=== PATIENT | female | born 1990 | race Caucasian/White ===

== ENCOUNTER 2021-01-04 16:25 | Emergency (ER) | payer OTHER, SELFPAY ==
[2021-01-04 16:26] VITALS: BP 95/67; PULSE 91; RESP 18; TEMP 36.7; O2SAT 97; BMI 22.7
[2021-01-04 18:14] VITALS: O2SAT 100
--- NOTE | 2021-01-04 18:16 | RAD_ITS ---
EXAM: XR CHEST, 1 VIEW CLINICAL INDICATION: covid TECHNIQUE: Frontal view of the chest. This report was created using [employer] report generation technology. COMPARISON: None. FINDINGS: LUNGS AND PLEURAL SPACES: Unremarkable. No consolidation or edema. No pneumothorax. No effusion. HEART: Unremarkable. Cardiac silhouette not enlarged. MEDIASTINUM: Central airways and mediastinal contour are unremarkable. BONES/JOINTS: Unremarkable. SOFT TISSUES: Unremarkable. RAD/Chest 1 View (Portable) IMPRESSION: No radiographic evidence of acute cardiopulmonary disease. Electronically Signed: Mirza Montes De Oca MD at 19:04 EDT , Service support ,
--- NOTE | 2021-01-04 18:17 | EDS_ITS ---
HPI History of Present Illness Chief Complaint: Shortness of Breath Informant: patient and spouse/S.O. Onset/Context/Timing Onset: Days Context: gradual Timing: Intermittent Current Severity: Mild Maximum Severity: Mild Worsened by: Coughing Relieved by: Rest Associated Symptoms cough, rhinorrhea and fever; Negative for clear sputum, white sputum, yellow sputum or green sputum Chest Pain: Positive for None Narrative Narrative: 30-year-old female no significant past medical or surgical history. She has chronically low blood pressure according to her significant other. Patient was diagnosed with Covid and has had symptoms for about 10 days. She denies vomiting or diarrhea. She has had intermittent fevers. Nonproductive cough and mild shortness of breath. No hemoptysis. No history of DVT or PE. No leg pain or swelling. She currently is on antibiotics amoxicillin for a sinus infection. PE Risk Factors: Negative for Cancer, OCP + Smoking + > 35, Prior DVT or PE, Recent immobilization, Recent surgery and Recent travel Prior similar symptoms: No Recent Illness/Hospitalization: No PFSH PFSH Medical History Hypotension Home Medications dexamethasone [Decadron] 6 mg PO DAILY 7 Days #7 tab 01/04/21 [Rx Last Taken Unknown] ondansetron 4 mg PO Q8H PRN #10 tab 01/04/21 [Rx Last Taken Unknown] Allergy/AdvReac Type Severity Reaction Status Date / Time No Known Allergies Allergy Verified 01/04/21 16:29 Social History Smoking Status: Never smoker ROS ROS ED ROS Narrative Fevers, cough and shortness of breath. Review of Systems ROS Unobtainable: Denies due to encephalopathy Constitutional Constitutional ED: Reports fever(s); Denies chills or sweats Eyes Eyes: Denies change in vision ENT ENT ED: Reports rhinorrhea; Denies ear pain or sore throat Cardiovascular Cardiovascular: Denies chest pain or palpitations Respiratory/Chest Respiratory/Chest: Reports cough and dyspnea; Denies sputum Gastrointestinal Gastrointestinal: Reports nausea; Denies abdominal pain, diarrhea or vomiting Genitourinary Genitourinary ED: Denies dysuria or hematuria Musculoskeletal Musculoskeletal: Reports myalgias Integumentary Denies rash Neurologic Neurologic: Denies headache(s) Psychiatric Psychiatric: Denies depression Endocrine Endocrinology: Denies polyuria Hematologic/Lymphatic Hematologic/Lymphatic: Denies easy bruising Allergic/Immunologic Allergic/Immunologic ED: Denies urticaria EXAM Physical Exam Narrative Exam Narrative: 30-year-old female no acute distress. Vital signs are stable afebrile. Her blood pressure is 95/67 which I state is her baseline. Pulse ox 97% on room air no signs hypoxia. HEENT exam unremarkable. Moist mucous membranes. Neck nontender, no lymphadenopathy. No JVD. Lungs clear to auscultation bilaterally. Heart regular rhythm rate about 90 no murmur. Abdomen soft nontender normal bowel sounds no peritoneal signs. Moving all 4 extremities. Calves nontender without edema or cords. Back nontender. N eurologically she is awake alert with no focal motor deficits. Const Vital Signs: 01/04/21 16:26 01/04/21 18:14 Temperature 98.0 F Temperature Source Temporal Pulse Rate 91 Respiratory Rate 18 Blood Pressure 95/67 Blood Pressure Mean 76 Pulse Ox 97 Oxygen Delivery Method Room Air Room Air Positive well nourished and well developed; Negative for obese, cachectic, contractures or unkempt General Appearance ED: well developed and NAD; Negative for unkempt, cachectic, contractures or pallor Nutritional Appearance: Negative for cachectic or obese HEENT Reports moist mucous membranes atraumatic; Negative for trauma or tenderness Eyes PERRL and EOMs intact bilaterally Neck no lymphadenopathy, supple, no meningeal signs and no JVD General: Negative for tenderness Resp normal respiratory effort and clear to auscultation bilaterally Auscultation: Negative for rales, rhonchi or wheezes Cardio regular rate, regular rhythm, S1 normal heart sound, S2 normal heart sound and no murmurs GI non-tender, non-distended and no masses Auscultation: normoactive bowel sounds Palpation: soft; Negative for tender or guarding Back/Spine no CVA tenderness and normal to inspection General Back: Negative for CVA tenderness or tenderness Extremity normal to inspection General Extremety ED: Negative for edema or tenderness General Extremity: Negative for edema Neuro oriented x3 and CN's II-XII intact bilaterally Sensorium / Orientation: alert, oriented to person, oriented to place and oriented to time; Negative for orientation impaired, confused, lethargic or stuporous Speech: speech normal Gait (Neuro): normal gait Motor Exam: strength 5/5 throughout; Negative for general weakness Psych mental status grossly normal Appearance: Negative for unkempt Thought Process: normal thought process Skin no wounds and skin turgor normal General Skin Exam: Negative for jaundice or pallor Lesions: no lesions Rashes: no rashes MDM MDM MDM Narrative Medical decision making narrative: 30-year-old female Covid positive the symptoms for 10 days. Chest x-ray being obtained. Clinically she looks well she is not hypoxic. She is in no distress. Repeat exam patient is doing well at 6:55 PM and will be discharged home on Zofran as needed for nausea and Decadron daily first dose of Decadron given here. Radiography Chest X-Ray - ED: 1 View, Read by ED Physician, Normal, Heart, Lungs, Mediastinum, Bony Structures and No Acute Disease Discharge Plan Triage Chief Complaint: Shortness of Breath ED Provider: Lalo Baker Dx/Rx/DC Orders Clinical Impression: COVID-19, Acute dyspnea Instructions: Human Coronaviruses Prescriptions: New dexamethasone [Decadron] 6 mg tablet 6 mg PO DAILY 7 Days Qty: 7 RF: 0 ondansetron 4 mg tablet,disintegrating 4 mg PO Q8H PRN (Reason: nausea and vomiting) Qty: 10 RF: 0 Primary Care Provider: Shaan Kemp Referrals: Shaan Kemp MD [Primary Care Provider] - 1 Week if not improving Activity Restrictions/Additional Instructions: Plenty of fluids and rest. Tylenol and/or Motrin for fever Decadron once daily for the Covid. Zofran as needed for nausea. Follow-up with your doctor if not improving or return emergency department if feeling a lot worse. Disposition Disposition: Home, Self Care
[2021-01-04 19:22] VITALS: BP 101/52; PULSE 87; RESP 18; O2SAT 96
--- NOTE | 2021-01-04 19:22 | ED.RN ---
THIS NURSE REVIEWED D/C INSTRUCTIONS WITH PT AND . BOTH VERBALIZED UNDERSTANDING OF INSTRUCTIONS. PT DENIES FURTHER NEEDS OR QUESTIONS AT THIS TIME
== END 2021-01-04 19:23 | disposition home or self-care (01) ==
PROVIDERS: Emergency Provider Emergency Medicine; PCP Family Medicine
DX: U07.1 COVID-19 (principal); I95.9 Hypotension, unspecified
CPT/HCPCS: 71045; 99282

== ENCOUNTER → 2021-01-14 15:32 | Outpatient (CLI) | payer OTHER, SELFPAY ==
[2021-01-14 18:05] LABS: Hematocrit 40.8 % (37-47); Hemoglobin 13.3 g/dL (12.0-15.0); Mean Corp Hgb Conc 32.6 g/dL (32-36); Mean Corpuscular Hgb 31.4 pg (27.0-32.0); Mean Corpuscular Volume 96.5 fL (81-99); Mean Platelet Vol. 9.8 fl (6.2-12.0); Platelet Count 446 K/mm3 (150-450); RBC Distribution Width CV 11.5 % (11.6-14.6); RBC Distribution Width SD 40.6 fl (35.1-43.9); Red Blood Count 4.23 M/mm3 (4.2-5.4); White Blood Count 8.6 K/mm3 (4.4-11.0)
[2021-01-14 18:23] LABS: Anion Gap 7 (5-15); BUN 14 mg/dL (7-18); BUN/Creat Ratio 19.5 RATIO (10-20); Calcium,Total 8.8 mg/dL (8.5-10.1); Chloride 100 mmol/L (98-107); Creatinine, Serum 0.72 mg/dL (0.55-1.02); EST Glomerular Filtration Rate 100 mL/min (>60); Est Glom Filt Rate - Afr Amer 121 mL/min (>60); Ferritin 84 ng/mL (8-252); Glucose 92 mg/dL (74-106); Iron 119 ug/dL (50-170); Magnesium 2.3 mg/dL (1.6-2.6); Potassium 3.6 mmol/L (3.5-5.1); Sodium Level 137 mmol/L (136-145); Thyroid Stim Hormone (TSH) 3.18 uIU/mL (0.358-3.74)
[2021-01-14 18:28] LABS: Vitamin B12 261 pg/mL (211-911); Vitamin D,25 Hydroxy 34.5 ng/mL
[2021-01-17 23:17] LABS: ANTINUCLEAR ANTIBODIES DIRECT Negative (Negative)
== END ==
PROVIDERS: PCP Family Medicine; Referring Provider Family Medicine; Visit Provider Family Medicine
DX: G25.2 Other specified forms of tremor (principal); D64.9 Anemia, unspecified
CPT/HCPCS: 36415; 80048; 82306; 82607; 82728; 83540; 83735; 84403; 84443; 85027; 86038; 86769

== ENCOUNTER 2021-04-14 08:43 | Outpatient (CLI) | payer OTHER, SELFPAY ==
[2021-04-14 10:35] LABS: Vitamin B12 784 pg/mL (211-911); Vitamin D,25 Hydroxy 26.6 ng/mL
== END 2021-04-14 23:59 | disposition short-term general hospital (02) ==
LOC: MFPLAB 08:44
PROVIDERS: PCP Family Medicine; Referring Provider Family Medicine; Visit Provider Family Medicine
DX: E55.9 Vitamin D deficiency, unspecified (principal); E53.8 Deficiency of other specified B group vitamins
CPT/HCPCS: 36415; 82306; 82607

== ENCOUNTER 2021-06-03 10:45 | Outpatient (CLI) | payer SELFPAY ==
[2021-06-04 17:26] LABS: V-Zoster IgG (Immunity) 280 index (Immune >165)
== END 2021-06-03 23:59 | disposition home or self-care (01) ==
PROVIDERS: PCP Family Medicine; Referring Provider Family Medicine; Visit Provider Family Medicine
DX: Z78.9 Other specified health status (principal)
CPT/HCPCS: 36415; 86787

== ENCOUNTER → 2021-12-20 | Outpatient (CLI) | payer SELFPAY ==
[2021-12-20 15:33] LABS: Absolute Lymphocyte Count 1.48 X10^3/uL (0.83-4.51); Absolute Neutrophil Count 5.3 X10^3/uL (2.0-7.7); Basophil# 0.03 X10^3/uL; Basophil% 0.4 % (0-1); Eosinophil# 0.05 X10^3/uL; Eosinophils% 0.7 % (0-5); Hematocrit 36.4 % (37-47); Hemoglobin 12.6 g/dL (12.0-15.0); Lymphocyte # 1.48 X10^3/ul (0.83-4.51); Lymphocyte % 19.8 % (19-41); Mean Corp Hgb Conc 34.6 g/dL (32-36); Mean Corpuscular Volume 95.3 fL (81-99); Mean Platelet Vol. 9.8 fl (6.2-12.0); Monocyte# 0.55 X10^3/uL; Monocyte% 7.4 % (0-10); NRBC Flagged by Analyzer 0 % (0-5); Neutrophil # 5.32 X10^3/uL (2.7-7.7); Neutrophil % 71.3 % (47-70); Platelet Count 294 K/mm3 (150-450); RBC Distribution Width CV 11.9 % (11.6-14.6); RBC Distribution Width SD 41.1 fl (35.1-43.9); Red Blood Count 3.82 M/mm3 (4.2-5.4); White Blood Count 7.5 K/mm3 (4.4-11.0)
[2021-12-20 17:24] LABS: Amphetamine Urine VISTA NEGATIVE (<1000 ng/mL); Barbiturate Urine VISTA NEGATIVE (< 200 ng/mL); Benzodiazepine Urine VISTA NEGATIVE (< 200 ng/mL); Cocaine Urine VISTA NEGATIVE (< 300 ng/mL); Ecstacy Urine VISTA NEGATIVE (< 500 ng/mL); Methadone Urine VISTA NEGATIVE (< 300 ng/mL); PCP Urine VISTA NEGATIVE (< 25 ng/mL); THC Urine VISTA NEGATIVE (< 50 ng/mL); Vista UDS pH Range 7
[2021-12-21 09:47] LABS: HIV - WCH Non-Reactive (Nonreactive); Hepatitis B Surface Antigen Non-Reactive (Nonreactive); Hepatitis C Antibody Non-Reactive (Nonreactive); Rubella IgG Reactive (Nonreactive); Syphilis Antibodies Non-reactive
[2021-12-22 15:01] LABS: V-Zoster Virus Acute IgM < 0.91 index (0.00-0.90)
[2021-12-23 04:07] LABS: Chlamydia By Nucleic Acid AMP Negative (Negative)
[2021-12-23 13:49] LABS: Gonococcus By Nucleic Acid AMP Negative (Negative)
[2021-12-28 16:20] LABS: HPV APTIMA, High Risk Negative (Negative)
== END | disposition home or self-care (01) ==
PROVIDERS: PCP Family Medicine; Referring Provider Obstetrics & Gynecology; Visit Provider Obstetrics & Gynecology
DX: Z34.91 Encounter for supervision of normal pregnancy, unspecified, first trimester (principal); Z12.4 Encounter for screening for malignant neoplasm of cervix
CPT/HCPCS: 36415; 80307; 85025; 86703; 86762; 86780; 86787; 86803; 86850; 86900; 86901; 87086; 87088; 87340; 87491; 87591; 87624; 88175; G0145

== ENCOUNTER 2022-02-28 13:14 | Outpatient (CLI) | payer SELFPAY ==
--- NOTE | 2022-02-28 13:22 | US_ITS ---
EXAM: US SECOND OR THIRD TRIMESTER , TRANSABDOMINAL CLINICAL INDICATION: anatomy TECHNIQUE: Transabdominal obstetrical ultrasound of the maternal pelvis and a second or third trimester with image documentation. This report was created using [employer] report generation technology. COMPARISON: None. FINDINGS: FETUS: Single live fetus in variable lie and presentation with cardiac rate of 144 bpm. HEART RATE: PRESENTATION: Variable lie and presentation. PLACENTA: Anterior placenta. No placenta previa. No abruption. AMNIOTIC FLUID: Amniotic fluid index is normal. ANATOMY: spine not well seen due to positioning. Normal intracranial anatomy identified. Normal 4 chambered heart. diaphragm, stomach, abdominal wall, cord insertion, three-vessel cord, kidneys and bladder are normal. BIOMETRICS GESTATIONAL AGE: Composite menstrual age by measurements is 20 weeks 1 day. Gestational age by clinical dating is 19 weeks 4 days. RYLEE: Clinical RYLEE October 14, 2021. EFW: Estimated weight is 349 g. BPD: Biparietal diameter is 4.7 cm. HC: Head circumference is 17.4 cm. AC: Abdominal circumference is 15.6 cm. FL: Femur length is 3.2 cm. MATERNAL: UTERUS: Normal. No myometrial mass. CERVIX: Cervix is closed measuring 5 cm in length. ADNEXA: Normal. No adnexal masses. FREE FLUID: None. IMPRESSION: Single live 19 week 4 day intrauterine gestation. No anatomical abnormalities. Electronically Signed: Savage Lambert MD at 16:47 EST , EXAM: US , TRANSVAGINAL CLINICAL INDICATION: anatomy TECHNIQUE: Real-time transvaginal obstetrical ultrasound of the maternal pelvis and a first trimester with image documentation. Transvaginal imaging was used for better evaluation of the fetus and adnexa. This report was created using [employer] report generation technology. COMPARISON: None. FINDINGS: Endovaginal images demonstrate the cervix to be closed measuring 4.8 cm in length. No placenta previa. US/OB Anatomy Scan IMPRESSION: Normal closed cervix. Electronically Signed: Savage Lambert MD at 16:48 EST ,
== END 2022-02-28 23:59 | disposition home or self-care (01) ==
PROVIDERS: PCP Family Medicine; Visit Provider Obstetrics & Gynecology
DX: Z34.90 Encounter for supervision of normal pregnancy, unspecified, unspecified trimester (principal)
CPT/HCPCS: 76805; 76817

== ENCOUNTER → 2022-03-31 | Outpatient (CLI) | payer SELFPAY ==
[2022-03-31 14:40] LABS: Glucose Challenge Gest 1H 50g 106 mg/dL (70-140)
[2022-03-31 15:36] LABS: Absolute Lymphocyte Count 1.52 X10^3/uL (0.83-4.51); Absolute Neutrophil Count 4.7 X10^3/uL (2.0-7.7); Basophil# 0.03 X10^3/uL; Basophil% 0.4 % (0-1); Eosinophil# 0.07 X10^3/uL; Hematocrit 34.6 % (37-47); Lymphocyte # 1.52 X10^3/ul (0.83-4.51); Lymphocyte % 21.8 % (19-41); Mean Corp Hgb Conc 34.7 g/dL (32-36); Mean Corpuscular Hgb 33.4 pg (27.0-32.0); Mean Corpuscular Volume 96.4 fL (81-99); Mean Platelet Vol. 10.1 fl (6.2-12.0); Monocyte# 0.58 X10^3/uL; Monocyte% 8.3 % (0-10); NRBC Flagged by Analyzer 0 % (0-5); Neutrophil # 4.73 X10^3/uL (2.7-7.7); Neutrophil % 67.9 % (47-70); Platelet Count 280 K/mm3 (150-450); RBC Distribution Width CV 12.2 % (11.6-14.6); RBC Distribution Width SD 42.6 fl (35.1-43.9); Red Blood Count 3.59 M/mm3 (4.2-5.4)
[2022-03-31 16:11] LABS: HIV - WCH Non-Reactive (Nonreactive); Syphilis Antibodies Non-reactive
== END | disposition home or self-care (01) ==
PROVIDERS: PCP Family Medicine; Referring Provider Registered Nurse; Visit Provider Registered Nurse
DX: Z34.90 Encounter for supervision of normal pregnancy, unspecified, unspecified trimester (principal); Z80.0 Family history of malignant neoplasm of digestive organs
CPT/HCPCS: 36415; 82950; 85025; 86703; 86780

== ENCOUNTER → 2022-06-02 | Outpatient (CLI) | payer SELFPAY ==
--- NOTE | 2022-06-02 09:57 | US_ITS ---
STUDY: ULTRASOUND BREAST - RIGHT REASON FOR EXAM: Female, 31 years old. Palpable lump in the right breast. The patient is 33 weeks . TECHNIQUE: Axial and longitudinal images of the RIGHT breast were performed with a high resolution ultrasound transducer. # OF IMAGES: 25 COMPARISON: None. FINDINGS: RIGHT Breast: The palpable lump corresponds to a 6 mm x 7 mm x 6 mm cyst at the 10 o''clock position of the breast at 3 cm from the nipple. Incidental note is made of dilated retroareolar ducts. US/Breast Limited Unilateral IMPRESSION: 6 mm x 7 mm x 6 mm cyst at the 10 o''clock position of the breast at 3 cm from the nipple. Dilated retroareolar ducts. ASSESSMENT CATEGORY: BIRADS Category 2: Benign. A letter regarding these results will be sent to the patient by the facility within 30 days. Electronically Signed: Easton Fisher MD at 10:39 EST ,
== END | disposition home or self-care (01) ==
LOC: OPBI 09:51
PROVIDERS: PCP Family Medicine; Visit Provider Obstetrics & Gynecology
DX: N63.10 Unspecified lump in the right breast, unspecified quadrant (principal)
CPT/HCPCS: 76642

== ENCOUNTER → 2022-06-24 | Outpatient (CLI) | payer SELFPAY | END | disposition home or self-care (01) | PROVIDERS: PCP Family Medicine; Visit Provider Obstetrics & Gynecology | DX: Z34.90 Encounter for supervision of normal pregnancy, unspecified, unspecified trimester (principal) | CPT/HCPCS: 87081 ==

== ENCOUNTER 2022-07-09 15:25 | Outpatient (CLI) | payer SELFPAY ==
[2022-07-09 15:35] VITALS: BMI 29.2
[2022-07-09 15:51] VITALS: BP 111/67; PULSE 67
[2022-07-09 15:52] VITALS: TEMP 36.8; O2SAT 98
[2022-07-09 15:53] VITALS: PULSE 75; O2SAT 98
[2022-07-09 16:15] LABS: ROM Internal Control Test YES-OK TO RESULT pt. (Internal QC); ROM Patient Test Negative (Negative)
--- NOTE | 2022-07-09 16:44 | OB.TRI.PN_ITS ---
Progress Notes Date of Service: 07/09/22 Progress Note: Patient presents for triage evaluation secondary to possible SROM FHT: 125 Moderate variability reactive no decelerations category I tracing [place]: irregular Contractions Assessment and plan: Reactive NST, reassuring maternal and status patient discharged to home to follow-up in the office at next appointment. See problem list details for additional plan information. Laboratory Studies: Laboratory Tests 07/09/22 Range/Units 15:45 Vag Amniotic Fld Detect Negative (Negative) Charges/Coding Multi Select Codes Urinary/Genital Urinary/Genital CPT Codes: 34835-56 non-stress test Interp Assessment & Plan (1) Supervision of normal : COMMENT: PRR , RYLEE 07/21/22, boy Spouse Jimy (2) : QUALIFIERS: Weeks of gestation: 37 weeks Qualified Code(s): Z3A.37 - 37 weeks gestation of COMMENT: GBS neg, declines genetic and carrier testing, 03/01 nl anatomy PLAN: follow up at next appointment (3) Family history of malignant neoplasm of colon in relative diagnosed when younger than 50 years of age: COMMENT: GI consult for early screening
== END 2022-07-09 16:35 | disposition home or self-care (01) ==
LOC: WPOUT 15:34 → WP 15:35
PROVIDERS: PCP Family Medicine; Referring Provider Obstetrics & Gynecology; Visit Provider Obstetrics & Gynecology
DX: Z34.93 Encounter for supervision of normal pregnancy, unspecified, third trimester (principal); Z3A.37 37 weeks gestation of pregnancy
CPT/HCPCS: 59025; 59050; 84112; 99221; G0378

== ENCOUNTER 2022-07-10 | Outpatient (CLI) | payer SELFPAY ==
[2022-07-10 00:17] VITALS: BMI 29.5
[2022-07-10 00:34] VITALS: BP 109/65; PULSE 67; O2SAT 99
[2022-07-10 00:35] VITALS: TEMP 37.4
[2022-07-10 01:25] LABS: ROM Internal Control Test YES-OK TO RESULT pt. (Internal QC); ROM Patient Test Negative (Negative)
--- NOTE | 2022-07-10 08:43 | OB.TRI.PN_ITS ---
Progress Notes Date of Service: 07/10/22 Progress Note: Patient presents for triage evaluation secondary to possible SROM FHT: 125 Moderate variability reactive no decelerations category I tracing [place]: irregular Contractions Assessment and plan: Reactive NST, reassuring maternal and status patient discharged to home to follow-up in office. See problem list details for additional plan information. Laboratory Studies: Laboratory Tests 07/10/22 Range/Units 00:46 Vag Amniotic Fld Detect Negative (Negative) Charges/Coding Multi Select Codes Urinary/Genital Urinary/Genital CPT Codes: 27594-08 non-stress test Interp Assessment & Plan (1) Premature rupture of membranes: COMMENT: rule out 4/2- Rom + was neg PLAN: follow up in office
== END 2022-07-10 01:57 | disposition home or self-care (01) ==
LOC: WPOUT 00:09 → WP 00:10
PROVIDERS: PCP Family Medicine; Visit Provider Advanced Practice Midwife
DX: O42.90 Premature rupture of membranes, unspecified as to length of time between rupture and onset of labor, unspecified weeks of gestation (principal); Z3A.00 Weeks of gestation of pregnancy not specified
CPT/HCPCS: 59025; 59050; 84112; 99221; G0378

== ENCOUNTER 2022-07-22 03:30 | Inpatient (IN) | payer SELFPAY ==
[2022-07-22] VITALS (42 sets, daily range): BP systolic 86–161; BP diastolic 42–71; PULSE 61–90; RESP 14; TEMP 36.6–37.2; O2SAT 98–100; BMI 28.2
[2022-07-22] MEDS: Lactated Ringers 1,000 ML 50 ML IV (03:50)
[2022-07-22 04:03] LABS: Absolute Lymphocyte Count 2.29 X10^3/uL (0.83-4.51); Absolute Neutrophil Count 8.2 X10^3/uL (2.0-7.7); Basophil# 0.04 X10^3/uL; Basophil% 0.3 % (0-1); Eosinophil# 0.13 X10^3/uL; Eosinophils% 1.1 % (0-5); Hemoglobin 13.4 g/dL (12.0-15.0); Lymphocyte # 2.29 X10^3/ul (0.83-4.51); Lymphocyte % 19.2 % (19-41); Mean Corp Hgb Conc 33.5 g/dL (32-36); Mean Corpuscular Hgb 32.1 pg (27.0-32.0); Mean Corpuscular Volume 95.9 fL (81-99); Mean Platelet Vol. 12.4 fl (6.2-12.0); Monocyte# 1.15 X10^3/uL; Monocyte% 9.6 % (0-10); NRBC Flagged by Analyzer 0 % (0-5); Neutrophil # 8.24 X10^3/uL (2.7-7.7); Platelet Count 240 K/mm3 (150-450); RBC Distribution Width CV 12.6 % (11.6-14.6); RBC Distribution Width SD 43.9 fl (35.1-43.9); Red Blood Count 4.17 M/mm3 (4.2-5.4); White Blood Count 11.9 K/mm3 (4.4-11.0)
[2022-07-22] MEDS: fentaNYL 100 MCG/2 ML Ampul IV ×2 (05:01→07:24)
[2022-07-22] MEDS: Ondansetron 4 MG/2 ML Vial IV ×2 (05:01→09:30)
[2022-07-22] MEDS: 0.9% Saline Lock 10 ML Syringe IV ×2 (05:03→05:08)
[2022-07-22 05:36] LABS: Syphilis Antibodies Non-reactive
--- NOTE | 2022-07-22 07:18 | HP.PCM.OB_ITS ---
HPI - General General Date of Admission: 07/22/22 HPI Narrative CONCHA GREWAL, is a 31 F who presents IAL regular ctx 4 cm intact membranes, ctx since 10 pm last night. no vb lof admits good fm Maternal Data Information RYLEE Calculator Estimated Delivery Date Method Current WG Current Estimate 07/21/22 LMP (Certain) 40w 1d Other Estimates 07/22/22 Ultrasound #1 40w 0d PFSH PFSH Medical History Family hx of colon cancer Hypotension Home Medications multivit-min no.71-iron fum 28 mg-folate no.1 1 mg-dha 300 mg capsule (PNV- Costilla) 1 cap PO DAILY 12/15/21 [History Last Taken 07/20/22] Allergy/AdvReac Type Severity Reaction Status Date / Time house dust Allergy Mild Nasal Verified 07/15/22 09:37 congestion Family History Brother Colon cancer, Onset Age: 35 Social History adopted: No household members: spouse housing: house current occupational status: unemployed pets and animals: No history of recent travel: [place] ([place] out of state: Yes out of country: No sexually active: Yes Smoking Status: Never smoker alcohol intake: never substance use type: does not use well-balanced diet: daily or most days caffeine: No eating out: rarely or never during the past year weight has: remained stable what type of physical activity do you participate in: none brandyn/gnosticist: Religion seatbelt use: always do you feel safe at home: Yes 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 History 1 Elective abortions Hx Para 0 Spontaneous abortions Hx # Term Pregnancies Ectopic pregnancies Hx # Pregnancies Multiple births # of living children Visit Details Expected Delivery Route/Plan Labor Preferences- CB/BF classes: enc labor support person: Jimy labor intervention preferences: limted interventions pain management options preferred: [] cut cord/dad catch: [] : plans PP control planned: [] discussed possible routes of delivery and associated risks: [] special requests: [] Plans Covid status: discussed Flu vaccine: discussed Tdap vaccine: thinking about it Rhogam: na LARC form signed: done movement and labor precautions reviewed. Problem list reviewed and updated with the most current plan of care details and appropriate orders placed. Relevant counseling for the gestational age provided. Continue routine care and follow up unless otherwise noted in visit notes/problem list details OB Flowsheet Initial Weight: Not Recorded Date -?-?-?-?-?-?-?-?-?-?-?-?- EGA Weight BP Urine Prot -?-?-?-?-?-?-?-?-?-?-?-?- Glucose FHR FuHt Pres Dilation -?-?-?-?-?-?-?-?-?-?-?-?- Effaced St Visit Note 12/20/21 -?-?-?-?-?-?-?-?-?-?-?-?- 9w 4d 151 lb 92/58 -?-?-?-?-?-?-?-?-?-?-?-?- 170 -?-?-?-?-?-?-?-?-?-?-?-?- SM- CRL cons wit h LMP SM- CRL 2.7cm cons with LMP 01/17/22 -?-?-?-?-?-?-?-?-?-?-?-?- 13w 4d 152 lb 98/54 Negative -?-?-?-?-?-?-?-?--?-?-?-?- Negative 165 -?-?-?-?-?-?-?-?-?-?-?-?- MH-No VB. Very n auseous but keeping some fluids down. Rx zofran. 02/17/22 -?-?-?-?-?-?-?-?-?-?-?-?- 18w 0d 158 lb 2 oz 103/69 Nega tive -?-?-?-?-?-?-?-?-?-?-?-?- Negative 164 -?-?-?-?-?-?-?-?-?-?-?-?- JV- no lof, vagi nal bleeding, or cramping. tonsil hospital ultrasound scheduled. pt will decide if wants to do the HIV test now (self pay) rather than waiting for delivery due to recent problems with false positives for the rapid tests. 03/16/22 -?-?-?-?-?-?-?-?-?-?-?-?- 21w 6d 159 lb 8 oz 105/64 Nega tive -?-?-?-?-?-?-?-?-?-?-?-?- Negative 150 -?-?-?-?-?-?-?-?-?-?-?-?- LC- no vb/lof/ct x. occ fm. planning on going out of country to visit family. precautions provided. to complete 28 week labs at 24. 03/31/22 -?-?-?-?-?-?-?-?-?-?-?-?- 24w 0d 162 lb 2 oz 101/61 Nega tive -?-?-?-?-?-?-?-?-?-?-?-?- Negative 160 24 -?-?-?-?-?-?-?-?-?-?-?-?- LC- no vb/lof/ct x. traveling on monday to [place], precautions given. 05/13/22 -?-?-?-?-?-?-?-?-?-?-?-?- 30w 1d 172 lb 6 oz 109/60 Nega tive -?-?-?-?-?-?-?-?-?-?-?-?- Negative 150 31 -?--?-?-?-?-?-?-?-?-?-?-?- SM- no vb lof go od fm no reuglar ctx 05/26/22 -?-?-?-?-?-?-?-?-?-?-?-?- 32w 0d 174 lb 8 oz 110/69 Nega tive -?-?-?-?-?-?-?-?-?-?-?-?- Negative 149 32 -?-?-?-?-?-?-?-?-?-?-?-?- JV- pt complains of left breast pain and also mentions that she has a mass on her right breast. on exam there is a large 5 cm area that is solid appearing and tender. ordering ultrasound of both breasts to be done [place]. SHe will bring records from her last scan that was done out of the country to compare 06/09/22 -?-?-?-?-?-?-?-?-?-?-?-?- 34w 0d 176 lb 6 oz 105/65 Nega tive -?-?-?-?-?-?-?-?-?-?-?-?- Negative 140 34 -?-?-?-?-?-?-?-?-?-?-?-?- SM- no vb lof go od fm no regular ctx 06/24/22 -?-?-?-?-?-?-?-?-?-?-?-?- 36w 1d 179 lb 6 oz 116/74 Nega tive -?-?-?-?-?-?-?-?-?-?-?-?- Negative 135 35 Cephalic -?-?-?-?-?-?-?-?-?-?-?-?- JV- no lof, vagi nal bleeding, or dec fm. 07/01/22 -?-?-?-?-?-?-?-?-?-?-?-?- 37w 1d 179 lb 2 oz 101/66 Trac e -?-?-?-?-?-?-?-?-?-?-?-?- Negative 145 37 Cephalic 0 -?-?-?-?-?-?-?-?-?-?-?-?- JV- gbs neg, no lof, vaginal bleeding, or dec fm. vtx on bedside scan. 07/07/22 -?-?-?-?-?-?-?-?-?-?-?-?- 38w 0d 181 lb 2 oz 118/68 Nega tive -?-?-?-?-?-?-?-?-?-?-?-?- Negative 135 38 Cephalic -?-?-?-?-?-?-?-?-?-?-?-?- 0 kw-no lo f/vb. some sandra red contractions noted. +fm. 07/15/22 -?-?-?-?-?-?-?-?-?-?-?-?- 39w 1d 180 lb 2 oz 102/64 Nega tive -?-?-?-?-?-?-?-?-?--?-?-?- Negative 140 39 Cephalic 1 .5 -?-?-?-?-?-?-?-?-?-?-?-?- 30 -2 SM- no vb lof good fm no reuglar ctx 07/22/22 -?-?-?-?-?-?-?-?-?-?-?-?- 40w 1d 177 lb 14.609 oz 114 /71 107/59 -?-?-?-?-?-?-?-?-?-?-?-?- -?-?-?-?-?-?-?-?-?-?-?-?- NST FHR Rate Baby A Baseline: 140 Variability:: Moderate Accelerations:: 15 x 15 Decelerations:: None NST Reactive:: Yes FHR Category:: Category I Uterine Activity:: q3-5 ROS Constitutional Constitutional: Reports systems reviewed and no addt'l complaints, except as documented ENT HEENT: Reports systems reviewed and no addt'l complaints, except as documented Cardiovascular Cardiovascular: Reports systems reviewed and no addt'l complaints, except as do cumented Respiratory/Chest Respiratory/Chest: Reports systems reviewed and no addt'l complaints, except as documented Gastrointestinal Gastrointestinal: Reports systems reviewed and no addt'l complaints, except as documented and nausea; Denies abdominal pain Genitourinary Genitourinary: Reports systems reviewed and no addt'l complaints, except as documented, contractions Details: present and frequency (regular ) and movement Details: present Musculoskeletal Musculoskeletal: Reports systems reviewed and no addt'l complaints, except as documented Integumentary Integumentary: Reports as per HPI Neurologic Neurologic: Reports systems reviewed and no addt'l complaints, except as documented Endocrine Endocrinology: Reports systems reviewed and no addt'l complaints, except as documented Vital Signs Vital Signs Vital Signs: 07/22/22 00:58 07/22/22 00:58 07/22/22 00:59 Temperature Temperature Source Pulse Rate 67 72 Blood Pressure 114/71 BP Systolic 114 BP Diastolic 71 Pulse Ox 07/22/22 00:59 07/22/22 01:00 07/22/22 01:00 Temperature 98.2 F Temperature Source Temporal Pulse Rate Blood Pressure BP Systolic BP Diastolic Pulse Ox 98 07/22/22 04:31 07/22/22 04:31 07/22/22 05:54 Temperature Temperature Source Temporal Pulse Rate 79 Blood Pressure BP Systolic BP Diastolic Pulse Ox 98 07/22/22 05:54 07/22/22 05:54 07/22/22 05:54 Temperature Temperature Source Pulse Rate 64 Blood Pressure 107/59 L BP Systolic 107 BP Diastolic 59 Pulse Ox 99 07/22/22 05:54 07/22/22 06:58 07/22/22 06:58 Temperature 98.0 F Temperature Source Pulse Rate 64 Blood Pressure BP Systolic BP Diastolic Pulse Ox 100 Weight Weight: 177 lb 14.609 oz Body Mass Index (BMI) 28.2 Physical Exam Const alert, oriented x3 and healthy appearing Constitutional Narrative: uncomfortable with contractions HEENT normocephalic and moist oral mucous membranes Head and Scalp: atraumatic Neck full ROM, no lymphadenopathy, supple and thyroid normal General: trachea midline Thyroid: thyroid normal Lymph Lymphatic: no lymphadenopathy noted Chest inspection of chest normal Resp normal respiratory effort Cardio regular rate GI normal to inspection, nondistended, normoactive bowel sounds, soft to palpation and non-tender Inspection: gravid external exam normal Bimanual Exam - Vag & Uterus: uterus non-tender Manual OB Exam: estimated gestational size appropriate, presentation c ephalic, dilated, effaced and station Extremity normal to inspection General Extremity: Negative for edema Skin no rashes or lesions noted Neuro deep tendon reflexes 2+ bilaterally Motor Exam: strength 5/5 throughout and clonus absent Psych mental status grossly normal Labs Labs Labs: Blood Type A POSITIVE Antibody Screen NEGATIVE Hct 40.0 % (37-47) Hgb 13.4 g/dL (12.0-15.0) Obstetrics US Syphilis Total Ab Non-reactive VZV IgG Antibody 280 index (Immune >165) Rubella IgG Antibody Reactive (Nonreactive) Hep Bs Antigen Non-Reactive (Nonreactive) Chlamydia DNA ([place]) Negative (Negative) Neisseria gonorrhoeae DNA ([place]) Negative (Negative) HIV 1&2 Antibody Non-Reactive (Nonreactive) Glucose 1 Hr 50 gm 106 mg/dL (70-140) Assessment & Plan (1) : QUALIFIERS: Weeks of gestation: 39 weeks Qualified Code(s): Z3A.39 - 39 weeks gestation of COMMENT: GBS neg, declines genetic and carrier testing, 03/01 nl anatomy (2) Supervision of normal : COMMENT: PRR , RYLEE 07/21/22, boy Spouse Jimy (3) Active labor at term: PLAN: Plan Patient presents IAL, plan expectant management for , pitocin/AROM PRN if needed. Pain management: minimal intervention preferred but open to epidural. GBS neg. Management of any complications: none I have reviewed the [facility] and made any clinically relevant updates.
[2022-07-22] MEDS: LACTATED RINGERS 500 ML 999 ML IV ×4 (07:20→16:20)
[2022-07-22] MEDS: fentaNYL-bupivacaine (epidural) 100 ML BAG EPIDURAL ×2 (08:25→13:05)
[2022-07-22] MEDS: Lactated Ringers 1,000 ML 200 ML IV ×2 (11:33→16:21)
[2022-07-22] MEDS: Amnioinfusion- 0.9% NS 1,000 ML IV.SOLN. 1000 ML INTRA-UTER (14:20)
[2022-07-22] MEDS: Oxytocin 15 Units/NS 250ml 15 UNITS/250 ML IV.SOLN 83 UNITS IV (17:20)
[2022-07-22] MEDS: Oxytocin 10 UNITS/ML Vial IM (17:20)
--- NOTE | 2022-07-22 17:47 | OP.PCM_ITS ---
Assessment & Plan (1) Active labor at term: (2) Family history of malignant neoplasm of colon in relative diagnosed when younger than 50 years of age: COMMENT: GI consult for early screening (3) Supervision of normal : COMMENT: PRR , RYLEE 07/21/22, boy Spouse Jimy (4) : QUALIFIERS: Weeks of gestation: 39 weeks Qualified Code(s): Z3A.39 - 39 weeks gestation of COMMENT: GBS neg, declines genetic and carrier testing, 03/01 nl anatomy Maternal Data Information RYLEE Calculator Estimated Delivery Date Method Current WG Current Estimate 07/21/22 LMP (Certain) 40w 1d Other Estimates 07/22/22 Ultrasound #1 40w 0d Final RYLEE: 07/21/22 Final RYLEE Source: LMP Doctor Who Attended Delivery: Marilia Elder Vaginal Delivery Maternal Presentation Maternal Presentation: Active Labor Type of Induction: Amniotomy Operative Information Date of Procedure: 07/22/22 Pre-Operative Diagnosis: 31 y/o @ 40 weeks 1 day, active labor, meconium stained fluid Post-Operative Diagnosis: 31 y/o @ 40 weeks 1 day, active labor, meconium stained fluid Surgery / Procedure Performed: Spontaneous Vaginal Delivery Type of Anesthesia: Epidural Drain: Power to straight drain Estimated Blood Loss: 200cc Findings Description of Procedure: Patient began pushing and delivered the head in the MIGUELANGEL presentation. The head was delivered atraumatically. The anterior and posterior shoulders delivered without complication followed by the rest of the and the infant was placed on the maternal abdomen. Delayed cord clamping was employed for approximately 60 seconds. Cord was clamped and cut and gentle traction was applied to the cord and the placenta delivered spontaneously immediately following it was noted to be intact with three-vessel cord. The perineum and vagina were inspected and noted to have a 1st degree laceration, repaired with a 3-0 vicryl suture. EBL was 200 cc. Patient and tolerated delivery well. baby Shabbir Maldonado Presentation: Vertex Amniotic Membrane Rupture Type: Spontaneous Amniotic Fluid Description: Moderate meconium Placental Delivery Description: Spontaneous Placenta Disposition: [facility] Cord Vessel Description: 3 Vessels Cord Entanglement: None A Gender: Male (1 minute): 7 (5 minute): 9 Delayed Cord Clamping: Yes Post Vaginal Delivery Medications Given After Delivery: IV Pitocin and IM Pitocin Episiotomy Description: None Laceration: 1st degree Complication Complications: None Multi Select Codes Urinary/Genital Urinary/Genital CPT Codes: 43574 Vaginal Delivery [facility]
--- NOTE | 2022-07-22 17:50 | DCINST_ITS ---
Discharge Instructions Diet Discharge Diet: No restrictions Activity Discharge Activity: Return to Normal Activity, May Not Drive (while taking narcotic pain medications.) and May Shower May resume sexual activity in: 4-6 weeks Dressing / Incision Call your doctor if your incision/area has: Continuous Slow Oozing, Sudden Increased Bleeding, Increased Pain/ Swelling, Increased Redness and Foul Smelling Discharge Follow Up Care Please Follow Up With: Nina Gamboa, DO When: Call [phone] to make an appointment with your doctor in 6 weeks. If you had elevated blood pressure or 4th degree laceration, you will need to be seen in 2 weeks. Test Results: Test results from this visit will be discussed in further detail at your follow- up appointment, if applicable. Discharge Plan Admission Admit Date/Time: 07/22/22 03:30 Attending Provider: Nina Gamboa Primary Care Provider: Shaan Kemp Discharge Orders/Prescriptions Prescriptions: No Action PNV-[place] 28-1-300 mg capsule 1 cap PO DAILY Referrals / Follow Up: Shaan Kemp MD [Primary Care Provider] -
[2022-07-22] MEDS: Naproxen 500 MG Tablet PO (23:00)
[2022-07-22] MEDS: Acetaminophen 500 MG Tablet 1000 MG PO (23:00)
[2022-07-23 03:40] VITALS: BP 83/46; PULSE 60; RESP 14; TEMP 36.3
[2022-07-23] MEDS: 0.9% Saline Lock 10 ML Syringe IV (04:20)
[2022-07-23] MEDS: LACTATED RINGERS 500 ML 999 ML IV (04:20)
[2022-07-23 05:30] VITALS: BP 90/48; PULSE 66
[2022-07-23 08:25] VITALS: BP 90/45; PULSE 55; RESP 15; TEMP 36.3; O2SAT 97
--- NOTE | 2022-07-23 10:00 | PCM.PN.OB ---
Subjective Subjective Patient doing well without complaints. Tolerating PO. Ambulating and voiding without difficulty. Feeding well. Denies chest pain, shortness of breath, calf pain/swelling, fevers, chills, lightheadedness. Objective Data Objective Data Vital Signs: Vital Signs Temp Pulse Resp BP Pulse Ox O2 Del Method 97.4 F L 55 L 15 90/45 L 97 Room Air 07/23/22 08:25 07/23/22 08:25 07/23/22 08:25 07/23/22 08:25 07/23/22 08:25 07/23/22 08:25 Oxygen Delivery Method Room Air Weight: 177 lb 14.609 oz Body Mass Index (BMI) 28.2 Intake & Output: Intake and Output for Last 24 Hours 07/21/22 07/22/22 07/23/22 23:59 23:59 23:59 Intake Total 3911.66 / 3911.66 500 / 500 Output Total 1200 / 1200 Balance 2711.66 / 2711.66 500 / 500 Lab / Micro Data Result Diagrams: 07/22/22 03:55 ROS Constitutional Constitutional: Denies chills, fatigue, fever(s), poor appetite or weakness Eyes Eyes: Denies blurry vision, change in vision, seeing flashes or spots in vision ENT HEENT: Denies dizziness, headache(s), loss taste/smell or sore throat Cardiovascular Cardiovascular: Denies chest pain, dizziness, dyspnea, irregular heart rhythm, palpitations or rapid heart rate Respiratory/Chest Respiratory/Chest: Denies chest tightness, cough, dyspnea or breast pain Gastrointestinal Gastrointestinal: Denies abdominal pain, constipation or vomiting Genitourinary Genitourinary: Denies dysuria or flank pain Musculoskeletal Musculoskeletal: Denies difficulty walking, joint pain, limited range of motion or numbness Neurologic Neurologic: Denies abnormal movements, abnormal speech, dizziness, numbness, seizure-like activity or syncope Psychiatric Psychiatric: Denies anxiety, behavioral changes, change in appetite, confusion, depression or suicidal thoughts Physical Exam Const alert, oriented x3 and no apparent distress General Appearance: cooperative and comfortable Resp normal respiratory effort Cardio regular rate GI normal to inspection, nondistended, normoactive bowel sounds GI Narrative: uterus is firm below umbilicus Palpation: soft Back/Spine no CVA tenderness and thoraco-lumbar ROM normal Extremity normal to inspection, no clubbing, cyanosis or edema, no calf tenderness and no pedal edema Psych mental status grossly normal, thought process normal, cooperative, affect normal, speech normal, activity/motor behavior normal, denies homicidal ideation and denies suicidal ideation Assessment & Plan (1) Active labor at term: (2) Family history of malignant neoplasm of colon in relative diagnosed when younger than 50 years of age: COMMENT: GI consult for early screening (3) Supervision of normal : COMMENT: PRR , RYLEE 07/21/22, boy Spouse Jimy (4) : QUALIFIERS: Weeks of gestation: 39 weeks Qualified Code(s): Z3A.39 - 39 weeks gestation of COMMENT: GBS neg, declines genetic and carrier testing, 03/01 anatomy PLAN: Plan s/p PPD # 1 1. routine post delivery care 2. breast feeding- support given 3. rh positive 4. rubella immune 5. discharge planning for tonight or tomorrow am
[2022-07-23 12:54] VITALS: BP 86/44; PULSE 76; RESP 16; TEMP 36.5; O2SAT 97
--- NOTE | 2022-07-23 13:26 | NURSING ---
1326: Notifed of pts BP of 86/44. No new orders place will continue to monitor pt.
[2022-07-23 15:50] VITALS: BP 96/54; PULSE 79; RESP 15; TEMP 36.5; O2SAT 97
[2022-07-23] MEDS: Senna/Docusate Sodium 1 Tablet PO (16:00)
[2022-07-23 20:03] VITALS: BP 91/49; PULSE 65; RESP 16; TEMP 36.6; O2SAT 95
[2022-07-24 01:41] VITALS: BP 100/45; PULSE 61; RESP 16; TEMP 36.2
[2022-07-24 08:00] VITALS: BP 90/50; PULSE 56; RESP 16; TEMP 36.7; O2SAT 99
--- NOTE | 2022-07-24 09:44 | PCM.DC.SUM ---
Providers Date of Admission: 07/22/22 Primary Care Physician: Dr. Shaan Kemp MD Reason For Visit: VAGINAL DELIVERY Diagnosis Discharge Diagnosis (1) Active labor at term: Status: Acute (2) Family history of malignant neoplasm of colon in relative diagnosed when younger than 50 years of age: Status: Acute Code(s): Z80.0 - Family history of malignant neoplasm of digestive organs (3) Supervision of normal : Status: Acute Code(s): Z34.90 - Encounter for supervision of normal , unspecified, unspecified trimester (4) : Status: Acute Code(s): Z34.90 - Encounter for supervision of normal , unspecified, unspecified trimester Qualifiers: Weeks of gestation: 39 weeks Qualified Code(s): Z3A.39 - 39 weeks gestation of Plan s/p PPD # 1 1. routine post delivery care 2. breast feeding- support given 3. rh positive 4. rubella immune 5. discharge planning for tonight or tomorrow am Medications at Discharge Home Medications multivit-min no.71-iron fum 28 mg-folate no.1 1 mg-dha 300 mg capsule (PNV-[place]) 1 cap PO DAILY 12/15/21 Hospital Course Operations None Procedures - (vaginal delivery ) Summary of Care Provided Minutes Spent on Discharge: 15 Hospital Course: The patient presented to L&D on 07/22/22 in active labor. She progressed to complete and delivered a viable . On post day #1 she was recovering well but felt somewhat tired and was found to have low blood pressures. On post day #2 and throughout the night prior her blood pressures were stable and she remained asymptomatic. She was discharged to home on day #2 in stable condition. Physical Exam Const alert, oriented x3 and no apparent distress General Appearance: cooperative and comfortable Resp normal respiratory effort Cardio regular rate GI normal to inspection, nondistended, normoactive bowel sounds GI Narrative: uterus is firm below umbilicus Palpation: soft Back/Spine no CVA tenderness and thoraco-lumbar ROM normal Extremity normal to inspection, no clubbing, cyanosis or edema, no calf tenderness and no pedal edema Psych mental status grossly normal, thought process normal, cooperative, affect normal, speech normal, activity/motor behavior normal, denies homicidal ideation and denies suicidal ideation Weight / BMI Weight Weight: 177 lb 14.609 oz Body Mass Index (BMI) 28.2 ABG / Lab / Microbiology Data Result Diagrams: 07/22/22 03:55 D/C Instructions Discharge Diet: No restrictions May resume sexual activity in: 4-6 weeks Call your doctor if your incision/area has: Continuous Slow Oozing, Sudden Increased Bleeding, Increased Pain/ Swelling, Increased Redness and Foul Smelling Discharge Please Follow Up With: Nina Gamboa, DO When: Call [phone] to make an appointment with your doctor in 6 weeks. If you had elevated blood pressure or 4th degree laceration, you will need to be seen in 2 weeks. Meaningful Use Info Meaningful Use Diagnoses (Choose all that apply): None applicable Discharge Plan Admission Admit Date/Time: 07/22/22 03:30 Primary Reason for Your Visit: vaginal delivery Attending Provider: Nina Gamboa Primary Care Provider: Shaan Kemp Discharge Orders/Prescriptions Prescriptions: No Action PNV-[place] 28-1-300 mg capsule 1 cap PO DAILY Referrals / Follow Up: Shaan Kemp MD [Primary Care Provider] - Disposition Disposition (needs filled in before D/C Order can be placed): Home, Self Care
[2022-07-24] MEDS: Senna/Docusate Sodium 1 Tablet PO (12:14)
[2022-07-24 13:50] VITALS: BP 90/62; PULSE 73; RESP 16; TEMP 36.6
== END 2022-07-24 16:30 | disposition home or self-care (01) | DRG 807 ==
LOC: WPOUT 03:32 → WP 03:32
PROVIDERS: Obstetrics & Gynecology; Admitting Provider Obstetrics & Gynecology; PCP Family Medicine; Referring Provider Obstetrics & Gynecology; Visit Provider Obstetrics & Gynecology
DX: O70.0 First degree perineal laceration during delivery (principal); Z37.0 Single live birth; O77.0 Labor and delivery complicated by meconium in amniotic fluid; Z80.0 Family history of malignant neoplasm of digestive organs; Z3A.39 39 weeks gestation of pregnancy
CPT/HCPCS: 59025; 59050; 85025; 86780; 86850; 86900; 86901; 99221; J7030; J7120; A4216; G0378; J2405

== ENCOUNTER 2023-07-19 06:18 | Day surgery (SDC) | payer SELFPAY ==
[2023-07-19] VITALS (7 sets, daily range): BP systolic 77–92; BP diastolic 40–58; PULSE 55–74; RESP 16; TEMP 36.1–36.7; O2SAT 100; BMI 23.5
[2023-07-19 06:43] LABS: Internal QC Validated? YES +Cl - CLEAR BKGD; Pregnancy, Urine Negative Negative
[2023-07-19] MEDS: Lactated Ringers 1,000 ML 15 ML IV (06:58)
--- NOTE | 2023-07-19 07:25 | HP.PCM_ITS ---
History and Physical Date of Admission: 07/19/23 Date of Service: 07/05/23 MR#: [id number] Acct: [id number] Name: CONCHA GREWAL Rep #: [id number] : 1990 Provider: Dr. Magaly George MD Age/Sex: 32/F Location: [facility] Status: Signed Intake Vital Signs 06/12/2411:51 Height 5 ft 6 in Weight: 152 lb BMI 24.5 BP 98/63 Blood Pressure Location Rt brachial Position Sitting Respiration 17 Pulse 62 Pulse Source Monitor Temp 97.2 F L Temp Source Temporal Pulse Oximetry (%) 100 Oxygen Delivery Method room air Intake Visit Reasons: MEDICATION FU Chief Complaint: medication f/u [employer] Chair Required: No Is patient in pain?: No Allergies house dust Allergy (Mild, Verified 07/05/23 13:28) Nasal congestion Medications multivit-min no.71-iron fum 28 mg-folate no.1 1 mg-dha 300 mg capsule (PNV- [place]) 1 cap PO DAILY 12/15/21 [History Confirmed 06/12/23] Subjective Details: 32-year-old female presents for follow-up for anal fissure. States the pain is much improved after using the medication. Patient does have her colonoscopy scheduled for July 18 due to family history of colon cancer in her brother diagnosed at age 35. Patient does state that occasionally she feels like she has some fecal urgency that is not related to after eating and just occurs occasionally, but she is able to make it to the restroom Objective Details: NAD, Normal respiratory effort abdomen soft, Coding Level of Care Code Off vis,est,level 3 Diagnoses Anal fissure K60.2 Family hx of colon cancer Z80.0 PFSH Medical History (Updated 06/13/23 @ 07:[address] Magaly George MD) Family hx of colon cancer Hypotension Family History (Updated 06/12/23 @ 12:51 by Irma Curtis) Brother Colon cancer, Onset Age: 35 Stage IVMother Heart diseaseFather CVA (cerebral vascular accident) Social History adopted: No household members: spouse housing: house current occupational status: unemployed pets and animals: No history of recent travel: [place] ([place]) out of state: Yes out of country: No sexually active: Yes Smoking Status: Never smoker alcohol intake: never substance use type: does not use well-balanced diet: daily or most days caffeine: No eating out: rarely or never during the past year weight has: remained stable what type of physical activity do you participate in: none brandyn/sabianism: Religious seatbelt use: always do you feel safe at home: Yes 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 Patient is scheduled for colonoscopy on July 18. Magaly George M.D. Pager: [phone] [facility] [address] [place] [address], [address] [place] [address] Office: [phone] 07/07/23 0831 <Electronically signed by Magaly George MD> Date Magaly George MD
--- NOTE | 2023-07-19 07:30 | COLBX_PTH ---
PATIENT: CONCHA GREWAL LOC: EN U#:[id number] AGE/SX: 32/F ROOM: RE07/19/[address]: Dr. Magaly George MD : 1990 BED: DIS: 07/19/2023 SPEC #: [id number] RECD: 07/19/23 11:25 STATUS: DIANA RENancy #: [id number] BROOKE: 07/19/23 07:[address]: Magaly George DEPT: SURGICAL PATHOLOGY RECD BY: Luanne Smith ENTERED: 07/19/23 12:46 SP TYPE: COLON BX OTHR DR: Dr. Tirso Kemp MD Tissues: COLON BIOPSY Procedures: Surgery Specimen Level IV HEADER OPERATION: Colonoscopy, polypectomy PRE-OP DIAGNOSIS: Anal fissure, Family history of colon cancer TISSUE SUBMITTED: Hepatic flexure polyps x2 MICROSCOPIC DIAGNOSIS Hepatic flexure polyp x2, polypectomy: Fragments of hyperplastic polyp. KAE/mr 07/20/23 MICROSCOPIC DESCRIPTION Slides are reviewed. GROSS DESCRIPTION Received in fixative is one container labeled with the patient's name and designated Hepatic flexure polyps x2. The specimen consists of a driver-pink polyp measuring 1.0 x 0.5 x 0.3cm. Also present in the container are multiple fragments of driver soft tissue in aggregate 1.0 x 0.5 x 0.1cm. The entire specimen is submitted in one cassette. KAE/ 07/19/23 TC:1 CPT: 18922
--- NOTE | 2023-07-19 08:13 | OP.CCLET_ITS ---
07/19/2023 Shaan Kemp [address] [place] [address] Re : Colonoscopy procedure for Arin Estefania Srinivasa Dear Dr. Kemp This procedure was performed on Wednesday, July 19, 2023. My impressions and recommendations are as follows: Impressions : - Hemorrhoids found on perianal exam. - Two 4 to 5 mm polyps at the hepatic flexure, removed with a hot snare. Resected and retrieved. - The examination was otherwise normal. - Non-bleeding internal hemorrhoids. Recommendations : - Repeat colonoscopy in 3 years for surveillance based on pathology results. - Continue present medications. My findings are described in the full procedure note, which is enclosed. If I can be of further assistance, please feel free to contact me at Doctor phone number(s): , Work: . Sincerely, MD Magaly Cuellar MD 07/19/2023 8:12:51 AM This report has been signed electronically.
--- NOTE | 2023-07-19 08:13 | OP.COLON_ITS ---
Patient Name: Arin Bernabe Procedure Date: 07/19/2023 7:10 AM Date of : 1990 Age: 32 Procedure: Colonoscopy Indications: Screening in patient at increased risk: Colorectal cancer in brother before age 60 Providers: Magaly George MD Referring MD: Shaan Kemp Medicines: Monitored Anesthesia Care Patient Profile: This is a 32 year old female. Last Colonoscopy: none. The patient's first colonoscopy is today. Complications: No immediate complications. Procedure: Pre-Anesthesia Assessment: - Prior to the procedure, a History and Physical was performed, and patient medications and allergies were reviewed. The patient's tolerance of previous anesthesia was also reviewed. The risks and benefits of the procedure and the sedation options and risks were discussed with the patient. All questions were answered, and informed consent was obtained. Prior Anticoagulants: The patient has taken no anticoagulant or antiplatelet agents. ASA Grade Assessment: Per anesthesia. After reviewing the risks and benefits, the patient was deemed in satisfactory condition to undergo the procedure. After I obtained informed consent, the scope was passed under direct vision. Throughout the procedure, the patient's blood pressure, pulse, and oxygen saturations were monitored continuously. The Colonoscope was introduced through the anus and advanced to the cecum, identified by appendiceal orifice and ileocecal valve. The colonoscopy was performed without difficulty. The patient tolerated the procedure well. The quality of the bowel preparation was good. Scope In: 7:34:55 AM Scope Withdrawal Time 0 hours 17 minutes 10 seconds Scope Out: 8:00:36 AM Total Procedure Duration Time 0 hours 25 minutes 41 seconds Findings: Hemorrhoids were found on perianal exam. Two sessile polyps were found in the hepatic flexure. The polyps were 4 to 5 mm in size. These polyps were removed with a hot snare. Resection and retrieval were complete. The exam was otherwise without abnormality. Non-bleeding internal hemorrhoids were found. The hemorrhoids were Grade I (internal hemorrhoids that do not prolapse). Impression: - Hemorrhoids found on perianal exam. - Two 4 to 5 mm polyps at the hepatic flexure, removed with a hot snare. Resected and retrieved. - The examination was otherwise normal. - Non-bleeding internal hemorrhoids. Recommendation: - Repeat colonoscopy in 3 years for surveillance based on pathology results. - Continue present medications. Procedure Code(s): --- Professional --- 77830, PT, Colonoscopy, flexible; with removal of tumor(s), polyp(s), or other lesion(s) by snare technique Diagnosis Code(s): --- Professional --- Z80.0, Family history of malignant neoplasm of digestive organs K64.0, First degree hemorrhoids D12.3, Benign neoplasm of transverse colon (hepatic flexure or splenic flexure) CPT copyright 2021 [employer]. All rights reserved. The codes documented in this report are preliminary and upon form designer review may be revised to meet current compliance requirements. MD Magaly Cuellar MD 07/19/2023 8:12:51 AM This report has been signed electronically. Number of Addenda: 0 Note Initiated On: 07/19/2023 7:10 AM
== END 2023-07-19 09:55 | disposition home or self-care (01) ==
LOC: EN 06:25 → AC 06:25
PROVIDERS: Anesthesiology; PCP Family Medicine; Referring Provider Family Medicine; Visit Provider Surgery
PROC: 0DJD8ZZ Inspection of Lower Intestinal Tract, Via Natural or Artificial Opening Endoscopic (ICD-10-PCS; CPT 45378; principal; 2023-07-19 07:25)
DX: D12.3 Benign neoplasm of transverse colon (principal); K64.0 First degree hemorrhoids; K60.2 Anal fissure, unspecified; Z80.0 Family history of malignant neoplasm of digestive organs
CPT/HCPCS: 45385; 81025; 88305; J7120; J2405

== ENCOUNTER → 2024-06-24 | Outpatient (CLI) | payer OTHER, SELFPAY ==
[2024-06-24 17:03] LABS: Absolute Lymphocyte Count 2.08 X10^3/uL (0.83-4.51); Absolute Neutrophil Count 5.8 X10^3/uL (2.0-7.7); Basophil# 0.05 X10^3/uL; Basophil% 0.6 % (0-1); Eosinophils% 1.2 % (0-5); Hematocrit 36.7 % (37-47); Hemoglobin 12.6 g/dL (12.0-15.0); Lymphocyte # 2.08 X10^3/ul (0.83-4.51); Lymphocyte % 24.2 % (19-41); Mean Corp Hgb Conc 34.3 g/dL (32-36); Mean Corpuscular Hgb 31.9 pg (27.0-32.0); Mean Corpuscular Volume 92.9 fL (81-99); Mean Platelet Vol. 9.9 fl (6.2-12.0); Monocyte# 0.54 X10^3/uL; Monocyte% 6.3 % (0-10); NRBC Flagged by Analyzer 0 % (0-5); Neutrophil # 5.79 X10^3/uL (2.7-7.7); Neutrophil % 67.4 % (47-70); Platelet Count 302 K/mm3 (150-450); RBC Distribution Width SD 41.3 fl (35.1-43.9); Red Blood Count 3.95 M/mm3 (4.2-5.4); White Blood Count 8.6 K/mm3 (4.4-11.0)
[2024-06-24 17:39] LABS: Hepatitis B Surface Antigen Nonreactive (Nonreactive); Hepatitis C Antibody Nonreactive (Nonreactive); Rubella IgG REAC (Nonreactive); Syphilis Antibodies Nonreactive (Nonreactive)
[2024-06-24 17:40] LABS: HIV Nonreactive (Nonreactive)
[2024-06-26 21:07] LABS: Chlamydia By Nucleic Acid AMP Negative (Negative); Gonococcus By Nucleic Acid AMP Negative (Negative)
== END | disposition home or self-care (01) ==
PROVIDERS: PCP Family Medicine; Referring Provider Obstetrics & Gynecology; Visit Provider Obstetrics & Gynecology
DX: O09.90 Supervision of high risk pregnancy, unspecified, unspecified trimester (principal); Z3A.00 Weeks of gestation of pregnancy not specified
CPT/HCPCS: 36415; 85025; 86703; 86762; 86780; 86803; 86850; 86900; 86901; 87086; 87340; 87491; 87591

== ENCOUNTER → 2024-11-15 | Outpatient (CLI) | payer OTHER, SELFPAY ==
[2024-11-15 12:20] LABS: Hematocrit 33.8 % (37-47); Hemoglobin 11.5 g/dL (12.0-15.0); Immature Granulocytes Count 0.030 X10^3/uL (0.0-0.0); Mean Corp Hgb Conc 34.0 g/dL (32-36); Mean Corpuscular Volume 95.2 fL (81-99); Mean Platelet Vol. 10.2 fl (6.2-12.0); NRBC Flagged by Analyzer 0 % (0-5); Platelet Count 284 K/mm3 (150-450); RBC Distribution Width CV 11.9 % (11.6-14.6); RBC Distribution Width SD 41.3 fl (35.1-43.9); Red Blood Count 3.55 M/mm3 (4.2-5.4); White Blood Count 6.5 K/mm3 (4.4-11.0)
[2024-11-15 13:15] LABS: Glucose Challenge Gest 1H 50g 83 mg/dL (70-140); HIV Nonreactive (Nonreactive); Syphilis Antibodies Nonreactive (Nonreactive)
== END | disposition home or self-care (01) ==
LOC: BWCLAB 10:45
PROVIDERS: PCP Family Medicine; Visit Provider Obstetrics & Gynecology
DX: O09.92 Supervision of high risk pregnancy, unspecified, second trimester (principal); Z3A.00 Weeks of gestation of pregnancy not specified; Z13.1 Encounter for screening for diabetes mellitus
CPT/HCPCS: 36415; 82950; 85025; 86703; 86780

== ENCOUNTER → 2025-01-10 | Outpatient (CLI) | payer OTHER, SELFPAY | END | disposition home or self-care (01) | LOC: LABSPEC 15:08 | PROVIDERS: PCP Family Medicine; Referring Provider Obstetrics & Gynecology; Visit Provider Obstetrics & Gynecology | DX: O09.93 Supervision of high risk pregnancy, unspecified, third trimester (principal); Z3A.00 Weeks of gestation of pregnancy not specified | CPT/HCPCS: 87077; 87081; 87186 ==

== ENCOUNTER → 2025-01-24 | Outpatient (CLI) | payer OTHER, SELFPAY ==
--- OUTSIDE RECORDS SUMMARY | 2025-01-24 16:12 | XMS RPT_ITS | CCD ---
Author Organization [facility] Care Team Providers Care Investigation Clerk Name Role Phone Dr. Shaan Kemp Primary Care Provider [phone] Dr. Shaan Kemp Referring Provider Dr. Kinza Barahona Attending Provider [phone] Dr. Shaan Kemp Primary Care Provider [phone] Dr. Shaan Kemp Referring Provider Dr. Kinza Barahona Attending Provider [phone] Ludivina APPLICATIONS INSTRUCTOR, YANN-Diego Mata Attending Provider [phone] Dr. Nina Gamboa Attending Provider [phone] TRISTIN Bolanos Attending Provider [phone] Shaan Kemp Primary Care Provider [phone] Dr. Shaan Kemp Referring Provider Dr. Kinza Barahona Attending Provider [phone] Dr. Shaan Kemp Primary Care Provider [phone] Dr. Shaan Kemp Referring Provider TRISTIN Bolanos Attending Provider [phone] Dr. Kinza Barahona Attending Provider [phone] Dr. Nina Gamboa Attending Provider [phone] TRISTIN Le Attending Provider [phone] Dr. Kinza Barahona Referring Provider [phone] Dr. Kinza Barahona Other Provider [phone] Shaan Kemp Primary Care Provider Dr. Shaan Kemp Referring Provider TRISTIN Bolanos Attending Provider [phone] TRISTIN Le Other Provider [phone] Dr. Kinza Barahona Admit Provider Dr. Nina Gamboa Admit Provider Dr. Nina Gamboa Referring Provider [phone] Shiva Kern, Dr. Wood Other Provider Dr. Tirso Kemp Primary Care Provider [phone] Dr. Tirso Kemp Referring Provider Dr. Magaly George Attending Provider Dr. Magaly George Other Provider Viridiana HOYOS, Dr. Chahal Primary Care Provider Dr. Tirso Kemp MD Referring Provider Dr. Nina Gamboa DO Attending Provider Shiva Kern DO, Dr. Wood Referring Provider Ludivina LERNER-CEsperanza Attending Provider [phone] Kinza Barahona MD Attending Provider [phone] Dr. Tirso Kemp MD Primary Care Provider Dr. Tirso Kemp MD Referring Provider Dr. Nina Gamboa DO Attending Provider Dr. Tirso Kemp MD Primary Care Provider Dr. Tirso Kemp MD Referring Provider [phone] Dr. Nina Gamboa DO Attending Provider Luis Miguel CROW, Alessandra Attending Provider Ruthie Le CNM Attending Provider [phone] Viridiana HOYOS, Dr. Christopher Primary Care Physicia n Viridiana HOYOS, Dr. Chahal Referring Provider Ludivina DELEON, Esperanza Attending Physician [phone] Jun HOYOS, Dr. Echols Attending Physician Shiva Kern DO, Dr. Wood Attending Physician Luis Miguel CNAlessandra Villeda Attending Physician [phone] Rey CNM, Ruthie Attending Physician [phone] Ranney, Christopher Primary Care Unavailable Ranney, Christopher Referring Unavailable Ruthie Le Attending Unavailable Ranney, Christopher Primary Care Unavailable Ranney, Christopher Referring Unavailable Ludivina LERNER, Esperanza Attending Unavailable Ranney, Christopher Primary Care Unavailable Nina Gamboa Referring Unavailabl e Vande Nina Kern Attending Unavailabl e Ranney, Christopher Primary Care Unavailable Dimaney, Christopher Referring Unavailable Kinza Barahona Attending Unavailable Ranney, Christopher Referring Unavailable Kinza Barahona Attending Unavailable Ranney, Christopher Primary Care Unavailable Ranney, Christopher Referring Unavailable Ruthie Le Attending Unavailable Ranney, Christopher Primary Care Unavailable Ranney, Christopher Referring Unavailable Nina Gamboa Attending Unavailabl e Ranney, Christopher Primary Care Unavailable Ranney, Christopher Primary Care Unavailable Ranney, Christopher Referring Unavailable Nina Gamboa Attending Unavailabl e Kinza Barahona Attending Unavailable Kinza Barahona Referring Unavailable Ranney, Christopher Primary Care Unavailable Ranney, Christopher Primary Care Unavailable Kinza Barahona Attending Unavailable Ranney, Christopher Primary Care Unavailable Ranney, Christopher Referring Unavailable Vande VeldeNina Attending Unavailabl e Ranney, Christopher Referring Unavailable Ranney, Christopher Primary Care Unavailable Alessandra Bolanos Attending Unavailable Ranney, Christopher Referring Unavailable Ranney, Christopher Primary Care Unavailable Ruthie Le Attending Unavailable Ranney, Christopher Referring Unavailable Ranney, Christopher Primary Care Unavailable Esperanza Florence NP Attending Unavailable Ranney, Christopher Primary Care Unavailable Ranney, Christopher Referring Unavailable Vande VeldeNina Attending Tirso Carranza Primary Care Unavailable Tirso Kemp Referring Unavailable Esperanza Florence NP Attending Unavailable iTrso Kemp Primary Care Unavailable Tirso Kemp Referring Unavailable Nina Gamboa Attending Rupa dorsey Allergies Allergy Classification Reported Allergen(s) Allergy Type Date of Onset Reaction(s) Facility (19 sources) house dust allergenic extract Drug Allergy 2 Nasal congestion [facility] (1 source) house dust allergenic extract Drug Allergy 5 [facility] Repository Medications Current Medications Medication Drug Class(es) Dates Sig (Normalized) Sig (Original) ferrous sulfate 75 mg/ml oral solution (6 sources) Start: 12-15-2021 take 1 mL by mouth once daily Ferrous Sulfate Active 0.83 ML PO DAILY December 15, 2021 12:00am Mv-Mins 06-Fuxb-Voyxb No.1-Dha ([facility]) 28-1-300 mg capsule (19 sources) Start: 12-15-2021 Mv-Mins 25-Lfle-Dvmuv No.1-Dha ([facility]-[place]) 28-1-300 mg capsule Active 1 NMA PO DAILY December 15, 2021 12:00am Complies with drug therapy Start: 12-15-2021 Mv-Mins 71-Iro n-Folic No.1-Dha ([facility]-[place]) 28-1-300 mg capsule Active 1 NMA PO DAILY December 15, 2021 12:00am Start: 12-15-2021 Mv-Mins 71-Iro n-Folic No.1-Dha ([facility]-[place]) 28-1-300 mg capsule Active 1 NMA PO DAILY December 15, 2021 12:00am Start: 12-15-2021 take 1 capsule by mo ut once daily Mv-Mins 86-Vnml-Hmvha No.1-Dha ([facility]-[place]) 28-1-300 mg capsule Active 1 CAP PO DAILY December 15, 2021 12:00am Start: 12-15-2021 take 1 capsule by mouth once M v-Mins 68-Pxpi-Yvmzb No.1-Dha ([facility]-[place]) 28-1-300 mg capsule Active CAP PO December 14, 2021 11:00pm Start: 12-15-2021 take 1 capsule by mouth once M v-Mins 39-Wxnv-Kragz No.1-Dha ([facility]-[place]) 28-1-300 mg capsule Active CAP PO December 15, 2021 12:00am ondansetron 4 mg disintegrating oral tablet (20 sources) Serotonin-3 Receptor Antagonist Start: 01-17-2022 take 4 mg by mouth every four hours Ondansetron Active 4 MG PO Q4H 60 January 17, 2022 12:00am Start: 01-04-2021 End: 12-15-2021 take 1 tablet by mouth every eight hours as needed for nausea and vomiting Ondansetron 4 mg tablet,disintegrating Discontinued 4 mg PO Q8H as needed for nausea and vomiting 10 0 January 04, 2021 12:00am December 15, 2021 2:55pm vitamin b12 1 mg oral tablet (6 sources) Vitamin B12 Start: 12-15-2021 take 1 tablet by mouth once daily Cyanocobalamin (Vitamin B-12) (Vitamin B-12) 1,000 mcg tablet Active 1000 MCG PO DAILY December 15, 2021 12:00am Completed/Discontinued Medications Medication Drug Class(es) Dates Sig (Normalized) Sig (Original) dexamethasone 6 mg oral tablet (19 sources) Corticosteroid Start: 01-04-2021 End: 12-15-2021 take 1 tablet by mouth once daily Dexamethasone (Decadron) 6 mg tablet Discontinued 6 mg PO DAILY 7 7 0 January 04, 2021 12:00am December 15, 2021 2:55pm Diltiazem 10mg/Lidocaine 50mg Suppository (1 source) Start: 06-12-2023 End: 07-05-2023 Diltiazem 10mg/Lidocaine 50mg Suppository Discontinued 1 SUPP RC TWICE A DAY June 12, 2023 1:00am July 05, 2023 1:29pm diltiazem HCl (bulk) powder 300 mg; lidocaine (bulk) powder 1500 mg; Per 30 supp Diltiazem 10mg/Lidocaine 50mg Suppository 30 supp suppository (10 sources) Start: 06-12-2023 End: 07-05-2023 Diltiazem 10mg/Lidocaine 50mg Suppository 30 supp suppository Discontinued 1 NMA RC TWICE A DAY June 12, 2023 1:00am July 05, 2023 1:29pm hemorrhoids diltiazem HCl (bulk) powder 300 mg; lidocaine (bulk) powder 1500 mg; Per 30 supp Start: 06-12-2023 End: 07-05-2023 Diltiazem 10mg/Lidocaine 50m g Suppository 30 supp suppository Discontinued 1 NMA RC TWICE A DAY June 12, 2023 1:00am July 05, 2023 1:29pm diltiazem HCl (bulk) powder 300 mg; lidocaine (bulk) powder 1500 mg; Per 30 supp Problems Active Problems Problem Classification Problem Date Documented Date Episodic/Chronic Anal and rectal conditions (20 sources) Anal fissure; Translations: [Anal fissure, unspecified] Onset: 01-10-2025 06-13-2023 Episodic Bacterial infection; unspecified site (1 source) Streptococcal infection, unspecified site; Translations: [Streptococcal infection, unspecified site] Onset: 01-24-2025 Episodic Nonmalignant breast conditions (20 sources) Mastodynia; Translations: [Pain of left breast] 05-26-2022 Episodic Other complications of (20 sources) High risk ; Translations: [Supervision of high risk , unspecified, unspecified trimester] 12-20-2021 Episodic Comment on above: PRR, RYLEE: 02/01 JOSUE Maldonado : Jimy PRR, RYLEE: 02/01 freida Julia JOSUE Maldonado : Jimy Other complications of (8 sources) Nausea and vomiting; Translations: [Vomiting of , unspecified] 05-13-2022 Episodic Other complications of (20 sources) Vomiting of , unspecified; Translations: [Unspecified vomiting of , unspecified as to episode of care or not applicable] Episodic Other complications of (20 sources) Multigravida of advanced maternal age; Translations: [Supervision of elderly multigravida, unspecified trimester] 06-24-2024 Episodic Comment on above: Growth US 36 wk Other complications of (1 source) Supervision of elderly multigravida, second trimester; Translations: [Supervision of elderly multigravida, second trimester] Onset: 01-10-2025 Episodic Other complications of (1 source) Supervision of high risk , unspecified, third trimester; Translations: [Supervision of high risk , unspecified, third trimester] Onset: 01-10-2025 Episodic Other complications of (1 source) Supervision of high risk , unspecified, second trimester; Translations: [Supervision of high risk , unspecified, second trimester] Onset: 12-11-2024 Episodic Other female genital disorders (11 sources) History of past delivery; Translations: [Status post vaginal delivery] 09-07-2022 Episodic Other lower respiratory disease (19 sources) Dyspnea; Translations: [Dyspnea, unspecified] 01-12-2021 Episodic Other upper respiratory infections (19 sources) Chronic sinusitis; Translations: [Chronic sinusitis, unspecified] 12-20-2021 Chronic Polyhydramnios and other problems of amniotic cavity (13 sources) Premature rupture of membranes; Translations: [Premature rupture of membranes, unspecified as to length of time between rupture and onset of labor, unspecified weeks of gestation] 07-15-2022 Episodic Comment on above: rule out 4/2- Rom + was neg Residual codes; unclassified (20 sources) Family history of cancer of colon; Translations: [Family history of malignant neoplasm of digestive organs] 12-20-2021 Episodic Comment on above: Brother 35 yo- Survi vor Residual codes; unclassified (20 sources) Family history of malignant neoplasm of digestive organs; Translations: [Family history of malignant neoplasm of gastrointestinal tract] Onset: 01-10-2025 Episodic Residual codes; unclassified (1 source) 36 weeks gestation of ; Translations: [36 weeks gestation of ] Onset: 01-10-2025 Episodic Residual codes; unclassified (1 source) 32 weeks gestation of ; Translations: [32 weeks gestation of ] Onset: 12-11-2024 Episodic Residual codes; unclassified (1 source) 30 weeks gestation of ; Translations: [30 weeks gestation of ] Onset: 11-29-2024 Episodic Viral infection (19 sources) Disease caused by 2019-nCoV; Translations: [COVID-19] 12-20-2021 Episodic Past or Other Problems Problem Classification Problem Date Documented Da te Episodic/Chronic Other complications of (1 source) Supervision of high risk , unspecified, unspecified trimester; Translations: [Supervision of high risk , unspecified, unspecified trimester] Onset: 07-23-2024 Episodic Other complications of (1 source) Supervision of elderly multigravida, unspecified trimester; Translations: [Supervision of elderly multigravida, unspecified trimester] Onset: 07-23-2024 Episodic Other and delivery including normal (20 sources) Normal ; Translations: [Encounter for supervision of normal , unspecified, unspecified trimester] Onset: 06-24-2024 Episodic Comment on above: Declines NIPT/Melissa r Needs rpt US to comp lete anatomy/scheduled. Declines NIPT/Carrier Needs rpt US to comp lete anatomy/scheduled. Declines NIPT/Carrier. nl anatomy. Declines NIPT/Melissa r. nl anatomy. Residual codes; unclassified (1 source) 25 weeks gestation of ; Translations: [25 weeks gestation of ] Onset: 10-21-2024 Episodic Residual codes; unclassified (1 source) 12 weeks gestation of ; Translations: [12 weeks gestation of ] Onset: 07-23-2024 Episodic Unclassified (3 sources) Normal labor; Translations: [Active labor at term] 07-22-2022 Results Test Name Value Interpretation Reference Range Facility Algebra Tutor Office Visit Reporton 01-17-2025 Algebra Tutor Office Visit Report [facility] [address], [address] [place] [address] OFFICE VISIT Date of Service: 01/17/25 MR#: [id number] Acct: [id number] Name: CONCHA GREWAL Rep #: [id number] : 1990 Provider: TRISTIN Ramirez ams Age/Sex: 34/F [place] [facility] Status: Signed Intake Vital Signs 12/25/24 09:39 01/10/25 10:41 01/17/25 11:35 Height 5 ft 6 in 5 ft 6 in 5 ft 6 in Weight: 182 lb 5 oz BMI 29.4 BP 101/69 Intake Visit Reasons: 37 wk ob Chief Complaint: 37wk OB Frame Nailer Required: No Is patient in pain?: No Allergies house dust Allergy (Mild, Verified 01/17/25 11:34) Nasal congestion Medications ???Medication ???Instructions ???Recorded ???Confirmed ???Type multivit-min no.71-iron fum 28 1 cap PO DAILY 12/15/21 01/17/25 History mg-folate no.1 1 mg-dha 300 mg capsule (PNV-[place]) Last Menstrual Period: 04/27/24 : No PFSH PFSH Medical History Wears glasses Anemia Non-smoker Hx of vaginal delivery Family hx of colon cancer Hypotension Family History Brother Colon cancer, Onset Age: 35 Stage IV Mother Heart disease Father CVA (cerebral vascular accident) Social History adopted: No household members: spouse housing: house number of children: 1 current occupational status: unemployed pets and animals: No history of recent travel: [place] ([place]) out of state: Yes out of country: No sexually active: Yes Smoking Status: Never smoker alcohol intake: never substance use type: does not use well-balanced diet: daily or most days caffeine: No eating out: rarely or never during the past year weight has: remained stable what type of physical activity do you participate in: none brandyn/hoahaoism: Rastafarian seatbelt use: always do you feel safe at home: Yes 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 Date Name GA/Weeks Outcome Route Bth Weight Infant Gen Labor Lgth Anesthesia Del Locatn Provider FOB 07/22/22 Joel 40 live - full term 8lbs 3oz Male epidural [facility] Tea Gamboa [facility] Delivery Date: 07/22/22 Last Updated by: Aicha Albrecht 1st degree tear HPI 37 wk ob Details: CONCHA GREWAL is a 34 year old who presents for routine OB visit. OB Visit RYLEE Calculator Estimated Delivery Date Method Current WG Current Estimate 02/01/25 LMP (Certain) 37w 6d Other Estimates 01/29/25 Ultrasound #1 38w 2d Expected Delivery Route/Plan Labor Preferences- CB/BF classes: no labor support person: Jimy labor intervention preferences: [] pain management options preferred: limited cut cord/dad catch: yes : yes PP control planned: discussed discussed possible routes of delivery and associated risks: [] special requests: [] Specific Issue/Plans Covid status: [] Flu vaccine: [] Tdap vaccine: [] Rhogam: na LARC form signed: yes Problem list reviewed and updated with the most current plan of care details and appropriate orders placed. Relevant counseling for the gestational age provided. Continue routine care and follow up unless otherwise noted in visit notes/problem list details Initial Weight: Not Recorded Date -???-???-???-???-???-?? ?-???-???-???-???-???-? ??- EGA Weight BP Urine Prot -???-???-???-???-???-?? ?-???-???-???-???-???-? ??- Glucose FHR FuHt Pres Dilation -???-???-???-???-???-?? ?-???-???-???-???-???-? ??- Effaced St Visit Note 06/24/24 -???-???-???-???-???-?? ?-???-???-???-???-???-? ??- 8w 2d 155 lb 101/65 -???-???-???-???-???-?? ?-???-???-???-???-???-? ??- 175 -???-???-???-???-???-?? ?-???-???-???-???-???-? ??- JV- CRL cons istent with Lmp. declines nipt. still breast feeding. 07/23/24 -???-???-???-???-???-?? ?-???-???-???-???-???-? ??- 12w 3d 157 lb 8 oz 98/62 Negative -???-???-???-???-???-?? ?-???-???-???-???-???-? ??- Negative 165 -???-???-???-???-???-?? ?-???-???-???-???-???-? ??- JV- CRL tia uring according to GA. will order anatomy scan with MFM. JV- CRL measuring according to GA. will order anatomy scan with MFM. starting to have hip pain. 08/20/24 -???-???-???-???-???-?? ?-???-???-???-???-???-? ??- 16w 3d 160 lb 94/60 Negative -???-???-???-???-???-?? ?-???-???-???-???-???-? ??- Negative 153 -???-???-???-???-???-?? ?-???-???-???-???-???-? ??- -No VB. Na usea resolved. Doing well. 09/19/24 -???-???-???-???-???-?? ?-???-???-?? (more content not included)... Normal [facility] Rule out Beta Strep (Grp. B) on 01-14-2025 DUSTIN Sensitivity to follo w. Streptococcus agalactiae (B) Amount Growth Growth Streptococcus agalactiae (B): REACTION Ampicillin Islt MARK <=0.25 cefTRIAXone Islt MARK <=0.12 S Clindamycin Islt MARK <=0.25 S Clindamycin.induced Susc Islt NEG Linezolid Islt MARK <=2 S Vancomycin Islt MARK 0.5 S Normal [facility] Comment on above: Performed By: #### L 100.0100, L3890.0541, L585.9812, BTS, L3890.6102, L3890.6006, L509.4006 #### [facility] [place], [address] Algebra Tutor Office Visit Reporton 01-10-2025 Algebra Tutor Office Visit Report [facility] [address], [address] [place] [address] OFFICE VISIT Date of Service: 01/10/25 MR#: [id number] Acct: [id number] Name: CONCHA GREWAL Rep #: [id number] : 1990 Provider: Dr. Kinza tyler MD Age/Sex: 34/F [place] [facility] Status: Signed Intake Vital Signs 11/15/24 10:21 12/25/24 09:39 01/10/25 10:41 Height 5 ft 6 in 5 ft 6 in 5 ft 6 in Weight: 180 lb 6 oz BMI 29.1 BP 95/61 Intake Visit Reasons: 36wk ob Frame Nailer Required: No Is patient in pain?: No Allergies house dust Allergy (Mild, Verified 01/10/25 10:43) Nasal congestion Medications ???Medication ???Instructions ???Recorded ???Confirmed ???Type multivit-min no.71-iron fum 28 1 cap PO DAILY 12/15/21 01/10/25 History mg-folate no.1 1 mg-dha 300 mg capsule (PNV-[place]) Last Menstrual Period: 04/27/24 Zika: Zika virus screening: Negative : No PFSH PFSH Medical History Wears glasses Anemia Non-smoker Hx of vaginal delivery Family hx of colon cancer Hypotension Family History Brother Colon cancer, Onset Age: 35 Stage IV Mother Heart disease Father CVA (cerebral vascular accident) Social History adopted: No household members: spouse housing: house number of children: 1 current occupational status: unemployed pets and animals: No history of recent travel: [place] ([place]) out of state: Yes out of country: No sexually active: Yes Smoking Status: Never smoker alcohol intake: never substance use type: does not use well-balanced diet: daily or most days caffeine: No eating out: rarely or never during the past year weight has: remained stable what type of physical activity do you participate in: none brandyn/hoahaoism: Rastafarian seatbelt use: always do you feel safe at home: Yes 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 Date Name GA/Weeks Outcome Route Bth Weight Gen Labor Lgth Anesthesia Del Locatn Provider FOB 07/22/22 Joel 40 live - full term 8lbs 3oz Male epidural [facility] Tea Gamboa Jimy Delivery Date: 07/22/22 Last Updated by: Aicha Albrecht 1st degree tear HPI 36wk ob Details: CONCHA GREWAL is a 34 year old who presents for routine OB visit. OB Visit RYLEE Calculator Estimated Delivery Date Method Current WG Current Estimate 02/01/25 LMP (Certain) 36w 6d Other Estimates 01/29/25 Ultrasound #1 37w 2d Expected Delivery Route/Plan Labor Preferences- CB/BF classes: no labor support person: Jimy labor intervention preferences: [] pain management options preferred: limited cut cord/dad catch: yes : yes PP control planned: discussed discussed possible routes of delivery and associated risks: [] special requests: [] Specific Issue/Plans Covid status: [] Flu vaccine: [] Tdap vaccine: [] Rhogam: na LARC form signed: yes Problem list reviewed and updated with the most current plan of care details and appropriate orders placed. Relevant counseling for the gestational age provided. Continue routine care and follow up unless otherwise noted in visit notes/problem list details Initial Weight: Not Recorded Date -???-???-???-???-???-?? ?-???-???-???-???-???-? ??- EGA Weight BP Urine Prot -???-???-???-???-???-?? ?-???-???-???-???-???-? ??- Glucose FHR FuHt Pres Dilation -???-???-???-???-???-?? ?-???-???-???-???-???-? ??- Effaced St Visit Note 06/24/24 -???-???-???-???-???-?? ?-???-???-???-???-???-? ??- 8w 2d 155 lb 101/65 -???-???-???-???-???-?? ?-???-???-???-???-???-? ??- 175 -???-???-???-???-???-?? ?-???-???-???-???-???-? ??- JV- CRL cons istent with Lmp. declines nipt. still breast feeding. 07/23/24 -???-???-???-???-???-?? ?-???-???-???-???-???-? ??- 12w 3d 157 lb 8 oz 98/62 Negative -???-???-???-???-???-?? ?-???-???-???-???-???-? ??- Negative 165 -???-???-???-???-???-?? ?-???-???-???-???-???-? ??- JV- CRL tia uring according to GA. will order anatomy scan with MFM. JV- CRL measuring according to GA. will order anatomy scan with MFM. starting to have hip pain. 08/20/24 -???-???-???-???-???-?? ?-???-???-???-???-???-? ??- 16w 3d 160 lb 94/60 Negative -???-???-???-???-???-?? ?-???-???-???-???-???-? ??- Negative 153 -???-???-???-???-???-?? ?-???-???-???-???-???-? ??- MH-No VB. Na usea resolved. Doing well. 09/19/24 -???-???- (more content not included)... Normal [facility] - Chemistry and C hemistry - challengeOrdered By: Esperanza Florence on 12-25-2024 Glucose Ql (U) Negative [facility] - UrinalysisOrder ed By: Esperanza Florence on 12-25-2024 Protein Ql (U) Negative [facility] Algebra Tutor Office Visit Reporton 12-25-2024 Algebra Tutor Office Visit Report [facility] [address], [address] [place] [address] OFFICE VISIT Date of Service: 12/25/24 MR#: [id number] Acct: [id number] Name: CONCHA GREWAL Rep #: [id number] : 1990 Provider: ADRIENNE martell Age/Sex: 34/F [place] [facility] Status: Signed Intake Vital Signs 11/15/24 10:21 12/11/24 09:02 12/25/24 09:39 Height 5 ft 6 in 5 ft 6 in 5 ft 6 in Weight: 180 lb 2 oz BMI 29.0 BP 92/55 L Intake Visit Reasons: 34wk ob Chief Complaint: 34 Week OB Frame Nailer Required: No Is patient in pain?: No Allergies house dust Allergy (Mild, Verified 12/25/24 09:41) Nasal congestion Medications ???Medication ???Instructions ???Recorded ???Confirmed ???Type multivit-min no.71-iron fum 28 1 cap PO DAILY 12/15/21 12/25/24 History mg-folate no.1 1 mg-dha 300 mg capsule (PNV-[place]) Last Menstrual Period: 04/27/24 Zika: Zika virus screening: Negative : No PFSH PFSH Medical History Wears glasses Anemia Non-smoker Hx of vaginal delivery Family hx of colon cancer Hypotension Family History Brother Colon cancer, Onset Age: 35 Stage IV Mother Heart disease Father CVA (cerebral vascular accident) Social History adopted: No household members: spouse housing: house number of children: 1 current occupational status: unemployed pets and animals: No history of recent travel: [place] ([place]) out of state: Yes out of country: No sexually active: Yes Smoking Status: Never smoker alcohol intake: never substance use type: does not use well-balanced diet: daily or most days caffeine: No eating out: rarely or never during the past year weight has: remained stable what type of physical activity do you participate in: none brandyn/hoahaoism: Rastafarian seatbelt use: always do you feel safe at home: Yes 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 Date Name GA/Weeks Outcome Route Bth Weight Gen Labor [facility] FOB 07/22/22 Joel 40 live - full term 8lbs 3oz Male epidural [facility] Tea Gamboa [facility] Delivery Date: 07/22/22 Last Updated by: Aicha Albrecht 1st degree tear HPI 34wk ob Details: CONCHA GREWAL is a 34 year old who presents for routine OB visit. OB Visit RYLEE Calculator Estimated Delivery Date Method Current WG Current Estimate 02/01/25 LMP (Certain) 34w 4d Other Estimates 01/29/25 Ultrasound #1 35w 0d Expected Delivery Route/Plan Labor Preferences- CB/BF classes: no labor support person: Jimy labor intervention preferences: [] pain management options preferred: limited cut cord/dad catch: yes : yes PP control planned: discussed discussed possible routes of delivery and associated risks: [] special requests: [] Specific Issue/Plans Covid status: [] Flu vaccine: [] Tdap vaccine: [] Rhogam: na LARC form signed: yes Problem list reviewed and updated with the most current plan of care details and appropriate orders placed. Relevant counseling for the gestational age provided. Continue routine care and follow up unless otherwise noted in visit notes/problem list details Initial Weight: Not Recorded Date -???-???-???-???-???-?? ?-???-???-???-???-???-? ??- EGA Weight BP Urine Prot -???-???-???-???-???-?? ?-???-???-???-???-???-? ??- Glucose FHR FuHt Pres Dilation -???-???-???-???-???-?? ?-???-???-???-???-???-? ??- Effaced St Visit Note 06/24/24 -???-???-???-???-???-?? ?-???-???-???-???-???-? ??- 8w 2d 155 lb 101/65 -???-???-???-???-???-?? ?-???-???-???-???-???-? ??- 175 -???-???-???-???-???-?? ?-???-???-???-???-???-? ??- JV- CRL cons istent with Lmp. declines nipt. still breast feeding. 07/23/24 -???-???-???-???-???-?? ?-???-???-???-???-???-? ??- 12w 3d 157 lb 8 oz 98/62 Negative -???-???-???-???-???-?? ?-???-???-???-???-???-? ??- Negative 165 -???-???-???-???-???-?? ?-???-???-???-???-???-? ??- JV- CRL tia uring according to GA. will order anatomy scan with MFM. JV- CRL measuring according to GA. will order anatomy scan with MFM. starting to have hip pain. 08/20/24 -???-???-???-???-???-?? ?-???-???-???-???-???-? ??- 16w 3d 160 lb 94/60 Negative -???-???-???-???-???-?? ?-???-???-???-???-???-? ??- Negative 153 -???-???-???-???-???-?? ?-???-???-???-???-???-? ??- MH-No VB. Na usea resolved. Do (more content not included)... Normal [facility] - Chemistry and C hemistry - challengeOrdered By: Ruthie Le on 12-11-2024 Glucose Ql (U) Negative [facility] - UrinalysisOrder ed By: Ruthie Le on 12-11-2024 Protein Ql (U) 1+ [facility] Algebra Tutor Office Visit Reporton 12-11-2024 Algebra Tutor Office Visit Report [facility] [address], [address] [place] [address] OFFICE VISIT Date of Service: 12/11/24 MR#: [id number] Acct: [id number] Name: CONCHA GREWAL Rep #: [id number] : 1990 Provider: TRISTIN Ramirez ams Age/Sex: 34/F [place] [facility] Status: Signed Intake Vital Signs 11/15/24 10:21 11/29/24 10:52 12/11/24 09:02 Height 5 ft 6 in 5 ft 6 in 5 ft 6 in Weight: 177 lb 4 oz BMI 28.5 BP 110/64 Intake Visit Reasons: 32wk ob Frame Nailer Required: No Is patient in pain?: No Allergies house dust Allergy (Mild, Verified 12/11/24 09:04) Nasal congestion Medications ???Medication ???Instructions ???Recorded ???Confirmed ???Type multivit-min no.71-iron fum 28 1 cap PO DAILY 12/15/21 12/11/24 History mg-folate no.1 1 mg-dha 300 mg capsule (PNV-[place]) Last Menstrual Period: 04/27/24 Zika: Zika virus screening: Negative : No PFSH PFSH Medical History Wears glasses Anemia Non-smoker Hx of vaginal delivery Family hx of colon cancer Hypotension Family History Brother Colon cancer, Onset Age: 35 Stage IV Mother Heart disease Father CVA (cerebral vascular accident) Social History adopted: No household members: spouse housing: house number of children: 1 current occupational status: unemployed pets and animals: No history of recent travel: [place] ([place]) out of state: Yes out of country: No sexually active: Yes Smoking Status: Never smoker alcohol intake: never substance use type: does not use well-balanced diet: daily or most days caffeine: No eating out: rarely or never during the past year weight has: remained stable what type of physical activity do you participate in: none brandyn/hoahaoism: Rastafarian seatbelt use: always do you feel safe at home: Yes 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 Date Name GA/Weeks Outcome Route Bth Weight Gen Labor Lgth Anesthesia Del Locatn Provider FOB 07/22/22 Joel 40 live - full term 8lbs 3oz Male epidural [facility] D rSimon Vasquez Delivery Date: 07/22/22 Last Updated by: Aicha Albrecht 1st degree tear HPI 32wk ob Details: CONCHA GREWAL is a 34 year old who presents for routine OB visit. OB Visit RYLEE Calculator Estimated Delivery Date Method Current WG Current Estimate 02/01/25 LMP (Certain) 32w 4d Other Estimates 01/29/25 Ultrasound #1 33w 0d Expected Delivery Route/Plan Labor Preferences- CB/BF classes: [] labor support person: [] labor intervention preferences: [] pain management options preferred: [] cut cord/dad catch: [] : [] PP control planned: [] discussed possible routes of delivery and associated risks: [] special requests: [] Specific Issue/Plans Covid status: [] Flu vaccine: [] Tdap vaccine: [] Rhogam: [] LARC form signed: [] Problem list reviewed and updated with the most current plan of care details and appropriate orders placed. Relevant counseling for the gestational age provided. Continue routine care and follow up unless otherwise noted in visit notes/problem list details Initial Weight: Not Recorded Date -???-???-???-???-???-?? ?-???-???-???-???-???-? ??- EGA Weight BP Urine Prot -???-???-???-???-???-?? ?-???-???-???-???-???-? ??- Glucose FHR FuHt Pres Dilation -???-???-???-???-???-?? ?-???-???-???-???-???-? ??- Effaced St Visit Note 06/24/24 -???-???-???-???-???-?? ?-???-???-???-???-???-? ??- 8w 2d 155 lb 101/65 -???-???-???-???-???-?? ?-???-???-???-???-???-? ??- 175 -???-???-???-???-???-?? ?-???-???-???-???-???-? ??- JV- CRL cons istent with Lmp. declines nipt. still breast feeding. 07/23/24 -???-???-???-???-???-?? ?-???-???-???-???-???-? ??- 12w 3d 157 lb 8 oz 98/62 Negative -???-???-???-???-???-?? ?-???-???-???-???-???-? ??- Negative 165 -???-???-???-???-???-?? ?-???-???-???-???-???-? ??- JV- CRL tia uring according to GA. will order anatomy scan with MFM. JV- CRL measuring according to GA. will order anatomy scan with MFM. starting to have hip pain. 08/20/24 -???-???-???-???-???-?? ?-???-???-???-???-???-? ??- 16w 3d 160 lb 94/60 Negative -???-???-???-???-???-?? ?-???-???-???-???-???-? ??- Negative 153 -???-???-???-???-???-?? ?-???-???-???-???-???-? ??- -No VB. Na usea resolved. Doing well. 09/19/24 -???-???-???-???-???-?? ?-???-???-? (more content not included)... Normal [facility] - Chemistry and C hemistry - challengeOrdered By: Alessandra Bolanos on 11-29-2024 Glucose Ql (U) Negative [facility] - UrinalysisOrder ed By: Alessandra Bolanos on 11-29-2024 Protein Ql (U) Negative [facility] Algebra Tutor Office Visit Reporton 11-29-2024 Algebra Tutor Office Visit Report [facility] [address], [address] [place] [address] OFFICE VISIT Date of Service: 11/29/24 MR#: [id number] Acct: [id number] Name: CONCHA GREWAL Rep #: [id number] : 1990 Provider: TRISTIN parks Age/Sex: 34/F [place] [facility] [place] Status: Signed Intake Vital Signs 09/19/24 14:58 11/15/24 10:21 11/29/24 10:52 Height 5 ft 6 in 5 ft 6 in 5 ft 6 in Weight: 176 lb BMI 28.4 BP 99/64 Intake Visit Reasons: 30 wk ob Frame Nailer Required: No Is patient in pain?: No Allergies house dust Allergy (Mild, Verified 11/29/24 10:54) Nasal congestion Medications ???Medication ???Instructions ???Recorded ???Confirmed ???Type multivit-min no.71-iron fum 28 1 cap PO DAILY 12/15/21 11/29/24 History mg-folate no.1 1 mg-dha 300 mg capsule (PNV-[place]) Last Menstrual Period: 04/27/24 Zika: Zika virus screening: Negative : No Have you fallen in the past year?: No PFSH PFSH Medical History Wears glasses Anemia Non-smoker Hx of vaginal delivery Family hx of colon cancer Hypotension Family History Brother Colon cancer, Onset Age: 35 Stage IV Mother Heart disease Father CVA (cerebral vascular accident) Social History adopted: No household members: spouse housing: house number of children: 1 current occupational status: unemployed pets and animals: No history of recent travel: [place] ([place]) out of state: Yes out of country: No sexually active: Yes Smoking Status: Never smoker alcohol intake: never substance use type: does not use well-balanced diet: daily or most days caffeine: No eating out: rarely or never during the past year weight has: remained stable what type of physical activity do you participate in: none brandyn/hoahaoism: Rastafarian seatbelt use: always do you feel safe at home: Yes 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 Date Name GA/Weeks Outcome Route Bth Weight Infant Gen Labor Lgth Anesthesia Del Locatn Provider FOB 07/22/22 Joel 40 live - full term 8lbs 3oz Male epidural [facility] D cassidy Gamboa [facility] Delivery Date: 07/22/22 Last Updated by: Aicha Albrecht 1st degree tear HPI 30 wk ob Details: CONCHA GREWAL is a 34 year old who presents for routine OB visit. OB Visit RYLEE Calculator Estimated Delivery Date Method Current WG Current Estimate 02/01/25 LMP (Certain) 30w 6d Other Estimates 01/29/25 Ultrasound #1 31w 2d Expected Delivery Route/Plan Labor Preferences- CB/BF classes: [] labor support person: [] labor intervention preferences: [] pain management options preferred: [] cut cord/dad catch: [] : [] PP control planned: [] discussed possible routes of delivery and associated risks: [] special requests: [] Specific Issue/Plans Covid status: [] Flu vaccine: [] Tdap vaccine: [] Rhogam: [] LARC form signed: [] Problem list reviewed and updated with the most current plan of care details and appropriate orders placed. Relevant counseling for the gestational age provided. Continue routine care and follow up unless otherwise noted in visit notes/problem list details Initial Weight: Not Recorded Date -???-???-???-???-???-?? ?-???-???-???-???-???-? ??- EGA Weight BP Urine Prot -???-???-???-???-???-?? ?-???-???-???-???-???-? ??- Glucose FHR FuHt Pres Dilation -???-???-???-???-???-?? ?-???-???-???-???-???-? ??- Effaced St Visit Note 06/24/24 -???-???-???-???-???-?? ?-???-???-???-???-???-? ??- 8w 2d 155 lb 101/65 -???-???-???-???-???-?? ?-???-???-???-???-???-? ??- 175 -???-???-???-???-???-?? ?-???-???-???-???-???-? ??- JV- CRL cons istent with Lmp. declines nipt. still breast feeding. 07/23/24 -???-???-???-???-???-?? ?-???-???-???-???-???-? ??- 12w 3d 157 lb 8 oz 98/62 Negative -???-???-???-???-???-?? ?-???-???-???-???-???-? ??- Negative 165 -???-???-???-???-???-?? ?-???-???-???-???-???-? ??- JV- CRL tia uring according to GA. will order anatomy scan with MFM. JV- CRL measuring according to GA. will order anatomy scan with MFM. starting to have hip pain. 08/20/24 -???-???-???-???-???-?? ?-???-???-???-???-???-? ??- 16w 3d 160 lb 94/60 Negative -???-???-???-???-???-?? ?-???-???-???-???-???-? ??- Negative 153 -???-???-???-???-???-?? ?-???-???-???-???-???-? ??- MH-No VB. Na usea resolved. Doing well. 09/19/24 -?? (more content not included)... Normal [facility] Absolute lymphocyte countOrd ered By: Kinza Barahona on 11-15-2024 Lymphocytes Auto (Unsp spec) [#/Vol] 1.37 10*3/uL 0.83-4.51 [facility] Absolute neutrophil countOrd ered By: Kinza Barahona on 11-15-2024 Neutrophils (Bld) [#/Vol] 4.6 10*3/uL 2.0-7.7 [facility] Automated lymphocyte count a s percentage of total leukocytesOrdered By: Kinza Barahona on 11-15-2024 Lymphocytes/100 WBC Auto (Unsp spec) 21.0 % 19-41 [facility] Basophil percentageOrdered B y: Kinza Barahona on 11-15-2024 Basophils/100 WBC (Bld) 0.3 % 0-1 [facility] CBC W/Diff, Automatedon Absolute Lymph 1.37 X10 3/uL Normal 0.83-4.51 [facility] Comment on above: Performed By: #### L 501.0250, L3890.6006, L100.0100, L509.8002 #### [facility] [address] [place], [address] Absolute Neut 4.6 X10 3/uL Normal 2.0-7.7 [facility] Comment on above: Performed By: #### L 501.0250, L3890.6006, L100.0100, L509.8002 #### [facility] [address] [place], [address] Basophils/100 WBC (Bld) 0.3 % Normal 0-1 [facility] Comment on above: Performed By: #### L 501.0250, L3890.6006, L100.0100, L509.8002 #### [facility] [address] [place], [address] Eosinophils/100 WBC (Bld) 0.9 % Normal 0-5 [facility] Comment on above: Performed By: #### L 501.0250, L3890.6006, L100.0100, L509.8002 #### [facility] [address] [place], [address] Erythrocyte distribution width (RBC) [Ratio] 11.9 % Normal 11.6-14.6 [facility] Comment on above: Performed By: #### L 501.0250, L3890.6006, L100.0100, L509.8002 #### [facility] [address] [place], [address] Hematocrit (Bld) [Volume fraction] 33.8 % Low 37-47 [facility] Comment on above: Performed By: #### L 501.0250, L3890.6006, L100.0100, L509.8002 #### [facility] [address] [place], [address] Hemoglobin (Bld) [Mass/Vol] 11.5 g/dL Low 12.0-15.0 [facility] Comment on above: Performed By: #### L 501.0250, L3890.6006, L100.0100, L509.8002 #### [facility] [address] [place], [address] IG% 0.500 Normal 0.0-0.9 [facility] Comment on above: Result Comment: IG% - Immature Granulocytes (promyelocytes, myelocytes and metamyelocytes) > 1% indicates that a LEFT SHIFT is Present. Performed By: #### L 501.0250, L3890.6006, L100.0100, L509.8002 #### [facility] [address] [place], [address] Lymphocytes/100 WBC (Bld) 21.0 % Normal 19-41 [facility] Comment on above: Performed By: #### L 501.0250, L3890.6006, L100.0100, L509.8002 #### [facility] [address] [place], [address] MCH (RBC) [Entitic mass] 32.4 pg High 27.0-32.0 [facility] Comment on above: Performed By: #### L 501.0250, L3890.6006, L100.0100, L509.8002 #### [facility] [address] [place], [address] MCHC (RBC) [Mass/Vol] 34.0 g/dL Normal 32-36 [facility] Comment on above: Performed By: #### L 501.0250, L3890.6006, L100.0100, L509.8002 #### [facility] [address] [place], [address] MCV (RBC) [Entitic vol] 95.2 fL Normal 81-99 [facility] Comment on above: Performed By: #### L 501.0250, L3890.6006, L100.0100, L509.8002 #### [facility] [address] [place], [address] Monocytes/100 WBC (Bld) 6.1 % Normal 0-10 [facility] Comment on above: Performed By: #### L 501.0250, L3890.6006, L100.0100, L509.8002 #### [facility] [address] [place], [address] Neutrophils/100 WBC (Bld) 71.2 % High 47-70 [facility] Comment on above: Performed By: #### L 501.0250, L3890.6006, L100.0100, L509.8002 #### [facility] [address] [place], [address] Nucleated RBC (Bld) [#/Vol] 0 10*3/uL Normal 0-5 [facility] Comment on above: Performed By: #### L 501.0250, L3890.6006, L100.0100, L509.8002 #### [facility] [address] [place], [address] Platelet mean volume (Bld) [Entitic vol] 10.2 fL Normal 6.2-12.0 [facility] Comment on above: Performed By: #### L 501.0250, L3890.6006, L100.0100, L509.8002 #### [facility] [address] [place], [address] Platelets (Bld) [#/Vol] 284 10*3/uL Normal 150-450 [facility] Comment on above: Performed By: #### L 501.0250, L3890.6006, L100.0100, L509.8002 #### [facility] [address] [place], [address] RBC (Bld) [#/Vol] 3.55 10*6/uL Low 4.2-5.4 [facility] Comment on above: Performed By: #### L 501.0250, L3890.6006, L100.0100, L509.8002 #### [facility] [address] [place], [address] RDW SD 41.3 fl Normal 35.1-43.9 [facility] Comment on above: Performed By: #### L 501.0250, L3890.6006, L100.0100, L509.8002 #### [facility] [address] [place], [address] WBC (Bld) [#/Vol] 6.5 10*3/uL Normal 4.4-11.0 [facility] Comment on above: Performed By: #### L 501.0250, L3890.6006, L100.0100, L509.8002 #### [facility] [address] [place], [address] Eosinophil percentageOrdered By: Kinza Barahona on 11-15-2024 Eosinophils/100 WBC (Bld) 0.9 % 0-5 [facility] Erythrocyte distribution wid th ratioOrdered By: Kinza Barahona on 11-15-2024 Erythrocyte distribution width (RBC) [Ratio] 11.9 % 11.6-14.6 [facility] Erythrocyte distribution wid th standard deviationOrdered By: Kinza Barahona on 11-15-2024 Erythrocyte distribution width (RBC) [Ratio] 41.3 fl 35.1-43.9 [facility] Glucose Challenge Gest 1H 50 vaishali 11-15-2024 GLU GEST 50g 1H 83 mg/dL Normal 70-140 [facility] Comment on above: Performed By: #### M 100.2200, L7000.1800 #### [facility] [address] [place], [address] Glucose measurement at 2 all rs post-dose gestational glucose tolerance testOrdered By: Kinza Barahona on 11-15-2024 Glucose [Mass/Vol] 83 mg/dL 70-140 [facility] HIVon 11-15-2024 HIV Non-Reactive Normal Nonreactive [facility] Comment on above: Result Comment: Non- Reactive Reactive Repeatedly reactive samples must be confirmed according to CDC recommended confirmatory algorithms. The subresults for either HIVAG or AHIV can be used as an aid in the selection of the confirmation algorithm for reactive samples. Send out specimens with Reactive results to [facility] for confirmation. Order the HIV antibody detection and differentiation: lc#[id number] Performed By: #### M 100.2200, L7000.1800 #### [facility] [address] [place], [place], [id number] Hematocrit Auto (Bld) [Volum e fraction]Ordered By: Kinza Barahona on 11-15-2024 Hematocrit (Bld) [Volume fraction] 33.8 % Low 37-47 [facility] Hemoglobin measurementOrdere d By: Kinza Barahona on 11-15-2024 Hemoglobin (Bld) [Mass/Vol] 11.5 g/dL Low 12.0-15.0 [facility] Immature granulocytes/100 WB C Auto (Bld)Ordered By: Kinza Barahona on 11-15-2024 Immature granulocytes/100 WBC (Bld) 0.500 % 0.0-0.9 [facility] Comment on above: IG% - Immature Granu locytes (promyelocytes, myelocytes and metamyelocytes) > 1% indicates that a LEFT SHIFT is Present. Laboratory - Chemistry and C hemistry - challengeOrdered By: Nina Kern on 11-15-2024 Glucose Ql (U) Negative [facility] - UrinalysisOrder ed By: Nina Kern on 11-15-2024 Protein Ql (U) Negative [facility] MCV (mean corpuscular volume ) determinationOrdered By: Kinza Barahona on 11-15-2024 MCV (RBC) [Entitic vol] 95.2 fL 81-99 [facility] Mean corpuscular hemoglobin (MCH) determinationOrdered By: Kinza Barahona on 11-15-2024 MCH (RBC) [Entitic mass] 32.4 pg High 27.0-32.0 [facility] Mean corpuscular hemoglobin concentration (MCHC) determinationOrdered By: Kinza Barahona on 11-15-2024 MCHC (RBC) [Mass/Vol] 34.0 g/dL 32-36 [facility] Mean platelet volume determi nationOrdered By: Kinza Barahona on 11-15-2024 Platelet mean volume (Bld) [Entitic vol] 10.2 fL 6.2-12.0 [facility] Monocyte percentageOrdered B y: Kinza Barahona on 11-15-2024 Monocytes/100 WBC (Bld) 6.1 % 0-10 [facility] Neutrophil percentageOrdered By: Kinza Barahona on 11-15-2024 Neutrophils/100 WBC (Bld) 71.2 % High 47-70 [facility] No Panel InformationOrdered By: Kinza Barahona on 11-15-2024 HIV (1&2) Antibody Non-Reactive Nonreactive [facility] Comment on above: Non-ReactiveReactive Repeatedly reactive samples must be confirmed according to CDC recommended confirmatory algorithms. The subresults for either HIVAG or AHIV can be used as an aid in the selection of the confirmation algorithm for reactive samples.Send out specimens with Reactive results to [facility] for confirmation.Order the HIV antibody detection and differentiation: #[id number] Nucleated red blood cell per centageOrdered By: Kinza Barahona on 11-15-2024 Nucleated RBC/100 WBC (Bld) [Ratio] 0 % 0-5 [facility] Algebra Tutor Office Visit Reporton 11-15-2024 Algebra Tutor Office Visit Report [facility] [address], [address] [place] [address] OFFICE VISIT Date of Service: 11/15/24 MR#: [id number] Acct: [id number] Name: CONCHA GREWAL JR F Rep #: [id number] : 1990 Provider: Dr. Nina Cortes DO Age/Sex: 34/F [place] [facility] [place]: Signed Intake Vital Signs 10/21/24 08:52 11/15/24 10:20 11/15/24 10:21 Height 5 ft 6 in 5 ft 6 in 5 ft 6 in Weight: 174 lb 7 oz BMI 28.1 BP 98/60 Intake Visit Reasons: 28wk ob/glucose Frame Nailer Required: No Is patient in pain?: No Allergies house dust Allergy (Mild, Verified 11/15/24 10:20) Nasal congestion Medications ???Medication ???Instructions ???Recorded ???Confirmed ???Type multivit-min no.71-iron fum 28 1 cap PO DAILY 12/15/21 11/15/24 History mg-folate no.1 1 mg-dha 300 mg capsule (PNV-[place]) Last Menstrual Period: 04/27/24 Zika: Zika virus screening: Negative : No PFSH PFSH Medical History Wears glasses Anemia Non-smoker Hx of vaginal delivery Family hx of colon cancer Hypotension Family History Brother Colon cancer, Onset Age: 35 Stage IV Mother Heart disease Father CVA (cerebral vascular accident) Social History adopted: No household members: spouse housing: house number of children: 1 current occupational status: unemployed pets and animals: No history of recent travel: [place] ([place]) out of state: Yes out of country: No sexually active: Yes Smoking Status: Never smoker alcohol intake: never substance use type: does not use well-balanced diet: daily or most days caffeine: No eating out: rarely or never during the past year weight has: remained stable what type of physical activity do you participate in: none brandyn/hoahaoism: Rastafarian seatbelt use: always do you feel safe at home: Yes 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 Date Name GA/Weeks Outcome Route Bth Weight Gen Labor Lgth Anesthesia Del Locatn Provider FOB 07/22/22 Joel 40 live - full term 8lbs 3oz Male epidural [facility] Tea benjamin Shiva Ahn Delivery Date: 07/22/22 Last Updated by: Aicha Albrecht 1st degree tear HPI 28wk ob/glucose Details: CONCHA GREWAL is a 34 year old who presents for routine OB visit. OB Visit RYLEE Calculator Estimated Delivery Date Method Current WG Current Estimate 02/01/25 LMP (Certain) 28w 6d Other Estimates 01/29/25 Ultrasound #1 29w 2d Expected Delivery Route/Plan Labor Preferences- CB/BF classes: [] labor support person: [] labor intervention preferences: [] pain management options preferred: [] cut cord/dad catch: [] : [] PP control planned: [] discussed possible routes of delivery and associated risks: [] special requests: [] Specific Issue/Plans Covid status: [] Flu vaccine: [] Tdap vaccine: [] Rhogam: [] LARC form signed: [] Problem list reviewed and updated with the most current plan of care details and appropriate orders placed. Relevant counseling for the gestational age provided. Continue routine care and follow up unless otherwise noted in visit notes/problem list details Initial Weight: Not Recorded Date -???-???-???-???-???-?? ?-???-???-???-???-???-? ??- EGA Weight BP Urine Prot -???-???-???-???-???-?? ?-???-???-???-???-???-? ??- Glucose FHR FuHt Pres Dilation -???-???-???-???-???-?? ?-???-???-???-???-???-? ??- Effaced St Visit Note 06/24/24 -???-???-???-???-???-?? ?-???-???-???-???-???-? ??- 8w 2d 155 lb 101/65 -???-???-???-???-???-?? ?-???-???-???-???-???-? ??- 175 -???-???-???-???-???-?? ?-???-???-???-???-???-? ??- JV- CRL cons istent with Lmp. declines nipt. still breast feeding. 07/23/24 -???-???-???-???-???-?? ?-???-???-???-???-???-? ??- 12w 3d 157 lb 8 oz 98/62 Negative -???-???-???-???-???-?? ?-???-???-???-???-???-? ??- Negative 165 -???-???-???-???-???-?? ?-???-???-???-???-???-? ??- JV- CRL tia uring according to GA. will order anatomy scan with MFM. JV- CRL measuring according to GA. will order anatomy scan with MFM. starting to have hip pain. 08/20/24 -???-???-???-???-???-?? ?-???-???-???-???-???-? ??- 16w 3d 160 lb 94/60 Negative -???-???-???-???-???-?? ?-???-???-???-???-???-? ??- Negative 153 -???-???-???-???-???-?? ?-???-???-???-???-???-? ??- -No VB. Na usea resolved. Doing well. 09/19/24 -?? (more content not included)... Normal [facility] Platelet countOrdered By: Krissy Barahona on 11-15-2024 Platelets (Bld) [#/Vol] 284 10*3/uL 150-450 [facility] RBC Auto (Bld) [#/Vol]Ordere d By: Kinza Barahona on 11-15-2024 RBC (Bld) [#/Vol] 3.55 10*6/uL Low 4.2-5.4 [facility] Syphilis Antibodieson 2024 Syphilis Abs Non-Reactive Normal Nonreactive [facility] Comment on above: Performed By: #### M 100.2200, L7000.1800 #### [facility] [address] [place], [address] White blood cell (WBC) count Ordered By: Kinza Barahona on 11-15-2024 WBC (Bld) [#/Vol] 6.5 10*3/uL 4.4-11.0 [facility] - Chemistry and C hemistry - challengeOrdered By: Kinza Barahona on 10-21-2024 Glucose Ql (U) Negative [facility] - UrinalysisOrder ed By: Kinza Barahona on 10-21-2024 Protein Ql (U) Negative [facility] Algebra Tutor Office Visit Reporton 10-21-2024 Algebra Tutor Office Visit Report [facility], [address] [place] [address] OFFICE VISIT Date of Service: 10/21/24 MR#: [id number] Acct: [id number] Name: CONCHA GREWAL Rep #: [id number] : 1990 Provider: Dr. Kinza tyler MD Age/Sex: 34/F [place] [facility] [place] Status: Signed Intake Vital Signs 08/20/24 08:29 09/19/24 14:58 10/21/24 08:52 Height 5 ft 6 in 5 ft 6 in 5 ft 6 in Weight: 171 lb BMI 27.6 BP 102/68 Intake Visit Reasons: 24 wk ob Frame Nailer Required: No Is patient in pain?: No Allergies house dust Allergy (Mild, Verified 10/21/24 08:56) Nasal congestion Medications ???Medication ???Instructions ???Recorded ???Confirmed ???Type multivit-min no.71-iron fum 28 1 cap PO DAILY 12/15/21 10/21/24 History mg-folate no.1 1 mg-dha 300 mg capsule (PNV-[place]) Last Menstrual Period: 04/27/24 Zika: Zika virus screening: Negative : No PFSH PFSH Medical History Wears glasses Anemia Non-smoker Hx of vaginal delivery Family hx of colon cancer Hypotension Family History Brother Colon cancer, Onset Age: 35 Stage IV Mother Heart disease Father CVA (cerebral vascular accident) Social History adopted: No household members: spouse housing: house number of children: 1 current occupational status: unemployed pets and animals: No history of recent travel: [place] ([place]) out of state: Yes out of country: No sexually active: Yes Smoking Status: Never smoker alcohol intake: never substance use type: does not use well-balanced diet: daily or most days caffeine: No eating out: rarely or never during the past year weight has: remained stable what type of physical activity do you participate in: none brandyn/hoahaoism: Rastafarian seatbelt use: always do you feel safe at home: Yes 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 Date Name GA/Weeks Outcome Route Bth Weight Gen Labor Lgth Anesthesia Del Locatn Provider FOB 07/22/22 Joel 40 live - full term 8lbs 3oz Male epidural [facility] Tea benjamin Shiva Ahn Delivery Date: 07/22/22 Last Updated by: Aicha Albrecht 1st degree tear HPI 24 wk ob Details: CONCHA GREWAL is a 34 year old who presents for routine OB visit. OB Visit RYLEE Calculator Estimated Delivery Date Method Current WG Current Estimate 02/01/25 LMP (Certain) 25w 2d Other Estimates 01/29/25 Ultrasound #1 25w 5d Expected Delivery Route/Plan Labor Preferences- CB/BF classes: [] labor support person: [] labor intervention preferences: [] pain management options preferred: [] cut cord/dad catch: [] : [] PP control planned: [] discussed possible routes of delivery and associated risks: [] special requests: [] Specific Issue/Plans Covid status: [] Flu vaccine: [] Tdap vaccine: [] Rhogam: [] LARC form signed: [] Problem list reviewed and updated with the most current plan of care details and appropriate orders placed. Relevant counseling for the gestational age provided. Continue routine care and follow up unless otherwise noted in visit notes/problem list details Initial Weight: Not Recorded Date -???-???-???-???-???-?? ?-???-???-???-???-???-? ??- EGA Weight BP Urine Prot -???-???-???-???-???-?? ?-???-???-???-???-???-? ??- Glucose FHR FuHt Pres Dilation -???-???-???-???-???-?? ?-???-???-???-???-???-? ??- Effaced St Visit Note 06/24/24 -???-???-???-???-???-?? ?-???-???-???-???-???-? ??- 8w 2d 155 lb 101/65 -???-???-???-???-???-?? ?-???-???-???-???-???-? ??- 175 -???-???-???-???-???-?? ?-???-???-???-???-???-? ??- JV- CRL cons istent with Lmp. declines nipt. still breast feeding. 07/23/24 -???-???-???-???-???-?? ?-???-???-???-???-???-? ??- 12w 3d 157 lb 8 oz 98/62 Negative -???-???-???-???-???-?? ?-???-???-???-???-???-? ??- Negative 165 -???-???-???-???-???-?? ?-???-???-???-???-???-? ??- JV- CRL tia uring according to GA. will order anatomy scan with MFM. JV- CRL measuring according to GA. will order anatomy scan with MFM. starting to have hip pain. 08/20/24 -???-???-???-???-???-?? ?-???-???-???-???-???-? ??- 16w 3d 160 lb 94/60 Negative -???-???-???-???-???-?? ?-???-???-???-???-???-? ??- Negative 153 -???-???-???-???-???-?? ?-???-???-???-???-???-? ??- MH-No VB. Na usea resolved. Doing well. 09/19/24 -???-???-???-???-???-?? ?-???- (more content not included)... Normal [facility] - Chemistry and C hemistry - challengeOrdered By: Esperanza Florence on 09-19-2024 Glucose Ql (U) Negative [facility] - UrinalysisOrder ed By: Esperanza Florence on 09-19-2024 Protein Ql (U) Negative [facility] Algebra Tutor Office Visit Reporton 09-19-2024 Algebra Tutor Office Visit Report [facility]'s [address], [address] [place] [id number] OFFICE VISIT Date of Service: 09/19/24 MR#: [id number] Acct: [id number] Name: CONCHA GREWAL Rep #: [id number] : 1990 Provider: ADRIENNE martell Age/Sex: 34/F [place] [facility] [place] Status: Signed Intake Vital Signs 06/24/24 14:15 08/20/24 08:29 09/19/24 14:55 09/19/24 14:58 Height 5 ft 6 in 5 ft 6 in 5 ft 6 in 5 ft 6 in Weight: 160 lb 168 lb BMI 25.8 27.1 BP 94/60 102/64 Intake Visit Reasons: 20wk ob Chief Complaint: 20 Week OB Frame Nailer Required: No Is patient in pain?: No Allergies house dust Allergy (Mild, Verified 09/19/24 14:54) Nasal congestion Medications ???Medication ???Instructions ???Recorded ???Confirmed ???Type multivit-min no.71-iron fum 28 1 cap PO DAILY 12/15/21 09/19/24 History mg-folate no.1 1 mg-dha 300 mg capsule (PNV-[place]) Last Menstrual Period: 04/27/24 Zika: Zika virus screening: Negative : No PFSH PFSH Medical History Wears glasses Anemia Non-smoker Hx of vaginal delivery Family hx of colon cancer Hypotension Family History Brother Colon cancer, Onset Age: 35 Stage IV Mother Heart disease Father CVA (cerebral vascular accident) Social History adopted: No household members: spouse housing: house number of children: 1 current occupational status: unemployed pets and animals: No history of recent travel: [place] ([place]) out of state: Yes out of country: No sexually active: Yes Smoking Status: Never smoker alcohol intake: never substance use type: does not use well-balanced diet: daily or most days caffeine: No eating out: rarely or never during the past year weight has: remained stable what type of physical activity do you participate in: none brandyn/hoahaoism: Rastafarian seatbelt use: always do you feel safe at home: Yes 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 Date Name GA/Weeks Outcome Route Bth Weight Infant Gen Labor Lgth Anesthesia Del Locatn Provider FOB 07/22/22 Joel 40 live - full term 8lbs 3oz Male epidural [facility] D rSimon Shiva Ahn Delivery Date: 07/22/22 Last Updated by: Aicha Albrecht 1st degree tear HPI 20wk ob Details: CONCHA GREWAL is a 34 year old who presents for routine OB visit. OB Visit RYLEE Calculator Estimated Delivery Date Method Current WG Current Estimate 02/01/25 LMP (Certain) 20w 5d Other Estimates 01/29/25 Ultrasound #1 21w 1d Expected Delivery Route/Plan Labor Preferences- CB/BF classes: [] labor support person: [] labor intervention preferences: [] pain management options preferred: [] cut cord/dad catch: [] : [] PP control planned: [] discussed possible routes of delivery and associated risks: [] special requests: [] Specific Issue/Plans Covid status: [] Flu vaccine: [] Tdap vaccine: [] Rhogam: [] LARC form signed: [] Problem list reviewed and updated with the most current plan of care details and appropriate orders placed. Relevant counseling for the gestational age provided. Continue routine care and follow up unless otherwise noted in visit notes/problem list details Initial Weight: Not Recorded Date -???-???-???-???-???-?? ?-???-???-???-???-???-? ??- EGA Weight BP Urine Prot -???-???-???-???-???-?? ?-???-???-???-???-???-? ??- Glucose FHR FuHt Pres Dilation -???-???-???-???-???-?? ?-???-???-???-???-???-? ??- Effaced St Visit Note 06/24/24 -???-???-???-???-???-?? ?-???-???-???-???-???-? ??- 8w 2d 155 lb 101/65 -???-???-???-???-???-?? ?-???-???-???-???-???-? ??- 175 -???-???-???-???-???-?? ?-???-???-???-???-???-? ??- JV- CRL cons istent with Lmp. declines nipt. still breast feeding. 07/23/24 -???-???-???-???-???-?? ?-???-???-???-???-???-? ??- 12w 3d 157 lb 8 oz 98/62 Negative -???-???-???-???-???-?? ?-???-???-???-???-???-? ??- Negative 165 -???-???-???-???-???-?? ?-???-???-???-???-???-? ??- JV- CRL tia uring according to GA. will order anatomy scan with MFM. JV- CRL measuring according to GA. will order anatomy scan with MFM. starting to have hip pain. 08/20/24 -???-???-???-???-???-?? ?-???-???-???-???-???-? ??- 16w 3d 160 lb 94/60 Negative -???-???-???-???-???-?? ?-???-???-???-???-???-? ??- Negative 153 -???-???-???-???-???-?? ?-???-???-???-???-???-? ??- MH-No VB. Na us (more content not included)... Normal [facility] - Chemistry and C hemistry - challengeOrdered By: Esperanza Florence on 08-20-2024 Glucose Ql (U) Negative [facility] - UrinalysisOrder ed By: Esperanza Florence on 08-20-2024 Protein Ql (U) Negative [facility] Algebra Tutor Office Visit Reporton 08-20-2024 Algebra Tutor Office Visit Report [facility]'s [address], [address] [place] [address] OFFICE VISIT Date of Service: 08/20/24 MR#: [id number] Acct: [id number] Name: CONCHA GREWAL Rep #: [id number] : 1990 Provider: ADRIENNE martell Age/Sex: 33/F [place] [facility] Status: Signed Intake Vital Signs 06/24/24 14:15 07/23/24 09:17 08/20/24 08:29 Height 5 ft 6 in 5 ft 6 in 5 ft 6 in Weight: 160 lb BMI 25.8 BP 94/60 Intake Visit Reasons: 16wk ob Chief Complaint: 16 Week OB Frame Nailer Required: No Is patient in pain?: No Allergies house dust Allergy (Mild, Verified 08/20/24 08:30) Nasal congestion Medications ???Medication ???Instructions ???Recorded ???Confirmed ???Type multivit-min no.71-iron fum 28 1 cap PO DAILY 12/15/21 08/20/24 History mg-folate no.1 1 mg-dha 300 mg capsule (PNV-[place]) Last Menstrual Period: 04/27/24 Zika: Zika virus screening: Negative : No PFSH PFSH Medical History Wears glasses Anemia Non-smoker Hx of vaginal delivery Family hx of colon cancer Hypotension Family History Brother Colon cancer, Onset Age: 35 Stage IV Mother Heart disease Father CVA (cerebral vascular accident) Social History adopted: No household members: spouse housing: house number of children: 1 current occupational status: unemployed pets and animals: No history of recent travel: [place] ([place]) out of state: Yes out of country: No sexually active: Yes Smoking Status: Never smoker alcohol intake: never substance use type: does not use well-balanced diet: daily or most days caffeine: No eating out: rarely or never during the past year weight has: remained stable what type of physical activity do you participate in: none brandyn/hoahaoism: Rastafarian seatbelt use: always do you feel safe at home: Yes 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 Date Name GA/Weeks Outcome Route Bth Weight Gen Labor Lgth Anesthesia Del Locatn Provider FOB 07/22/22 Joel 40 live - full term 8lbs 3oz Male epidural [facility] Tea [place] Jimy Delivery Date: 07/22/22 Last Updated by: Aicha Albrecht 1st degree tear HPI 16wk ob Details: CONCHA GREWAL is a 33 year old who presents for routine OB visit. OB Visit RYLEE Calculator Estimated Delivery Date Method Current WG Current Estimate 02/01/25 LMP (Certain) 16w 3d Other Estimates 01/29/25 Ultrasound #1 16w 6d Expected Delivery Route/Plan Labor Preferences- CB/BF classes: [] labor support person: [] labor intervention preferences: [] pain management options preferred: [] cut cord/dad catch: [] : [] PP control planned: [] discussed possible routes of delivery and associated risks: [] special requests: [] Specific Issue/Plans Covid status: [] Flu vaccine: [] Tdap vaccine: [] Rhogam: [] LARC form signed: [] Problem list reviewed and updated with the most current plan of care details and appropriate orders placed. Relevant counseling for the gestational age provided. Continue routine care and follow up unless otherwise noted in visit notes/problem list details Initial Weight: Not Recorded Date -???-???-???-???-???-?? ?-???-???-???-???-???-? ??- EGA Weight BP Urine Prot -???-???-???-???-???-?? ?-???-???-???-???-???-? ??- Glucose FHR FuHt Pres Dilation -???-???-???-???-???-?? ?-???-???-???-???-???-? ??- Effaced St Visit Note 06/24/24 -???-???-???-???-???-?? ?-???-???-???-???-???-? ??- 8w 2d 155 lb 101/65 -???-???-???-???-???-?? ?-???-???-???-???-???-? ??- 175 -???-???-???-???-???-?? ?-???-???-???-???-???-? ??- JV- CRL cons istent with Lmp. declines nipt. still breast feeding. 07/23/24 -???-???-???-???-???-?? ?-???-???-???-???-???-? ??- 12w 3d 157 lb 8 oz 98/62 Negative -???-???-???-???-???-?? ?-???-???-???-???-???-? ??- Negative 165 -???-???-???-???-???-?? ?-???-???-???-???-???-? ??- JV- CRL tia uring according to GA. will order anatomy scan with MFM. JV- CRL measuring according to GA. will order anatomy scan with MFM. starting to have hip pain. 08/20/24 -???-???-???-???-???-?? ?-???-???-???-???-???-? ??- 16w 3d 160 lb 94/60 Negative -???-???-???-???-???-?? ?-???-???-???-???-???-? ??- Negative 153 -???-???-???-???-???-?? ?-???-???-???-???-???-? ??- MH-No VB. Na usea resolved. Doing well. ACOG First (more content not included)... Normal [facility] - Chemistry and C hemistry - challengeOrdered By: Nina Kern on 07-23-2024 Glucose Ql (U) Negative [facility] - UrinalysisOrder ed By: Nina Kern on 07-23-2024 Protein Ql (U) Negative [facility] Algebra Tutor Office Visit Reporton 07-23-2024 Algebra Tutor Office Visit Report [facility]'s [address], [address] [place] [address] OFFICE VISIT Date of Service: 07/23/24 MR#: [id number] Acct: [id number] Name: URICONCHA NORRIS Arin Rep #: [id number] : 1990 Provider: Dr. Nina Cortes DO Age/Sex: 33/F Location[place] [facility] Status: Signed Intake Vital Signs 06/24/24 14:15 07/23/24 09:17 Height 5 ft 6 in 5 ft 6 in Weight: 157 lb 8 oz BMI 25.4 BP 98/62 Intake Visit Reasons: 12wk ob Frame Nailer Required: No Is patient in pain?: No Allergies house dust Allergy (Mild, Verified 07/23/24 09:18) Nasal congestion Medications ???Medication ???Instructions ???Recorded ???Confirmed ???Type multivit-min no.71-iron fum 28 1 cap PO DAILY 12/15/21 07/23/24 History mg-folate no.1 1 mg-dha 300 mg capsule (PNV-[place]) Last Menstrual Period: 04/27/24 Zika: Zika virus screening: Negative : No PFSH PFSH Medical History Wears glasses Anemia Non-smoker Hx of vaginal delivery Family hx of colon cancer Hypotension Family History Brother Colon cancer, Onset Age: 35 Stage IV Mother Heart disease Father CVA (cerebral vascular accident) Social History adopted: No household members: spouse housing: house number of children: 1 current occupational status: unemployed pets and animals: No history of recent travel: [place] ([place]) out of state: Yes out of country: No sexually active: Yes Smoking Status: Never smoker alcohol intake: never substance use type: does not use well-balanced diet: daily or most days caffeine: No eating out: rarely or never during the past year weight has: remained stable what type of physical activity do you participate in: none brandyn/hoahaoism: Rastafarian seatbelt use: always do you feel safe at home: Yes 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 Date Name GA/Weeks Outcome Route Bth Weight Infant Gen Labor Lgth Anesthesia Del Locatn Provider FOB 07/22/22 Joel 40 live - full term 8lbs 3oz Male epidural [facility] Tea benjamin Shiva Ahn Delivery Date: 07/22/22 Last Updated by: Aicha Albrecht 1st degree tear HPI 12wk ob Details: CONCHA GREWAL is a 33 year old who presents for routine OB visit. OB Visit RYLEE Calculator Estimated Delivery Date Method Current WG Current Estimate 02/01/25 LMP (Certain) 12w 3d Other Estimates 01/29/25 Ultrasound #1 12w 6d Expected Delivery Route/Plan Labor Preferences- CB/BF classes: [] labor support person: [] labor intervention preferences: [] pain management options preferred: [] cut cord/dad catch: [] : [] PP control planned: [] discussed possible routes of delivery and associated risks: [] special requests: [] Specific Issue/Plans Covid status: [] Flu vaccine: [] Tdap vaccine: [] Rhogam: [] LARC form signed: [] Problem list reviewed and updated with the most current plan of care details and appropriate orders placed. Relevant counseling for the gestational age provided. Continue routine care and follow up unless otherwise noted in visit notes/problem list details Initial Weight: Not Recorded Date -???-???-???-???-???-?? ?-???-???-???-???-???-? ??- EGA Weight BP Urine Prot -???-???-???-???-???-?? ?-???-???-???-???-???-? ??- Glucose FHR FuHt Pres Dilation -???-???-???-???-???-?? ?-???-???-???-???-???-? ??- Effaced St Visit Note 06/24/24 -???-???-???-???-???-?? ?-???-???-???-???-???-? ??- 8w 2d 155 lb 101/65 -???-???-???-???-???-?? ?-???-???-???-???-???-? ??- 175 -???-???-???-???-???-?? ?-???-???-???-???-???-? ??- JV- CRL cons istent with Lmp. declines nipt. still breast feeding. 07/23/24 -???-???-???-???-???-?? ?-???-???-???-???-???-? ??- 12w 3d 157 lb 8 oz 98/62 Negative -???-???-???-???-???-?? ?-???-???-???-???-???-? ??- Negative 165 -???-???-???-???-???-?? ?-???-???-???-???-???-? ??- JV- CRL tia uring according to GA. will order anatomy scan with MFM. JV- CRL measuring according to GA. will order anatomy scan with MFM. starting to have hip pain. ACOG First Trimester First Trimester: Desire for , Alcohol, Tobacco Cessation, Illicit/Recreational Drug/Substance Use, Intimate Partner Violence, Barriers to care, Unstable Housing, Communication Barriers, Environmental/Work Hazards, Anticipated Course of Care, Toxoplasmosis Precations, U (more content not included)... Normal [facility] Chlamydia/GC ISABELLE aptimaon CHLAMY,NUC ACID Negative Normal Negative [facility] Comment on above: Performed By: #### M 100.2200, L7000.1800 #### [facility] [address] [place], [place], [id number] GC BY NUC ACID Negative Normal Negative [facility] Comment on above: Result Comment: Perf ormed at: =G - [facility] [address] [place] [id number] Director Regulatory Agency: Shy Rivera MD, Phone: [phone] Performed By: #### M 100.2200, L7000.1800 #### [facility] [address] [place], [place], [id number] Urine Cultureon 06-25-2024 URC Culture exhibits no growth. Normal [facility] Comment on above: Performed By: #### M 100.2200, L7000.1800 #### [facility] [address] [place], [address] Absolute lymphocyte countOrd ered By: Nina Marksericka on 06-24-2024 Lymphocytes Auto (Unsp spec) [#/Vol] 2.08 10*3/uL 0.83-4.51 [facility] Absolute neutrophil countOrd ered By: Nina Marksericka on 06-24-2024 Neutrophils (Bld) [#/Vol] 5.8 10*3/uL 2.0-7.7 [facility] Automated lymphocyte count a s percentage of total leukocytesOrdered By: Nina Marksericka on 06-24-2024 Lymphocytes/100 WBC Auto (Unsp spec) 24.2 % 19-41 [facility] Basophil percentageOrdered B y: Nina Marksericka on 06-24-2024 Basophils/100 WBC (Bld) 0.6 % 0-1 [facility] C. trachomatis rRNA ISABELLE+prob e Ql (Unsp spec)Ordered By: Nina Marksericka on 06-24-2024 Chlamydia DNA (ISABELLE) Negative Negative [facility] CBC W/Diff, Automatedon 06-08 Absolute Lymph 2.08 X10 3/uL Normal 0.83-4.51 [facility] Comment on above: Performed By: #### L 100.0100, L3890.6301, L509.8002, BTS, L3890.6102, L3890.6006, L509.4006 #### [facility] [address] [place], [address] Absolute Neut 5.8 X10 3/uL Normal 2.0-7.7 [facility] Comment on above: Performed By: #### L 100.0100, L3890.6301, L509.8002, BTS, L3890.6102, L3890.6006, L509.4006 #### [facility] [address] [place], [address] Basophils/100 WBC (Bld) 0.6 % Normal 0-1 [facility] Comment on above: Performed By: #### L 100.0100, L3890.6301, L509.8002, BTS, L3890.6102, L3890.6006, L509.4006 #### [facility] [address] [place], [address] Eosinophils/100 WBC (Bld) 1.2 % Normal 0-5 [facility] Comment on above: Performed By: #### L 100.0100, L3890.6301, L509.8002, BTS, L3890.6102, L3890.6006, L509.4006 #### [facility] [address] [place], [address] Erythrocyte distribution width (RBC) [Ratio] 12.0 % Normal 11.6-14.6 [facility] Comment on above: Performed By: #### L 100.0100, L3890.6301, L509.8002, BTS, L3890.6102, L3890.6006, L509.4006 #### [facility] [address] [place], [address] Hematocrit (Bld) [Volume fraction] 36.7 % Low 37-47 [facility] Comment on above: Performed By: #### L 100.0100, L3890.6301, L509.8002, BTS, L3890.6102, L3890.6006, L509.4006 #### [facility] [address] [place], [address] Hemoglobin (Bld) [Mass/Vol] 12.6 g/dL Normal 12.0-15.0 [facility] Comment on above: Performed By: #### L 100.0100, L3890.6301, L509.8002, BTS, L3890.6102, L3890.6006, L509.4006 #### [facility] [address] [place], [address] IG% 0.300 Normal 0.0-0.9 [facility] Comment on above: Result Comment: IG% - Immature Granulocytes (promyelocytes, myelocytes and metamyelocytes) > 1% indicates that a LEFT SHIFT is Present. Performed By: #### L 100.0100, L3890.6301, L509.8002, BTS, L3890.6102, L3890.6006, L509.4006 #### [facility] [address] [place], [address] Lymphocytes/100 WBC (Bld) 24.2 % Normal 19-41 [facility] Comment on above: Performed By: #### L 100.0100, L3890.6301, L509.8002, BTS, L3890.6102, L3890.6006, L509.4006 #### [facility] [address] [place], [address] MCH (RBC) [Entitic mass] 31.9 pg Normal 27.0-32.0 [facility] Comment on above: Performed By: #### L 100.0100, L3890.6301, L509.8002, BTS, L3890.6102, L3890.6006, L509.4006 #### [facility] [address] [place], [address] MCHC (RBC) [Mass/Vol] 34.3 g/dL Normal 32-36 [facility] Comment on above: Performed By: #### L 100.0100, L3890.6301, L509.8002, BTS, L3890.6102, L3890.6006, L509.4006 #### [facility] [address] [place], [address] MCV (RBC) [Entitic vol] 92.9 fL Normal 81-99 [facility] Comment on above: Performed By: #### L 100.0100, L3890.6301, L509.8002, BTS, L3890.6102, L3890.6006, L509.4006 #### [facility] [address] [place], [address] Monocytes/100 WBC (Bld) 6.3 % Normal 0-10 [facility] Comment on above: Performed By: #### L 100.0100, L3890.6301, L509.8002, BTS, L3890.6102, L3890.6006, L509.4006 #### [facility] [address] [place], [address] Neutrophils/100 WBC (Bld) 67.4 % Normal 47-70 [facility] Comment on above: Performed By: #### L 100.0100, L3890.6301, L509.8002, BTS, L3890.6102, L3890.6006, L509.4006 #### [facility] [address] [place], [address] Nucleated RBC (Bld) [#/Vol] 0 10*3/uL Normal 0-5 [facility] Comment on above: Performed By: #### L 100.0100, L3890.6301, L509.8002, BTS, L3890.6102, L3890.6006, L509.4006 #### [facility] [address] [place], [address] Platelet mean volume (Bld) [Entitic vol] 9.9 fL Normal 6.2-12.0 [facility] Comment on above: Performed By: #### L 100.0100, L3890.6301, L509.8002, BTS, L3890.6102, L3890.6006, L509.4006 #### [facility] [address] [place], [address] Platelets (Bld) [#/Vol] 302 10*3/uL Normal 150-450 [facility] Comment on above: Performed By: #### L 100.0100, L3890.6301, L509.8002, BTS, L3890.6102, L3890.6006, L509.4006 #### [facility] [address] [place], [address] RBC (Bld) [#/Vol] 3.95 10*6/uL Low 4.2-5.4 [facility] Comment on above: Performed By: #### L 100.0100, L3890.6301, L509.8002, BTS, L3890.6102, L3890.6006, L509.4006 #### [facility] [address] [place], [address] RDW SD 41.3 fl Normal 35.1-43.9 [facility] Comment on above: Performed By: #### L 100.0100, L3890.6301, L509.8002, BTS, L3890.6102, L3890.6006, L509.4006 #### [facility] [address] [place], [address] WBC (Bld) [#/Vol] 8.6 10*3/uL Normal 4.4-11.0 [facility] Comment on above: Performed By: #### L 100.0100, L3890.6301, L509.8002, BTS, L3890.6102, L3890.6006, L509.4006 #### [facility] [address] [place], [address] Chlamydia trachomatis rRNA d etection by probe and target amplification methodOrdered By: Nina Kern on 06-24-2024 C. trachomatis rRNA ISABELLE+probe Ql (Unsp spec) Negative Negative [facility] Eosinophil percentageOrdered By: Nina Concha on 06-24-2024 Eosinophils/100 WBC (Bld) 1.2 % 0-5 [facility] Erythrocyte distribution wid th ratioOrdered By: Nina Concha on 06-24-2024 Erythrocyte distribution width (RBC) [Ratio] 12.0 % 11.6-14.6 [facility] Erythrocyte distribution wid th standard deviationOrdered By: Nina Concha on 06-24-2024 Erythrocyte distribution width (RBC) [Entitic vol] 41.3 fL 35.1-43.9 [facility] Erythrocyte distribution width (RBC) [Ratio] 41.3 fl 35.1-43.9 [facility] HBV surface Ag Ql (S)Ordered By: Nina Kern on 06-24-2024 Hepatitis B Surface Antigen Non-Reactive Nonreactive [facility] Comment on above: Reactive: Presumptiv e evidence of HBV. Repeatedly reactive samples must be confirmed using a neutralization test ([employer] HBsAg Confirmatory Test)Non-Reactive: HBsAg not detected; does not exclude the possibility of exposure to HBV Hematocrit Auto (Bld) [Volum e fraction]Ordered By: Nina Kern on 06-24-2024 Hematocrit (Bld) [Volume fraction] 36.7 % Low 37-47 [facility] Hemoglobin measurementOrdere d By: Nina Concha on 06-24-2024 Hemoglobin (Bld) [Mass/Vol] 12.6 g/dL 12.0-15.0 [facility] Hepatitis C antibodyOrdered By: Nina Kern on 06-24-2024 Hepatitis C Antibody Non-Reactive Nonreactive [facility] Comment on above: Reactive: Presumptiv e evidence of antibodies to HCV. Follow CDC recommendations for supplemental testing.Non-Reactive: Antibodies to HCV were not detected; does not exclude the possibility of exposure to HCVReactive Results are presumptive evidence of antibodies to HCV. Follow CDC recommendations for supplemental testing.Order confirmation testing: HCV Quant by PCR testing - HCVPCR #[id number] Non Reactive: < 0.8 Equivocal: >/= 0.8 to < 1.0 Reactive: >/= 1.0The CDC requires that a reactive/equivocal HCV antibody result be sent out for confirmation. HCV Quant by PCR testing. Immature granulocytes/100 WB C Auto (Bld)Ordered By: Nina Kern on 06-24-2024 Immature granulocytes/100 WBC (Bld) 0.300 % 0.0-0.9 [facility] Comment on above: IG% - Immature Granu locytes (promyelocytes, myelocytes and metamyelocytes) > 1% indicates that a LEFT SHIFT is Present. L3890.6006on 06-24-2024 HIV Non-Reactive Normal Nonreactive [facility] Comment on above: Result Comment: Non- Reactive Reactive Repeatedly reactive samples must be confirmed according to CDC recommended confirmatory algorithms. The subresults for either HIVAG or AHIV can be used as an aid in the selection of the confirmation algorithm for reactive samples. Send out specimens with Reactive results to [facility] for confirmation. Order the HIV antibody detection and differentiation: lc#[id number] Performed By: #### L 100.0100, L3890.6301, L509.8002, BTS, L3890.6102, L3890.6006, L509.4006 #### [facility] [address] [facility] [place], [address] L3890.6102on 06-24-2024 HEP B Surf Ag Non-Reactive Normal Nonreactive [facility] Comment on above: Result Comment: Reac tive: Presumptive evidence of HBV. Repeatedly reactive samples must be confirmed using a neutralization test ([employer] HBsAg Confirmatory Test) Non-Reactive: HBsAg not detected; does not exclude the possibility of exposure to HBV Performed By: #### L 100.0100, L3890.6301, L509.8002, BTS, L3890.6102, L3890.6006, L509.4006 #### [facility] [address] [facility] [place], [address] L3890.6301on 06-24-2024 Hepatitis C Ab Non-Reactive Normal Nonreactive [facility] Comment on above: Result Comment: Reac tive: Presumptive evidence of antibodies to HCV. Follow CDC recommendations for supplemental testing. Non-Reactive: Antibodies to HCV were not detected; does not exclude the possibility of exposure to HCV Reactive Results are presumptive evidence of antibodies to HCV. Follow CDC recommendations for supplemental testing. Order confirmation testing: HCV Quant by PCR testing - HCVPCR lc#[id number] Non Reactive: < 0.8 Equivocal: >/= 0.8 to < 1.0 Reactive: >/= 1.0 The CDC requires that a reactive/equivocal HCV antibody result be sent out for confirmation. HCV Quant by PCR testing. Performed By: #### L 100.0100, L3890.6301, L509.8002, BTS, L3890.6102, L3890.6006, L509.4006 #### [facility] [address] [facility] [place], [address] L509.4006on 06-24-2024 Rubella IgG [facility]AC [facility] Comment on above: Result Comment: Anti body Result: Interpretation Non-Reactive: Non-Immune Reactive: Immune The following results were obtained with the [employer] Rubella IgG assay. Results from assays of other manufacturers cannot be used interchangeably. Performed By: #### L 100.0100, L3890.6301, L509.8002, BTS, L3890.6102, L3890.6006, L509.4006 #### [facility] [address] [facility] [place], [address] L509.8002on 06-24-2024 Syphilis Abs Non-Reactive Normal Nonreactive [facility] Comment on above: Performed By: #### L 100.0100, L3890.6301, L509.8002, BTS, L3890.6102, L3890.6006, L509.4006 #### [facility] [address] [facility] [place], [place], [id number] Laboratory - Microbiology an d Antimicrobial susceptibilityOrdered By: Nina Kern on 06-24-2024 HBV surface Ag Ql (S) Non-Reactive Nonreactive [facility] Comment on above: Reactive: Presumptiv e evidence of HBV. Repeatedly reactive samples must be confirmed using a neutralization test ([employer] HBsAg Confirmatory Test)Non-Reactive: HBsAg not detected; does not exclude the possibility of exposure to HBV Lymphocytes Auto (Unsp spec) [#/Vol]Ordered By: Nina Kern on 06-24-2024 Lymphocytes (Bld) [#/Vol] 2.08 10*3/uL 0.83-4.51 [facility] Lymphocytes/100 WBC Auto (Un sp spec)Ordered By: Nina Kern on 06-24-2024 Lymphocytes/100 WBC (Bld) 24.2 % 19-41 [facility] MCV (mean corpuscular volume ) determinationOrdered By: Nina Kern on 06-24-2024 MCV (RBC) [Entitic vol] 92.9 fL 81-99 [facility] Mean corpuscular hemoglobin (MCH) determinationOrdered By: Nina Kern on 06-24-2024 MCH (RBC) [Entitic mass] 31.9 pg 27.0-32.0 [facility] Mean corpuscular hemoglobin concentration (MCHC) determinationOrdered By: Nina Kern on 06-24-2024 MCHC (RBC) [Mass/Vol] 34.3 g/dL 32-36 [facility] Mean platelet volume determi nationOrdered By: Nina Kern on 06-24-2024 Platelet mean volume (Bld) [Entitic vol] 9.9 fL 6.2-12.0 [facility] Monocyte percentageOrdered B y: Nina Kern on 06-24-2024 Monocytes/100 WBC (Bld) 6.3 % 0-10 [facility] Neisseria gonorrhoeae nuclei c acid detection by amplified probe techniqueOrdered By: Nina Kern on 06-24-2024 N. gonorrhoeae DNA ISABELLE+probe Ql (Unsp spec) Negative Negative [facility] Comment on above: Performed at: =[facility] [address] [id number] Director: Shy Rivera MD, Phone: [phone] Neutrophil percentageOrdered By: Nina Kern on 06-24-2024 Neutrophils/100 WBC (Bld) 67.4 % 47-70 [facility] No Panel InformationOrdered By: Nina Kern on 06-24-2024 HIV (1&2) Antibody Non-Reactive Nonreactive [facility] Comment on above: Non-ReactiveReactive Repeatedly reactive samples must be confirmed according to CDC recommended confirmatory algorithms. The subresults for either HIVAG or AHIV can be used as an aid in the selection of the confirmation algorithm for reactive samples.Send out specimens with Reactive results to [facility] for confirmation.Order the HIV antibody detection and differentiation: #[id number] Nucleated red blood cell per centageOrdered By: Nina Kern on 06-24-2024 Nucleated RBC/100 WBC (Bld) [Ratio] 0 % 0-5 [facility] Algebra Tutor Office Visit Reporton 06-24-2024 Algebra Tutor Office Visit Report [facility] [address], [address] [place] [address] OFFICE VISIT Date of Service: 06/24/24 MR#: [id number] Acct: [id number] Name: CONCHA GREWAL Arin Rep #: [id number] : 1990 Provider: Dr. Nina Cortes DO Age/Sex: 33/F [place] [facility] [place]: Signed Intake Vital Signs 05/28/24 13:07 06/24/24 14:15 Height 5 ft 6 in 5 ft 6 in Weight: 155 lb BMI 25.0 BP 101/65 Intake Visit Reasons: New OB, LMP 04/27, RYLEE 02/01 Frame Nailer Required: No Is patient in pain?: No Allergies house dust Allergy (Mild, Verified 06/24/24 14:15) Nasal congestion Last Menstrual Period: 04/27/24 Zika: Zika virus screening: Negative : No PFSH PFSH Medical History Wears glasses Anemia Non-smoker Hx of vaginal delivery Family hx of colon cancer Hypotension Family History Brother Colon cancer, Onset Age: 35 Stage IV Mother Heart disease Father CVA (cerebral vascular accident) Social History (Updated 06/24/24 @ 14:16 by Aicha Albrecht) adopted: No household members: spouse housing: house number of children: 1 current occupational status: unemployed pets and animals: No history of recent travel: Yes ([place]) out of state: Yes out of country: No sexually active: Yes Smoking Status: Never smoker alcohol intake: never substance use type: does not use well-balanced diet: daily or most days caffeine: No eating out: rarely or never during the past year weight has: remained stable what type of physical activity do you participate in: none brandyn/hoahaoism: Rastafarian seatbelt use: always do you feel safe at home: Yes 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 Date Name GA/Weeks Outcome Route Bth Weight Infant Gen Labor Lgth Anesthesia Del Locatn Provider FOB 07/22/22 Joel 40 live - full term 8lbs 3oz Male epidural [facility] Shannon Concha Ahn Delivery Date: 07/22/22 Last Updated by: Aicha Albrecht 1st degree tear HPI New OB, LMP 04/27, RYLEE 02/01 Details: CONCHA GREWAL is a 33 year old who presents for New OB visit. OB Visit RYLEE Calculator Estimated Delivery Date Method Current WG Current Estimate 02/01/25 LMP (Certain) 8w 2d Other Estimates 01/29/25 Ultrasound #1 8w 5d Comments: HIV: Urine Culture: Sequential Screen: NIPT Screen: Estimated Due Date: 07/21/22 Expected Delivery Route/Plan Labor Preferences- CB/BF classes: [] labor support person: [] labor intervention preferences: [] pain management options preferred: [] cut cord/dad catch: [] : [] PP control planned: [] discussed possible routes of delivery and associated risks: [] special requests: [] Specific Issue/Plans Covid status: [] Flu vaccine: [] Tdap vaccine: [] Rhogam: [] LARC form signed: [] Problem list reviewed and updated with the most current plan of care details and appropriate orders placed. Relevant counseling for the gestational age provided. Continue routine care and follow up unless otherwise noted in visit notes/problem list details Initial Weight: Not Recorded Date -???-???-???-???-???-?? ?-???-???-???-???-???-? ??- EGA Weight BP Urine Prot -???-???-???-???-???-?? ?-???-???-???-???-???-? ??- Glucose FHR FuHt Pres Dilation -???-???-???-???-???-?? ?-???-???-???-???-???-? ??- Effaced St Visit Note 06/24/24 -???-???-???-???-???-?? ?-???-???-???-???-???-? ??- 8w 2d 155 lb 101/65 -???-???-???-???-???-?? ?-???-???-???-???-???-? ??- 175 -???-???-???-???-???-?? ?-???-???-???-???-???-? ??- JV- CRL cons istent with Lmp. declines nipt. still breast feeding. Menstrual History Last Menstrual Period: 04/27/24 Reported LMP: definite Normal amount/duration: Yes Frequency in days: 26 On hormonal BC at conception: No hCG+: 11/09/21 Antepartum Record Genetic Screening: Congenital Heart Defect: Other, Neural Tube Defect: Other, Hemoglobinopathy Or Carrier: Other, Cystic Fibrosis: Other, Chromosome Abnormality: Other, Edward-Sachs: Other, Hemophilia: Other, Intellectual Disability/Autism: Other, Recurrent Loss/Stillbirth: Other, Other Structural Defect: Other, Other Genetic Disease: Other and Maternal Metabolic Disorder: Other Infection History: Live with someone with TB or Exposed to TB: No, Patient or Partner has history of Genital Herpes: No, Rash or Viral illness since last mentrual period: No, Prior GBS-Infected child: No, His (more content not included)... Normal [facility] Platelet countOrdered By: Reza Kern on 06-24-2024 Platelets (Bld) [#/Vol] 302 10*3/uL 150-450 [facility] RBC Auto (Bld) [#/Vol]Ordere d By: Nina Kern on 06-24-2024 RBC (Bld) [#/Vol] 3.95 10*6/uL Low 4.2-5.4 [facility] Rubella immune status determ ination by IgG antibody assayOrdered By: Nina Kern on 06-24-2024 Rubella IgG Antibody REAC Nonreactive [facility] Comment on above: Antibody Result: Int erpretationNon-Reactive: Non-ImmuneReactive: ImmuneThe following results were obtained with the [employer] Rubella IgG assay. Results from assays of other manufacturers cannot be used interchangeably. T. pallidum abOrdered By: Reza Kern on 06-24-2024 Syphilis Total Antibody Non-Reactive Nonreactiv e [facility] Type AND Screenon 06-24-2024 ABO and Rh group Nom (Bld) Blood group A Rh(D) positive Normal [facility] Comment on above: Order Comment: PN Performed By: #### L 100.0100, L3890.6301, L509.8002, BTS, L3890.6102, L3890.6006, L509.4006 #### [facility] [address] [place], [address] Urine cultureOrdered By: Ina Kern on 06-24-2024 Bacteria identified Cx Nom (U) Culture exhibits no growth. [facility] White blood cell (WBC) count Ordered By: Nina Kern on 06-24-2024 WBC (Bld) [#/Vol] 8.6 10*3/uL 4.4-11.0 [facility] Laboratory - Chemistry and C hemistry - challengeOrdered By: Otis Gomez on 07-19-2023 HCG ( test) Ql (U) Negative [facility] Comment on above: Very dilute urine sp ecimens, as indicated by a low specificgravity, may not contain hvac sales representative levels of hCG. If is still suspected, a first morning urinespecimen should be collected 48 hours later and tested. Absolute lymphocyte countOrd ered By: Dr. Barahona on 07-22-2022 Lymphocytes Auto (Unsp spec) [#/Vol] 2.29 10*3/uL 0.83-4.51 [facility] Basophil percentageOrdered B y: Dr. Barahona on 07-22-2022 Basophils/100 WBC (Bld) 0.3 % 0-1 [facility] Eosinophils/100 WBC (Bld) 1.1 % 0-5 [facility] Neutrophils (Bld) [#/Vol] 8.2 10*3/uL 2.0-7.7 [facility] Neutrophils/100 WBC (Bld) 69.0 % 47-70 [facility] WBC (Bld) [#/Vol] 11.9 10*3/uL 4.4-11.0 [facility] Blood erythrocytes count (nu mber/volume)Ordered By: Dr. Barahona on 07-22-2022 RBC (Bld) [#/Vol] 4.17 10*6/uL 4.2-5.4 [facility] Blood hemoglobin measurement (mass/volume)Ordered By: Dr. Barahona on 07-22-2022 Hemoglobin (Bld) [Mass/Vol] 13.4 g/dL 12.0-15.0 [facility] Blood lymphocytes/100 leukoc ytesOrdered By: Dr. Barahona on 07-22-2022 Lymphocytes/100 WBC (Bld) 19.2 % 19-41 [facility] Blood monocytes/100 leukocyt esOrdered By: Dr. Barahona on 07-22-2022 Monocytes/100 WBC (Bld) 9.6 % 0-10 [facility] Blood platelet mean volumeOr dered By: Dr. Barahona on 07-22-2022 Platelet mean volume (Bld) [Entitic vol] 12.4 fL 6.2-12.0 [facility] Determination of erythrocyte mean corpuscular volume (MCV)Ordered By: Dr. Barahona on 07-22-2022 MCV (RBC) [Entitic vol] 95.9 fL 81-99 [facility] Hematocrit Auto (Bld) [Volum e fraction]Ordered By: Dr. Barahona on 07-22-2022 Hematocrit (Bld) [Volume fraction] 40.0 % 37-47 [facility] - Hematology and Cell countsOrdered By: Dr. Barahona on 07-22-2022 Erythrocyte distribution width (RBC) [Entitic vol] 43.9 fL 35.1-43.9 [facility] Erythrocyte distribution width (RBC) [Ratio] 12.6 % 11.6-14.6 [facility] Immature granulocytes/100 WBC (Bld) 0.800 % 0.0-0.9 [facility] Comment on above: IG% - Immature Granu locytes (promyelocytes, myelocytes and metamyelocytes) > 1% indicates that a LEFT SHIFT is Present. MCH (RBC) [Entitic mass] 32.1 pg 27.0-32.0 [facility] Nucleated RBC/100 WBC (Bld) [Ratio] 0 % 0-5 [facility] MCHC Auto (RBC) [Mass/Vol]Or dered By: Dr. Barahona on 07-22-2022 MCHC (RBC) [Mass/Vol] 33.5 g/dL 32-36 [facility] Platelets bldOrdered By: Dr. Barahona on 07-22-2022 Platelets (Bld) [#/Vol] 240 10*3/uL 150-450 [facility] Serum Treponema species anti body detectionOrdered By: Dr. Barahona on 07-22-2022 Treponema sp Ab Ql (S) Non-Reactive [facility] - Chemistry and C hemistry - challengeon 07-15-2022 Glucose Ql (U) Negative [facility] - Urinalysison Protein Ql (U) Negative [facility] No Panel InformationOrdered By: Ruthie Le on 07-10-2022 Vaginal Amniotic Fluid Detection Negative Negative [facility] Comment on above: Amniotic fluid not p resent indicates No Rupture of FetalMembranes at time of specimen collection. No Panel InformationOrdered By: Dr. Barahona on 07-09-2022 Vaginal Amniotic Fluid Detection Negative Negative [facility] Comment on above: Amniotic fluid not p resent indicates No Rupture of FetalMembranes at time of specimen collection. Laboratory - Chemistry and C hemistry - challengeon 07-07-2022 Glucose Ql (U) Negative [facility] - Urinalysison Protein Ql (U) Negative [facility] - Chemistry and C hemistry - challengeon 07-01-2022 Glucose Ql (U) Negative [facility] - Urinalysison Protein Ql (U) Trace [facility] No Panel InformationOrdered By: Dr. Kern on 06-27-2022 Group B Streptococcus Culture Group B Beta Streptococcus is not isolated. [facility] - Chemistry and C hemistry - challengeon 06-24-2022 Glucose Ql (U) Negative [facility] - Urinalysison Protein Ql (U) Negative [facility] - Chemistry and C hemistry - challengeon 06-09-2022 Glucose Ql (U) Negative [facility] - Urinalysison Protein Ql (U) Negative [facility] - Chemistry and C hemistry - challengeon 05-26-2022 Glucose Ql (U) Negative [facility] - Urinalysison Protein Ql (U) Negative [facility] - Chemistry and C hemistry - challengeon 05-13-2022 Glucose Ql (U) Negative [facility] - Urinalysison Protein Ql (U) Negative [facility] Absolute lymphocyte countOrd ered By: Alessandra Bolanos on 03-31-2022 Lymphocytes Auto (Unsp spec) [#/Vol] 1.52 10*3/uL 0.83-4.51 [facility] Basophil percentageOrdered B y: Alessandra Bolanos on 03-31-2022 Basophils/100 WBC (Bld) 0.4 % 0-1 [facility] Eosinophils/100 WBC (Bld) 1.0 % 0-5 [facility] Neutrophils (Bld) [#/Vol] 4.7 10*3/uL 2.0-7.7 [facility] Neutrophils/100 WBC (Bld) 67.9 % 47-70 [facility] WBC (Bld) [#/Vol] 7.0 10*3/uL 4.4-11.0 [facility] Blood erythrocytes count (nu mber/volume)Ordered By: Alessandra Bolanos on 03-31-2022 RBC (Bld) [#/Vol] 3.59 10*6/uL 4.2-5.4 [facility] Blood hemoglobin measurement (mass/volume)Ordered By: Alessandra Bolanos on 03-31-2022 Hemoglobin (Bld) [Mass/Vol] 12.0 g/dL 12.0-15.0 [facility] Blood lymphocytes/100 leukoc ytesOrdered By: Alessandra Bolanos on 03-31-2022 Lymphocytes/100 WBC (Bld) 21.8 % 19-41 [facility] Blood monocytes/100 leukocyt esOrdered By: Alessandra Bolanos on 03-31-2022 Monocytes/100 WBC (Bld) 8.3 % 0-10 [facility] Blood platelet mean volumeOr dered By: Alessandra Bolanos on 03-31-2022 Platelet mean volume (Bld) [Entitic vol] 10.1 fL 6.2-12.0 [facility] Determination of erythrocyte mean corpuscular volume (MCV)Ordered By: Alessandra Bolanos on 03-31-2022 MCV (RBC) [Entitic vol] 96.4 fL 81-99 [facility] Gestational diabetes screen 1-hour screen with 50g oral glucose loadOrdered By: Alessandra Bolanos on 03-31-2022 Glucose 1 Hr post 50 g glucose PO [Mass/Vol] 106 mg/dL 70-140 [facility] HIV 1 and HIV-2 antibody ass ay with HIV-1 p24 antigen detectionOrdered By: Alessandra Bolanos on 03-31-2022 HIV 1+2 Ab+HIV1 p24 Ag IA Ql Non-Reactive Nonreactive [facility] Hematocrit Auto (Bld) [Volum e fraction]Ordered By: Alessandra Bolanos on 03-31-2022 Hematocrit (Bld) [Volume fraction] 34.6 % 37-47 [facility] - Chemistry and C hemistry - challengeon 03-31-2022 Glucose Ql (U) Negative [facility] - Hematology and Cell countsOrdered By: Alessandra Bolanos on 03-31-2022 Erythrocyte distribution width (RBC) [Entitic vol] 42.6 fL 35.1-43.9 [facility] Erythrocyte distribution width (RBC) [Ratio] 12.2 % 11.6-14.6 [facility] Immature granulocytes/100 WBC (Bld) 0.600 % 0.0-0.9 [facility] Comment on above: IG% - Immature Granu locytes (promyelocytes, myelocytes and metamyelocytes) > 1% indicates that a LEFT SHIFT is Present. MCH (RBC) [Entitic mass] 33.4 pg 27.0-32.0 [facility] Nucleated RBC/100 WBC (Bld) [Ratio] 0 % 0-5 [facility] - Urinalysison Protein Ql (U) Negative [facility] MCHC Auto (RBC) [Mass/Vol]Or dered By: Alessandra Bolanos on 03-31-2022 MCHC (RBC) [Mass/Vol] 34.7 g/dL 32-36 [facility] Platelets bldOrdered By: Paola Bolanos on 03-31-2022 Platelets (Bld) [#/Vol] 280 10*3/uL 150-450 [facility] Serum Treponema species anti body detectionOrdered By: Alessandra Bolanos on 03-31-2022 Treponema sp Ab Ql (S) Non-Reactive [facility] - Chemistry and C hemistry - challengeon 03-16-2022 Glucose Ql (U) Negative [facility] - Urinalysison Protein Ql (U) Negative [facility] - Chemistry and C hemistry - challengeon 02-17-2022 Glucose Ql (U) Negative [facility] - Urinalysison Protein Ql (U) Negative [facility] - Chemistry and C hemistry - challengeon 01-17-2022 Glucose Ql (U) Negative [facility] Work Phone: Laboratory - Urinalysison Protein Ql (U) Negative [facility] Work Phone: Absolute lymphocyte counton 12-20-2021 Lymphocytes Auto (Unsp spec) [#/Vol] 1.48 10*3/uL 0.83-4.51 [facility] Work Phone: Basophil percentageon 2021 Basophils/100 WBC (Bld) 0.4 % 0-1 [facility] Work Phone: Eosinophils/100 WBC (Bld) 0.7 % 0-5 [facility] Work Phone: Neutrophils (Bld) [#/Vol] 5.3 10*3/uL 2.0-7.7 [facility] Work Phone: Neutrophils/100 WBC (Bld) 71.3 % 47-70 [facility] Work Phone: WBC (Bld) [#/Vol] 7.5 10*3/uL 4.4-11.0 [facility] Work Phone: [phone] Blood erythrocytes count (nu mber/volume)on 12-20-2021 RBC (Bld) [#/Vol] 3.82 10*6/uL 4.2-5.4 [facility] Work Phone: Blood hemoglobin measurement (mass/volume)on 12-20-2021 Hemoglobin (Bld) [Mass/Vol] 12.6 g/dL 12.0-15.0 [facility] Work Phone: [phone] Blood lymphocytes/100 leukoc yteson 12-20-2021 Lymphocytes/100 WBC (Bld) 19.8 % 19-41 [facility] Work Phone: Blood monocytes/100 leukocyt eson 12-20-2021 Monocytes/100 WBC (Bld) 7.4 % 0-10 [facility] Work Phone: Blood platelet mean volumeon 12-20-2021 Platelet mean volume (Bld) [Entitic vol] 9.8 fL 6.2-12.0 [facility] Work Phone: [phone] Cervical or vagninal specime n microscopic examination by cytology stain (reported ason 12-20-2021 Cytology report Cyto stain Doc (Cvx/Vag) Comment . [facility] Work Phone: Comment on above: The Pap smear is a s creening test designed to aid in thedetection of premalignant and malignant conditions of theuterine cervix. It is not a diagnostic procedure andshould not be used as the sole means of detecting cervicalcancer. Both false-positive and false-negative reports dooccur. Chlamydia trachomatis rRNA d etection by probe and target amplification methodon 12-20-2021 C. trachomatis rRNA ISABELLE+probe Ql (Unsp spec) Negative Negative [facility] Work Phone: Detection in cervical specim en of any of human papilloma virus (HPV) 16, 18, 31, 33,on 12-20-2021 HPV 16+18+31+33+35+39+45+51 +52+56+58+59+66+68 DNA Probe+sig amp Ql (Cvx) Negative Negative [facility] Work Phone: Comment on above: This nucleic acid am plification test detects fourteen high-risk HPV types (16,18,31,33,35,39,45,51,52,56,58,59,66,68)without differentiation.Performed at: [facility] [id number] Director: Shy Rivera MD, Phone: [phone] at: =[facility] [id number] Director: Shy Rivera MD, Phone: [phone] Determination of erythrocyte mean corpuscular volume (MCV)on 12-20-2021 MCV (RBC) [Entitic vol] 95.3 fL 81-99 [facility] Work Phone: HIV 1 and HIV-2 antibody ass ay with HIV-1 p24 antigen detectionon 12-20-2021 HIV 1+2 Ab+HIV1 p24 Ag IA Ql Non-Reactive Nonreactive [facility] Work Phone: Hematocrit Auto (Bld) [Volum e fraction]on 12-20-2021 Hematocrit (Bld) [Volume fraction] 36.4 % 37-47 [facility] Work Phone: Laboratory - Cytologyon 12-09 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 [facility] Work Phone: Comment on above: Keanu Small totechnologist ([facility]) Laboratory - Drug toxicology on 12-20-2021 Amphetamines Ql (U) Negative <1000 ng/mL [facility] Work Phone: Benzodiazepines Ql (U) Negative < 200 ng/mL [facility] Work Phone: Cannabinoids Screen Ql (U) Negative < 50 ng/mL [facility] Work Phone: Cocaine Ql (U) Negative < 300 ng/mL [facility] Work Phone: Opiates Ql (U) Negative < 300 ng/mL [facility] Work Phone: Laboratory - Hematology and Cell countson 12-20-2021 Erythrocyte distribution width (RBC) [Entitic vol] 41.1 fL 35.1-43.9 [facility] Work Phone: Erythrocyte distribution width (RBC) [Ratio] 11.9 % 11.6-14.6 [facility] Work Phone: Immature granulocytes/100 WBC (Bld) 0.400 % 0.0-0.9 [facility] Work Phone: Comment on above: IG% - Immature Granu locytes (promyelocytes, myelocytes and metamyelocytes) > 1% indicates that a LEFT SHIFT is Present. MCH (RBC) [Entitic mass] 33.0 pg 27.0-32.0 [facility] Work Phone: Nucleated RBC/100 WBC (Bld) [Ratio] 0 % 0-5 [facility] Work Phone: Laboratory - Microbiology an d Antimicrobial susceptibilityon 12-20-2021 N. gonorrhoeae DNA ISABELLE+probe Ql (Unsp spec) Negative Negative [facility] Work Phone: Comment on above: Performed at: = Anna nair [address] [id number] Director: Shy Rivera MD, Phone: [phone] Laboratory - Miscellaneous t estson 12-20-2021 Service comment (Unsp spec) [Interp] Comment . [facility] Work Phone: Comment on above: This liquid based Th inPrep(R) pap test was screened withthe use of an image guided system. Service comment (Unsp spec) [Interp] . . [facility] Work Phone: MCHC Auto (RBC) [Mass/Vol]on 12-20-2021 MCHC (RBC) [Mass/Vol] 34.6 g/dL 32-36 [facility] Work Phone: No Panel Informationon 12-20 MDMA (Ecstasy) Screen Negative < 500 ng/mL [facility] Work Phone: Pap Smear QC Review Comment . [facility] Work Phone: Comment on above: Mirella Figueroa Cytot echnologist (ASCP) Pathology report final diagnosis Narrative Comment . [facility] Work Phone: Comment on above: NEGATIVE FOR INTRAEP ITHELIAL LESION OR MALIGNANCY.THIS SPECIMEN WAS RESCREENED PART OF OUR RECYCLE DRIVER PROGRAM. Urine Barbiturates Screen Negative < 200 ng/mL [facility] Work Phone: Urine Drug Screen Comment [facility] Work Phone: Comment on above: CONFIRMATORY TESTING FOR ALL POSITIVE URINE DRUG SCREENRESULTS WILL ONLY BE SENT OUT UPON PHYSICIAN ORDER. VISTA Urine Drug Screen methods provide only preliminaryanalytical test results. A more specific alternate chemicalmethod must be used in order to obtain a confirmedanalytical result. Gas chromatography/mass spectrometery(GC/MS) is the preferred confirmatory method. Clinicalconsideration and professional judgement should be appliedto any drug of abuse test result, particularly whenpreliminary positive results are used. URINE TCA TESTING MUST BE ORDERED SEPARATELY. USE TESTMNEMONIC: [facility] Urine Methadone Screen Negative < 300 ng/mL [facility] Work Phone: Hepatitis B Surface Antigen Non-Reactive Nonreactive [facility] Work Phone: Hepatitis C Antibody Non-Reactive Nonreactive [facility] Work Phone: Comment on above: Non Reactive: < 0.8 Equivocal: >/= 0.8 to < 1.0 Reactive: >/= 1.0The CDC recommends that a reactive/equivocal HCV antibody result be followed up by the HCV Nucleic Acid Amplificationtest (430185) Rubella IgG Antibody Reactive Nonreactive [facility] Work Phone: Comment on above: Antibody Results Int erpretation of Immune Status Non Reactive Presumed Non-Immune Equivocal Equivocal Reactive Presumed Immune Platelets bldon 12-20-2021 Platelets (Bld) [#/Vol] 294 10*3/uL 150-450 [facility] Work Phone: Serum Treponema species anti body detectionon 12-20-2021 Treponema sp Ab Ql (S) Non-Reactive [facility] Work Phone: Serum Varicella zoster virus IgM antibody assay by immunoassay (units/volume)on 12-20-2021 VZV IgM IA Qn (S) < 0.91 index 0.00-0.90 [facility] Work Phone: Comment on above: Negative <0.91 Borde rline 0.91 - 1.09 Positive >1.09Performed at: [facility] [address] [id number] Director: Jordy Amezquita PhD, Phone: [phone] Urine phencyclidine (PCP) de tectionon 12-20-2021 Phencyclidine Ql (U) Negative < 25 ng/mL [facility] Work Phone: Culture, urine Bacteria identified Cx Nom (U) Positive [facility] Work Phone: Vital Signs Date Time Vital Sign Value Performing Clinician Faci tenzin 01-10-2025 10:41-0400 Body height 167.[address] Tirso Kemp MD Work Phone: [facility] 01-10-2025 10:41-0400 Body mass index (BMI) [Ratio] 29.1 kg/m2 Dr. Tirso Kemp MD Work Phone: [facility] 01-10-2025 10:41-0400 Body weight 81.[address] Tirso Kemp MD Work Phone: [facility] 01-10-2025 10:41-0400 Diastolic blood pressure 61 mm[Hg] Dr. Tirso Kemp MD Work Phone: 3(326)760-594309 [place] [address] 01-10-2025 10:41-0400 Systolic blood pressure 95 mm[Hg] Dr. Tirso Kemp MD Work Phone: 3(469)454-454286 [address] 12-25-2024 09:39-0400 Body height 167.[address] Tirso Kemp MD Work Phone: 0(195)214-203756 [place] [address] 12-25-2024 09:39-0400 Body mass index (BMI) [Ratio] 29 kg/m2 Dr. Tirso Kemp MD Work Phone: 2(048)141-486956 [place] [address] 12-25-2024 09:39-0400 Body weight 81.[address] Tirso Kemp MD Work Phone: 7(810)250-621056 [place] [address] 12-25-2024 09:39-0400 Diastolic blood pressure 55 mm[Hg] Dr. Tirso Kemp MD Work Phone: 8(203)403-830756 [place] [address] 12-25-2024 09:39-0400 Systolic blood pressure 92 mm[Hg] Dr. Tirso Kemp MD Work Phone: 1(702)989-875809 [place] [address] 12-11-2024 09:02-0400 Body height 167.[address] Tirso Kemp MD Work Phone: 2(929)235-100656 [place] [address] 12-11-2024 09:02-0400 Body mass index (BMI) [Ratio] 28.5 kg/m2 Dr. Tirso Kemp MD Work Phone: 9(968)050-863886 [address] 12-11-2024 09:02-0400 Body weight 80.[address] Tirso Kemp MD Work Phone: 5(390)187-155486 [address] 12-11-2024 09:02-0400 Diastolic blood pressure 64 mm[Hg] Dr. Tirso Kemp MD Work Phone: 8(931)946-044656 [place] [address] 12-11-2024 09:02-0400 Systolic blood pressure 110 mm[Hg] Dr. Tirso Kemp MD Work Phone: 8(634)220-695856 [place] [address] 11-29-2024 10:52-0400 Body height 167.[address] Tirso Kemp MD Work Phone: 9(826)394-051356 [place] [address] 11-29-2024 10:52-0400 Body mass index (BMI) [Ratio] 28.4 kg/m2 Dr. Tirso Kemp MD Work Phone: 3(332)629-820356 [place] [address] 11-29-2024 10:52-0400 Body weight 79.[address] Tirso Kemp MD Work Phone: 1(387)335-935856 [place] [address] 11-29-2024 10:52-0400 Diastolic blood pressure 64 mm[Hg] Dr. Tirso Kemp MD Work Phone: 3(822)475-174556 [place] [address] 11-29-2024 10:52-0400 Systolic blood pressure 99 mm[Hg] Dr. Tirso Kemp MD Work Phone: 5(721)010-495356 [place] [address] 11-15-2024 10:21-0400 Body height 167.[address] Tirso Kemp MD Work Phone: 9(601)010-205856 [place] [address] 11-15-2024 10:20-0400 Body mass index (BMI) [Ratio] 28.1 kg/m2 Dr. Tirso Kemp MD Work Phone: 5(898)957-699456 [place] [address] 11-15-2024 10:20-0400 Body weight 79.[address] Tirso Kemp MD Work Phone: 3(462)458-974456 [place] [address] 11-15-2024 10:20-0400 Diastolic blood pressure 60 mm[Hg] Dr. Tirso Kemp MD Work Phone: 7(109)842-012156 [place] [address] 11-15-2024 10:20-0400 Systolic blood pressure 98 mm[Hg] Dr. Tirso Kemp MD Work Phone: [facility] 10-21-2024 08:52-0400 Body height 167.[address] Tirso Kemp MD Work Phone: [facility] 10-21-2024 08:52-0400 Body mass index (BMI) [Ratio] 27.6 kg/m2 Dr. Tirso Kemp MD Work Phone: 6(230)711-580886 [address] 10-21-2024 08:52-0400 Body weight 77.[address] Tirso Kemp MD Work Phone: 7(601)371-500756 [place] [address] 10-21-2024 08:52-0400 Diastolic blood pressure 68 mm[Hg] Dr. Tirso Kemp MD Work Phone: 8(111)011-851656 [place] [address] 10-21-2024 08:52-0400 Systolic blood pressure 102 mm[Hg] Dr. Tirso Kemp MD Work Phone: 3(324)300-101656 [place] [address] 09-19-2024 14:58-0400 Body height 167.[address] Tirso Kemp MD Work Phone: 1(748)921-044756 [place] [address] 09-19-2024 14:55-0400 Body mass index (BMI) [Ratio] 27.1 kg/m2 Dr. Tirso Kemp MD Work Phone: 6(811)195-963656 [place] [address] 09-19-2024 14:55-0400 Body weight 76.[address] Tirso Kemp MD Work Phone: 2(417)659-171456 [place] [address] 09-19-2024 14:55-0400 Diastolic blood pressure 64 mm[Hg] Dr. Tirso Kemp MD Work Phone: 0(759)341-368656 [place] [address] 09-19-2024 14:55-0400 Systolic blood pressure 102 mm[Hg] Dr. Tirso Kemp MD Work Phone: 9(025)140-070556 [place] [address] 08-20-2024 08:29-0400 Body height 167.[address] Tirso Kemp MD Work Phone: 0(265)015-272886 [address] 08-20-2024 08:29-0400 Body mass index (BMI) [Ratio] 25.8 kg/m2 Dr. Tirso Kemp MD Work Phone: 8(735)573-241209 [place] [address] 08-20-2024 08:29-0400 Body weight 72.[address] Tirso Kemp MD Work Phone: 1(511)335-815356 [place] [address] 08-20-2024 08:29-0400 Diastolic blood pressure 60 mm[Hg] Dr. Tirso Kemp MD Work Phone: 3(321)184-428056 [place] [address] 08-20-2024 08:29-0400 Systolic blood pressure 94 mm[Hg] Dr. Tirso Kemp MD Work Phone: 1(770)348-199756 [place] [address] 07-23-2024 09:17-0400 Body mass index (BMI) [Ratio] 25.4 kg/m2 Dr. Tirso Kemp MD Work Phone: 2(750)116-570556 [place] [address] 07-23-2024 09:17-0400 Body weight 71.[address] Tirso Kemp MD Work Phone: 8(021)113-907056 [place] [address] 07-23-2024 09:17-0400 Diastolic blood pressure 62 mm[Hg] Dr. Tirso Kemp MD Work Phone: 4(809)929-921356 [place] [address] 07-23-2024 09:17-0400 Systolic blood pressure 98 mm[Hg] Dr. Tirso Kemp MD Work Phone: 9(005)782-699756 [place] [address] 06-24-2024 14:15-0400 Body height 167.[address] Tirso Kemp MD Work Phone: 9(835)732-347956 [place] [address] 06-24-2024 14:15-0400 Body mass index (BMI) [Ratio] 25 kg/m2 Dr. Tirso Kemp MD Work Phone: 8(244)997-282056 [place] [address] 06-24-2024 14:15-0400 Body weight 70.[address] Tirso Kemp MD Work Phone: 9(986)479-715356 [place] [address] 06-24-2024 14:15-0400 Diastolic blood pressure 65 mm[Hg] Dr. Tirso Kemp MD Work Phone: [facility] 06-24-2024 14:15-0400 Systolic blood pressure 101 mm[Hg] Dr. Tirso Kemp MD Work Phone: [facility] 07-19-2023 08:35-0400 Body temperature 98 [degF] Dr. Tirso Kemp Work Phone: [facility] 07-19-2023 08:35-0400 Diastolic blood pressure 56 mm[Hg] Dr. Tirso Kemp Work Phone: [facility] 07-19-2023 08:35-0400 Heart rate 62 /min Dr. Tirso Kemp Work Phone: [facility] 07-19-2023 08:35-0400 Respiratory rate 16 /min Dr. Tirso Kemp Work Phone: [facility] 07-19-2023 08:35-0400 SaO2% (BldA) [Mass fraction] 100 % Dr. Tirso Kemp Work Phone: [facility] 07-19-2023 08:35-0400 Systolic blood pressure 92 mm[Hg] Dr. Tirso Kemp Work Phone: [facility] 07-19-2023 06:53-0400 Body height 167.[address] Tirso Kemp Work Phone: [facility] 07-19-2023 06:53-0400 Body mass index (BMI) [Ratio] 23.5 kg/m2 Dr. Tirso Kemp Work Phone: [facility] 07-19-2023 06:53-0400 Body weight [address] Tirso Kemp Work Phone: [facility] 06-12-2023 12:51-0500 Body mass index (BMI) [Ratio] 24.5 kg/m2 Dr. Tirso Kemp Work Phone: [facility] 06-12-2023 12:51-0500 Body temperature 97.2 [degF] Dr. Tirso Kemp Work Phone: [facility] 06-12-2023 12:51-0500 Body weight 68.[address] Tirso Kemp Work Phone: [facility] 06-12-2023 12:51-0500 Diastolic blood pressure 63 mm[Hg] Dr. Tirso Kemp Work Phone: [facility] 06-12-2023 12:51-0500 Heart rate 62 /min Dr. Tirso Kemp Work Phone: [facility] 06-12-2023 12:51-0500 Respiratory rate 17 /min Dr. Tirso Kemp Work Phone: [facility] 06-12-2023 12:51-0500 SaO2% (BldA) [Mass fraction] 100 % Dr. Tirso Kemp Work Phone: [facility] 06-12-2023 12:51-0500 Systolic blood pressure 98 mm[Hg] Dr. Tirso Kemp Work Phone: [facility] 07-24-2022 13:50-0400 Body temperature 97.8 [degF] Dr. Shaan Kemp Work Phone: [facility] 07-24-2022 13:50-0400 Diastolic blood pressure 62 mm[Hg] Dr. Shaan Kemp Work Phone: [facility] 07-24-2022 13:50-0400 Heart rate 73 /min Dr. Shaan Kemp Work Phone: [facility] 07-24-2022 13:50-0400 Respiratory rate 16 /min Dr. Shaan Kemp Work Phone: [facility] 07-24-2022 13:50-0400 Systolic blood pressure 90 mm[Hg] Dr. Shaan Kemp Work Phone: [facility] 07-24-2022 08:00-0400 SaO2% (BldA) [Mass fraction] 99 % Dr. Shaan Kemp Work Phone: [facility] 07-22-2022 00:53-0400 Body height 169.[address] Shaan Kemp Work Phone: [facility] 07-22-2022 00:53-0400 Body mass index (BMI) [Ratio] 28.2 kg/m2 Dr. Shaan Kemp Work Phone: [facility] 07-22-2022 00:53-0400 Body weight 80.[address] Shaan Kemp Work Phone: [facility] 07-15-2022 09:37-0400 Body mass index (BMI) [Ratio] 28.6 kg/m2 Dr. Shaan Kemp Work Phone: [facility] 07-15-2022 09:37-0400 Body weight 81.[address] Shaan Kemp Work Phone: [facility] 07-15-2022 09:37-0400 Diastolic blood pressure 64 mm[Hg] Dr. Shaan Kemp Work Phone: [facility] 07-15-2022 09:37-0400 Systolic blood pressure 102 mm[Hg] Dr. Shaan Kemp Work Phone: [facility] 07-10-2022 00:35-0400 Body temperature 99.4 [degF] Dr. Shaan Kemp Work Phone: [facility] 07-10-2022 00:34-0400 Diastolic blood pressure 65 mm[Hg] Dr. Shaan Kemp Work Phone: [facility] 07-10-2022 00:34-0400 Heart rate 67 /min Dr. Shaan Kemp Work Phone: [facility] 07-10-2022 00:34-0400 SaO2% (BldA) [Mass fraction] 99 % Dr. Shaan Kemp Work Phone: [facility] 07-10-2022 00:34-0400 Systolic blood pressure 109 mm[Hg] Dr. Shaan Kemp Work Phone: [facility] 07-10-2022 00:17-0400 Body height 168.[address] Shaan Kemp Work Phone: [facility] 07-10-2022 00:17-0400 Body mass index (BMI) [Ratio] 29.5 kg/m2 Dr. Shaan Kemp Work Phone: [facility] 07-10-2022 00:17-0400 Body weight 84.[address] Shaan Kemp Work Phone: [facility] 07-09-2022 15:53-0400 Heart rate 75 /min Dr. Shaan Kemp Work Phone: [facility] 07-09-2022 15:53-0400 SaO2% (BldA) [Mass fraction] 98 % Dr. Shaan Kemp Work Phone: [facility] 07-09-2022 15:52-0400 Body temperature 98.3 [degF] Dr. Shaan Kemp Work Phone: [facility] 07-09-2022 15:51-0400 Diastolic blood pressure 67 mm[Hg] Dr. Shaan Kemp Work Phone: [facility] 07-09-2022 15:51-0400 Systolic blood pressure 111 mm[Hg] Dr. Shaan Kemp Work Phone: [facility] 07-09-2022 15:35-0400 Body height 169.[address] Shaan Kemp Work Phone: [facility] 07-09-2022 15:35-0400 Body mass index (BMI) [Ratio] 29.2 kg/m2 Dr. Shaan Kemp Work Phone: [facility] 07-09-2022 15:35-0400 Body weight 83.[address] Shaan Kemp Work Phone: [facility] 07-07-2022 09:39-0400 Body mass index (BMI) [Ratio] 29.2 kg/m2 Dr. Shaan Kemp Work Phone: [facility] 07-07-2022 09:39-0400 Body weight 82.[address] Shaan Kemp Work Phone: [facility] 07-07-2022 09:39-0400 Diastolic blood pressure 68 mm[Hg] Dr. Shaan Kemp Work Phone: 3(292)239-185009 [place] [address] 07-07-2022 09:39-0400 Systolic blood pressure 118 mm[Hg] Dr. Shaan Kemp Work Phone: 1(789)560-648186 [address] 07-01-2022 09:17-0400 Body mass index (BMI) [Ratio] 28.9 kg/m2 Dr. Shaan Kemp Work Phone: 7(046)605-429309 [place] [address] 07-01-2022 09:17-0400 Body weight 81.[address] Shaan Kemp Work Phone: 9(292)945-089986 [address] 07-01-2022 09:17-0400 Diastolic blood pressure 66 mm[Hg] Dr. Shaan Kemp Work Phone: 4(513)842-389186 [address] 07-01-2022 09:17-0400 Systolic blood pressure 101 mm[Hg] Dr. Shaan Kemp Work Phone: [facility] 06-24-2022 16:12-0400 Body mass index (BMI) [Ratio] 28.5 kg/m2 Dr. Shaan Kemp Work Phone: 2(341)432-370609 [place] [address] 06-24-2022 16:12-0400 Body weight 81.[address] Shaan Kemp Work Phone: 9(439)007-268509 [place] [address] 06-24-2022 16:12-0400 Diastolic blood pressure 74 mm[Hg] Dr. Shaan Kemp Work Phone: 1(343)764-219909 [place] [address] 06-24-2022 16:12-0400 Systolic blood pressure 116 mm[Hg] Dr. Shaan Kemp Work Phone: [facility] 06-09-2022 15:43-0500 Body mass index (BMI) [Ratio] 28.4 kg/m2 Dr. Shaan Kemp Work Phone: [facility] 06-09-2022 15:43-0500 Body weight [address] Shaan Kemp Work Phone: [facility] 06-09-2022 15:43-0500 Diastolic blood pressure 65 mm[Hg] Dr. Shaan Kemp Work Phone: [facility] 06-09-2022 15:43-0500 Systolic blood pressure 105 mm[Hg] Dr. Shaan Kemp Work Phone: [facility] 05-26-2022 15:38-0500 Body height 168.[address] Shaan Kemp Work Phone: [facility] 05-26-2022 15:37-0500 Body mass index (BMI) [Ratio] 27.8 kg/m2 Dr. Shaan Kemp Work Phone: [facility] 05-26-2022 15:37-0500 Body weight 79.[address] Shaan Kemp Work Phone: [facility] 05-26-2022 15:37-0500 Diastolic blood pressure 69 mm[Hg] Dr. Shaan Kemp Work Phone: [facility] 05-26-2022 15:37-0500 Systolic blood pressure 110 mm[Hg] Dr. Shaan Kemp Work Phone: [facility] 05-13-2022 15:27-0500 Body mass index (BMI) [Ratio] 27.4 kg/m2 Dr. Shaan Kemp Work Phone: [facility] 05-13-2022 15:27-0500 Body weight 78.[address] Shaan Kemp Work Phone: [facility] 05-13-2022 15:27-0500 Diastolic blood pressure 60 mm[Hg] Dr. Shaan Kemp Work Phone: [facility] 05-13-2022 15:27-0500 Systolic blood pressure 109 mm[Hg] Dr. Shaan Kemp Work Phone: [facility] 03-31-2022 13:11-0500 Body height 169.[address] Shaan Kemp Work Phone: [facility] Work Phone: 03-31-2022 13:10-0500 Body mass index (BMI) [Ratio] 26.2 kg/m2 Dr. Shaan Kemp Work Phone: [facility] 03-31-2022 13:10-0500 Body weight 73.[address] Shaan Kemp Work Phone: [facility] 03-31-2022 13:10-0500 Diastolic blood pressure 61 mm[Hg] Dr. Shaan Kemp Work Phone: [facility] 03-31-2022 13:10-0500 Systolic blood pressure 101 mm[Hg] Dr. Shaan Kemp Work Phone: [facility] 03-16-2022 13:36-0500 Body mass index (BMI) [Ratio] 25.3 kg/m2 Dr. Shaan Kemp Work Phone: [facility] 03-16-2022 13:36-0500 Body weight 72.[address] Shaan Kemp Work Phone: [facility] 03-16-2022 13:36-0500 Diastolic blood pressure 64 mm[Hg] Dr. Shaan Kemp Work Phone: [facility] 03-16-2022 13:36-0500 Heart rate 73 /min Dr. Shaan Kemp Work Phone: [facility] 03-16-2022 13:36-0500 Systolic blood pressure 105 mm[Hg] Dr. Shaan Kemp Work Phone: [facility] 02-17-2022 13:34-0500 Body height 169.[address] Shaan Kemp Work Phone: [facility] Work Phone: 02-17-2022 13:33-0500 Body mass index (BMI) [Ratio] 27.1 kg/m2 Dr. Shaan Kemp Work Phone: [facility] 02-17-2022 13:33-0500 Body weight 71.[address] Shaan Kemp Work Phone: [facility] 02-17-2022 13:33-0500 Diastolic blood pressure 69 mm[Hg] Dr. Shaan Kemp Work Phone: [facility] 02-17-2022 13:33-0500 Systolic blood pressure 103 mm[Hg] Dr. Shaan Kemp Work Phone: [facility] 01-17-2022 13:32-0400 Body mass index (BMI) [Ratio] 24.1 kg/m2 Dr. Shaan Kemp Work Phone: [facility] Work Phone: 01-17-2022 13:32-0400 Body weight 68.[address] Shaan Kemp Work Phone: [facility] Work Phone: 01-17-2022 13:32-0400 Diastolic blood pressure 54 mm[Hg] Dr. Shaan Kemp Work Phone: [facility] Work Phone: 01-17-2022 13:32-0400 Systolic blood pressure 98 mm[Hg] Dr. Shaan Kemp Work Phone: [facility] Work Phone: 12-20-2021 13:55-0400 Body height 169.[address] Shaan Kemp Work Phone: [facility] Work Phone: 12-20-2021 13:55-0400 Body mass index (BMI) [Ratio] 24 kg/m2 Dr. Shaan Kemp Work Phone: [facility] Work Phone: 12-20-2021 13:55-0400 Body weight 68.[address] Shaan Kemp Work Phone: [facility] Work Phone: 12-20-2021 13:55-0400 Diastolic blood pressure 58 mm[Hg] Dr. Shaan Kemp Work Phone: [facility] Work Phone: 12-20-2021 13:55-0400 Systolic blood pressure 92 mm[Hg] Dr. Shaan Kemp Work Phone: [facility] Work Phone: Encounters Encounter Date Encounter Type Care Provider Facility Start: 01-31-2025 ambulatory Tirso Uriostegui lity:[facility] Start: 01-24-2025 End: 01-24-2025 ambulatory Tirso Kemp Facility:[facility] Start: 01-17-2025 End: 01-17-20[facility] Start: 01-10-2025 ambulatory Kinza Uriostegui lity:[facility] Start: 01-10-2025 End: 01-10-[address] Kinza Barahona MD -[facility] Work Phone: Start: 01-10-2025 End: 01-10-[address] Tirso Kemp MD Work Phone: -[facility] Start: 12-25-2024 End: 12-25-2024 Patient encounter procedure Esperanza DELEON -[facility] Work Phone: Start: 12-25-2024 End: 12-25-[address] Tirso Kemp MD Work Phone: -[facility] Start: 12-11-2024 End: 12-11-2024 Patient encounter procedure Ruthie Le CN -[facility] Work Phone: Start: 12-11-2024 End: 12-11-[address] Tirso Kemp MD Work Phone: -[facility] Start: 11-29-2024 End: 11-29-2024 Patient encounter procedure Alessandra Bolanos CN -[facility] Work Phone: Start: 11-29-2024 End: 11-29-[address] Tirso Kemp MD Work Phone: [facility] Start: 11-15-2024 End: 11-15-[address] Nina Gamboa DO -[facility] Work Phone: Start: 11-15-2024 End: 11-15-[address] Tirso eKmp MD Work Phone: -[facility] Start: 11-15-2024 End: 11-15-2024 ambulatory Tirso Kemp Facility:[facility] Start: 11-13-2024 ambulatory Tirso Kemp Facolga lity:[facility] Start: 10-21-2024 End: 10-21-[address] Kinza Barahona MD -[facility] Work Phone: Start: 10-21-2024 End: 10-21-[address] Tirso Kemp MD Work Phone: -[facility] Start: 09-19-2024 End: 09-19-2024 Patient encounter procedure Esperanza DELEON -[facility] Work Phone: Start: 09-19-2024 End: 09-19-[address] Tirso Kemp MD Work Phone: [facility] Work Phone: Start: 08-20-2024 End: 08-20-2024 Patient encounter procedure Esperanza DELEON -[facility] Work Phone: Start: 08-20-2024 End: 08-20-[address] Tirso Kemp MD Work Phone: [facility] Work Phone: Start: 07-23-2024 End: 07-23-[address] Nina Gamboa DO -[facility] Work Phone: Start: 07-23-2024 End: 07-23-2024 ambulatory Tirso Kemp Facility:[facility] Start: 06-24-2024 End: 06-24-[address] Nina Gamboa DO -[facility] Work Phone: Start: 06-24-2024 End: 06-24-[address] Tirso Kemp MD Work Phone: [facility] Work Phone: Start: 06-24-2024 End: 06-24-2024 ambulatory Tirso Kemp Facility:[facility] Start: 07-19-2023 Non-patient / Non-visit Dr. Tirso Kemp Work Phone: [facility] Start: 07-19-2023 End: 07-19-2023 Admission to same day surgery center Dr. Tirso Kemp Work Phone: [facility] Work Phone: Start: 07-19-2023 End: 07-19-[address] Tirso Kemp Work Phone: [facility] Work Phone: Start: 07-05-2023 End: 07-05-[address] Tirso Kemp Work Phone: [facility] Work Phone: Start: 06-12-2023 End: 06-12-[address] Tirso Kemp Work Phone: [facility] Work Phone: Start: 07-24-2022 Non-patient / Non-visit Dr. Shaan Kemp Work Phone: [facility] Start: 07-23-2022 Non-patient / Non-visit Dr. Shaan Kemp Work Phone: [facility] Start: 07-22-2022 Non-patient / Non-visit Dr. Shaan Kemp Work Phone: [facility] Start: 07-22-2022 End: 07-24-2022 Evaluation and management of inpatient Dr. Shaan Kemp Work Phone: [facility] Start: 07-15-2022 End: 07-15-[address] Shaan Kemp Work Phone: [facility] Start: 07-10-2022 Non-patient / Non-visit Dr. Shaan Kemp Work Phone: [facility] Start: 07-09-2022 Non-patient / Non-visit Dr. Shaan Kemp Work Phone: [facility] Start: 07-09-2022 End: 07-10-[address] Shaan Kemp Work Phone: [facility] Work Phone: Start: 07-09-2022 End: 07-10-[address] Shaan Kemp Work Phone: [facility] Start: 07-07-2022 End: 07-07-[address] Shaan Kemp Work Phone: [facility] Start: 07-01-2022 End: 07-01-[address] Shaan Kemp Work Phone: [facility] Start: 06-24-2022 End: 06-24-[address] Shaan Kemp Work Phone: [facility] Work Phone: Start: 06-24-2022 End: 06-24-[address] Shaan Kemp Work Phone: [facility] Specimen Start: 06-24-2022 End: 06-24-[address] Shaan Kemp Work Phone: [facility] Start: 06-09-2022 End: 06-09-[address] Shaan Kemp Work Phone: [facility] Start: 06-02-2022 End: 06-02-[address] Shaan Kemp Work Phone: [facility] Work Phone: Start: 06-02-2022 End: 06-02-[address] Shaan Kemp Work Phone: [facility] Start: 05-26-2022 End: 05-26-[address] Shaan Kemp Work Phone: [facility] Start: 05-13-2022 End: 05-13-[address] Shaan Kemp Work Phone: [facility] Start: 03-31-2022 End: 03-31-[address] Shaan Kemp Work Phone: [facility] Work Phone: Start: 03-31-2022 End: 03-31-[address] Shaan Kemp Work Phone: [facility] Start: 03-16-2022 End: 03-16-[address] Shaan Kemp Work Phone: [facility] Start: 02-28-2022 End: 02-28-[address] Shaan Kemp Work Phone: [facility] Work Phone: Start: 02-28-2022 End: 02-28-[address] Shaan Kemp Work Phone: [facility] Start: 02-17-2022 End: 02-17-[address] Shaan Kemp Work Phone: [facility] Start: 01-17-2022 End: 01-17-[address] Shaan Kemp Work Phone: [facility] Start: 12-20-2021 End: 12-20-[address] Shaan Kemp Work Phone: [facility] Work Phone: Start: 12-20-2021 End: 12-20-[address] Shaan Kemp Work Phone: [facility] Start: 12-20-2021 End: 12-20-[address] Shaan Kemp Work Phone: [facility] Procedures Date Procedure Procedure Detail Performing Clinician Start: 11-15-2024 Serologic test for syphilis Dr. Tirso Kemp MD Work Phone: Start: 06-24-2024 Hepatitis C antibody measurement Dr. Tirso Kemp MD Work Phone: Comment on above: Reactive: Presumptiv e evidence of antibodies to HCV. Follow CDC recommendations for supplemental testing.Non-Reactive: Antibodies to HCV were not detected; does not exclude the possibility of exposure to HCVReactive Results are presumptive evidence of antibodies to HCV. Follow CDC recommendations for supplemental testing.Order confirmation testing: HCV Quant by PCR testing - HCVPCR #[id number] Non Reactive: < 0.8 Equivocal: >/= 0.8 to < 1.0 Reactive: >/= 1.0The CDC requires that a reactive/equivocal HCV antibody result be sent out for confirmation. HCV Quant by PCR testing. Start: 06-24-[address] Tirso Kemp MD Work Phone: Comment on above: Antibody Result: Int erpretationNon-Reactive: Non- ImmuneReactive: ImmuneThe following results were obtained with the [employer] Rubella IgG assay. Results from assays of other manufacturers cannot be used interchangeably. Start: 06-24-2024 Serologic test for syphilis Dr. Tirso Kemp MD Work Phone: Start: 06-24-[address] Ty Kemp MD Work Phone: Start: 07-19-[address] Khanh Kemp Work Phone: Start: 06-02-[address] Shaan Kemp Work Phone: Start: 02-28-[address] Shaan Kemp Work Phone: Group B Streptococcu s Culture Dr. Shaan Kemp Work Phone: Urine culture Dr. Shaan Kemp Work Phone: Plan of Treatment Date Care Activity Detail Author Start: 11-15-2024 CBC W Auto Different ial panel - Blood [facility] Start: 11-15-2024 Measurement of gluco se 2 hours after glucose challenge for glucose tolerance test [facility] Start: 11-15-2024 Serologic test for syphilis [facility] Start: 11-15-2024 [facility] Start: 07-19-2023 Patient discharge [facility] Start: 07-24-2022 Patient discharge [facility] Start: 07-22-2022 Administration of medication [facility] Start: 07-22-2022 Application of ice c ollar, cap or bag [facility] Start: 07-22-2022 Catheterization of vein [facility] Start: 07-22-2022 Introduction of urinary catheter [facility] Start: 07-22-2022 Measuring intake and output [facility] Start: 07-22-2022 Notification of physician [facility] Start: 07-22-2022 Procedure discontinued [facility] Start: 07-22-2022 Provision of activity privileges [facility] Start: 07-22-2022 Vital signs measurements [facility] Start: 07-22-2022 [facility] Start: 07-22-2022 Admission procedure [facility] Start: 07-10-2022 Nonstress test [facility] Start: 07-10-2022 Obstetric monitoring [facility] Start: 07-10-2022 Vital signs measurements [facility] Start: 07-10-2022 [facility] Start: 07-10-2022 Patient discharge [facility] Start: 07-09-2022 Nonstress test [facility] Start: 07-09-2022 Obstetric monitoring [facility] Start: 07-09-2022 Vital signs measurements [facility] Start: 07-09-2022 [facility] Start: 07-09-2022 Patient discharge [facility] Start: 12-20-2021 Liquid based cervica l cytology screening [facility] Work Phone: CBC W Auto Different ial panel - Blood [facility] Colonoscopy [facility] Erythrocyte mean cor puscular volume determination [facility] Hematocrit [Volume F raction] of Blood [facility] Hemoglobin [Mass/volume] in Blood [facility] Leukocytes [#/volume] in Blood [facility] Mean corpuscular hem oglobin concentration determination [facility] Mean corpuscular hem oglobin determination [facility] Measurement of gluco se 2 hours after glucose challenge for glucose tolerance test [facility] Neutrophil count [facility] Neutrophil percent d ifferential count [facility] Path report.final Dx Spec [facility] Work Phone: Patient Education [facility] Work Phone: Patient referral [facility] Work Phone: Platelets [#/volume] in Blood [facility] Red blood cell count [facility] Red cell distributio n width determination [facility] Serologic test for syphilis [facility] Streptococcus agalac tiae [Presence] in Unspecified specimen by Organism specific culture [facility] Ultrasound scan for growth [facility] Payers Date Payer Category Payer Unknown [id number] 2024 Self-pay [id number] Unknown [facility] [employer] [facility] [id number] Unknown . [id number] Unknown [id number] 2.16.8 [id number] Unknown [id number] 2.16.8 [id number] Unknown [id number] 2.16.8 [id number] Unknown [id number] 2.16.8 [id number] Unknown [id number] 2.16.8 [id number] Unknown [id number] 2.16.8 [id number] Unknown [id number] 2.16.8 [id number] Unknown [id number] 2.16.8 [id number] Unknown [id number] 2.16.8 [id number] Unknown [id number] 2.16.8 [id number] Unknown [id number] 2.16.8 [id number] Unknown [id number] 2.16.8 [id number] Unknown [id number] 2.16.8 [id number] Unknown [id number] 2.16.8 [id number] Unknown [id number] 2.16.8 [id number] Unknown [id number] 2.16.8 [id number] Unknown [id number] 2.16.8 [id number] Social History Date Type Detail Facility Start: 12-20-2021 End: 07-17-2023 Tobacco smoking status NHIS Unknown if ever smoked [facility] Start: 1990 Sex Assigned At Female [facility] Start: 06-24-2024 Tobacco smoking status NHIS Never smoked tobacco (finding) [facility] Start: 07-03-2024 Sex Female (finding) [facility] Sex Female [facility] NEGATED: Highlighted row [facility] Goals Date Patient Goal Desired Activity /State Mental Status Date Assessment Result Facility 07-19-2023 Cognitive function Voice/Name [facility] Work Phone: Clinical Notes 12-20-2021 to 01-10-2025 Note Date & Type Note Facility 01-10-2025 Progress note [facility] 12-11-2024 Progress note [facility] 11-29-2024 Progress note [facility] 11-15-2024 Progress note [facility] 10-21-2024 Progress note [facility] 09-19-2024 Evaluation note Diagnosis Onset Date Resolution AMA (advanced maternal age) multigravida 35+ acute September 19, 2024 2:50pm Anal fissure acute September 19, 025 2:50pm Family hx of colon cancer acute September 19, 2024 2:50pm acute September 19 2:50pm Supervision of high-risk acute September 19, 025 2:50pm AMA (advanced maternal age) multigravida 35+ acute October 21, 2024 8:50am Anal fissure acute October 21, 025 8:50am Family hx of colon cancer acute October 21, 2024 8:50am acute October 21 8:50am Supervision of high-risk acute October 21 025 8:50am AMA (advanced maternal age) multigravida 35+ acute November 10:14am Anal fissure acute November 15, 2024 10:14am Family hx of colon cancer acute November 15, 2024 10:14am acute November 15 10:14am Supervision of high-risk acute November 15, 2024 10:14am AMA (advanced maternal age) multigravida 35+ acute November 10:50am Anal fissure acute November 29, 2024 10:50am Family hx of colon cancer acute November 29 10:50am acute November 29, 025 10:50am Supervision of high-risk acute November 29, 2024 10:50am AMA (advanced maternal age) multigravida 35+ acute December 11, 2024 8:58am Anal fissure acute December 8:58am Family hx of colon cancer acute December 11, 025 8:58am acute December 11, 2024 8:58am Supervision of high-risk acute December 8:58am AMA (advanced maternal age) multigravida 35+ acute December 25, 2024 9:38am Anal fissure acute December 252024 9:38am Family hx of colon cancer acute December 25, 2024 9:38am acute December 9:38am Supervision of high-risk acute December 252024 9:38am [facility] Work Phone: 1(859) 633-936706-12-2025 Evaluation note* Diagnosis Onset Date Resolution Status Admit Date AMA (advanced maternal age) multigravida 35+ acute September 19, 2024 2:50pm Anal fissure acute September 19, 025 2:50pm Family hx of colon cancer acute September 19, 2024 2:50pm acute September 19 2:50pm Supervision of high-risk acute September 19, 2024 2:50pm AMA (advanced maternal age) multigravida 35+ acute October 21, 2024 8:50am Anal fissure acute October 21 025 8:50am Family hx of colon cancer acute October 21, 2024 8:50am acute October 21 8:50am Supervision of high-risk acute October 21, 2024 8:50am AMA (advanced maternal age) multigravida 35+ acute November 15 10:14am Anal fissure acute November 15, 2024 10:14am Family hx of colon cancer acute November 15, 2024 10:14am acute November 15 10:14am Supervision of high-risk acute November 15, 2024 10:14am AMA (advanced maternal age) multigravida 35+ acute November 29 10:50am Anal fissure acute November 29, 2024 10:50am Family hx of colon cancer acute November 29, 2024 10:50am acute November 29, 025 10:50am Supervision of high-risk acute November 29 10:50am AMA (advanced maternal age) multigravida 35+ acute December 11, 2024 8:58am Anal fissure acute December 8:58am Family hx of colon cancer acute December 11, 2024 8:58am acute December 11, 2024 8:58am Supervision of high-risk acute December 11 025 8:58am AMA (advanced maternal age) multigravida 35+ acute December 25, 2024 9:38am Anal fissure acute December 252024 9:38am Family hx of colon cancer acute December 25, 2024 9:38am acute December 9:38am Supervision of high-risk acute December 25, 2024 9:38am AMA (advanced maternal age) multigravida 35+ acute January 10 10:38am Anal fissure acute January 10, 2025 10:38am Family hx of colon cancer acute January 10, 2025 10:38am acute January 10, 2 025 10:38am Supervision of high-risk acute January 10 10:38am [facility] Work Phone: 1(311) 660-823805-13-2025 Evaluation note* Diagnosis Onset Date Resolution Status Admit Date AMA (advanced maternal age) multigravida 35+ acute August 20, 2024 8:24am Anal fissure acute August 20 8:24am Family hx of colon cancer acute August 20, 2024 8:24am acute August 20, 2024 8:24am Supervision of high-risk acute August 20, 2024 8 :24am AMA (advanced maternal age) multigravida 35+ acute September 19, 2024 2:50pm Anal fissure acute September 19, 025 2:50pm Family hx of colon cancer acute September 19, 2024 2:50pm acute September 19 2:50pm Supervision of high-risk acute September 19, 2024 2:50pm AMA (advanced maternal age) multigravida 35+ acute October 21, 2024 8:50am Anal fissure acute October 21, 025 8:50am Family hx of colon cancer acute October 21, 2024 8:50am acute October 21 8:50am Supervision of high-risk acute October 21, 2024 8:50am AMA (advanced maternal age) multigravida 35+ acute November 15 10:14am Anal fissure acute November 15, 2024 10:14am Family hx of colon cancer acute November 15, 2024 10:14am acute November 15 10:14am Supervision of high-risk acute November 15, 2024 10:14am [facility] Work Phone: 1(129) 120-221305-13-2025 Evaluation note* Diagnosis Onset Date Resolution Status Admit Date AMA (advanced maternal age) multigravida 35+ acute August 20, 2024 8:24am Anal fissure acute August 20 8:24am Family hx of colon cancer acute August 20, 2024 8:24am acute August 20, 2024 8:24am Supervision of high-risk acute August 20, 2024 8 :24am AMA (advanced maternal age) multigravida 35+ acute September 19, 2024 2:50pm Anal fissure acute September 19, 025 2:50pm Family hx of colon cancer acute September 19, 2024 2:50pm acute September 19 2:50pm Supervision of high-risk acute September 19, 2024 2:50pm AMA (advanced maternal age) multigravida 35+ acute October 21, 2024 8:50am Anal fissure acute October 21, 025 8:50am Family hx of colon cancer acute October 21, 2024 8:50am acute October 21 8:50am Supervision of high-risk acute October 21, 2024 8:50am AMA (advanced maternal age) multigravida 35+ acute November 15 10:14am Anal fissure acute November 15, 2024 10:14am Family hx of colon cancer acute November 15, 2024 10:14am acute November 15 10:14am Supervision of high-risk acute November 15, 2024 10:14am AMA (advanced maternal age) multigravida 35+ acute November 29 10:50am Anal fissure acute November 29, 2024 10:50am Family hx of colon cancer acute November 29, 2024 10:50am acute November 29, 025 10:50am Supervision of high-risk acute November 29 10:50am [facility] Work Phone: 1(525) 259-498605-13-2025 Evaluation note* Diagnosis Onset Date Resolution Status Admit Date AMA (advanced maternal age) multigravida 35+ acute August 20, 2024 8:24am Anal fissure acute August 20 8:24am Family hx of colon cancer acute August 20, 2024 8:24am acute August 20, 2024 8:24am Supervision of high-risk acute August 20, 2024 8 :24am AMA (advanced maternal age) multigravida 35+ acute September 19, 2024 2:50pm Anal fissure acute September 19 025 2:50pm Family hx of colon cancer acute September 19, 2024 2:50pm acute September 19 2:50pm Supervision of high-risk acute September 19, 2024 2:50pm AMA (advanced maternal age) multigravida 35+ acute October 21, 2024 8:50am Anal fissure acute October 21, 025 8:50am Family hx of colon cancer acute October 21, 2024 8:50am acute October 21 8:50am Supervision of high-risk acute October 21, 2024 8:50am AMA (advanced maternal age) multigravida 35+ acute November 15 10:14am Anal fissure acute November 15, 2024 10:14am Family hx of colon cancer acute November 15, 2024 10:14am acute November 15 10:14am Supervision of high-risk acute November 15, 2024 10:14am AMA (advanced maternal age) multigravida 35+ acute November 29 10:50am Anal fissure acute November 29, 2024 10:50am Family hx of colon cancer acute November 29, 2024 10:50am acute November 29, 025 10:50am Supervision of high-risk acute November 29 10:50am AMA (advanced maternal age) multigravida 35+ acute December 11, 2024 8:58am Anal fissure acute December 8:58am Family hx of colon cancer acute December 11, 2024 8:58am acute December 11, 2024 8:58am Supervision of high-risk acute December 11 025 8:58am [facility] Work Phone: 1(912) 991-677104-15-2025 Evaluation note* Diagnosis Onset Date Resolution Status Admit Date AMA (advanced maternal age) multigravida 35+ acute July 23 9:10am Anal fissure acute July 23, 2024 9:10am Family hx of colon cancer acute July 23, 2024 9:10am acute July 23 9:10am Supervision of high-risk acute July 23, 2024 9:10am AMA (advanced maternal age) multigravida 35+ acute August 20, 2024 8:24am Anal fissure acute August 20 8:24am Family hx of colon cancer acute August 20, 2024 8:24am acute August 20, 2024 8:24am Supervision of high-risk acute August 20, 2024 8 :24am AMA (advanced maternal age) multigravida 35+ acute September 19, 2024 2:50pm Anal fissure acute September 19, 2 025 2:50pm Family hx of colon cancer acute September 19, 2024 2:50pm acute September 19 2:50pm Supervision of high-risk acute September 19, 2024 2:50pm AMA (advanced maternal age) multigravida 35+ acute October 21, 2024 8:50am Anal fissure acute October 21, 2 025 8:50am Family hx of colon cancer acute October 21, 2024 8:50am acute October 21 8:50am Supervision of high-risk acute October 21, 2024 8:50am AMA (advanced maternal age) multigravida 35+ acute November 15 10:14am Anal fissure acute November 15, 2024 10:14am Family hx of colon cancer acute November 15, 2024 10:14am acute November 15 10:14am Supervision of high-risk acute November 15, 2024 10:14am [facility] Work Phone: 1(393) 315-895103-17-2025 Evaluation note* Diagnosis Onset Date Resolution Status Admit Date AMA (advanced maternal age) multigravida 35+ acute June 24 2:12pm Anal fissure acute June 24, 2024 2:12pm Family hx of colon cancer acute June 24, 2024 2:12pm acute June 24 2:12pm Supervision of high-risk acute June 24, 2024 2:12pm [facility] Work Phone: 1(120) 700-106903-17-2025 Evaluation note* Diagnosis Onset Date Resolution Status Admit Date AMA (advanced maternal age) multigravida 35+ acute June 24 2:12pm Anal fissure acute June 24, 2024 2:12pm Family hx of colon cancer acute June 24, 2024 2:12pm acute June 24 2:12pm Supervision of high-risk acute June 24, 2024 2:12pm AMA (advanced maternal age) multigravida 35+ acute July 23 9:10am Anal fissure acute July 23, 2024 9:10am Family hx of colon cancer acute July 23, 2024 9:10am acute July 23 9:10am Supervision of high-risk acute July 23, 2024 9:10am AMA (advanced maternal age) multigravida 35+ acute August 20, 2024 8:24am Anal fissure acute August 20 8:24am Family hx of colon cancer acute August 20, 2024 8:24am acute August 20, 2024 8:24am Supervision of high-risk acute August 20, 2024 8 :24am [facility] Work Phone: 1(738) 996-251003-17-2025 Evaluation note* Diagnosis Onset Date Resolution Status Admit Date AMA (advanced maternal age) multigravida 35+ acute June 24 2:12pm Anal fissure acute June 24, 2024 2:12pm Family hx of colon cancer acute June 24, 2024 2:12pm acute June 24 2:12pm Supervision of high-risk acute June 24, 2024 2:12pm AMA (advanced maternal age) multigravida 35+ acute July 23 9:10am Anal fissure acute July 23, 2024 9:10am Family hx of colon cancer acute July 23, 2024 9:10am acute July 23 9:10am Supervision of high-risk acute July 23, 2024 9:10am AMA (advanced maternal age) multigravida 35+ acute August 20, 2024 8:24am Anal fissure acute August 20 8:24am Family hx of colon cancer acute August 20, 2024 8:24am acute August 20, 2024 8:24am Supervision of high-risk acute August 20, 2024 8 :24am AMA (advanced maternal age) multigravida 35+ acute September 19, 2024 2:50pm Anal fissure acute September 19, 025 2:50pm Family hx of colon cancer acute September 19, 2024 2:50pm acute September 19 2:50pm Supervision of high-risk acute September 19, 2024 2:50pm [facility] Work Phone: 1(328) 204-213003-17-2025 Evaluation note* Diagnosis Onset Date Resolution Status Admit Date AMA (advanced maternal age) multigravida 35+ acute June 24 2:12pm Anal fissure acute June 24, 2024 2:12pm Family hx of colon cancer acute June 24, 2024 2:12pm acute June 24 2:12pm Supervision of high-risk acute June 24, 2024 2:12pm AMA (advanced maternal age) multigravida 35+ acute July 23 9:10am Anal fissure acute July 23, 2024 9:10am Family hx of colon cancer acute July 23, 2024 9:10am acute July 23 9:10am Supervision of high-risk acute July 23, 2024 9:10am AMA (advanced maternal age) multigravida 35+ acute August 20, 2024 8:24am Anal fissure acute August 20 8:24am Family hx of colon cancer acute August 20, 2024 8:24am acute August 20, 2024 8:24am Supervision of high-risk acute August 20, 2024 8 :24am AMA (advanced maternal age) multigravida 35+ acute September 19, 2024 2:50pm Anal fissure acute September 19, 025 2:50pm Family hx of colon cancer acute September 19, 2024 2:50pm acute September 19 2:50pm Supervision of high-risk acute September 19, 2024 2:50pm AMA (advanced maternal age) multigravida 35+ acute October 21, 2024 8:50am Anal fissure acute October 21, 2 025 8:50am Family hx of colon cancer acute October 21, 2024 8:50am acute October 21 8:50am Supervision of high-risk acute October 21, 2024 8:50am [facility] Work Phone: 1([phone]) 322-788904-10-2024 History and physical note Author Magaly George [facility] July 19, 2023 7:26am Note Date/Time July 19, 2023 7:2 6am [facility] Medical Records Department [address] [place] [address] History & Physical Exam 07/19/23724 MR#: [id number] Acct: [id number] Name: CONCHA GREWAL Arin Rep #:[id number] : 1990 32 From: Magaly George MD PCP: Dr. Tirso Kemp MD Status :[facility] Location: [place] [address] History and Physical Date of Admission: 07/19/23 Date of Service: 07/05/23 MR#: [id number] Acct: [id number] Name: NATALIEEFRAINCONCHAJA Arin Rep #: [id number] : 1990 Provider: Dr. Magaly George MD Age/Sex: 32/F Location: [facility] Status: Signed Intake Vital Signs 06/12/2411:51 Height 5 ft 6 in Weight: 152 lb BMI 24.5 BP 98/63 Blood Pressure Location Rt brachial Position Sitting Respiration 17 Pulse 62 Pulse Source Monitor Temp 97.2 F L Temp Source Temporal Pulse Oximetry (%) 100 Oxygen Delivery Method room air Intake Visit Reasons: MEDICATION FU Chief Complaint: medication f/u Frame Nailer Required: No Is patient in pain?: No Allergies house dust Allergy (Mild, Verified 07/05/23 13:28) Nasal congestion Medications multivit-min no.71-iron fum 28 mg-folate no.1 1 mg-dha 300 mg capsule (PNV- [place]) 1 cap PO DAILY 12/15/21 [History Confirmed 06/12/23] Subjective Details: 32-year-old female presents for follow-up for anal fissure. States the pain is much improved after using the medication. Patient does have her colonoscopy scheduled for July 18 due to family history of colon cancer in her brother diagnosed at age 35. Patient does state that occasionally she feels like she has some fecal urgency that is not related to after eating and just occurs occasionally, but she is able to make it to the restroom Objective Details: NAD, Normal respiratory effort abdomen soft, Coding Level of Care Code Off vis,est,level 3 Diagnoses Anal fissure K60.2 Family hx of colon cancer Z80.0 [facility] Medical History (Updated 06/13/23 @ 07:[address] Magaly George MD) Family hx of colon cancer Hypotension Family History (Updated 06/12/23 @ 12:51 by Irma Curtis) Brother Colon cancer, Onset Age: 35 Stage IVMother Heart diseaseFather CVA (cerebral vascular accident) Social History adopted: No household members: spouse housing: house current occupational status: unemployed pets and animals: No history of recent travel: [place] ([place]) out of state: Yes out of country: No sexually active: Yes Smoking Status: Never smoker alcohol intake: never substance use type: does not use well-balanced diet: daily or most days caffeine: No eating out: rarely or never during the past year weight has: remained stable what type of physical activity do you participate in: none brandyn/hoahaoism: Rastafarian seatbelt use: always do you feel safe at home: Yes 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 Patient is scheduled for colonoscopy on July 18. Magaly George M.D. Pager: [phone] [facility] [address] [place] [address], [address] [place] [address] Office: [phone] 07/07/23 0831 <Electronically signed by Magaly George MD> Date Magaly George MD 07/19/23725 <Electronically signed by Magaly George MD> Cosigner Signature (if applicable): CC: Dr. Tirso Kemp MD; Dr. Magaly George MD~ Signed ADDENDUM by Dr. Magaly George MD on 07/19/23 at 0726 Addendum I have discussed the above with the patient. I have offered the patient colonoscopy for evaluation. I have explained the risks/benefits of the procedure and described the procedure. I have discussed the risks with the patient, including but not limited to: infection, bleeding, perforation of the GI tract requiring emergency surgery, inability to complete the procedure, injury to any internal organs, complications of anesthesia, etc. - the patient understands and agrees to proceed. I have answered all the patient's questions to the patient's satisfaction and the patient has no further questions. I have examined the patient and the H&P has been reviewed. There are no clinicalchanges since date of exam. 07/19/23725<Electronically signed by Magaly George MD> Cosigner Signature (if applicable): cc: Dr. Tirso Kemp MD; Dr. Magaly George MD ~* Signed [facility] Work Phone: 1(222) 144-235804-10-[address] [facility] 07-19-[address] [facility]04-16-[address] Kern [facility] July 24, 2022 9:47am Note Date/Time July 24, 2022 9:4 7am [facility] Medical Records Department [address] [place] [address] Discharge Summary 07/24/22 0944 MR#: [id number] Acct: [id number] Name: CONCHA GREWAL Rep #:[id number] : 1990 31 From: Nina Gamboa DO PCP: Dr. Shaan Kemp MD Status: [facility] Prov[facility] Date of Admission: 07/22/22 Primary Care Physician: Dr. Shaan Kemp MD Reason For Visit: VAGINAL DELIVERY Diagnosis Discharge Diagnosis (1) Active labor at term: Status: Acute (2) Family history of malignant neoplasm of colon in relative diagnosed when younger than 50 years of age: Status: Acute Code(s): Z80.0 - Family history of malignant neoplasm of digestive organs (3) Supervision of normal : Status: Acute Code(s): Z34.90 - Encounter for supervision of normal , unspecified, unspecifiedtrimester (4) : Status: Acute Code(s): Z34.90 - Encounter for supervision of normal , unspecified, unspecifiedtrimester Qualifiers: Weeks of gestation: 39 weeks Qualified Code(s): Z3A.39 - 39 weeks gestation of Plan s/p PPD # 1 1. routine post delivery care 2. breast feeding- support given 3. rh positive 4. rubella immune 5. discharge planning for tonight or tomorrow am Medications at Discharge Home Medications multivit-min no.71-iron fum 28 mg-folate no.1 1 mg-dha 300 mg capsule (PNV- [place]) 1 cap PO DAILY 12/15/21 Hospital Course Operations None Procedures - (vaginal delivery ) Summary of Care Provided Minutes Spent on Discharge: 15 Hospital Course: The patient presented to L&D on 07/22/22 in active labor. She progressed to complete and delivered a viable . On post day #1 she was recoveringwell but felt somewhat tired and was found to have low blood pressures. On post day #2 and throughout the night prior her blood pressures were stable andshe remained asymptomatic. She was discharged to home on day #2 in stable condition. Physical Exam Const alert, oriented x3 and no apparent distress General Appearance: cooperative and comfortable Resp normal respiratory effort Cardio regular rate GI normal to inspection, nondistended, normoactive bowel sounds GI Narrative: uterus is firm below umbilicus Palpation: soft Back/Spine no CVA tenderness and thoraco-lumbar ROM normal Extremity normal to inspection, no clubbing, cyanosis or edema, no calf tenderness and no pedal edema Psych mental status grossly normal, thought process normal, cooperative, affect normal, speech normal, activity/motor behavior normal, denies homicidal ideationand denies suicidal ideation Weight / BMI Weight Weight: 177 lb 14.609 oz Body Mass Index (BMI) 28.2 ABG / Lab / Microbiology Data Result Diagrams: 07/22/22 03:55 D/C Instructions Discharge Diet: No restrictions May resume sexual activity in: 4-6 weeks Call your doctor if your incision/area has: Continuous Slow Oozing, Sudden Increased Bleeding, Increased Pain/ Swelling, Increased Redness and Foul Smelling Discharge Please Follow Up With: Nina Gamboa DO When: Call [phone] to make an appointment with your doctor in 6 weeks. If you had elevated blood pressure or 4th degree laceration, you will need to be seen in 2 weeks. Meaningful Use Info Meaningful Use Diagnoses (Choose all that apply): None applicable Discharge Plan Admission Admit Date/Time: 07/22/22 03:30 Primary Reason for Your Visit: vaginal delivery Attending Provider: Nina Gamboa Primary Care Provider: Shaan Kemp Discharge Orders/Prescriptions Prescriptions: No Action PNV-[place] 28-1-300 mg capsule 1 cap PO DAILY Referrals / Follow Up: Shaan Kemp MD [Primary Care Provider] - Disposition Disposition (needs filled in before D/C Order can be placed): Home, Self Care 07/24/22 0947 <Electronically signed by Nina Gamboa DO> Cosigner Signature (if applicable): CC: Dr. Shaan Kemp MD; Dr. Nina Gamboa DO~ Signed [facility] Work Phone: 1(179) 515-502004-15-[address] Kern [facility] July 23, 2022 10:02am Note Date/Time July 23, 2022 10: 02am [facility] Medical Records Department [address] [place] [address] Progress Note - OBGYN 07/23/22 1000 MR#: [id number] Acct: [id number] Name: CONCHA GREWAL Rep #:[id number] : 1990 31 From: Nina Gamboa DO PCP: Dr. Shaan Kemp MD Status: ADM IN Location: [place] [address] Subjective Subjective Patient doing well without complaints. Tolerating PO. Ambulating and voiding without difficulty. Feeding well. Denies chest pain, shortness of breath, calf pain/swelling, fevers, chills, lightheadedness. Objective Data Objective Data Vital Signs: Vital Signs Temp Pulse Resp BP Pulse Ox O2 Del Method 97.4 F L 55 L 15 90/45 L 97 Room Air 07/23/22 08:25 07/23/22 08:25 07/23/22 08:25 07/23/22 08:25 07/23/22 08:25 07/23/22 08:25 Oxygen Delivery Method Room Air Weight: 177 lb 14.609 oz Body Mass Index (BMI) 28.2 Intake & Output: Intake and Output for Last 24 Hours 07/21/22 07/22/22 07/23/22 23:59 23:59 23:59 Intake Total 3911.66 / 3911.66 500 / 500 Output Total 1200 / 1200 Balance 2711.66 / 2711.66 500 / 500 Lab / Micro Data Result Diagrams: 07/22/22 03:55 ROS Constitutional Constitutional: Denies chills, fatigue, fever(s), poor appetite or weakness Eyes Eyes: Denies blurry vision, change in vision, seeing flashes or spots in vision ENT HEENT: Denies dizziness, headache(s), loss taste/smell or sore throat Cardiovascular Cardiovascular: Denies chest pain, dizziness, dyspnea, irregular heart rhythm, palpitations or rapid heart rate Respiratory/Chest Respiratory/Chest: Denies chest tightness, cough, dyspnea or breast pain Gastrointestinal Gastrointestinal: Denies abdominal pain, constipation or vomiting Genitourinary Genitourinary: Denies dysuria or flank pain Musculoskeletal Musculoskeletal: Denies difficulty walking, joint pain, limited range of motion or numbness Neurologic Neurologic: Denies abnormal movements, abnormal speech, dizziness, numbness, seizure-like activity or syncope Psychiatric Psychiatric: Denies anxiety, behavioral changes, change in appetite, confusion, depression or suicidal thoughts Physical Exam Const alert, oriented x3 and no apparent distress General Appearance: cooperative and comfortable Resp normal respiratory effort Cardio regular rate GI normal to inspection, nondistended, normoactive bowel sounds GI Narrative: uterus is firm below umbilicus Palpation: soft Back/Spine no CVA tenderness and thoraco-lumbar ROM normal Extremity normal to inspection, no clubbing, cyanosis or edema, no calf tenderness and no pedal edema Psych mental status grossly normal, thought process normal, cooperative, affect normal, speech normal, activity/motor behavior normal, denies homicidal ideationand denies suicidal ideation Assessment & Plan (1) Active labor at term: (2) Family history of malignant neoplasm of colon in relative diagnosed when younger than 50 years of age: COMMENT: GI consult for early screening (3) Supervision of normal : COMMENT: PRR , RYLEE 07/21/22, boy Spouse Jimy (4) : QUALIFIERS: Weeks of gestation: 39 weeks Qualified Code(s): Z3A.39 - 39 weeks gestation of COMMENT: GBS neg, declines genetic and carrier testing, 03/01 anatomy PLAN: Plan s/p PPD # 1 1. routine post delivery care 2. breast feeding- support given 3. rh positive 4. rubella immune 5. discharge planning for tonight or tomorrow am 07/23/22 1002 <Electronically signed by Nina Gamboa DO> Cosigner Signature (if applicable): CC: ~ Signed [facility] Work Phone: 1(943) 497-912604-14-[address] Kern [facility] July 22, 2022 5:51pm Note Date/Time July 22, 2022 5:5 1pm [facility] Medical Records Department [address] [place] [address] Instructions for Home/Discharge Instructions 07/22/22 1750 MR#: [id number] Acct: [id number] Name: CONCHA GREWAL Rep #:[id number] : 1990 31 From: Nina Gamboa DO PCP: Dr. Shaan Kemp MD Status: ADM IN Discharge Instructions Diet Discharge Diet: No restrictions Activity Discharge Activity: Return to Normal Activity, May Not Drive (while taking narcotic pain medications.) and May Shower May resume sexual activity in: 4-6 weeks Dressing / Incision Call your doctor if your incision/area has: Continuous Slow Oozing, Sudden Increased Bleeding, Increased Pain/ Swelling, Increased Redness and Foul Smelling Discharge Follow Up Care Please Follow Up With: Nina Gamboa DO When: Call [phone] to make an appointment with your doctor in 6 weeks. If you had elevated blood pressure or 4th degree laceration, you will need to be seen in 2 weeks. Test Results: Test results from this visit will be discussed in further detail at your follow- up appointment, if applicable. Discharge Plan Admission Admit Date/Time: 07/22/22 03:30 Attending Provider: Nina Gamboa Primary Care Provider: Shaan Kemp Discharge Orders/Prescriptions Prescriptions: No Action PNV-[place] 28-1-300 mg capsule 1 cap PO DAILY Referrals / Follow Up: Shaan Kemp MD [Primary Care Provider] - 07/22/22 1751<Electronically signed by Nina Gamboa DO>Nina Gamboa DO CC: Dr. Shaan Kemp MD ~ Signed [facility] Work Phone: 1(384) 831-124804-14-[address] [facility] 07-22-2022 History and physical note Author Dr. 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 Shaan Kemp MD Status: ADM IN Location: [place] [id number] HPI - General General Date of Admission: 07/22/22 HPI Narrative CONCHA GREWAL, is a 31 F who presents IAL regular ctx 4 cm intact membranes, ctx since 10 pm last night. no vb lof admits good fm Maternal Data Information RYLEE Calculator Estimated Delivery Date Method Current WG Current Estimate 07/21/22 LMP (Certain) 40w 1d Other Estimates 07/22/22 Ultrasound #1 40w 0d PFSH PFSH Medical History Family hx of colon cancer Hypotension Home Medications multivit-min no.71-iron fum 28 mg-folate no.1 1 mg-dha 300 mg capsule (PNV- [place]) 1 cap PO DAILY 12/15/21 [History Last Taken 07/20/22] Allergy/AdvReac Type Severity Reaction Status Date / Time house dust Allergy Mild Nasal Verified 07/15/22 09:37 congestion Family History Brother Colon cancer, Onset Age: 35 Social History adopted: No household members: spouse housing: house current occupational status: unemployed pets and animals: No history of recent travel: [place] ([place]) out of state: Yes out of country: No sexually active: Yes Smoking Status: Never smoker alcohol intake: never substance use type: does not use well-balanced diet: daily or most days caffeine: No eating out: rarely or never during the past year weight has: remained stable what type of physical activity do you participate in: none brandyn/hoahaoism: Rastafarian seatbelt use: always do you feel safe at home: Yes 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 History 1 Elective abortions Hx Para 0 Spontaneous abortions Hx # Term Pregnancies Ectopic pregnancies Hx # Pregnancies Multiple births # of living children Visit Details Expected Delivery Route/Plan Labor Preferences- CB/BF classes: enc labor support person: Jimy labor intervention preferences: limted interventions pain management options preferred: [] cut cord/dad catch: [] : plans PP control planned: [] discussed possible routes of delivery and associated risks: [] special requests: [] Plans Covid status: discussed Flu vaccine: discussed Tdap vaccine: thinking about it Rhogam: na LARC form signed: done movement and labor precautions reviewed. Problem list reviewed and updated with the most current plan of care details and appropriate orders placed. Relevant counseling for the gestational age provided. Continue routine care and follow up unless otherwise noted in visit notes/problem list details OB Flowsheet Initial Weight: Not Recorded Date -?-?-?-?-?-?-?-?-?-?-?-?- EGA Weight BP Urine Prot -?-?-?-?-?-?-?-?-?-?-?-?- Glucose FHR FuHt Pres Dilation -?-?-?-?-?-?-?-?-?-?-?-?- Effaced St Visit Note 12/20/21 -?-?-?-?-?-?-?-?-?-?-?-?- 9w 4d 151 lb 92/58 -?-?-?-?-?-?-?-?-?-?-?-?- 170 -?-?-?-?-?-?-?-?-?-?-?-?- SM- CRL cons wit h LMP SM- CRL 2.7cm cons with LMP 01/17/22 -?-?-?-?-?-?-?-?-?-?-?-?- 13w 4d 152 lb 98/54 Negative -?-?--?-?-?-?-?-?-?-?-?-?- Negative 165 -?-?-?-?-?-?-?-?-?-?-?-?- MH-No VB. Very n auseous but keeping some fluids down. Rx zofran. 02/17/22 -?-?-?-?-?-?-?-?-?--?-?-?- 18w 0d 158 lb 2 oz 103/69 Nega tive -?-?-?-?-?-?-?-?-?-?-?-?- Negative 164 -?-?-?-?-?-?-?-?-?-?-?-?- JV- no lof, vagi nal bleeding, or cramping. [facility] scheduled. pt will decide if wants to do the HIV test now (self pay) rather than waiting for delivery due to recent problems with false positives for the rapid tests. 03/16/22 -?-?-?-?-?-?-?-?-?-?-?-?- 21w 6d 159 lb 8 oz 105/64 Nega tive -?-?-?-?-?-?-?-?-?-?-?-?- Negative 150 -?-?-?-?-?-?-?-?-?-?-?-?- LC- no vb/lof/ct x. occ fm. planning on going out of country to visit family. precautions provided. to complete 28 week labs at 24. 03/31/22 -?-?-?-?-?-?-?-?-?-?-?-?- 24w 0d 162 lb 2 oz 101/61 Nega tive -?-?-?-?-?-?-?-?-?-?-?-?- Negative 160 24 -?-?-?-?-?-?-?-?-?-?-?-?- LC- no vb/lof/ct x. traveling on monday to [facility], precautions given. 05/13/22 -?-?-?-?-?-?-?-?-?-?-?-?- 30w 1d 172 lb 6 oz 109/60 Nega tive -?-?-?-?-?-?-?-?-?-?-?-?- Negative 150 31 -?-?-?-?-?-?-?-?-?-?-?-?- SM- no vb lof go od fm no reuglar ctx 05/26/22 -?-?-?-?-?-?-?-?-?-?-?-?- 32w 0d 174 lb 8 oz 110/69 Nega tive -?-?-?-?-?-?-?-?-?-?-?-?- Negative 149 32 -?-?-?-?-?-?-?-?-?-?-?-?- JV- pt complains of left breast pain and also mentions that she has a mass on her right breast. on exam there is a large 5 cm area that is solid appearing and tender. ordering ultrasound of both breasts to be done [place]. SHe will bring records from her last scan that was done out of the country to compare 06/09/22 -?-?-?-?-?-?-?-?-?-?-?-?- 34w 0d 176 lb 6 oz 105/65 Nega tive -?-?-?-?-?-?-?-?-?-?-?-?- Negative 140 34 -?-?-?-?-?-?-?-?-?-?-?-?- SM- no vb lof go od fm no regular ctx 06/24/22 -?-?-?-?-?-?-?-?-?-?-?-?- 36w 1d 179 lb 6 oz 116/74 Nega tive -?-?-?-?-?-?-?-?-?-?-?-?- Negative 135 35 Cephalic -?-?-?-?-?-?-?-?-?-?-?-?- JV- no lof, vagi nal bleeding, or dec fm. 07/01/22 -?-?-?-?-?-?-?-?-?-?-?-?- 37w 1d 179 lb 2 oz 101/66 Trac e -?-?-?-?-?-?-?-?-?-?-?-?- Negative 145 37 Cephalic 0 -?-?-?-?-?-?-?-?-?-?-?-?- JV- gbs neg, no lof, vaginal bleeding, or dec fm. vtx on bedside scan. 07/07/22 -?-?-?-?-?-?-?-?-?-?-?-?- 38w 0d 181 lb 2 oz 118/68 Nega tive -?-?-?-?-?-?-?-?-?-?-?-?- Negative 135 38 Cephalic -?-?-?-?-?-?-?-?--?-?-?-?- 0 kw-no lo f/vb. some sandra red contractions noted. +fm. 07/15/22 -?-?-?-?-?-?-?-?-?-?-?-?- 39w 1d 180 lb 2 oz 102/64 Nega tive -?-?-?--?-?-?-?-?-?-?-?-?- Negative 140 39 Cephalic 1 .5 -?-?-?-?-?-?-?-?-?-?-?-?- 30 -2 SM- no vb lof good fm no reuglar ctx 07/22/22 -?-?-?-?-?-?-?-?-?-?-?-?- 40w 1d 177 lb 14.609 oz 114 /71 107/59 -?-?-?-?-?-?-?-?-?-?-?-?- -?-?-?-?-?-?-?-?-?-?-?-?- NST FHR Rate Baby A Baseline: 140 Variability:: Moderate Accelerations:: 15 x 15 Decelerations:: None NST Reactive:: Yes FHR Category:: Category I Uterine Activity:: q3-5 ROS Constitutional Constitutional: Reports systems reviewed and no addt'l complaints, except as documented ENT HEENT: Reports systems reviewed and no addt'l complaints, except as documented Cardiovascular Cardiovascular: Reports systems reviewed and no addt'l complaints, except as documented Respiratory/Chest Respiratory/Chest: Reports systems reviewed and no addt'l complaints, except as documented Gastrointestinal Gastrointestinal: Reports systems reviewed and no addt'l complaints, except as documented and nausea; Denies abdominal pain Genitourinary Genitourinary: Reports systems reviewed and no addt'l complaints, except as documented, contractions Details: present and frequency (regular ) and movement Details: present Musculoskeletal Musculoskeletal: Reports systems reviewed and no addt'l complaints, except as documented Integumentary Integumentary: Reports as per HPI Neurologic Neurologic: Reports systems reviewed and no addt'l complaints, except as documented Endocrine Endocrinology: Reports systems reviewed and no addt'l complaints, except as documented Vital Signs Vital Signs Vital Signs: 07/22/22 00:58 07/22/22 00:58 07/22/22 00:59 Temperature Temperature Source Pulse Rate 67 72 Blood Pressure 114/71 BP Systolic 114 BP Diastolic 71 Pulse Ox 07/22/22 00:59 07/22/22 01:00 07/22/22 01:00 Temperature 98.2 F Temperature Source Temporal Pulse Rate Blood Pressure BP Systolic BP Diastolic Pulse Ox 98 07/22/22 04:31 07/22/22 04:31 07/22/22 05:54 Temperature Temperature Source Temporal Pulse Rate 79 Blood Pressure BP Systolic BP Diastolic Pulse Ox 98 07/22/22 05:54 07/22/22 05:54 07/22/22 05:54 Temperature Temperature Source Pulse Rate 64 Blood Pressure 107/59 L BP Systolic 107 BP Diastolic 59 Pulse Ox 99 07/22/22 05:54 07/22/22 06:58 07/22/22 06:58 Temperature 98.0 F Temperature Source Pulse Rate 64 Blood Pressure BP Systolic BP Diastolic Pulse Ox 100 Weight Weight: 177 lb 14.609 oz Body Mass Index (BMI) 28.2 Physical Exam Const alert, oriented x3 and healthy appearing Constitutional Narrative: uncomfortable with contractions HEENT normocephalic and moist oral mucous membranes Head and Scalp: atraumatic Neck full ROM, no lymphadenopathy, supple and thyroid normal General: trachea midline Thyroid: thyroid normal Lymph Lymphatic: no lymphadenopathy noted Chest inspection of chest normal Resp normal respiratory effort Cardio regular rate GI normal to inspection, nondistended, normoactive bowel sounds, soft to palpation and non-tender Inspection: gravid external exam normal Bimanual Exam - Vag & Uterus: uterus non-tender Manual OB Exam: estimated gestational size appropriate, presentation cephalic, dilated, effaced and station Extremity normal to inspection General Extremity: Negative for edema Skin no rashes or lesions noted Neuro deep tendon reflexes 2+ bilaterally Motor Exam: strength 5/5 throughout and clonus absent Psych mental status grossly normal Labs Labs Labs: Blood Type A POSITIVE Antibody Screen NEGATIVE Hct 40.0 % (37-47) Hgb 13.4 g/dL (12.0-15.0) Obstetrics US Syphilis Total Ab Non-reactive VZV IgG Antibody 280 index (Immune >165) Rubella IgG Antibody Reactive (Nonreactive) Hep Bs Antigen Non-Reactive (Nonreactive) Chlamydia DNA ([place]) Negative (Negative) Neisseria gonorrhoeae DNA ([place]) Negative (Negative) HIV 1&2 Antibody Non-Reactive (Nonreactive) Glucose 1 Hr 50 gm 106 mg/dL (70-140) Assessment & Plan (1) : QUALIFIERS: Weeks of gestation: 39 weeks Qualified Code(s): Z3A.39 - 39 weeks gestation of COMMENT: GBS neg, declines genetic and carrier testing, 03/01 nl anatomy (2) Supervision of normal : COMMENT: PRR , RYLEE 07/21/22, boy Spouse Jimy (3) Active labor at term: PLAN: Plan Patient presents IAL, plan expectant management for , pitocin/AROM PRN if needed. Pain management: minimal intervention preferred but open to epidural. GBS neg. Management of any complications: none I have reviewed the [facility] and made any clinically relevant updates. 07/22/22 0720 <Electronically signed by Kinza Barahona MD> Cosigner Signature (if applicable): CC: Dr. Shaan Kemp MD; Dr. Kinza Barahona MD~ Signed [facility] Work Phone: 1(184) 933-498309-12-2022 NotePap Smear Specimen AdequacySeptember 2021 3:43pmComment.Satisfactory for evaluation. No endocervical component is identified.An endocervical component is not commonly seen in the patient.[employer] INTER[employer]ACED A#[id number] Health [facility] Work Phone: Comment on above:Satisfactory for evaluation. No endocervical component is identified.An endocervical component is not commonly seen in the patient.12-20-2021 NotePap Smear Specimen AdequacySeptember 2021 3:43pmComment.Satisfactory for evaluation. No endocervical component is identified.An endocervical component is not commonly seen in the patient.[employer] A#[id number] Work Phone: Comment on above:Satisfactory for evaluation. No endocervical component is identified.An endocervical component is not commonly seen in the patient.Evaluation note* Diagnosis Onset Date Resolution Status acute Supervision of normal [facility] Work Phone: Evaluation note* Diagnosis Onset Date Resolution Status acute Supervision of normal acute Nausea/vomiting in acute acute Supervision of normal [facility] Work Phone: Evaluation note* Diagnosis Onset Date Resolution Status acute Supervision of normal acute Nausea/vomiting in acute acute Supervision of normal acute [id number] acute Nausea/vomiting in acute acute Supervision of normal acute [id number] acute Nausea/vomiting in acute acute Supervision of normal acute [id number] acute Nausea/vomiting in acute acute Supervision of normal [facility] Work Phone: evaluation note* Diagnosis Onset Date Resolution Status [id number] acute acute Supervision of normal acute Nausea/vomiting in resolved [id number] acute acute Supervision of normal acute Nausea/vomiting in resolved [id number] acute acute Supervision of normal acute Nausea/vomiting in resolved [id number] acute acute Supervision of normal acute Breast mass, right acute Breast pain, left acute [id number] acute acute Supervision of normal [facility] Work Phone: Evaluation note* Diagnosis Onset Date Resolution Status [id number] acute acute Supervision of normal acute Nausea/vomiting in resolved [id number] acute acute Supervision of normal acute Nausea/vomiting in resolved [id number] acute acute Supervision of normal acute [id number] acute acute Supervision of normal acute Breast mass, right resolved Breast pain, left resolved [id number] acute acute Supervision of normal acute Breast mass, right resolved Breast pain, left resolved [id number] acute acute Supervision of normal [facility] Work Phone: evaluation note* Diagnosis Onset Date Resolution Status [id number] acute acute Supervision of normal acute Nausea/vomiting in resolved [id number] acute acute Supervision of normal acute Nausea/vomiting in resolved [id number] acute acute Supervision of normal acute [id number] acute acute Supervision of normal acute Breast mass, right resolved Breast pain, left resolved [id number] acute acute Supervision of normal acute Breast mass, right resolved Breast pain, left resolved [id number] acute acute Supervision of normal acute [id number] acute acute Supervision of normal acute [id number] acute acute Supervision of normal [facility] Work Phone: Evaluation note* Diagnosis Onset Date Resolution Status [id number] acute acute Supervision of normal acute Nausea/vomiting in resolved [id number] acute acute Supervision of normal acute Nausea/vomiting in resolved [id number] acute acute Supervision of normal acute [id number] acute acute Supervision of normal acute Breast mass, right resolved Breast pain, left resolved [id number] acute acute Supervision of normal acute Breast mass, right resolved Breast pain, left resolved [id number] acute acute Supervision of normal acute [id number] acute acute Supervision of normal acute [id number] acute acute Supervision of normal acute [id number] acute acute Supervision of normal acute [facility] Work Phone: Evaluation note* Diagnosis Onset Date Resolution Status [id number] acute acute Supervision of normal acute Nausea/vomiting in resolved [id number] acute acute Supervision of normal acute [id number] acute acute Supervision of normal acute Breast mass, right resolved Breast pain, left resolved [id number] acute acute Supervision of normal acute Breast mass, right resolved Breast pain, left resolved [id number] acute acute Supervision of normal acute [id number] acute acute Supervision of normal acute [id number] acute acute Supervision of normal acute [id number] acute acute Supervision of normal acute Premature rupture of membranes resolved [id number] acute acute Supervision of normal acute Active labor at term acute [id number] acute acute Supervision of normal [facility] Work Phone: Evaluation note* Diagnosis Onset Date Resolution Status Anal fissure acute Family hx of colon cancer ac narendra Anal fissure acute Family hx of colon cancer ac [facility] Work Phone: Progress note Author Kinza Barahona [facility] Note Date/Time October 21, 2024 9:17 am [facility] [address], [address] [place] [address] OFFICE VISIT Date of Service: 10/21/24 MR#: [id number] Acct: [id number] Name: CONCHA GREWAL Rep #: [id number] : 1990 Provider: Dr. Candelario Barahona MD Age/Sex: 34/F [place] [facility] [place]: Signed Intake Vital Signs 08/20/24 08:29 09/19/24 14:58 10/21/24 08:52 Height 5 ft 6 in 5 ft 6 in 5 ft 6 in Weight: 171 lb BMI 27.6 BP 102/68 Intake Visit Reasons: 24 wk ob Frame Nailer Required: No Is patient in pain?: No Allergies house dust Allergy (Mild, Verified 10/21/24 08:56) Nasal congestion Medications ?Medication ?Instructions ?Recorded ?Confirmed ?Type multivit-min no.71-iron fum 28 1 cap PO DAILY pregnanc y 12/15/21 10/21/24 History mg-folate no.1 1 mg-dha 300 mg capsule (PNV-[place]) Last Menstrual Period: 04/27/24 Zika: Zika virus screening: Negative : No PFSH PFSH Medical History Wears glasses Anemia Non-smoker Hx of vaginal delivery Family hx of colon cancer Hypotension Family History Brother Colon cancer, Onset Age: 35 Stage IV Mother Heart disease Father CVA (cerebral vascular accident) Social History adopted: No household members: spouse housing: house number of children: 1 current occupational status: unemployed pets and animals: No history of recent travel: [place] ([place]) out of state: Yes out of country: No sexually active: Yes Smoking Status: Never smoker alcohol intake: never substance use type: does not use well-balanced diet: daily or most days caffeine: No eating out: rarely or never during the past year weight has: remained stable what type of physical activity do you participate in: none brandyn/hoahaoism: Rastafarian seatbelt use: always do you feel safe at home: Yes 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 Date Name GA/Weeks Outcome Route Bth Weight Infant Gen Labor Lgth Anesthesia Del Locatn Provider FOB 07/22/22 Joel 40 live - full term 8lbs 3oz Male ep idural [facility] Dr. Vasquez Delivery Date: 07/22/22 Last Updated by: Aicha Albrecht 1st degree tear HPI 24 wk ob Details: CONCHA GREWAL is a 34 year old who presents for routine OB visit. OB Visit RYLEE Calculator Estimated Delivery Date Method Current WG Current Estimate 02/01/25 LMP (Certain) 25w 2d Other Estimates 01/29/25 Ultrasound #1 25w 5d Expected Delivery Route/Plan Labor Preferences- CB/BF classes: [] labor support person: [] labor intervention preferences: [] pain management options preferred: [] cut cord/dad catch: [] : [] PP control planned: [] discussed possible routes of delivery and associated risks: [] special requests: [] Specific Issue/Plans Covid status: [] Flu vaccine: [] Tdap vaccine: [] Rhogam: [] LARC form signed: [] Problem list reviewed and updated with the most current plan of care details and appropriate orders placed. Relevant counseling for the gestational age provided. Continue routine care and follow up unless otherwise noted in visit notes/problem list details Initial Weight: Not Recorded Date -?-?-?-?-?-?-?--?-?-?-?-?- EGA Weight BP Urine Prot -?-?-?-?-?-?-?-?-?-?-?-?- Glucose FHR FuHt Pres Dilation -?-?-?-?-?-?-?-?-?-?-?-?- Effaced St Visit Note 06/24/24 -?-?-?-?-?-?-?-?-?-?-?-?- 8w 2d 155 lb 101/65 -?-?-?-?-?-?-?-?-?-?-?-?- 175 -?-?-?-?-?-?-?-?-?-?-?-?- JV- CRL consiste nt with Lmp. declines nipt. still breast feeding. 07/23/24 -?-?-?-?-?-?-?-?-?-?-?-?- 12w 3d 157 lb 8 oz 98/62 Nega tive -?-?-?-?-?-?-?-?-?-?-?-?- Negative 165 -?-?-?-?-?-?-?-?-?-?-?-?- JV- CRL measurin g according to GA. will order anatomy scan with MFM. JV- CRL measuring according to GA. will order anatomy scan with MFM. starting to have hip pain. 08/20/24 -?-?-?-?-?-?-?-?-?-?-?-?- 16w 3d 160 lb 94/60 Negative -?-?-?-?-?-?-?-?-?-?-?-?- Negative 153 -?-?-?-?-?-?-?-?-?-?-?-?- MH-No VB. Nausea resolved. Doing well. 09/19/24 -?-?-?-?-?-?-?-?-?-?-?-?- 20w 5d 168 lb 102/64 Negative -?-?-?-?-?-?-?-?-?-?-?-?- Negative 156 -?-?-?-?-?-?-?-?-?-?-?-?- MH-No VB. Doing well. Good FM. Reviewed MFM anatomy US and will rpt 2 wk to complete anatomy 10/21/24 -?-?-?-?-?-?-?-?-?-?-?-?- 25w 2d 171 lb 102/68 -?-?-?-?-?-?-?-?-?-?-?-?- 1,455 145 25 -?-?-?-?-?-?-?-?-?-?-?-?- _ no vb lof go od fm nor more[place] ctx [place] no issues has repeat antomy scheduled ACOG First Trimester First Trimester: Desire for , Alcohol, Tobacco Cessation, Illicit/Recreational Drug/Substance Use, Intimate Partner Violence, Barriers to care, Unstable Housing, Communication Barriers, Environmental/Work Hazards, Anticipated Course of Care, Toxoplasmosis Precations, Use of Any medications, Sexual activity, Exercise, Dental Care, Sauna/Hot tub use, Seat Belt use, Childbirth classes/Hospital facilities, Travel, Indications for Ultrasound and Screening for Aneuploidy; Discussed Second Trimester Second Trimester: Signs and Symptoms of Labor, Selecting a care provider, Reproductive Life Planning & Contreception, Care Planning, Depression/Anxiety and Intimate Partner Violence; Discussed Tobacco Cessation Third Trimester Third Trimester: Pain Management Plans, Labor support person(s), Immediate Larc, Circumcision preference, Movement Monitoring, Signs and Symptoms of Preeclampsia, Labor Signs and Education; Discussed Trial of Labor after Counseling Coding Level of Care Code OB Routine Diagnoses Multigravida of advanced maternal age in second trimester O09.522 Trimester: second trimester 25 weeks gestation of Z3A.25 Weeks of gestation: 25 weeks Supervision of high risk in second trimester O09.92 Trimester: second trimester Anal fissure K60.2 Family hx of colon cancer Z80.0 Assessment and Plan Assessment and Plan (1) AMA (advanced maternal age) multigravida 35+: Status: Acute Qualifiers: Trimester: second trimester Qualified Code(s): O09.522 - Supervision of elderly multigravida, second trimester Comment: Growth US 36 wk (2) : Status: Acute Qualifiers: Weeks of gestation: 25 weeks Qualified Code(s): Z3A.25 - 25 weeks gestation of Comment: Needs rpt US to complete anatomy/scheduled. Declines NIPT/Carrier (3) Supervision of high-risk : Status: Acute Qualifiers: Trimester: second trimester Qualified Code(s): O09.92 - Supervision of high risk , unspecified, second trimester Comment: PRR, RYLEE: 02/01/25 girl Julia Maldonado : Jimy (4) Anal fissure: Status: Acute (5) Family hx of colon cancer: Status: Acute Comment: Brother 35 yo- Survivor Orders: Orders POC Urinalysis 2 Dip (Clinic) Today CBC W/Diff, Automated Today O09.92 - Supervision of high risk , unspecified, second trimester Glucose Challenge Gest 1H 50g Today O09.92 - Supervision of high risk , unspecified, second trimester, Z13.1 - Encounter for screening for diabetes mellitus HIV Today O09. - Supervision of high risk , unspecified, second trimester Syphilis Antibodies Today O09.92 - Supervision of high risk , unspecified, second trimester 10/21/24 0917 <Electronically signed by Kinza jimenez MD> Date _ Kinza Barahona MD Cosigner Signature: Date (if applicable) CC: ~ [facility] Work Phone: Progress note Author Nina Kern [facility] Note Date/Time November 15, 2024 11: 09am [facility] [address], [address] [address] OFFICE VISIT Date of Service: 11/15/24 MR#: [id number] Acct: [id number] Name: CONCHA GREWAL Arin Rep #: [id number] : 1990 Provider: Dr. Lina Gamboa DO Age/Sex: 34/F [place] [facility] Status: Signed Intake Vital Signs 10/21/24 08:52 11/15/24 10:20 11/15/24 10:21 Height 5 ft 6 in 5 ft 6 in 5 ft 6 in Weight: 174 lb 7 oz BMI 28.1 BP 98/60 Intake Visit Reasons: 28wk ob/glucose Frame Nailer Required: No Is patient in pain?: No Allergies house dust Allergy (Mild, Verified 11/15/24 10:20) Nasal congestion Medications ?Medication ?Instructions ?Recorded ?Confirmed ?Type multivit-min no.71-iron fum 28 1 cap PO DAILY pregnanc y 12/15/21 11/15/24 History mg-folate no.1 1 mg-dha 300 mg capsule (PNV-[place]) Last Menstrual Period: 04/27/24 Zika: Zika virus screening: Negative : No PFSH PFSH Medical History Wears glasses Anemia Non-smoker Hx of vaginal delivery Family hx of colon cancer Hypotension Family History Brother Colon cancer, Onset Age: 35 Stage IV Mother Heart disease Father CVA (cerebral vascular accident) Social History adopted: No household members: spouse housing: house number of children: 1 current occupational status: unemployed pets and animals: No history of recent travel: Yes ([place]) out of state: Yes out of country: No sexually active: Yes Smoking Status: Never smoker alcohol intake: never substance use type: does not use well-balanced diet: daily or most days caffeine: No eating out: rarely or never during the past year weight has: remained stable what type of physical activity do you participate in: none brandyn/hoahaoism: Rastafarian seatbelt use: always do you feel safe at home: Yes 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 Date Name GA/Weeks Outcome Route Bth Weight Infant Gen Labor Lgth Anesthesia Del Locatn Provider FOB 07/22/22 Joel 40 live - full term 8lbs 3oz Male ep idural [facility] Dr. Vasquez Delivery Date: 07/22/22 Last Updated by: Aicha Albrecht 1st degree tear HPI 28wk ob/glucose Details: CONCHA GREWAL is a 34 year old who presents for routine OB visit. OB Visit RYLEE Calculator Estimated Delivery Date Method Current WG Current Estimate 02/01/25 LMP (Certain) 28w 6d Other Estimates 01/29/25 Ultrasound #1 29w 2d Expected Delivery Route/Plan Labor Preferences- CB/BF classes: [] labor support person: [] labor intervention preferences: [] pain management options preferred: [] cut cord/dad catch: [] : [] PP control planned: [] discussed possible routes of delivery and associated risks: [] special requests: [] Specific Issue/Plans Covid status: [] Flu vaccine: [] Tdap vaccine: [] Rhogam: [] LARC form signed: [] Problem list reviewed and updated with the most current plan of care details and appropriate orders placed. Relevant counseling for the gestational age provided. Continue routine care and follow up unless otherwise noted in visit notes/problem list details Initial Weight: Not Recorded Date -?-?-?-?-?-?-?-?-?-?-?-?- EGA Weight BP Urine Prot -?-?-?-?-?-?-?-?-?-?-?-?- Glucose FHR FuHt Pres Dilation -?-?-?-?-?-?-?-?-?-?-?-?- Effaced St Visit Note 06/24/24 -?-?-?-?-?-?-?-?-?-?-?-?- 8w 2d 155 lb 101/65 -?-?--?-?-?-?-?-?-?-?-?-?- 175 -?-?-?-?-?-?-?-?-?-?-?-?- JV- CRL consiste nt with Lmp. declines nipt. still breast feeding. 07/23/24 -?-?-?-?-?-?-?-?-?-?-?-?- 12w 3d 157 lb 8 oz 98/62 Nega tive -?-?-?-?-?-?-?-?-?-?-?-?- Negative 165 -?-?-?-?-?-?-?-?-?-?-?-?- JV- CRL measurin g according to GA. will order anatomy scan with MFM. JV- CRL measuring according to GA. will order anatomy scan with MFM. starting to have hip pain. 08/20/24 -?-?-?-?-?-?-?-?-?-?-?-?- 16w 3d 160 lb 94/60 Negative -?-?-?-?-?-?-?-?-?-?-?-?- Negative 153 -?-?-?-?-?-?-?-?-?-?-?-?- MH-No VB. Nausea resolved. Doing well. 09/19/24 -?-?-?-?-?-?-?-?-?-?-?-?- 20w 5d 168 lb 102/64 Negative -?-?-?-?-?-?-?-?-?-?-?-?- Negative 156 -?-?-?-?-?-?-?-?-?-?-?-?- MH-No VB. Doing well. Good FM. Reviewed MFM anatomy US and will rpt 2 wk to complete anatomy 10/21/24 -?-?-?-?-?-?-?-?-?-?-?-?- 25w 2d 171 lb 102/68 Negative -?-?-?-?-?-?-?-?-?-?-?-?- Negative 1,455 145 25 -?-?-?-?-?-?-?-?-?-?-?-?- SM_ no vb lof go od fm nor euglar ctx [place] issues has repeat antomy scheduled 11/15/24 -?-?-?-?-?-?-?-?-?-?-?-?- 28w 6d 174 lb 7 oz 98/60 -?-?-?-?-?-?-?-?-?-?-?-?- 130 28 -?-?-?-?-?-?-?-?-?-?-?-?- JV- no lof, vagi nal bleeding, or dec fm . gct done today. aye koehler next visit. ACOG First Trimester First Trimester: Desire for , Alcohol, Tobacco Cessation, Illicit/Recreational Drug/Substance Use, Intimate Partner Violence, Barriers to care, Unstable Housing, Communication Barriers, Environmental/Work Hazards, Anticipated Course of Care, Toxoplasmosis Precations, Use of Any medications, Sexual activity, Exercise, Dental Care, Sauna/Hot tub use, Seat Belt use, Childbirth classes/Hospital facilities, Travel, Indications for Ultrasound and Screening for Aneuploidy; Discussed Second Trimester Second Trimester: Signs and Symptoms of Labor, Selecting a care provider, Reproductive Life Planning & Contreception, Care Planning, Depression/Anxiety and Intimate Partner Violence; Discussed Tobacco Cessation Third Trimester Third Trimester: Pain Management Plans, Labor support person(s), Immediate Larc, Circumcision preference, Movement Monitoring, Signs and Symptoms of Preeclampsia, Labor Signs and [place] Education; Discussed Trial of Labor after Counseling Coding Level of Care Code OB Routine Diagnoses Multigravida of advanced maternal age in second trimester O09.522 Trimester: second trimester 28 weeks gestation of Z3A.28 Weeks of gestation: 28 weeks Supervision of high risk in second trimester O09.92 Trimester: second trimester Anal fissure K60.2 Family hx of colon cancer Z80.0 Assessment and Plan Assessment and Plan (1) AMA (advanced maternal age) multigravida 35+: Status: Acute Qualifiers: Trimester: second trimester Qualified Code(s): O09.522 - Supervision of elderly multigravida, second trimester Comment: Growth US 36 wk (2) : Status: Acute Qualifiers: Weeks of gestation: 28 weeks Qualified Code(s): Z3A.28 - 28 weeks gestation of Comment: Needs rpt US to complete anatomy/scheduled. Declines NIPT/Carrier. nl anatomy. (3) Supervision of high-risk : Status: Acute Qualifiers: Trimester: second trimester Qualified Code(s): O09.92 - Supervision of high risk , unspecified, second trimester Comment: PRR, RYLEE: 02/01/25 girl Julia JOSUE Joel : Jimy (4) Anal fissure: Status: Acute (5) Family hx of colon cancer: Status: Acute Comment: Brother 35 yo- Survivor Orders: Orders POC Urinalysis 2 Dip (Clinic) Today 11/15/24 1110 <Electronically signed by Nina Keyes DO> Date _ Nina Gamboa DO Cosigner Signature: Date (if applicable) CC: ~ [facility] Work Phone: Progress note Author Alessandra Luis Miguel [facility] Note Date/Time November 29, 2024 11 :18am [facility] [address] [place] [address], [address] [place] [address] OFFICE VISIT Date of Service: 11/29/24 MR#: [id number] Acct: [id number] Name: CONCHA GREWAL Rep #: [id number] : 1990 Provider: TRISTIN Bolanos Age/Sex: 34/F [place] [facility] [place] Status: Signed Intake Vital Signs 09/19/24 14:58 11/15/24 10:21 11/29/24 10:52 Height 5 ft 6 in 5 ft 6 in 5 ft 6 in Weight: 176 lb BMI 28.4 BP 99/64 Intake Visit Reasons: 30 wk ob Frame Nailer Required: No Is patient in pain?: No Allergies house dust Allergy (Mild, Verified 11/29/24 10:54) Nasal congestion Medications ?Medication ?Instructions ?Recorded ?Confirmed ?Type multivit-min no.71-iron fum 28 1 cap PO DAILY pregnanc y 12/15/21 11/29/24 History mg-folate no.1 1 mg-dha 300 mg capsule (PNV-[place]) Last Menstrual Period: 04/27/24 Zika: Zika virus screening: Negative : No Have you fallen in the past year?: No PFSH PFSH Medical History Wears glasses Anemia Non-smoker Hx of vaginal delivery Family hx of colon cancer Hypotension Family History Brother Colon cancer, Onset Age: 35 Stage IV Mother Heart disease Father CVA (cerebral vascular accident) Social History adopted: No household members: spouse housing: house number of children: 1 current occupational status: unemployed pets and animals: No history of recent travel: [place] ([place]) out of state: Yes out of country: No sexually active: Yes Smoking Status: Never smoker alcohol intake: never substance use type: does not use well-balanced diet: daily or most days caffeine: No eating out: rarely or never during the past year weight has: remained stable what type of physical activity do you participate in: none brandyn/hoahaoism: Rastafarian seatbelt use: always do you feel safe at home: Yes 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 Date Name GA/Weeks Outcome Route Bth Weight Infant Gen Labor Lgth Anesthesia Del Locatn Provider FOB 07/22/22 Joel 40 live - full term 8lbs 3oz Male ep idural [facility] Dr. Vasquez Delivery Date: 07/22/22 Last Updated by: Aicha Albrecht 1st degree tear HPI 30 wk ob Details: CONCHA GREWAL is a 34 year old who presents for routine OB visit. OB Visit RYLEE Calculator Estimated Delivery Date Method Current WG Current Estimate 02/01/25 LMP (Certain) 30w 6d Other Estimates 01/29/25 Ultrasound #1 31w 2d Expected Delivery Route/Plan Labor Preferences- CB/BF classes: [] labor support person: [] labor intervention preferences: [] pain management options preferred: [] cut cord/dad catch: [] : [] PP control planned: [] discussed possible routes of delivery and associated risks: [] special requests: [] Specific Issue/Plans Covid status: [] Flu vaccine: [] Tdap vaccine: [] Rhogam: [] LARC form signed: [] Problem list reviewed and updated with the most current plan of care details and appropriate orders placed. Relevant counseling for the gestational age provided. Continue routine care and follow up unless otherwise noted in visit notes/problem list details Initial Weight: Not Recorded Date -?-?-?-?-?-?-?-?-?-?-?-?- EGA Weight BP Urine Prot -?-?-?-?-?-?-?-?-?-?-?-?- Glucose FHR FuHt Pres Dilation -?-?-?-?-?-?-?-?-?-?-?-?- Effaced St Visit Note 06/24/24 -?-?-?-?-?-?-?-?-?-?-?-?- 8w 2d 155 lb 101/65 -?-?-?-?-?-?-?-?-?-?-?-?- 175 -?-?-?-?-?-?-?-?-?-?-?-?- JV- CRL consiste nt with Lmp. declines nipt. still breast feeding. 07/23/24 -?-?-?-?-?-?-?-?-?-?-?-?- 12w 3d 157 lb 8 oz 98/62 Nega tive -?-?-?-?-?-?-?-?-?-?-?-?- Negative 165 -?-?-?-?-?-?-?-?-?-?-?-?- JV- CRL measurin g according to GA. will order anatomy scan with MFM. JV- CRL measuring according to GA. will order anatomy scan with MFM. starting to have hip pain. 08/20/24 -?-?-?-?-?-?-?-?-?-?-?-?- 16w 3d 160 lb 94/60 Negative -?-?-?-?-?-?-?-?-?-?-?-?- Negative 153 -?-?-?-?-?-?-?-?-?-?-?-?- -No VB. Nausea resolved. Doing well. 09/19/24 -?-?-?-?-?-?-?-?-?-?-?-?- 20w 5d 168 lb 102/64 Negative -?-?-?-?-?-?-?-?-?-?-?-?- Negative 156 -?-?-?-?-?-?-?-?-?-?-?-?- MH-No VB. Doing well. Good FM. Reviewed MFM anatomy US and will rpt 2 wk to complete anatomy 10/21/24 -?-?-?-?-?-?-?-?-?-?-?-?- 25w 2d 171 lb 102/68 Negative -?-?-?-?-?-?-?-?-?-?-?-?- Negative 1,455 145 25 -?-?-?-?-?-?-?-?-?-?-?-?- SM_ no vb lof go od fm nor euglar ctx [place] issues has repeat antomy scheduled 11/15/24 -?-?-?-?-?-?-?-?-?-?-?-?- 28w 6d 174 lb 7 oz 98/60 Nega tive -?-?-?-?-?-?-?-?-?-?-?-?- Negative 130 28 -?-?-?-?-?-?-?-?-?-?--?-?- JV- no lof, vagi nal bleeding, or dec fm . gct done today. aye tdap next visit. 11/29/24 -?-?-?-?-?-?-?-?-?-?-?-?- 30w 6d 176 lb 99/64 Negative -?-?-?-?-?-?-?-?-?-?-?-?- Negative 135 29.5 -?-?-?-?-?-?-?-?-?-?-?-?- LC- no vb/ctx/lo f. good fm. no concerns.larc signed. ACOG First Trimester First Trimester: Desire for , Alcohol, Tobacco Cessation, Illicit/Recreational Drug/Substance Use, Intimate Partner Violence, Barriers to care, Unstable Housing, Communication Barriers, Environmental/Work Hazards, Anticipated Course of Care, Toxoplasmosis Precations, Use of Any medications, Sexual activity, Exercise, Dental Care, Sauna/Hot tub use, Seat Belt use, Childbirth classes/Hospital facilities, Travel, Indications for Ultrasound and Screening for Aneuploidy; Discussed Second Trimester Second Trimester: Signs and Symptoms of Labor, Selecting a care provider, Reproductive Life Planning & Contreception, Care Planning, Depression/Anxiety and Intimate Partner Violence; Discussed Tobacco Cessation Third Trimester Third Trimester: Pain Management Plans, Labor support person(s), Immediate Larc, Circumcision preference, Movement Monitoring, Signs and Symptoms of Preeclampsia, Labor Signs and [place] Education; Discussed Trial of Labor after Counseling ROS Const Reports system reviewed and no additional complaints, except as documented GI Denies nausea and Denies vomiting Denies urinary hesitancy and Denies urinary urgency Exam Const Orientation: alert, awake and oriented x3 Resp Effort & Inspection: normal respiratory effort, able to speak in complete sentences and symmetric chest movement GI Palpation: soft (gravid) OB/External & Speculum: other (fundus appriopriate for GA) Results POC Urinalysis 2 Dip (Clinic) Office Urine Glucose Negative Last Edit by Ana Cristina Quintana on 11/29/24 10:59 Office Urine Protein Negative Last Edit by Ana Cristina Quintana on 11/29/24 10:59 Coding Level of Care Code OB Routine Diagnoses Multigravida of advanced maternal age in second trimester O09.522 Trimester: second trimester 30 weeks gestation of Z3A.30 Weeks of gestation: 30 weeks Supervision of high risk in second trimester O09.92 Trimester: second trimester Anal fissure K60.2 Family hx of colon cancer Z80.0 Assessment and Plan Assessment and Plan (1) AMA (advanced maternal age) multigravida 35+: Status: Acute Qualifiers: Trimester: second trimester Qualified Code(s): O09.522 - Supervision of elderly multigravida, second trimester Comment: Growth US 36 wk (2) : Status: Acute Qualifiers: Weeks of gestation: 30 weeks Qualified Code(s): Z3A.30 - 30 weeks gestation of Comment: Needs rpt US to complete anatomy/scheduled. Declines NIPT/Carrier. nl anatomy. (3) Supervision of high-risk : Status: Acute Qualifiers: Trimester: second trimester Qualified Code(s): O09.92 - Supervision of high risk , unspecified, second trimester Comment: PRR, RYLEE: 02/01/25 girl Julia JOSUE Joel : Jimy (4) Anal fissure: Status: Acute (5) Family hx of colon cancer: Status: Acute Comment: Brother 35 yo- Survivor Orders: Orders POC Urinalysis 2 Dip (Clinic) Today Plan Details Additional Comments: ACOG trimester education reviewed and updated. see problem list details for updated plan management information and see below for orders placed at this visit. [place] appropriate handout given. Clinical Quality Measures Falls Risk Screening/Assistive Devices Have you fallen in the past year?: No 11/29/24 1118 <Electronically signed by Alessandra sood CNM> Date _ Alessandra Bolanos CNM Cosigner Signature: Date (if applicable) CC: ~ [facility] Work Phone: Progress note Author Ruthie Le [facility] Note Date/Time December 11, 2024 9:31am [facility] [address], [address] [place] [address] OFFICE VISIT Date of Service: 12/11/24 MR#: [id number] Acct: [id number] Name: CONCHA GREWAL Rep #: [id number] : 1990 Provider: TRISTIN Le Age/Sex: 34/F [place] [facility] [place] Status: Signed Intake Vital Signs 11/15/24 10:21 11/29/24 10:52 12/11/24 09:02 Height 5 ft 6 in 5 ft 6 in 5 ft 6 in Weight: 177 lb 4 oz BMI 28.5 BP 110/64 Intake Visit Reasons: 32wk ob Frame Nailer Required: No Is patient in pain?: No Allergies house dust Allergy (Mild, Verified 12/11/24 09:04) Nasal congestion Medications ?Medication ?Instructions ?Recorded ?Confirmed ?Type multivit-min no.71-iron fum 28 1 cap PO DAILY pregnanc y 12/15/21 12/11/24 History mg-folate no.1 1 mg-dha 300 mg capsule (PNV-[place]) Last Menstrual Period: 04/27/24 Zika: Zika virus screening: Negative : No PFSH PFSH Medical History Wears glasses Anemia Non-smoker Hx of vaginal delivery Family hx of colon cancer Hypotension Family History Brother Colon cancer, Onset Age: 35 Stage IV Mother Heart disease Father CVA (cerebral vascular accident) Social History adopted: No household members: spouse housing: house number of children: 1 current occupational status: unemployed pets and animals: No history of recent travel: [place] ([place]) out of state: Yes out of country: No sexually active: Yes Smoking Status: Never smoker alcohol intake: never substance use type: does not use well-balanced diet: daily or most days caffeine: No eating out: rarely or never during the past year weight has: remained stable what type of physical activity do you participate in: none brandyn/hoahaoism: Rastafarian seatbelt use: always do you feel safe at home: Yes 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 Date Name GA/Weeks Outcome Route Bth Weight Infant Gen Labor Lgth Anesthesia Del Locatn Provider FOB 07/22/22 Joel 40 live - full term 8lbs 3oz Male ep idural [facility] Dr. Vasquez Delivery Date: 07/22/22 Last Updated by: Aicha Albrecht 1st degree tear HPI 32wk ob Details: CONCHA GREWAL is a 34 year old who presents for routine OB visit. OB Visit RYLEE Calculator Estimated Delivery Date Method Current WG Current Estimate 02/01/25 LMP (Certain) 32w 4d Other Estimates 01/29/25 Ultrasound #1 33w 0d Expected Delivery Route/Plan Labor Preferences- CB/BF classes: [] labor support person: [] labor intervention preferences: [] pain management options preferred: [] cut cord/dad catch: [] : [] PP control planned: [] discussed possible routes of delivery and associated risks: [] special requests: [] Specific Issue/Plans Covid status: [] Flu vaccine: [] Tdap vaccine: [] Rhogam: [] LARC form signed: [] Problem list reviewed and updated with the most current plan of care details and appropriate orders placed. Relevant counseling for the gestational age provided. Continue routine care and follow up unless otherwise noted in visit notes/problem list details Initial Weight: Not Recorded Date -?-?-?-?-?-?-?-?-?-?-?--?- EGA Weight BP Urine Prot -?-?-?-?-?-?-?-?-?-?-?-?- Glucose FHR FuHt Pres Dilation -?-?-?-?-?-?-?-?-?-?-?-?- Effaced St Visit Note 06/24/24 -?-?-?-?-?-?-?-?-?-?-?-?- 8w 2d 155 lb 101/65 -?-?-?-?-?-?-?-?-?-?-?-?- 175 -?-?-?-?-?-?-?-?-?-?-?-?- JV- CRL consiste nt with Lmp. declines nipt. still breast feeding. 07/23/24 -?-?-?-?-?-?-?-?-?-?-?-?- 12w 3d 157 lb 8 oz 98/62 Nega tive -?-?-?-?-?-?-?-?-?-?-?-?- Negative 165 -?-?-?-?-?-?-?-?-?-?-?-?- JV- CRL measurin g according to GA. will order anatomy scan with MFM. JV- CRL measuring according to GA. will order anatomy scan with MFM. starting to have hip pain. 08/20/24 -?-?-?-?-?-?-?-?-?-?-?-?- 16w 3d 160 lb 94/60 Negative -?-?-?-?-?-?-?-?-?-?-?-?- Negative 153 -?-?-?-?-?-?-?-?-?-?-?-?- MH-No VB. Nausea resolved. Doing well. 09/19/24 -?-?-?-?-?-?-?-?-?-?-?-?- 20w 5d 168 lb 102/64 Negative -?-?-?-?-?-?-?-?-?-?-?-?- Negative 156 -?-?-?-?-?-?-?-?-?-?-?-?- MH-No VB. Doing well. Good FM. Reviewed MFM anatomy US and will rpt 2 wk to complete anatomy 10/21/24 -?-?-?-?-?-?-?-?-?-?-?-?- 25w 2d 171 lb 102/68 Negative -?-?-?-?-?-?-?-?-?-?-?-?- Negative 1,455 145 25 -?-?-?-?-?-?-?-?-?-?-?-?- SM_ no vb lof go od fm nor euglar [place] issues has repeat antomy scheduled 11/15/24 -?-?-?-?-?-?-?-?-?-?-?-?- 28w 6d 174 lb 7 oz 98/60 Nega tive -?-?-?-?-?-?-?-?-?-?-?-?- Negative 130 28 -?-?-?-?-?-?-?-?-?-?-?-?- JV- no lof, vagi nal bleeding, or dec fm . gct done today. aye contrerasap next visit. 11/29/24 -?-?-?-?-?-?-?-?-?-?-?-?- 30w 6d 176 lb 99/64 Negative -?-?-?-?-?-?-?-?-?-?-?-?- Negative 135 29.5 -?-?-?-?-?-?-?-?-?-?-?-?- LC- no vb/ctx/lo f. good fm. no concerns.larc signed. 12/11/24 -?-?-?-?-?-?-?-?-?-?-?-?- 32w 4d 177 lb 4 oz 110/64 -?-?-?-?-?-?-?-?-?-?-?-?- 160 32 -?-?-?-?-?-?-?-?-?-?-?-?- KW- no vb/lof/ct x. good fm. would like to try without epidural. ACOG First Trimester First Trimester: Desire for , Alcohol, Tobacco Cessation, Illicit/Recreational Drug/Substance Use, Intimate Partner Violence, Barriers to care, Unstable Housing, Communication Barriers, Environmental/Work Hazards, Anticipated Course of Care, Toxoplasmosis Precations, Use of Any medications, Sexual activity, Exercise, Dental Care, Sauna/Hot tub use, Seat Belt use, Childbirth classes/Hospital facilities, Travel, Indications for Ultrasound and Screening for Aneuploidy; Discussed Second Trimester Second Trimester: Signs and Symptoms of Labor, Selecting a care provider, Reproductive Life Planning & Contreception, Care Planning, Depression/Anxiety and Intimate Partner Violence; Discussed Tobacco Cessation Third Trimester Third Trimester: Pain Management Plans, Labor support person(s), Immediate Larc, Circumcision preference, Movement Monitoring, Signs and Symptoms of Preeclampsia, Labor Signs and Education; Discussed Trial of Labor after Counseling ROS Const Reports system reviewed and no additional complaints, except as documented Eyes Reports system reviewed and no additional complaints, except as documented ENT Reports system reviewed and no additional complaints, except as documented Card Reports system reviewed and no additional complaints, except as documented Resp Reports system reviewed and no additional complaints, except as documented GI Reports system reviewed and no additional complaints, except as documented, Denies nausea and Denies vomiting Reports system reviewed and no additional complaints, except as documented Musc Reports system reviewed and no additional complaints, except as documented Skin/Breast Reports system reviewed and no additional complaints, except as documented Neuro Yes system reviewed and no additional complaints, except as documented Psych Reports system reviewed and no additional complaints, except as documented Endo Reports system reviewed and no additional complaints, except as documented Kishan/Lymph Reports system reviewed and no additional complaints, except as documented Aller/Immun Reports system reviewed and no additional complaints, except as documented Exam Const General: cooperative, healthy appearing and no acute distress Orientation: alert, awake and oriented x3 Neck Neck: normal visual inspection and full ROM Resp Effort & Inspection: normal respiratory effort, able to speak in complete sentences and symmetric chest movement GI Inspection: normal to inspection Palpation: soft and other Other: gravid Skin General: no rashes or lesions noted Neuro General: patient alert, patient awake and patient oriented x3 Cognition: normal cognition Speech: speech normal Gait: normal gait Motor: muscle tone normal throughout Extrem General: normal to inspection and full ROM Psych Appearance: grossly normal Mental Status: mental status grossly normal Mood: congruent mood Affect: normal affect Speech and Movement: speech and movement normal Attitude: cooperative Thought Process: normal Thought Content: normal Judgment: judgment good Coding Level of Care Code OB Routine Diagnoses Multigravida of advanced maternal age in second trimester O09.522 Trimester: second trimester 32 weeks gestation of Z3A.32 Weeks of gestation: 32 weeks Supervision of high risk in second trimester O09.92 Trimester: second trimester Anal fissure K60.2 Family hx of colon cancer Z80.0 Assessment and Plan Assessment and Plan (1) AMA (advanced maternal age) multigravida 35+: Status: Acute Qualifiers: Trimester: second trimester Qualified Code(s): O09.522 - Supervision of elderly multigravida, second trimester Comment: Growth US 36 wk (2) : Status: Acute Qualifiers: Weeks of gestation: 32 weeks Qualified Code(s): Z3A.32 - 32 weeks gestation of Comment: Needs rpt US to complete anatomy/scheduled. Declines NIPT/Carrier. nl anatomy. (3) Supervision of high-risk : Status: Acute Qualifiers: Trimester: second trimester Qualified Code(s): O09.92 - Supervision of high risk , unspecified, second trimester Comment: PRR, RYLEE: 02/01/25 girl Julia JOSUE Joel : Jimy (4) Anal fissure: Status: Acute (5) Family hx of colon cancer: Status: Acute Comment: Brother 35 yo- Survivor Orders: Orders POC Urinalysis 2 Dip (Clinic) Today Plan Details Additional Comments: ACOG trimester education reviewed and updated. see problem list details for updated plan management information and see below for orders placed at this visit. [place] appropriate handout given. 12/11/24 0931 <Electronically signed by Ruthie irwin CNM> Date _ Ruthie Le CNM Cosigner Signature: Date (if applicable) CC: ~ [facility] Work Phone: Progress note Author Kinza Barahona [facility] Note Date/Time January 10, 2025 11 :04am [facility] [address] [place] [address], [address] [place] [address] OFFICE VISIT Date of Service: 01/10/25 MR#: [id number] Acct: [id number] Name: CONCHA GREWAL Rep #: [id number] : 1990 Provider: Dr. 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: No Is patient in pain?: No Allergies house dust Allergy (Mild, Verified 01/10/25 10:43) Nasal congestion Medications ?Medication ?Instructions ?Recorded ?Confirmed ?Type multivit-min no.71-iron fum 28 1 cap PO DAILY pregnanc y 12/15/21 01/10/25 History mg-folate no.1 1 mg-dha 300 mg capsule (PNV-[place]) Last Menstrual Period: 04/27/24 Zika: Zika virus screening: Negative : No PFSH PFSH Medical History Wears glasses Anemia Non-smoker Hx of vaginal delivery Family hx of colon cancer Hypotension Family History Brother Colon cancer, Onset Age: 35 Stage IV Mother Heart disease Father CVA (cerebral vascular accident) Social History adopted: No household members: spouse housing: house number of children: 1 current occupational status: unemployed pets and animals: No history of recent travel: [place] ([place] out of state: Yes out of country: No sexually active: Yes Smoking Status: Never smoker alcohol intake: never substance use type: does not use well-balanced diet: daily or most days caffeine: No eating out: rarely or never during the past year weight has: remained stable what type of physical activity do you participate in: none brandyn/hoahaoism: Rastafarian seatbelt use: always do you feel safe at home: Yes 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 Date Name GA/Weeks Outcome Route Bth Weight Gen Labor Lgth Anesthesia Del Locatn Provider FOB 07/22/22 Joel 40 live - full term 8lbs 3oz Male ep idural [facility] Dr. Vasquez Delivery Date: 07/22/22 Last Updated by: Aicha Albrecht 1st degree tear HPI 36wk ob Details: CONCHA GREWAL is a 34 year old who presents for routine OB visit. OB Visit RYLEE Calculator Estimated Delivery Date Method Current WG Current Estimate 02/01/25 LMP (Certain) 36w 6d Other Estimates 01/29/25 Ultrasound #1 37w 2d Expected Delivery Route/Plan Labor Preferences- CB/BF classes: no labor support person: Jimy labor intervention preferences: [] pain management options preferred: limited cut cord/dad catch: yes : yes PP control planned: discussed discussed possible routes of delivery and associated risks: [] special requests: [] Specific Issue/Plans Covid status: [] Flu vaccine: [] Tdap vaccine: [] Rhogam: na LARC form signed: yes Problem list reviewed and updated with the most current plan of care details and appropriate orders placed. Relevant counseling for the gestational age provided. Continue routine care and follow up unless otherwise noted in visit notes/problem list details Initial Weight: Not Recorded Date -?-?-?-?-?-?-?-?-?-?-?-?- EGA Weight BP Urine Prot -?-?-?-?-?-?-?-?-?-?-?-?- Glucose FHR FuHt Pres Dilation -?-?-?-?-?-?-?-?-?-?-?-?- Effaced St Visit Note 06/24/24 -?-?-?-?-?-?-?-?-?-?-?-?- 8w 2d 155 lb 101/65 -?-?-?-?-?-?-?-?-?--?-?-?- 175 -?-?-?-?-?-?-?-?-?-?-?-?- JV- CRL consiste nt with Lmp. declines nipt. still breast feeding. 07/23/24 -?-?-?-?-?-?-?-?-?-?-?-?- 12w 3d 157 lb 8 oz 98/62 Nega tive -?-?-?-?-?-?-?-?-?-?-?-?- Negative 165 -?-?-?-?-?-?-?-?-?-?-?-?- JV- CRL measurin g according to GA. will order anatomy scan with MFM. JV- CRL measuring according to GA. will order anatomy scan with MFM. starting to have hip pain. 08/20/24 -?-?-?-?-?-?-?-?-?-?-?-?- 16w 3d 160 lb 94/60 Negative -?-?-?-?-?-?-?-?-?-?-?-?- Negative 153 -?-?-?-?-?-?-?-?-?-?-?-?- -No VB. Nausea resolved. Doing well. 09/19/24 -?-?-?-?-?-?-?-?-?-?-?-?- 20w 5d 168 lb 102/64 Negative -?-?-?-?-?-?-?-?-?-?-?-?- Negative 156 -?-?-?-?-?-?-?-?-?-?-?-?- MH-No VB. Doing well. Good FM. Reviewed MFM anatomy US and will rpt 2 wk to complete anatomy 10/21/24 -?-?-?-?-?-?-?-?-?-?-?-?- 25w 2d 171 lb 102/68 Negative -?-?-?-?-?-?-?-?-?-?-?-?- Negative 1,455 145 25 -?-?-?-?-?-?-?-?-?-?-?-?- SM_ no vb lof go od fm nor euglar ctx [place] no issues has repeat antomy scheduled 11/15/24 -?-?-?-?-?-?-?-?-?-?-?-?- 28w 6d 174 lb 7 oz 98/60 Nega tive -?-?-?-?-?-?-?-?-?-?-?-?- Negative 130 28 -?-?-?-?-?-?-?-?-?-?-?-?- JV- no lof, vagi nal bleeding, or dec fm . gct done today. aye tdap next visit. 11/29/24 -?-?-?-?-?-?-?-?-?-?-?-?- 30w 6d 176 lb 99/64 Negative -?-?-?-?-?-?-?-?-?-?-?-?- Negative 135 29.5 -?-?-?-?-?-?-?-?-?-?-?-?- LC- no vb/ctx/lo f. good fm. no concerns.larc signed. 12/11/24 -?-?-?-?-?-?-?-?-?-?-?-?- 32w 4d 177 lb 4 oz 110/64 1+ -?-?-?-?-?-?-?-?-?-?-?-?- Negative 160 32 -?-?-?-?-?-?-?-?-?-?-?-?- KW- no vb/lof/ct x. good fm. would like to try without epidural. 12/25/24 -?-?-?-?-?-?-?-?-?-?-?-?- 34w 4d 180 lb 2 oz 92/55 Nega tive -?-?-?-?-?-?-?-?-?-?-?-?- Negative 131 34 -?-?-?-?-?-?-?-?-?-?-?-?- MH-No VB, LOF. G ood FM. Monistat 7 for yeast sx 01/10/25 -?-?-?-?-?-?-?-?-?-?-?-?- 36w 6d 180 lb 6 oz 95/61 Nega tive -?-?-?-?-?-?-?-?-?-?-?-?- Negative 140 36 Cephalic 1 -?-?-?-?-?-?-?-?-?-?-?-?- 50 -3 SM- no vb lof good fm n oregulra ctx gbs collected ACOG First Trimester First Trimester: Desire for , Alcohol, Tobacco Cessation, Illicit/Recreational Drug/Substance Use, Intimate Partner Violence, Barriers to care, Unstable Housing, Communication Barriers, Environmental/Work Hazards, Anticipated Course of Care, Toxoplasmosis Precations, Use of Any medications, Sexual activity, Exercise, Dental Care, Sauna/Hot tub use, Seat Belt use, Childbirth classes/Hospital facilities, Travel, Indications for Ultrasound and Screening for Aneuploidy; Discussed Second Trimester Second Trimester: Signs and Symptoms of Labor, Selecting a care provider, Reproductive Life Planning & Contreception, Care Planning, Depression/Anxiety and Intimate Partner Violence; Discussed Tobacco Cessation Third Trimester Third Trimester: Pain Management Plans, Labor support person(s), Immediate Larc, Circumcision preference, Movement Monitoring, Signs and Symptoms of Preeclampsia, Labor Signs and [place] Education; Discussed Trial of Labor after Counseling Results POC Urinalysis 2 Dip (Clinic) Office Urine Glucose Negative Last Edit by Esperanza Rincon on 01/10/25 11:01 Office Urine Protein Negative Last Edit by Esperanza Rincon on 01/10/25 11:01 Coding Level of Care Code OB Routine Diagnoses Multigravida of advanced maternal age in second trimester O09.522 Trimester: second trimester 36 weeks gestation of Z3A.36 Weeks of gestation: 36 weeks Supervision of high risk in third trimester O09.93 Trimester: third trimester Anal fissure K60.2 Family hx of colon cancer Z80.0 Assessment and Plan Assessment and Plan (1) AMA (advanced maternal age) multigravida 35+: Status: Acute Qualifiers: Trimester: second trimester Qualified Code(s): O09.522 - Supervision of elderly multigravida, second trimester Comment: Growth US 36 wk (2) : Status: Acute Qualifiers: Weeks of gestation: 36 weeks Qualified Code(s): Z3A.36 - 36 weeks gestation of Comment: Declines NIPT/Carrier. nl anatomy. (3) Supervision of high-risk : Status: Acute Qualifiers: Trimester: third trimester Qualified Code(s): O09.93 - Supervision of high risk , unspecified, third trimester Comment: PRR, RYLEE: [birth year] girl Julia Maldonado : Jimy (4) Anal fissure: Status: Acute (5) Family hx of colon cancer: Status: Acute Comment: Brother 35 yo- Survivor Orders: Orders POC Urinalysis 2 Dip (Clinic) Today Culture, Group B Streptococcus Today O09.93 - Supervision of high risk , unspecified, third trimester OB Limited With Biometrics Today O09.522 - Supervision of elderly multigravida, second trimester 01/10/25 1104 <Electronically signed by Kinza jimenez MD> Date _ Kinza Barahona MD Cosign Signature: Date (if applicable) CC: ~ [facility] Work Phone: Reason for referral (narrative)No reason for referral information availableWTuscarawas Hospital Work Phone: Chief Complaint and Reason for Visit Chief Complaint NOB LMP 10/14 Reason for Visit Supervision of normal Chief Complaint NOB LMP 10/14 13 WK OB 17 WK OB SUPERVISION OF NORMAL Reason for Visit Supervision of normal Nausea/vomiting in Supervision of normal Chief Complaint NOB LMP 10/14 13 WK OB 17 WK OB SUPERVISION OF NORMAL 21wk ob 24 WK OB Reason for Visit Supervision of normal Nausea/vomiting in Supervision of normal [id number] Nausea/vomiting in Supervision of normal [id number] Nausea/vomiting in Supervision of normal [id number] Nausea/vomiting in Supervision of normal Chief Complaint 17 WK OB SUPERVISION OF NORMAL 21wk ob 24 WK OB 30 WK OB 32 WK OB BILAT BREAST MASSES Reason for Visit [id number] Supervision of normal Nausea/vomiting in [id number] Supervision of normal Nausea/vomiting in [id number] Supervision of normal Nausea/vomiting in [id number] Supervision of normal Breast mass, right Breast pain, left [id number] Supervision of normal Chief Complaint SUPERVISION OF ODETTE L 21wk ob 24 WK OB 30 WK OB 32 WK OB BILAT BREAST MASSES 34 WK OB 36 WK OB Reason for Visit [id number] Supervision of normal Nausea/vomiting in [id number] Supervision of normal Nausea/vomiting in [id number] Supervision of normal [id number] Supervision of normal Breast mass, right Breast pain, left [id number] Supervision of normal Breast mass, right Breast pain, left [id number] Supervision of normal Chief Complaint 21wk ob 24 WK OB 30 WK OB 32 WK OB BILAT BREAST MASSES 34 WK OB 36 WK OB 37 wk ob 38 WK OB RULE OUT LABOR Reason for Visit [id number] Supervision of normal Nausea/vomiting in [id number] Supervision of normal Nausea/vomiting in [id number] Supervision of normal [id number] Supervision of normal Breast mass, right Breast pain, left [id number] Supervision of normal Breast mass, right Breast pain, left [id number] Supervision of normal [id number] Supervision of normal [id number] Supervision of normal Chief Complaint 21wk ob 24 WK OB 30 WK OB 32 WK OB BILAT BREAST MASSES 34 WK OB 36 WK OB 37 wk ob 38 WK OB RULE OUT LABOR RULE OUT LABOR R\O LABOR Reason for Visit [id number] Supervision of normal Nausea/vomiting in [id number] Supervision of normal Nausea/vomiting in [id number] Supervision of normal [id number] Supervision of normal Breast mass, right Breast pain, left [id number] Supervision of normal Breast mass, right Breast pain, left [id number] Supervision of normal [id number] Supervision of normal [id number] Supervision of normal [id number] Supervision of normal Chief Complaint 24 WK OB 30 WK OB 32 WK OB BILAT BREAST MASSES 34 WK OB 36 WK OB 37 wk ob 38 WK OB RULE OUT LABOR RULE OUT LABOR R\O LABOR R\O LABOR 39 WK OB VAGINAL DELIVERY LABOR VAGINAL DELIVERY VAGINAL DELIVERY Reason for Visit [id number] Supervision of normal Nausea/vomiting in [id number] Supervision of normal [id number] Supervision of normal Breast mass, right Breast pain, left [id number] Supervision of normal Breast mass, right Breast pain, left [id number] Supervision of normal [id number] Supervision of normal [id number] Supervision of normal [id number] Supervision of normal Premature rupture of membranes [id number] Supervision of normal Active labor at term [id number] Supervision of normal Chief Complaint BLOOD IN STOOL/ POSS IBLE HEMORRHOIDS MEDICATION FU Reason for Visit Anal fissure Family hx of colon cancer Anal fissure Family hx of colon cancer Chief Complaint Admit Date New OB, LMP 04/27, RYLEE 02/01June 24, 2024 2:12pm Reason for Visit Admit Date AMA (advanced maternal age) multigravida 35+ June 24, 2024 2:12pm Anal fissure June 24, 2024 2:1 2pm Family hx of colon cancer June 24 2:12pm June 24, 2024 2:1 2pm Supervision of high-risk June 24, 2024 2:12pm Chief Complaint Admit Date New OB, LMP 04/27, RYLEE 02/01June 24, 2024 2:12pm 12wk ob July 23, 2024 9:1 0am 16wk ob August 20, 2024 8:24a m Reason for Visit Admit Date AMA (advanced maternal age) multigravida 35+ June 24, 2024 2:12pm Anal fissure June 24, 2024 2:1 2pm Family hx of colon cancer June 24 2:12pm June 24, 2024 2:1 2pm Supervision of high-risk June 24, 2024 2:12pm AMA (advanced maternal age) multigravida 35+ July 23, 2024 9:10am Anal fissure July 23, 2024 9:1 0am Family hx of colon cancer July 23 9:10am July 23, 2024 9:1 0am Supervision of high-risk July 23, 2024 9:10am AMA (advanced maternal age) multigravida 35+ August 20, 2024 8:24am Anal fissure August 20, 2024 8:24a m Family hx of colon cancer August 20, 2024 8:24am August 20, 2024 8:24a m Supervision of high-risk August 082024 8:24am Chief Complaint Admit Date New OB, LMP 04/27, RYLEE 02/01June 24, 2024 2:12pm 12wk ob July 23, 2024 9:1 0am 16wk ob August 20, 2024 8:24a m 20wk ob September 19, 2024 2:50 pm Reason for Visit Admit Date AMA (advanced maternal age) multigravida 35+ June 24, 2024 2:12pm Anal fissure June 24, 2024 2:1 2pm Family hx of colon cancer June 24 2:12pm June 24, 2024 2:1 2pm Supervision of high-risk June 24, 2024 2:12pm AMA (advanced maternal age) multigravida 35+ July 23, 2024 9:10am Anal fissure July 23, 2024 9:1 0am Family hx of colon cancer July 23 9:10am July 23, 2024 9:1 0am Supervision of high-risk July 23, 2024 9:10am AMA (advanced maternal age) multigravida 35+ August 20, 2024 8:24am Anal fissure August 20, 2024 8:24a m Family hx of colon cancer August 20, 2024 8:24am August 20, 2024 8:24a m Supervision of high-risk August 082024 8:24am AMA (advanced maternal age) multigravida 35+ September 19, 2024 2:50pm Anal fissure September 19, 2024 2:50 pm Family hx of colon cancer September 19 2:50pm September 19, 2024 2:50 pm Supervision of high-risk September 19, 2024 2:50pm Chief Complaint Admit Date New OB, LMP 04/27, RYLEE 02/01June 24, 2024 2:12pm 12wk ob July 23, 2024 9:1 0am 16wk ob August 20, 2024 8:24a m 20wk ob September 19, 2024 2:50 pm 24 wk ob October 21, 2024 8:50 am Reason for Visit Admit Date AMA (advanced maternal age) multigravida 35+ June 24, 2024 2:12pm Anal fissure June 24, 2024 2:1 2pm Family hx of colon cancer June 24 2:12pm June 24, 2024 2:1 2pm Supervision of high-risk June 24, 2024 2:12pm AMA (advanced maternal age) multigravida 35+ July 23, 2024 9:10am Anal fissure July 23, 2024 9:1 0am Family hx of colon cancer July 23 9:10am July 23, 2024 9:1 0am Supervision of high-risk July 23, 2024 9:10am AMA (advanced maternal age) multigravida 35+ August 20, 2024 8:24am Anal fissure August 20, 2024 8:24a m Family hx of colon cancer August 20, 2024 8:24am August 20, 2024 8:24a m Supervision of high-risk August 082024 8:24am AMA (advanced maternal age) multigravida 35+ September 19, 2024 2:50pm Anal fissure September 19, 2024 2:50 pm Family hx of colon cancer September 19 2:50pm September 19, 2024 2:50 pm Supervision of high-risk September 19, 2024 2:50pm AMA (advanced maternal age) multigravida 35+ October 21, 2024 8:50am Anal fissure October 21, 2024 8:50 am Family hx of colon cancer October 21 8:50am October 21, 2024 8:50 am Supervision of high-risk October 21, 2024 8:50am Chief Complaint Admit Date 12wk ob July 23, 2024 9:1 0am 16wk ob August 20, 2024 8:24a m 20wk ob September 19, 2024 2:50 pm 24 wk ob October 21, 2024 8:50 am 28wk ob/glucose November 15, 2024 10: 14am Reason for Visit Admit Date AMA (advanced maternal age) multigravida 35+ July 23, 2024 9:10am Anal fissure July 23, 2024 9:1 0am Family hx of colon cancer July 23 9:10am July 23, 2024 9:1 0am Supervision of high-risk July 23, 2024 9:10am AMA (advanced maternal age) multigravida 35+ August 20, 2024 8:24am Anal fissure August 20, 2024 8:24a m Family hx of colon cancer August 20, 2024 8:24am August 20, 2024 8:24a m Supervision of high-risk August 082024 8:24am AMA (advanced maternal age) multigravida 35+ September 19, 2024 2:50pm Anal fissure September 19, 2024 2:50 pm Family hx of colon cancer September 19 2:50pm September 19, 2024 2:50 pm Supervision of high-risk September 19, 2024 2:50pm AMA (advanced maternal age) multigravida 35+ October 21, 2024 8:50am Anal fissure October 21, 2024 8:50 am Family hx of colon cancer October 21 8:50am October 21, 2024 8:50 am Supervision of high-risk October 21, 2024 8:50am AMA (advanced maternal age) multigravida 35+ November 15, 2024 10:14am Anal fissure November 15, 2024 10: 14am Family hx of colon cancer November 15 10:14am November 15, 2024 10: 14am Supervision of high-risk Augus 2024 10:14am Chief Complaint Admit Date 16wk ob August 20, 2024 8:24a m 20wk ob September 19, 2024 2:50 pm 24 wk ob October 21, 2024 8:50 am 28wk ob/glucose November 15, 2024 10: 14am Reason for Visit Admit Date AMA (advanced maternal age) multigravida 35+ August 20, 2024 8:24am Anal fissure August 20, 2024 8:24a m Family hx of colon cancer August 20, 2024 8:24am August 20, 2024 8:24a m Supervision of high-risk August 082024 8:24am AMA (advanced maternal age) multigravida 35+ September 19, 2024 2:50pm Anal fissure September 19, 2024 2:50 pm Family hx of colon cancer September 19 2:50pm September 19, 2024 2:50 pm Supervision of high-risk September 19, 2024 2:50pm AMA (advanced maternal age) multigravida 35+ October 21, 2024 8:50am Anal fissure October 21, 2024 8:50 am Family hx of colon cancer October 21 8:50am October 21, 2024 8:50 am Supervision of high-risk October 21, 2024 8:50am AMA (advanced maternal age) multigravida 35+ November 15, 2024 10:14am Anal fissure November 15, 2024 10: 14am Family hx of colon cancer November 15 10:14am November 15, 2024 10: 14am Supervision of high-risk Augus 2024 10:14am Chief Complaint Admit Date 16wk ob August 20, 2024 8:24a m 20wk ob September 19, 2024 2:50 pm 24 wk ob October 21, 2024 8:50 am 28wk ob/glucose November 15, 2024 10: 14am 30 wk ob November 29, 2024 10 :50am Reason for Visit Admit Date AMA (advanced maternal age) multigravida 35+ August 20, 2024 8:24am Anal fissure August 20, 2024 8:24a m Family hx of colon cancer August 20, 2024 8:24am August 20, 2024 8:24a m Supervision of high-risk August 082024 8:24am AMA (advanced maternal age) multigravida 35+ September 19, 2024 2:50pm Anal fissure September 19, 2024 2:50 pm Family hx of colon cancer September 19 2:50pm September 19, 2024 2:50 pm Supervision of high-risk September 19, 2024 2:50pm AMA (advanced maternal age) multigravida 35+ October 21, 2024 8:50am Anal fissure October 21, 2024 8:50 am Family hx of colon cancer October 21 8:50am October 21, 2024 8:50 am Supervision of high-risk October 21, 2024 8:50am AMA (advanced maternal age) multigravida 35+ November 15, 2024 10:14am Anal fissure November 15, 2024 10: 14am Family hx of colon cancer November 15 10:14am November 15, 2024 10: 14am Supervision of high-risk Augus t 2024 10:14am AMA (advanced maternal age) multigravida 35+ November 29, 2024 10:50am Anal fissure November 29, 2024 10 :50am Family hx of colon cancer November 29, 025 10:50am November 29, 2024 10 :50am Supervision of high-risk Augus t 2024 10:50am Chief Complaint Admit Date 16wk ob August 20, 2024 8:24a m 20wk ob September 19, 2024 2:50 pm 24 wk ob October 21, 2024 8:50 am 28wk ob/glucose November 15, 2024 10: 14am 30 wk ob November 29, 2024 10 :50am 32wk ob December 11, 2024 8:58am Reason for Visit Admit Date AMA (advanced maternal age) multigravida 35+ August 20, 2024 8:24am Anal fissure August 20, 2024 8:24a m Family hx of colon cancer August 20, 2024 8:24am August 20, 2024 8:24a m Supervision of high-risk August 082024 8:24am AMA (advanced maternal age) multigravida 35+ September 19, 2024 2:50pm Anal fissure September 19, 2024 2:50 pm Family hx of colon cancer September 19 2:50pm September 19, 2024 2:50 pm Supervision of high-risk September 19, 2024 2:50pm AMA (advanced maternal age) multigravida 35+ October 21, 2024 8:50am Anal fissure October 21, 2024 8:50 am Family hx of colon cancer October 21 8:50am October 21, 2024 8:50 am Supervision of high-risk October 21, 2024 8:50am AMA (advanced maternal age) multigravida 35+ November 15, 2024 10:14am Anal fissure November 15, 2024 10: 14am Family hx of colon cancer November 15 10:14am November 15, 2024 10: 14am Supervision of high-risk Augus t 2024 10:14am AMA (advanced maternal age) multigravida 35+ November 29, 2024 10:50am Anal fissure November 29, 2024 10 :50am Family hx of colon cancer November 29, 2 025 10:50am November 29, 2024 10 :50am Supervision of high-risk Augus t 2024 10:50am AMA (advanced maternal age) multigravida 35+ December 11, 2024 8:58am Anal fissure December 11, 2024 8:58am Family hx of colon cancer December 11, 2024 8:58am December 11, 2024 8:58am Supervision of high-risk Septe [id number] 8:58am Chief Complaint Admit Date 20wk ob September 19, 2024 2:50 pm 24 wk ob October 21, 2024 8:50 am 28wk ob/glucose November 15, 2024 10: 14am 30 wk ob November 29, 2024 10 :50am 32wk ob December 11, 2024 8:58am 34wk ob December 25, 2024 9:38am Reason for Visit Admit Date AMA (advanced maternal age) multigravida 35+ September 19, 2024 2:50pm Anal fissure September 19, 2024 2:50 pm Family hx of colon cancer September 19 2:50pm September 19, 2024 2:50 pm Supervision of high-risk September 19, 2024 2:50pm AMA (advanced maternal age) multigravida 35+ October 21, 2024 8:50am Anal fissure October 21, 2024 8:50 am Family hx of colon cancer October 21 8:50am October 21, 2024 8:50 am Supervision of high-risk October 21, 2024 8:50am AMA (advanced maternal age) multigravida 35+ November 15, 2024 10:14am Anal fissure November 15, 2024 10: 14am Family hx of colon cancer November 15 10:14am November 15, 2024 10: 14am Supervision of high-risk Augus t 2024 10:14am AMA (advanced maternal age) multigravida 35+ November 29, 2024 10:50am Anal fissure November 29, 2024 10 :50am Family hx of colon cancer November 29, 025 10:50am November 29, 2024 10 :50am Supervision of high-risk Augus t 2024 10:50am AMA (advanced maternal age) multigravida 35+ December 11, 2024 8:58am Anal fissure December 11, 2024 8:58am Family hx of colon cancer December 11, 2024 8:58am December 11, 2024 8:58am Supervision of high-risk Septe 2024 8:58am AMA (advanced maternal age) multigravida 35+ December 25, 2024 9:38am Anal fissure December 25, 2024 9:38am Family hx of colon cancer December 9:38am December 25, 2024 9:38am Supervision of high-risk [facility] 2024 9:38am Chief Complaint Admit Date 20wk ob September 19, 2024 2:50 pm 24 wk ob October 21, 2024 8:50 am 28wk ob/glucose November 15, 2024 10: 14am 30 wk ob November 29, 2024 10 :50am 32wk ob December 11, 2024 8:58am 34wk ob December 25, 2024 9:38am 36wk ob January 10, 2025 10 :38am Reason for Visit Admit Date AMA (advanced maternal age) multigravida 35+ September 19, 2024 2:50pm Anal fissure September 19, 2024 2:50 pm Family hx of colon cancer September 19 2:50pm September 19, 2024 2:50 pm Supervision of high-risk September 19, 2024 2:50pm AMA (advanced maternal age) multigravida 35+ October 21, 2024 8:50am Anal fissure October 21, 2024 8:50 am Family hx of colon cancer October 21 8:50am October 21, 2024 8:50 am Supervision of high-risk October 21, 2024 8:50am AMA (advanced maternal age) multigravida 35+ November 15, 2024 10:14am Anal fissure November 15, 2024 10: 14am Family hx of colon cancer November 15 10:14am November 15, 2024 10: 14am Supervision of high-risk Augus t 2024 10:14am AMA (advanced maternal age) multigravida 35+ November 29, 2024 10:50am Anal fissure November 29, 2024 10 :50am Family hx of colon cancer November 29, 10:50am November 29, 2024 10 :50am Supervision of high-risk Augus t 2024 10:50am AMA (advanced maternal age) multigravida 35+ December 11, 2024 8:58am Anal fissure December 11, 2024 8:58am Family hx of colon cancer December 11, 2024 8:58am December 11, 2024 8:58am Supervision of high-risk Dece 2024 8:58am AMA (advanced maternal age) multigravida 35+ December 25, 2024 9:38am Anal fissure December 25, 2024 9:38am Family hx of colon cancer December 9:38am December 25, 2024 9:38am Supervision of high-risk Septe 2024 9:38am AMA (advanced maternal age) multigravida 35+ January 10, 2025 10:38am Anal fissure January 10, 2025 10 :38am Family hx of colon cancer January 10 10:38am January 10, 2025 10 :38am Supervision of high-risk Octob 2024 10:38am Family History No Family History Records Found Relationship Condition Age at Onset Recorded Date/T faith brother Malignant neoplasm of colon 35 Relationship Condition Age at Onset Recorded Date/T faith brother Malignant neoplasm of colon 35 mother Cardiac disease Unknown father Cerebrovascular accident (CVA) Unknown Advance Directives No Advanced Directives Records Found Advance Directive Response Recorded Date/ Time Living Will No January 04, 2021 6:14pm Power of Ore Crusher No December 6:14pm Advance Directive Response Recorded Date/ Time Living Will No January 04, 2021 5:14pm Power of Ore Crusher No December 5:14pm Advance Directive Response Recorded Date/ Time Living Will No June 24, 2022 4:53pm Power of Ore Crusher No June 24 4:53pm Advance Directive Response Recorded Date/ Time Living Will No July 01, 2022 9:58am Power of Ore Crusher No July 01 9:58am Advance Directive Response Recorded Date/ Time Living Will No July 22, 2022 3:49am Power of Ore Crusher No July 22 3:49am Advance Directive Response Recorded Date/ Time Living Will No July 17, 2023 9:55am Power of Ore Crusher No July 16 9:55am Summary Purpose Additional Source Comments Goals (unrecognized section and content) Type Care Experience svdLabor Preferences -CB/BF classes: enclabor support person: Judahlabor intervention preferences: limted interventionspain management options preferred: []cut cord/dad catch: []: plansPP control planned: []discussed possible routes of delivery and associated risks: []special requests: [] Care Experience svdLabor Preferences -CB/BF classes: nolabor support person: Judahlabor intervention preferences: []pain management options preferred: limitedcut cord/dad catch: yesbreastfeeding: yesPP control planned: discusseddiscussed possible routes of delivery and associated risks: []special requests: [] Care Teams (unrecognized sec tion and content) Team Status: Active Member Role Status Dates Dr. Shaan Kemp MD Primary Care Provider Activ e Team Status: Inactive Member Role Status Dates Dr. Shaan Kemp MD Primary Care Provider, Refe rring Provider Active Dr. Nina Gamboa DO Attending Provider Activ e Team Status: Inactive Member Role Status Dates Dr. Shaan Kemp MD Primary Care Provider, Refe rring Provider Active Alessandra Bolanos CNM Attending Provider Active Team Status: Inactive Member Role Status Dates Dr. Shaan Kemp MD Primary Care Provider, Refe rring Provider Active Dr. Kinza Barahona MD Attending Provider Active Team Status: Inactive Member Role Status Dates Dr. Shaan Kemp MD Primary Care Provider Activ e Dr. Kinza Barahona MD Attending Provider Active Team Status: Inactive Member Role Status Dates Dr. Shaan Kemp MD Primary Care Provider Activ e Alessandra Bolanos CNM Attending Provider, Referring Pr ovider Active Team Status: Inactive Member Role Status Dates Dr. Shaan Kemp MD Primary Care Provider Activ e Dr. Nina Gamboa DO Attending Provider Activ e Team Status: Inactive Member Role Status Dates Dr. Shaan Kemp MD Primary Care Provider, Refe rring Provider Active Ruthie Le CNM Attending Provider Active Team Status: Inactive Member Role Status Dates Dr. Shaan Kemp MD Primary Care Provider Activ e Dr. Kinza Barahona MD Attending Provider, Referr ing Provider Active Team Status: Active Member Role Status Dates Dr. Shaan Kemp MD Primary Care Provider Activ e Dr. Kinza Barahona MD Referring Provider, Other Provider Active Ruthie Le CNM Attending Provider Active Team Status: Inactive Member Role Status Dates Dr. Shaan Kemp MD Primary Care Provider Activ e Ruthie Le CNM Attending Provider Active Team Status: Active Member Role Status Dates Dr. Shaan Kemp MD Primary Care Provider Activ e Ruthie Le CNM Attending Provider, Other Provide r Active Team Status: Active Member Role Status Dates Dr. Shaan Kemp MD Primary Care Provider Activ e Dr. Kinza Barahona MD Admit Provid er, Attending Provider, Referring Provider, Other Provider Active Team Status: Active Member Role Status Dates Dr. Shaan Kemp MD Primary Care Provider Activ e Dr. Nina Gamboa DO Admit Prov ider, Attending Provider, Referring Provider, Other Provider Active Team Status: Inactive Member Role Status Dates Dr. Shaan Kemp MD Primary Care Provider Activ e Dr. Nina Gamboa DO Admit Prov ider, Attending Provider, Referring Provider Active Team Status: Active Member Role Status Dates Dr. Tirso Kemp MD Primary Care Provider Acti ve Team Status: Inactive Member Role Status Dates Dr. Tirso Kemp MD Primary Care Provider, Ref erring Provider Active Dr. Magaly George MD Attending Provider Active Team Status: Active Member Role Status Dates Dr. Tirso Kemp MD Primary Care Provider, Ref erring Provider Active Dr. Magaly George MD Attending Provider, Other Pro vider Active Team Status: Inactive Member Role Status Dates Dr. Tirso Kemp MD Primary Care Provider Acti ve Start: June 24, 2024 End: June 24, 2024 Dr. Tirso Kemp MD Referring Provider Active Start: June 24, 2024 End: June 24, 2024 Dr. Nina Gamboa DO Attending Provider Activ e Start: June 24, 2024 End: June 24, 2024 Team Status: Inactive Member Role Status Dates Dr. Tirso Kemp MD Primary Care Provider Acti ve Start: June 24, 2024 End: June 24, 2024 Dr. Nina Gamboa DO Attending Provider Activ e Start: June 24, 2024 End: June 24, 2024 Dr. Nina Gamboa DO Referring Provider Activ e Start: June 24, 2024 End: June 24, 2024 Team Status: Inactive Member Role Status Dates Dr. Tirso Kemp MD Primary Care Provider Acti ve Start: July 23, 2024 End: July 23, 2024 Dr. Tirso Kemp MD Referring Provider Active Start: July 23, 2024 End: July 23, 2024 Dr. Nina Gamboa DO Attending Provider Activ e Start: July 23, 2024 End: July 23, 2024 Team Status: Inactive Member Role Status Dates Dr. Tirso Kemp MD Primary Care Provider Acti ve Start: August 20, 2024 End: August 20, 2024 Dr. Tirso Kemp MD Referring Provider Active Start: August 20, 2024 End: August 20, 2024 Esperanza Florence NP, APPLICATIONS INSTRUCTOR-C Attending Provider Active Start: August 20, 2024 End: August 20, 2024 Team Status: Inactive Member Role Status Dates Dr. Tirso Kemp MD Primary Care Provider Acti ve Start: September 19, 2024 End: September 19, 2024 Dr. Tirso Kemp MD Referring Provider Active Start: September 19, 2024 End: September 19, 2024 Esperanza Florence NP, APPLICATIONS INSTRUCTOR-C Attending Provider Active Start: September 19, 2024 End: September 19, 2024 Team Status: Active Member Role/Relationship Status Dates Dr. Tirso Kemp MD Primary Care Provider Acti ve Team Status: Inactive Member Role/Relationship Status Dates Dr. Tirso Kemp MD Primary Care Provider Acti ve Start: June 24, 2024 End: June 24, 2024 Dr. Tirso Kemp MD Referring Provider Active Start: June 24, 2024 End: June 24, 2024 Dr. Nina Gamboa DO Attending Provider Activ e Start: June 24, 2024 End: June 24, 2024 Team Status: Inactive Member Role/Relationship Status Dates Dr. Tirso Kemp MD Primary Care Provider Acti ve Start: June 24, 2024 End: June 24, 2024 Dr. Nina Gamboa DO Attending Provider Activ e Start: June 24, 2024 End: June 24, 2024 Dr. Nina Gamboa DO Referring Provider Activ e Start: June 24, 2024 End: June 24, 2024 Team Status: Inactive Member Role/Relationship Status Dates Dr. Tirso Kemp MD Primary Care Provider Acti ve Start: July 23, 2024 End: July 23, 2024 Dr. Tirso Kemp MD Referring Provider Active Start: July 23, 2024 End: July 23, 2024 Dr. Nina Gamboa DO Attending Provider Activ e Start: July 23, 2024 End: July 23, 2024 Team Status: Inactive Member Role/Relationship Status Dates Dr. Tirso Kemp MD Primary Care Provider Acti ve Start: August 20, 2024 End: August 20, 2024 Dr. Tirso Kemp MD Referring Provider Active Start: August 20, 2024 End: August 20, 2024 Esperanza Florence APPLICATIONS INSTRUCTOR, APPLICATIONS INSTRUCTOR-C Attending Provider Active Start: August 20, 2024 End: August 20, 2024 Team Status: Inactive Member Role/Relationship Status Dates Dr. Tirso Kemp MD Primary Care Provider Acti ve Start: September 19, 2024 End: September 19, 2024 Dr. Tirso Kemp MD Referring Provider Active Start: September 19, 2024 End: September 19, 2024 Esperanza Florence APPLICATIONS INSTRUCTOR, APPLICATIONS INSTRUCTOR-C Attending Provider Active Start: September 19, 2024 End: September 19, 2024 Team Status: Inactive Member Role/Relationship Status Dates Dr. Tirso Kemp MD Primary Care Provider Acti ve Start: October 21, 2024 End: October 21, 2024 Dr. Tirso Kemp MD Referring Provider Active Start: October 21, 2024 End: October 21, 2024 Dr. Kinza Barahona MD Attending Provider Active Start: October 21, 2024 End: October 21, 2024 Team Status: Inactive Member Role/Relationship Status Dates Dr. Tirso Kepm MD Primary Care Provider Acti ve Start: July 23, 2024 End: July 23, 2024 Dr. Tirso Kemp MD Referring Provider Active Start: July 23, 2024 End: July 23, 2024 Dr. Nina Gamboa DO Attending Provider Activ e Start: July 23, 2024 End: July 23, 2024 Team Status: Inactive Member Role/Relationship Status Dates Dr. Tirso Kemp MD Primary Care Provider Acti ve Start: August 20, 2024 End: August 20, 2024 Dr. Tirso Kemp MD Referring Provider Active Start: August 20, 2024 End: August 20, 2024 Esperanza Florence APPLICATIONS INSTRUCTOR, APPLICATIONS INSTRUCTOR-C Attending Provider Active Start: August 20, 2024 End: August 20, 2024 Team Status: Inactive Member Role/Relationship Status Dates Dr. Tirso Kemp MD Primary Care Provider Acti ve Start: September 19, 2024 End: September 19, 2024 Dr. Tirso Kemp MD Referring Provider Active Start: September 19, 2024 End: September 19, 2024 Esperanza Florence APPLICATIONS INSTRUCTOR, APPLICATIONS INSTRUCTOR-C Attending Provider Active Start: September 19, 2024 End: September 19, 2024 Team Status: Inactive Member Role/Relationship Status Dates Dr. Tirso Kemp MD Primary Care Provider Acti ve Start: October 21, 2024 End: October 21, 2024 Dr. Tirso Kemp MD Referring Provider Active Start: October 21, 2024 End: October 21, 2024 Dr. Kinza Barahona MD Attending Provider Active Start: October 21, 2024 End: October 21, 2024 Team Status: Inactive Member Role/Relationship Status Dates Dr. Tirso Kemp MD Primary Care Provider Acti ve Start: November 15, 2024 End: November 15, 2024 Dr. Tirso Kemp MD Referring Provider Active Start: November 15, 2024 End: November 15, 2024 Dr. Nina Gamboa DO Attending Provider Activ e Start: November 15, 2024 End: November 15, 2024 Team Status: Active Member Role/Relationship Status Dates Dr. Tirso Kemp MD Primary Care Provider Acti ve Start: November 15, 2024 Dr. Kinza Barahona MD Attending Provider Active Start: November 15, 2024 Team Status: Inactive Member Role/Relationship Status Dates Dr. Tirso Kemp MD Primary Care Provider Acti ve Start: August 20, 2024 End: August 20, 2024 Dr. Tirso Kemp MD Referring Provider Active Start: August 20, 2024 End: August 20, 2024 Esperanza Florence APPLICATIONS INSTRUCTOR, APPLICATIONS INSTRUCTOR-C Attending Provider Active Start: August 20, 2024 End: August 20, 2024 Team Status: Inactive Member Role/Relationship Status Dates Dr. Tirso Kemp MD Primary Care Provider Acti ve Start: September 19, 2024 End: September 19, 2024 Dr. Tirso Kemp MD Referring Provider Active Start: September 19, 2024 End: September 19, 2024 Esperanza Florence APPLICATIONS INSTRUCTOR, APPLICATIONS INSTRUCTOR-C Attending Provider Active Start: September 19, 2024 End: September 19, 2024 Team Status: Inactive Member Role/Relationship Status Dates Dr. Tirso Kemp MD Primary Care Provider Acti ve Start: October 21, 2024 End: October 21, 2024 Dr. Tirso Kemp MD Referring Provider Active Start: October 21, 2024 End: October 21, 2024 Dr. Kinza Barahona MD Attending Provider Active Start: October 21, 2024 End: October 21, 2024 Team Status: Inactive Member Role/Relationship Status Dates Dr. Tirso Kemp MD Primary Care Provider Acti ve Start: November 15, 2024 End: November 15, 2024 Dr. Tirso Kemp MD Referring Provider Active Start: November 15, 2024 End: November 15, 2024 Dr. Nina Gamboa DO Attending Provider Activ e Start: November 15, 2024 End: November 15, 2024 Team Status: Inactive Member Role/Relationship Status Dates Dr. Tirso Kemp MD Primary Care Provider Acti ve Start: November 15, 2024 End: November 15, 2024 Dr. Kinza Barahona MD Attending Provider Active Start: November 15, 2024 End: November 15, 2024 Team Status: Inactive Member Role/Relationship Status Dates Dr. Tirso Kemp MD Primary Care Provider Acti ve Start: November 29, 2024 End: November 29, 2024 Dr. Tirso Kemp MD Referring Provider Active Start: November 29, 2024 End: November 29, 2024 Alessandra Bolanos CNM Attending Provider Active Start: November 29, 2024 End: November 29, 2024 Team Status: Inactive Member Role/Relationship Status Dates Dr. Tirso Kemp MD Primary Care Provider Acti ve Start: December 11, 2024 End: December 11, 2024 Dr. Tirso Kemp MD Referring Provider Active Start: December 11, 2024 End: December 11, 2024 Ruthie Le CNM Attending Provider Active S tart: December 11, 2024 End: December 11, 2024 Team Status: Active Member Role/Relationship Status Dates Dr. Tirso Kemp MD Primary care physician Act pallavi Team Status: Inactive Member Role/Relationship Status Dates Dr. Tirso Kepm MD Primary care physician Act pallavi Start: September 19, 2024 End: September 19, 2024 Dr. Tirso Kemp MD Referring Provider Active Start: September 19, 2024 End: September 19, 2024 Esperanza Florence APPLICATIONS INSTRUCTOR, APPLICATIONS INSTRUCTOR-C Attending physician Active Start: September 19, 2024 End: September 19, 2024 Team Status: Inactive Member Role/Relationship Status Dates Dr. Tirso Kemp MD Primary care physician Act pallavi Start: October 21, 2024 End: October 21, 2024 Dr. Tirso Kemp MD Referring Provider Active Start: October 21, 2024 End: October 21, 2024 Dr. Kinza Barahona MD Attending physician Active Start: October 21, 2024 End: October 21, 2024 Team Status: Inactive Member Role/Relationship Status Dates Dr. Tirso Kemp MD Primary care physician Act pallavi Start: November 15, 2024 End: November 15, 2024 Dr. Triso Kemp MD Referring Provider Active Start: November 15, 2024 End: November 15, 2024 Dr. Nina Gamboa DO Attending physician Acti ve Start: November 15, 2024 End: November 15, 2024 Team Status: Inactive Member Role/Relationship Status Dates Dr. Tirso Kemp MD Primary care physician Act pallavi Start: November 15, 2024 End: November 15, 2024 Dr. Kinza Barahona MD Attending physician Active Start: November 15, 2024 End: November 15, 2024 Team Status: Inactive Member Role/Relationship Status Dates Dr. Tirso Kemp MD Primary care physician Act pallavi Start: November 29, 2024 End: November 29, 2024 Dr. Tirso Kemp MD Referring Provider Active Start: November 29, 2024 End: November 29, 2024 Alessandra Bolanos CNM Attending physician Active Start: November 29, 2024 End: November 29, 2024 Team Status: Inactive Member Role/Relationship Status Dates Dr. Tirso Kemp MD Primary care physician Act pallavi Start: December 11, 2024 End: December 11, 2024 Dr. Tirso Kemp MD Referring Provider Active Start: December 11, 2024 End: December 11, 2024 Ruthie Le CNM Attending physician Active Start: December 11, 2024 End: December 11, 2024 Team Status: Inactive Member Role/Relationship Status Dates Dr. Tirso Kemp MD Primary care physician Act pallavi Start: December 25, 2024 End: December 25, 2024 Dr. Tirso Kemp MD Referring Provider Active Start: December 25, 2024 End: December 25, 2024 Esperanza Florence NP, APPLICATIONS INSTRUCTOR-C Attending physician Active Start: December 25, 2024 End: December 25, 2024 Team Status: Inactive Member Role/Relationship Status Dates Dr. Tirso Kemp MD Primary care physician Act pallavi Start: January 10, 2025 End: January 10, 2025 Dr. Tirso Kemp MD Referring Provider Active Start: January 10, 2025 End: January 10, 2025 Dr. Kinza Barahona MD Attending physician Active Start: January 10, 2025 End: January 10, 2025 INFORMATION SOURCE (unrecogn ized section and content) DATE CREATED AUTHOR 01/24/2025 [facility] FOR RECORDS PERTAINING TO PATIENTS WHO ARE OR HAVE BEEN ENROLLED IN A CHEMICAL DEPENDENCY/SUBSTANCEABUSE PROGRAM, SOME INFORMATION MAY BE OMITTED. This clinical summary was aggregated from multiple sources. Caution should be exercised in using it in the provision of clinical care. This summary normalizes information from multiple sources, and as a consequence, information in this document may materially change the coding, format and clinical context of patient data. In addition, data may be omitted in some cases. CLINICAL DECISIONS SHOULD BE BASED ON THE PRIMARY CLINICAL RECORDS. [employer] provides no warranty or guarantee of the accuracy or completeness of information in this document.
--- OUTSIDE RECORDS SUMMARY | 2025-01-24 16:12 | XMS RPT_ITS | CCD ---
Author Organization [facility] CliniSyms Care Team Providers Care Geospatial Specialist Name Role Phone Dr. Shaan Kemp Primary Care Provider [phone] Dr. Shaan Kemp Referring Provider Dr. Kinza Barahona Attending Provider [phone] Dr. Shaan Kemp Primary Care Provider [phone] Dr. Shaan Kemp Referring Provider Dr. Kinza Barahona Attending Provider [phone] Ludivina STORES LABORER, YANN-Diego Mata Attending Provider [phone] Dr. Nina Gamboa Attending Provider [phone] TRISTIN Bolanos Attending Provider [phone] Shaan Kemp Primary Care Provider [phone] Dr. Shaan Kemp Referring Provider Dr. Kinza Barahona Attending Provider [phone] Dr. Shaan Kemp Primary Care Provider [phone] Dr. Shaan Kemp Referring Provider TRISTIN Bolanos Attending Provider [phone] Dr. Kizna Barahona Attending Provider [phone] Dr. Nina [...] Provider Dr. Tirso Kemp Primary Care Provider Dr. Tirso Kemp Referring Provider Dr. Magaly George Attending Provider Dr. Magaly George Other Provider Viridiana HOYOS, Dr. Chahal Primary Care Provider Dr. Tirso Kemp MD Referring Provider Dr. Nina Gamboa DO Attending Provider Shiva Kern DO, Dr. Wood Referring Provider Ludivina LERNER-CEsperanza Attending Provider [phone] Kinza Barahona MD Attending Provider Dr. Tirso Kemp MD Primary Care Provider Dr. Tirso Kemp MD Referring Provider [phone] Dr. Nina Gamboa DO Attending Provider Dr. Tirso Kemp MD Primary Care Provider Dr. Tirso Kemp MD Referring Provider Dr. Nina Gamboa DO Attending Provider Luis Miguel CROW, Alessandra Attending Provider Ruthie Le CNM Attending Provider [phone] Viridiana HOYOS, Dr. Christopher Primary Care Physicia n Viridiana HOYOS, Dr. Chahal Referring Provider [phone] Ludivina DELEON, Esperanza Attending Physician [phone] [...] Referring Unavailable Esperanza Florence NP Attending Unavailable Tirso Kemp Primary Care Unavailable Tirso Kemp Referring Unavailable Nina Gamboa Attending Ruap dorsey Allergies Allergy Classification Reported Allergen(s) Allergy Type Date of Onset Reaction(s) Facility (19 sources) house dust allergenic extract Drug Allergy 2 Nasal congestion [facility] (1 source) house dust allergenic extract Drug Allergy 5 [facility] Repository Medications Current Medications Medication Drug Class(es) Dates Sig (Normalized) Sig (Original) ferrous sulfate 75 mg/ml oral solution (6 sources) Start: 12-15-2021 take 1 mL by mouth once daily Ferrous Sulfate Active 0.83 ML PO DAILY December 15, 2021 12:00am Mv-Mins 99-Pjvs-Lwrxs No.1-Dha (Pnv-[place]) 28-1-300 mg capsule (19 sources) Start: 12-15-2021 Mv-Mins 50-Lybi-Vrtdn No.1-Dha (Pnv-[place]) 28-1-300 mg capsule Active 1 NMA PO DAILY December 15, 2021 12:00am Complies with drug therapy Start: 12-15-2021 Mv-Mins 71-Iro n-Folic No.1-Dha (Pnv-[place]) 28-1-300 mg capsule Active 1 NMA PO DAILY December 15, 2021 12:00am Start: 12-15-2021 Mv-Mins 71-Iro n-Folic No.1-Dha (Pnv-[place]) 28-1-300 mg capsule Active 1 NMA PO DAILY December 15, 2021 12:00am Start: 12-15-2021 take 1 capsule by mo ut once daily Mv-Mins 35-Qnrc-Xpsxe No.1-Dha (Pnv-[place]) 28-1-300 mg capsule Active 1 CAP PO DAILY December 15, 2021 12:00am Start: 12-15-2021 take 1 capsule by mouth once M v-Mins 46-Lmmz-Gqtad No.1-Dha (Pnv-[place]) 28-1-300 mg capsule Active CAP PO December 14, 2021 11:00pm Start: 12-15-2021 take 1 capsule by mouth once M v-Mins 61-Pokt-Csvmy No.1-Dha (Pnv-[place]) 28-1-300 mg capsule Active CAP PO December [...] Test Name Value Interpretation Reference Range Facility Talent Acquisition Coordinator Office Visit Reporton 01-17-2025 Talent Acquisition Coordinator Office Visit Report [facility] [address], [address] [place] [address] OFFICE VISIT Date of Service: 01/17/25 MR#: [id number] Acct: [id number] Name: CONCHA GREWAL Rep #: [id number] : 1990 Provider: TRISTIN Ramirez ams Age/Sex: 34/F Location: [facility] Status: Signed Intake Vital Signs 12/25/24 09:39 01/10/25 10:41 01/17/25 11:35 Height 5 ft 6 in 5 ft 6 in 5 ft 6 in Weight: 182 lb 5 oz BMI 29.4 BP 101/69 Intake Visit Reasons: 37 wk ob Chief Complaint: 37wk OB Motion Study Analyst Required: No Is patient in pain?: No Allergies house dust Allergy (Mild, Verified 01/17/25 11:34) Nasal congestion Medications ???Medication ???Instructions ???Recorded ???Confirmed ???Type multivit-min no.71-iron fum 28 1 cap PO DAILY 12/15/21 01/17/25 History mg-folate no.1 1 mg-dha 300 mg capsule (PNV-[place]) Last Menstrual Period: 04/27/24 : No PFSH [...] physical activity do you participate in: none brandyn/muslim: Judaism seatbelt use: always do you feel safe [...] - full term 8lbs 3oz Male epidural [facility] Tea Gamboa [facility] Delivery Date: 07/22/22 Last Updated by: Aicha [...] -???-???-???-???-???-?? ?-???-???-?? (more content not included)... Normal [facility] Rule out Beta Strep (Grp. B) on 01-14-2025 DUSTIN Sensitivity to follo w. Streptococcus agalactiae (B) Amount Growth Growth Streptococcus agalactiae (B): REACTION Ampicillin Islt MARK <=0.25 cefTRIAXone Islt MARK <=0.12 S Clindamycin Islt MARK <=0.25 S Clindamycin.induced Susc Islt NEG Linezolid Islt MARK <=2 S Vancomycin Islt MARK 0.5 S Normal [facility] Comment on above: Performed By: #### L 100.0100, L3890.6981, L539.3962, BTS, L3890.6102, L3890.6006, L509.4006 #### [facility] [place], [address] Talent Acquisition Coordinator Office Visit Reporton 01-10-2025 Talent Acquisition Coordinator Office Visit Report [facility] [address], [address] [place] [address] OFFICE VISIT Date of Service: 01/10/25 MR#: [id number] Acct: [id number] Name: CONCHA GREWAL Rep #: [id number] : 1990 Provider: Dr. Kinza tyler MD Age/Sex: 34/F Location: [facility] Status: Signed Intake Vital Signs 11/15/24 10:21 12/25/24 09:39 01/10/25 10:41 Height 5 ft 6 in 5 ft 6 in 5 ft 6 in Weight: 180 lb 6 oz BMI 29.1 BP 95/61 Intake Visit Reasons: 36wk ob Motion Study Analyst Required: No Is patient in pain?: No Allergies house dust Allergy (Mild, Verified 01/10/25 10:43) Nasal congestion Medications ???Medication ???Instructions ???Recorded ???Confirmed ???Type multivit-min no.71-iron fum 28 1 cap PO DAILY 12/15/21 01/10/25 History mg-folate no.1 1 mg-dha 300 mg capsule (PNV-[place]) Last Menstrual Period: 04/27/24 Zika: Zika virus [...] physical activity do you participate in: none brandyn/muslim: Judaism seatbelt use: always do you feel safe [...] - full term 8lbs 3oz Male epidural [facility] Tea Gamboa Jimy Delivery Date: 07/22/22 [...] 09/19/24 -???-???- (more content not included)... Normal [facility] Laboratory - Chemistry and C hemistry - challengeOrdered By: Esperanza Florence on 12-25-2024 Glucose Ql (U) Negative [facility] - UrinalysisOrder ed By: Esperanza Florence on 12-25-2024 Protein Ql (U) Negative [facility] Talent Acquisition Coordinator Office Visit Reporton 12-25-2024 Talent Acquisition Coordinator Office Visit Report [facility] [address], [address] [place] [address] OFFICE VISIT Date of Service: 12/25/24 MR#: [id number] Acct: [id number] Name: CONCHA GREWAL Rep #: [id number] : 1990 Provider: ADRIENNE martell Age/Sex: 34/F Location: [facility] Status: Signed Intake Vital Signs 11/15/24 10:21 12/11/24 09:02 12/25/24 09:39 Height 5 ft 6 in 5 ft 6 in 5 ft 6 in Weight: 180 lb 2 oz BMI 29.0 BP 92/55 L Intake Visit Reasons: 34wk ob Chief Complaint: 34 Week OB Motion Study Analyst Required: No Is patient in pain?: No Allergies house dust Allergy (Mild, Verified 12/25/24 09:41) Nasal congestion Medications ???Medication ???Instructions ???Recorded ???Confirmed ???Type multivit-min no.71-iron fum 28 1 cap PO DAILY 12/15/21 12/25/24 History mg-folate no.1 1 mg-dha 300 mg capsule (PNV-Hamilton) Last Menstrual Period: 04/27/24 Zika: Zika virus [...] physical activity do you participate in: none brandyn/muslim: Judaism seatbelt use: always do you feel safe at home: Yes 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 Date Name GA/Weeks Outcome Route Bth Weight Gen Labor Lgth Anesthesia Del [facility] Provider FOB 07/22/22 Joel 40 live - full term 8lbs 3oz Male epidural [facility] Tea Gamboa [facility] Delivery Date: 07/22/22 Last Updated by: Aicha [...] resolved. Do (more content not included)... Normal [facility] - Chemistry and C hemistry - challengeOrdered By: Ruthie Le on 12-11-2024 Glucose Ql (U) Negative [facility] - UrinalysisOrder ed By: Ruthie Le on 12-11-2024 Protein Ql (U) 1+ [facility] Talent Acquisition Coordinator Office Visit Reporton 12-11-2024 Talent Acquisition Coordinator Office Visit Report [facility] [address], [address] [place] [address] OFFICE VISIT Date of Service: 12/11/24 MR#: [id number] Acct: [id number] Name: CONCHA GREWAL Rep #: [id number] : 1990 Provider: TRISTIN Ramirez ams Age/Sex: 34/F Location: [facility] Status: Signed Intake Vital Signs 11/15/24 10:21 11/29/24 10:52 12/11/24 09:02 Height 5 ft 6 in 5 ft 6 in 5 ft 6 in Weight: 177 lb 4 oz BMI 28.5 BP 110/64 Intake Visit Reasons: 32wk ob Motion Study Analyst Required: No Is patient in pain?: No Allergies house dust Allergy (Mild, Verified 12/11/24 09:04) Nasal congestion Medications ???Medication ???Instructions ???Recorded ???Confirmed ???Type multivit-min no.71-iron fum 28 1 cap PO DAILY 12/15/21 12/11/24 History mg-folate no.1 1 mg-dha 300 mg capsule (PNV-Hamilton) Last Menstrual Period: 04/27/24 Zika: Zika virus [...] physical activity do you participate in: none brandyn/muslim: Judaism seatbelt use: always do you feel safe [...] - full term 8lbs 3oz Male epidural [facility] D rSimon Vasquez Delivery Date: 07/22/22 [...] -???-???-???-???-???-?? ?-???-???-? (more content not included)... Normal [facility] Laboratory - Chemistry and C hemistry - challengeOrdered By: Alessandra Bolanos on 11-29-2024 Glucose Ql (U) Negative [facility] Laboratory - UrinalysisOrder ed By: Alessandra Bolanos on 11-29-2024 Protein Ql (U) Negative [facility] Talent Acquisition Coordinator Office Visit Reporton 11-29-2024 Talent Acquisition Coordinator Office Visit Report [facility] [address], [address] [place] [address] OFFICE VISIT Date of Service: 11/29/24 MR#: [id number] Acct: [id number] Name: CONCHA GREWAL Rep #: [id number] : 1990 Provider: TRISTIN parks Age/Sex: 34/F Location: [facility] Status: Signed Intake Vital Signs 09/19/24 14:58 11/15/24 10:21 11/29/24 10:52 Height 5 ft 6 in 5 ft 6 in 5 ft 6 in Weight: 176 lb BMI 28.4 BP 99/64 Intake Visit Reasons: 30 wk ob Motion Study Analyst Required: No Is patient in pain?: No Allergies house dust Allergy (Mild, Verified 11/29/24 10:54) Nasal congestion Medications ???Medication ???Instructions ???Recorded ???Confirmed ???Type multivit-min no.71-iron fum 28 1 cap PO DAILY 12/15/21 11/29/24 History mg-folate no.1 1 mg-dha 300 mg capsule (PNV-Hamilton) Last Menstrual Period: 04/27/24 Zika: Zika virus [...] physical activity do you participate in: none brandyn/muslim: Judaism seatbelt use: always do you feel safe [...] - full term 8lbs 3oz Male epidural [facility] D cassidy Gamboa [facility] Delivery Date: 07/22/22 Last Updated by: Aicha [...] 09/19/24 -?? (more content not included)... Normal [facility] Absolute lymphocyte countOrd ered By: Kinza Barahona on 11-15-2024 Lymphocytes Auto (Unsp spec) [#/Vol] 1.37 10*3/uL 0.83-4.51 [facility] Absolute neutrophil countOrd ered By: Kinza Barahona on 11-15-2024 Neutrophils (Bld) [#/Vol] 4.6 10*3/uL 2.0-7.7 [facility] Automated lymphocyte count a s percentage of total leukocytesOrdered By: Kinza Barahona on 11-15-2024 Lymphocytes/100 WBC Auto (Unsp spec) 21.0 % 19-41 [facility] Basophil percentageOrdered B y: Kinza Barahona on 11-15-2024 Basophils/100 WBC (Bld) 0.3 % 0-[address] [facility] CBC W/Diff, Automatedon Absolute Lymph 1.37 X10 3/uL Normal 0.83-4.51 [facility] Comment on above: Performed By: #### L 501.0250, L3890.6006, L100.0100, L509.8002 #### [facility] [address] [place], [address] Absolute Neut 4.6 X10 3/uL Normal 2.0-7.7 [facility] Comment on above: Performed By: #### L 501.0250, L3890.6006, L100.0100, L509.8002 #### [facility] [address] [place], [address] Basophils/100 WBC (Bld) 0.3 % Normal 0-[address] [facility] Comment on above: Performed By: #### L 501.0250, L3890.6006, L100.0100, L509.8002 #### [facility] [address] [place], [address] Eosinophils/100 WBC (Bld) 0.9 % Normal 0-5 [facility] Comment on above: Performed By: #### L 501.0250, L3890.6006, L100.0100, L509.8002 #### [facility] [address] [place], [address] Erythrocyte distribution width (RBC) [Ratio] 11.9 % Normal 11.6-14.6 [facility] Comment on above: Performed By: #### L 501.0250, L3890.6006, L100.0100, L509.8002 #### [facility] [address] [place], [address] Hematocrit (Bld) [Volume fraction] 33.8 % Low 37-47 [facility] Comment on above: Performed By: #### L 501.0250, L3890.6006, L100.0100, L509.8002 #### [facility] [address] [place], [address] Hemoglobin (Bld) [Mass/Vol] 11.5 g/dL Low 12.0-15.0 [facility] Comment on above: Performed By: #### L 501.0250, L3890.6006, L100.0100, L509.8002 #### [facility] [address] [place], [address] IG% 0.500 Normal 0.0-0.9 [facility] Comment on above: Result Comment: IG% - Immature Granulocytes (promyelocytes, myelocytes and metamyelocytes) > 1% indicates that a LEFT SHIFT is Present. Performed By: #### L 501.0250, L3890.6006, L100.0100, L509.8002 #### [facility] [address] [place], [address] Lymphocytes/100 WBC (Bld) 21.0 % Normal 19-41 [facility] Comment on above: Performed By: #### L 501.0250, L3890.6006, L100.0100, L509.8002 #### [facility] [address] [place], [address] MCH (RBC) [Entitic mass] 32.4 pg High 27.0-32.0 [facility] Comment on above: Performed By: #### L 501.0250, L3890.6006, L100.0100, L509.8002 #### [facility] [address] [place], [address] MCHC (RBC) [Mass/Vol] 34.0 g/dL Normal 32-36 [facility] Comment on above: Performed By: #### L 501.0250, L3890.6006, L100.0100, L509.8002 #### [facility] [address] [place], [address] MCV (RBC) [Entitic vol] 95.2 fL Normal 81-[address] [facility] Comment on above: Performed By: #### L 501.0250, L3890.6006, L100.0100, L509.8002 #### [facility] [address] [place], [address] Monocytes/100 WBC (Bld) 6.1 % Normal 0-[address] [facility] Comment on above: Performed By: #### L 501.0250, L3890.6006, L100.0100, L509.8002 #### [facility] [address] [place], [address] Neutrophils/100 WBC (Bld) 71.2 % High 47-70 [facility] Comment on above: Performed By: #### L 501.0250, L3890.6006, L100.0100, L509.8002 #### [facility] [address] [place], [address] Nucleated RBC (Bld) [#/Vol] 0 10*3/uL Normal 0-5 [facility] Comment on above: Performed By: #### L 501.0250, L3890.6006, L100.0100, L509.8002 #### [facility] [address] [place], [address] Platelet mean volume (Bld) [Entitic vol] 10.2 fL Normal 6.2-12.0 [facility] Comment on above: Performed By: #### L 501.0250, L3890.6006, L100.0100, L509.8002 #### [facility] [address] [place], [address] Platelets (Bld) [#/Vol] 284 10*3/uL Normal 150-450 [facility] Comment on above: Performed By: #### L 501.0250, L3890.6006, L100.0100, L509.8002 #### [facility] [address] [place], [address] RBC (Bld) [#/Vol] 3.55 10*6/uL Low 4.2-5.4 [facility] Comment on above: Performed By: #### L 501.0250, L3890.6006, L100.0100, L509.8002 #### [facility] [address] [place], [address] RDW SD 41.3 fl Normal 35.1-43.9 [facility] Comment on above: Performed By: #### L 501.0250, L3890.6006, L100.0100, L509.8002 #### [facility] [address] [place], [address] WBC (Bld) [#/Vol] 6.5 10*3/uL Normal 4.4-11.0 [facility] Comment on above: Performed By: #### L 501.0250, L3890.6006, L100.0100, L509.8002 #### [facility] [address] [place], [address] Eosinophil percentageOrdered By: Kinza Barahona on 11-15-2024 Eosinophils/100 WBC (Bld) 0.9 % 0-5 [facility] Erythrocyte distribution wid th ratioOrdered By: Kinza Barahona on 11-15-2024 Erythrocyte distribution width (RBC) [Ratio] 11.9 % 11.6-14.6 [facility] Erythrocyte distribution wid th standard deviationOrdered By: Kinza Barahona on 11-15-2024 Erythrocyte distribution width (RBC) [Ratio] 41.3 fl 35.1-43.9 [facility] Glucose Challenge Gest 1H 50 vaishali 11-15-2024 GLU GEST 50g 1H 83 mg/dL Normal 70-140 [facility] Comment on above: Performed By: #### M 100.2200, L7000.1800 #### [facility] [address] [place], [address] Glucose measurement at 2 all rs post-dose gestational glucose tolerance testOrdered By: Kinza Barahona on 11-15-2024 Glucose [Mass/Vol] 83 mg/dL 70-140 [facility] HIVon 11-15-2024 HIV Non-Reactive Normal Nonreactive [facility] Comment on above: Result Comment: Non- Reactive Reactive Repeatedly reactive samples must be confirmed according to CDC recommended confirmatory algorithms. The subresults for either HIVAG or AHIV can be used as an aid in the selection of the confirmation algorithm for reactive samples. Send out specimens with Reactive results to [facility] for confirmation. Order the HIV antibody detection and differentiation: lc#[id number] Performed By: #### M 100.2200, L7000.1800 #### [facility] [address] [place], [place], [address] Hematocrit Auto (Bld) [Volum e fraction]Ordered By: Kinza Barahona on 11-15-2024 Hematocrit (Bld) [Volume fraction] 33.8 % Low 37-47 [facility] Hemoglobin measurementOrdere d By: Kinza Barahona on 11-15-2024 Hemoglobin (Bld) [Mass/Vol] 11.5 g/dL Low 12.0-15.0 [facility] Immature granulocytes/100 WB C Auto (Bld)Ordered By: Kinza Barahona on 11-15-2024 Immature granulocytes/100 WBC (Bld) 0.500 % 0.0-0.9 [facility] Comment on above: IG% - Immature Granu locytes (promyelocytes, myelocytes and metamyelocytes) > 1% indicates that a LEFT SHIFT is Present. Laboratory - Chemistry and C hemistry - challengeOrdered By: Nina Kern on 11-15-2024 Glucose Ql (U) Negative [facility] - UrinalysisOrder ed By: Nina Kern on 11-15-2024 Protein Ql (U) Negative [facility] MCV (mean corpuscular volume ) determinationOrdered By: Kinza Barahona on 11-15-2024 MCV (RBC) [Entitic vol] 95.2 fL 81-[address] [facility] Mean corpuscular hemoglobin (MCH) determinationOrdered By: Kinza Barahona on 11-15-2024 MCH (RBC) [Entitic mass] 32.4 pg High 27.0-32.0 [facility] Mean corpuscular hemoglobin concentration (MCHC) determinationOrdered By: Kinza Barahona on 11-15-2024 MCHC (RBC) [Mass/Vol] 34.0 g/dL 32-36 [facility] Mean platelet volume determi nationOrdered By: Kinza Barahona on 11-15-2024 Platelet mean volume (Bld) [Entitic vol] 10.2 fL 6.2-12.0 [facility] Monocyte percentageOrdered B y: Kinza Barahona on 11-15-2024 Monocytes/100 WBC (Bld) 6.1 % 0-[address] [facility] Neutrophil percentageOrdered By: Kinza Barahona on 11-15-2024 Neutrophils/100 WBC (Bld) 71.2 % High 47-70 [facility] No Panel InformationOrdered By: Kinza Barahona on 11-15-2024 HIV (1&2) Antibody Non-Reactive Nonreactive [facility] Comment on above: Non-ReactiveReactive Repeatedly reactive samples must be confirmed according to CDC recommended confirmatory algorithms. The subresults for either HIVAG or AHIV can be used as an aid in the selection of the confirmation algorithm for reactive samples.Send out specimens with Reactive results to [facility] for confirmation.Order the HIV antibody detection and differentiation: #[id number] Nucleated red blood cell per centageOrdered By: Kinza Barahona on 11-15-2024 Nucleated RBC/100 WBC (Bld) [Ratio] 0 % 0-5 [facility] Talent Acquisition Coordinator Office Visit Reporton 11-15-2024 Talent Acquisition Coordinator Office Visit Report [facility] [address], [address] [place] [address] OFFICE VISIT Date of Service: 11/15/24 MR#: [id number] Acct: [id number] Name: CONCHA GREWAL JR F Rep #: [id number] : 1990 Provider: Dr. Nina Cortes DO Age/Sex: 34/F Location: [facility] Status: Signed Intake Vital Signs 10/21/24 08:52 11/15/24 10:20 11/15/24 10:21 Height 5 ft 6 in 5 ft 6 in 5 ft 6 in Weight: 174 lb 7 oz BMI 28.1 BP 98/60 Intake Visit Reasons: 28wk ob/glucose Motion Study Analyst Required: No Is patient in pain?: No Allergies house dust Allergy (Mild, Verified 11/15/24 10:20) Nasal congestion Medications ???Medication ???Instructions ???Recorded ???Confirmed ???Type multivit-min no.71-iron fum 28 1 cap PO DAILY 12/15/21 11/15/24 History mg-folate no.1 1 mg-dha 300 mg capsule (PNV-Hamilton) Last Menstrual Period: 04/27/24 Zika: Zika virus [...] physical activity do you participate in: none brandyn/muslim: Judaism seatbelt use: always do you feel safe [...] - full term 8lbs 3oz Male epidural [facility] Tea benjamin Shiva Ahn Delivery Date: [...] 09/19/24 -?? (more content not included)... Normal [facility] Platelet countOrdered By: Krissy Barahona on 11-15-2024 Platelets (Bld) [#/Vol] 284 10*3/uL 150-450 [facility] RBC Auto (Bld) [#/Vol]Ordere d By: Kinza Barahona on 11-15-2024 RBC (Bld) [#/Vol] 3.55 10*6/uL Low 4.2-5.4 [facility] Syphilis Antibodieson 2024 Syphilis Abs Non-Reactive Normal Nonreactive [facility] Comment on above: Performed By: #### M 100.2200, L7000.1800 #### [facility] [address] [place], [address] White blood cell (WBC) count Ordered By: Kinza Barahona on 11-15-2024 WBC (Bld) [#/Vol] 6.5 10*3/uL 4.4-11.0 [facility] Laboratory - Chemistry and C hemistry - challengeOrdered By: Kinza Barahona on 10-21-2024 Glucose Ql (U) Negative [facility] Laboratory - UrinalysisOrder ed By: Kinza Barahona on 10-21-2024 Protein Ql (U) Negative [facility] Talent Acquisition Coordinator Office Visit Reporton 10-21-2024 Talent Acquisition Coordinator Office Visit Report [facility], [address] [place] [address] OFFICE VISIT Date of Service: 10/21/24 MR#: [id number] Acct: [id number] Name: CONCHA GREWAL Rep #: [id number] : 1990 Provider: Dr. Kinza tyler MD Age/Sex: 34/F Location: [facility] Status: Signed Intake Vital Signs 08/20/24 08:29 09/19/24 14:58 10/21/24 08:52 Height 5 ft 6 in 5 ft 6 in 5 ft 6 in Weight: 171 lb BMI 27.6 BP 102/68 Intake Visit Reasons: 24 wk ob Motion Study Analyst Required: No Is patient in pain?: No Allergies house dust Allergy (Mild, Verified 10/21/24 08:56) Nasal congestion Medications ???Medication ???Instructions ???Recorded ???Confirmed ???Type multivit-min no.71-iron fum 28 1 cap PO DAILY 12/15/21 10/21/24 History mg-folate no.1 1 mg-dha 300 mg capsule (PNV-Hamilton) Last Menstrual Period: 04/27/24 Zika: Zika virus [...] physical activity do you participate in: none brandyn/muslim: Judaism seatbelt use: always do you feel safe [...] - full term 8lbs 3oz Male epidural [facility] Tea benjamin Shiva Ahn Delivery Date: [...] -???-???-???-???-???-?? ?-???- (more content not included)... Normal [facility] - Chemistry and C hemistry - challengeOrdered By: Esperanza Florence on 09-19-2024 Glucose Ql (U) Negative [facility] - UrinalysisOrder ed By: Esperanza Florence on 09-19-2024 Protein Ql (U) Negative [facility] Talent Acquisition Coordinator Office Visit Reporton 09-19-2024 Talent Acquisition Coordinator Office Visit Report [facility]'s [address], [address] [place] [id number] OFFICE VISIT Date of Service: 09/19/24 MR#: [id number] Acct: [id number] Name: CONCHA GREWAL Rep #: [id number] : 1990 Provider: ADRIENNE martell Age/Sex: 34/F Location: [facility] Status: Signed Intake Vital Signs 06/24/24 14:15 08/20/24 08:29 09/19/24 14:55 09/19/24 14:58 Height 5 ft 6 in 5 ft 6 in 5 ft 6 in 5 ft 6 in Weight: 160 lb 168 lb BMI 25.8 27.1 BP 94/60 102/64 Intake Visit Reasons: 20wk ob Chief Complaint: 20 Week OB Motion Study Analyst Required: No Is patient in pain?: No Allergies house dust Allergy (Mild, Verified 09/19/24 14:54) Nasal congestion Medications ???Medication ???Instructions ???Recorded ???Confirmed ???Type multivit-min no.71-iron fum 28 1 cap PO DAILY 12/15/21 09/19/24 History mg-folate no.1 1 mg-dha 300 mg capsule (PNV-Hamilton) Last Menstrual Period: 04/27/24 Zika: Zika virus [...] physical activity do you participate in: none brandyn/muslim: Judaism seatbelt use: always do you feel safe [...] - full term 8lbs 3oz Male epidural [facility] D rSimon Shiva Ahn Delivery Date: [...] Na us (more content not included)... Normal [facility] - Chemistry and C hemistry - challengeOrdered By: Esperanza Florence on 08-20-2024 Glucose Ql (U) Negative [facility] - UrinalysisOrder ed By: Esperanza Florence on 08-20-2024 Protein Ql (U) Negative [facility] Talent Acquisition Coordinator Office Visit Reporton 08-20-2024 Talent Acquisition Coordinator Office Visit Report [facility]'s [address], [address] [place] [address] OFFICE VISIT Date of Service: 08/20/24 MR#: [id number] Acct: [id number] Name: CONCHA GREWAL Rep #: [id number] : 1990 Provider: ADRIENNE martell Age/Sex: 33/F Location: [facility] Status: Signed Intake Vital Signs 06/24/24 14:15 07/23/24 09:17 08/20/24 08:29 Height 5 ft 6 in 5 ft 6 in 5 ft 6 in Weight: 160 lb BMI 25.8 BP 94/60 Intake Visit Reasons: 16wk ob Chief Complaint: 16 Week OB Motion Study Analyst Required: No Is patient in pain?: No Allergies house dust Allergy (Mild, Verified 08/20/24 08:30) Nasal congestion Medications ???Medication ???Instructions ???Recorded ???Confirmed ???Type multivit-min no.71-iron fum 28 1 cap PO DAILY 12/15/21 08/20/24 History mg-folate no.1 1 mg-dha 300 mg capsule (PNV-Hamilton) Last Menstrual Period: 04/27/24 Zika: Zika virus [...] physical activity do you participate in: none brandyn/muslim: Judaism seatbelt use: always do you feel safe [...] - full term 8lbs 3oz Male epidural [facility] Tea [place] Jimy Delivery Date: 07/22/22 [...] ACOG First (more content not included)... Normal [facility] - Chemistry and C hemistry - challengeOrdered By: Nina Kern on 07-23-2024 Glucose Ql (U) Negative [facility] - UrinalysisOrder ed By: Nina Kern on 07-23-2024 Protein Ql (U) Negative [facility] Talent Acquisition Coordinator Office Visit Reporton 07-23-2024 Talent Acquisition Coordinator Office Visit Report [facility]'s [address], [address] [place] [address] OFFICE VISIT Date of Service: 07/23/24 MR#: [id number] Acct: [id number] Name: URICONCHA NORRIS Arin Rep #: [id number] : 1990 Provider: Dr. Nina Cortes DO Age/Sex: 33/F Location: [facility] [place] Status: Signed Intake Vital Signs 06/24/24 14:15 07/23/24 09:17 Height 5 ft 6 in 5 ft 6 in Weight: 157 lb 8 oz BMI 25.4 BP 98/62 Intake Visit Reasons: 12wk ob Motion Study Analyst Required: No Is patient in pain?: No Allergies house dust Allergy (Mild, Verified 07/23/24 09:18) Nasal congestion Medications ???Medication ???Instructions ???Recorded ???Confirmed ???Type multivit-min no.71-iron fum 28 1 cap PO DAILY 12/15/21 07/23/24 History mg-folate no.1 1 mg-dha 300 mg capsule (PNV-Hamilton) Last Menstrual Period: 04/27/24 Zika: Zika virus [...] physical activity do you participate in: none brandyn/muslim: Judaism seatbelt use: always do you feel safe [...] - full term 8lbs 3oz Male epidural [facility] Tea benjamin Shiva Ahn Delivery Date: [...] Precations, U (more content not included)... Normal [facility] Chlamydia/GC ISABELLE aptimaon CHLAMY,NUC ACID Negative Normal Negative [facility] Comment on above: Performed By: #### M 100.2200, L7000.1800 #### [facility] [address] [place], [place], [id number] GC BY NUC ACID Negative Normal Negative [facility] Comment on above: Result Comment: Perf ormed at: =G - [facility] [address] [place] [id number] Business Education Teacher: Shy Rivera MD, Phone: [phone] Performed By: #### M 100.2200, L7000.1800 #### [facility] [address] [place], [place], [id number] Urine Cultureon 06-25-2024 [facility] Culture exhibits no growth. Normal [facility] Comment on above: Performed By: #### M 100.2200, L7000.1800 #### [facility] [address] [place], [address] Absolute lymphocyte countOrd ered By: Nian Marksericka on 06-24-2024 Lymphocytes Auto (Unsp spec) [#/Vol] 2.08 10*3/uL 0.83-4.51 [facility] Absolute neutrophil countOrd ered By: Nina Marksericka on 06-24-2024 Neutrophils (Bld) [#/Vol] 5.8 10*3/uL 2.0-7.7 [facility] Automated lymphocyte count a s percentage of total leukocytesOrdered By: Nina Marksericka on 06-24-2024 Lymphocytes/100 WBC Auto (Unsp spec) 24.2 % 19-41 [facility] Basophil percentageOrdered B y: Nina Marksericka on 06-24-2024 Basophils/100 WBC (Bld) 0.6 % 0-[address] [facility] C. trachomatis rRNA ISABELLE+prob e Ql (Unsp spec)Ordered By: iNna Marksericka on 06-24-2024 Chlamydia DNA (ISABELLE) Negative Negative [facility] CBC W/Diff, Automatedon 06-08 Absolute Lymph 2.08 X10 3/uL Normal 0.83-4.51 [facility] Comment on above: Performed By: #### L 100.0100, L3890.6301, L509.8002, BTS, L3890.6102, L3890.6006, L509.4006 #### [facility] [address] [place], [address] Absolute Neut 5.8 X10 3/uL Normal 2.0-7.7 [facility] Comment on above: Performed By: #### L 100.0100, L3890.6301, L509.8002, BTS, L3890.6102, L3890.6006, L509.4006 #### [facility] [address] [place], [address] Basophils/100 WBC (Bld) 0.6 % Normal 0-[address] [facility] Comment on above: Performed By: #### L 100.0100, L3890.6301, L509.8002, BTS, L3890.6102, L3890.6006, L509.4006 #### [facility] [address] [place], [address] Eosinophils/100 WBC (Bld) 1.2 % Normal 0-5 [facility] Comment on above: Performed By: #### L 100.0100, L3890.6301, L509.8002, BTS, L3890.6102, L3890.6006, L509.4006 #### [facility] [address] [place], [address] Erythrocyte distribution width (RBC) [Ratio] 12.0 % Normal 11.6-14.6 [facility] Comment on above: Performed By: #### L 100.0100, L3890.6301, L509.8002, BTS, L3890.6102, L3890.6006, L509.4006 #### [facility] [address] [place], [address] Hematocrit (Bld) [Volume fraction] 36.7 % Low 37-47 [facility] Comment on above: Performed By: #### L 100.0100, L3890.6301, L509.8002, BTS, L3890.6102, L3890.6006, L509.4006 #### [facility] [address] [place], [address] Hemoglobin (Bld) [Mass/Vol] 12.6 g/dL Normal 12.0-15.0 [facility] Comment on above: Performed By: #### L 100.0100, L3890.6301, L509.8002, BTS, L3890.6102, L3890.6006, L509.4006 #### [facility] [address] [place], [address] IG% 0.300 Normal 0.0-0.9 [facility] Comment on above: Result Comment: IG% - Immature Granulocytes (promyelocytes, myelocytes and metamyelocytes) > 1% indicates that a LEFT SHIFT is Present. Performed By: #### L 100.0100, L3890.6301, L509.8002, BTS, L3890.6102, L3890.6006, L509.4006 #### [facility] [address] [place], [address] Lymphocytes/100 WBC (Bld) 24.2 % Normal 19-41 [facility] Comment on above: Performed By: #### L 100.0100, L3890.6301, L509.8002, BTS, L3890.6102, L3890.6006, L509.4006 #### [facility] [address] [place], [address] MCH (RBC) [Entitic mass] 31.9 pg Normal 27.0-32.0 [facility] Comment on above: Performed By: #### L 100.0100, L3890.6301, L509.8002, BTS, L3890.6102, L3890.6006, L509.4006 #### [facility] [address] [place], [address] MCHC (RBC) [Mass/Vol] 34.3 g/dL Normal 32-36 [facility] Comment on above: Performed By: #### L 100.0100, L3890.6301, L509.8002, BTS, L3890.6102, L3890.6006, L509.4006 #### [facility] [address] [place], [address] MCV (RBC) [Entitic vol] 92.9 fL Normal 81-[address] [facility] Comment on above: Performed By: #### L 100.0100, L3890.6301, L509.8002, BTS, L3890.6102, L3890.6006, L509.4006 #### [facility] [address] [place], [address] Monocytes/100 WBC (Bld) 6.3 % Normal 0-[address] [facility] Comment on above: Performed By: #### L 100.0100, L3890.6301, L509.8002, BTS, L3890.6102, L3890.6006, L509.4006 #### [facility] [address] [place], [address] Neutrophils/100 WBC (Bld) 67.4 % Normal 47-70 [facility] Comment on above: Performed By: #### L 100.0100, L3890.6301, L509.8002, BTS, L3890.6102, L3890.6006, L509.4006 #### [facility] [address] [place], [address] Nucleated RBC (Bld) [#/Vol] 0 10*3/uL Normal 0-5 [facility] Comment on above: Performed By: #### L 100.0100, L3890.6301, L509.8002, BTS, L3890.6102, L3890.6006, L509.4006 #### [facility] [address] [place], [address] Platelet mean volume (Bld) [Entitic vol] 9.9 fL Normal 6.2-12.0 [facility] Comment on above: Performed By: #### L 100.0100, L3890.6301, L509.8002, BTS, L3890.6102, L3890.6006, L509.4006 #### [facility] [address] [place], [address] Platelets (Bld) [#/Vol] 302 10*3/uL Normal 150-450 [facility] Comment on above: Performed By: #### L 100.0100, L3890.6301, L509.8002, BTS, L3890.6102, L3890.6006, L509.4006 #### [facility] [address] [place], [address] RBC (Bld) [#/Vol] 3.95 10*6/uL Low 4.2-5.4 [facility] Comment on above: Performed By: #### L 100.0100, L3890.6301, L509.8002, BTS, L3890.6102, L3890.6006, L509.4006 #### [facility] [address] [place], [address] RDW SD 41.3 fl Normal 35.1-43.9 [facility] Comment on above: Performed By: #### L 100.0100, L3890.6301, L509.8002, BTS, L3890.6102, L3890.6006, L509.4006 #### [facility] [address] [place], [address] WBC (Bld) [#/Vol] 8.6 10*3/uL Normal 4.4-11.0 [facility] Comment on above: Performed By: #### L 100.0100, L3890.6301, L509.8002, BTS, L3890.6102, L3890.6006, L509.4006 #### [facility] [address] [place], [address] Chlamydia trachomatis rRNA d etection by probe and target amplification methodOrdered By: Nina Kern on 06-24-2024 C. trachomatis rRNA ISABELLE+probe Ql (Unsp spec) Negative Negative [facility] Eosinophil percentageOrdered By: Nina Concha on 06-24-2024 Eosinophils/100 WBC (Bld) 1.2 % 0-5 [facility] Erythrocyte distribution wid th ratioOrdered By: Nina Concha on 06-24-2024 Erythrocyte distribution width (RBC) [Ratio] 12.0 % 11.6-14.6 [facility] Erythrocyte distribution wid th standard deviationOrdered By: Nina Concha on 06-24-2024 Erythrocyte distribution width (RBC) [Entitic vol] 41.3 fL 35.1-43.9 [facility] Erythrocyte distribution width (RBC) [Ratio] 41.3 fl 35.1-43.9 [facility] HBV surface Ag Ql (S)Ordered By: Nina Kern on 06-24-2024 Hepatitis B Surface Antigen Non-Reactive Nonreactive [facility] Comment on above: Reactive: Presumptiv e evidence of HBV. Repeatedly reactive samples must be confirmed using a neutralization test ([employer] HBsAg Confirmatory Test)Non-Reactive: HBsAg not detected; does not exclude the possibility of exposure to HBV Hematocrit Auto (Bld) [Volum e fraction]Ordered By: Nina Kern on 06-24-2024 Hematocrit (Bld) [Volume fraction] 36.7 % Low 37-47 [facility] Hemoglobin measurementOrdere d By: Nina Concha on 06-24-2024 Hemoglobin (Bld) [Mass/Vol] 12.6 g/dL 12.0-15.0 [facility] Hepatitis C antibodyOrdered By: Nina Kern on 06-24-2024 Hepatitis C Antibody Non-Reactive Nonreactive [facility] Comment on above: Reactive: Presumptiv e evidence of antibodies to HCV. Follow CDC recommendations for supplemental testing.Non-Reactive: Antibodies to HCV were not detected; does not exclude the possibility of exposure to HCVReactive Results are presumptive evidence of antibodies to HCV. Follow CDC recommendations for supplemental testing.Order confirmation testing: HCV Quant by PCR testing - HCVPCR #[id number] Non Reactive: < 0.8 Equivocal: >/= 0.8 to < 1.0 Reactive: >/= 1.0The CDC requires that a reactive/equivocal HCV antibody result be sent out for confirmation. HCV Quant by PCR testing. Immature granulocytes/100 WB C Auto (Bld)Ordered By: Nina Kern on 06-24-2024 Immature granulocytes/100 WBC (Bld) 0.300 % 0.0-0.9 [facility] Comment on above: IG% - Immature Granu locytes (promyelocytes, myelocytes and metamyelocytes) > 1% indicates that a LEFT SHIFT is Present. L3890.6006on 06-24-2024 HIV Non-Reactive Normal Nonreactive [facility] Comment on above: Result Comment: Non- Reactive Reactive Repeatedly reactive samples must be confirmed according to CDC recommended confirmatory algorithms. The subresults for either HIVAG or AHIV can be used as an aid in the selection of the confirmation algorithm for reactive samples. Send out specimens with Reactive results to [facility] for confirmation. Order the HIV antibody detection and differentiation: lc#[id number] Performed By: #### L 100.0100, L3890.6301, L509.8002, BTS, L3890.6102, L3890.6006, L509.4006 #### [facility] [address] [facility] [place], [address] L3890.6102on 06-24-2024 HEP B Surf Ag Non-Reactive Normal Nonreactive [facility] Comment on above: Result Comment: Reac tive: Presumptive evidence of HBV. Repeatedly reactive samples must be confirmed using a neutralization test ([employer] HBsAg Confirmatory Test) Non-Reactive: HBsAg not detected; does not exclude the possibility of exposure to HBV Performed By: #### L 100.0100, L3890.6301, L509.8002, BTS, L3890.6102, L3890.6006, L509.4006 #### [facility] [address] [facility] [place], [address] L3890.6301on 06-24-2024 Hepatitis C Ab Non-Reactive Normal Nonreactive [facility] Comment on above: Result Comment: Reac tive: Presumptive evidence of antibodies to HCV. Follow CDC recommendations for supplemental testing. Non-Reactive: Antibodies to HCV were not detected; does not exclude the possibility of exposure to HCV Reactive Results are presumptive evidence of antibodies to HCV. Follow CDC recommendations for supplemental testing. Order confirmation testing: HCV Quant by PCR testing - HCVPCR lc#[id number] Non Reactive: < 0.8 Equivocal: >/= 0.8 to < 1.0 Reactive: >/= 1.0 The CDC requires that a reactive/equivocal HCV antibody result be sent out for confirmation. HCV Quant by PCR testing. Performed By: #### L 100.0100, L3890.6301, L509.8002, BTS, L3890.6102, L3890.6006, L509.4006 #### [facility] [address] [facility] [place], [address] L509.4006on 06-24-2024 Rubella IgG [facility]AC [facility] Comment on above: Result Comment: Anti body Result: Interpretation Non-Reactive: Non-Immune Reactive: Immune The following results were obtained with the [employer] Rubella IgG assay. Results from assays of other manufacturers cannot be used interchangeably. Performed By: #### L 100.0100, L3890.6301, L509.8002, BTS, L3890.6102, L3890.6006, L509.4006 #### [facility] [address] [facility] [place], [address] L509.8002on 06-24-2024 Syphilis Abs Non-Reactive Normal Nonreactive [facility] Comment on above: Performed By: #### L 100.0100, L3890.6301, L509.8002, BTS, L3890.6102, L3890.6006, L509.4006 #### [facility] [address] [facility]. [place], [place], [id number] Laboratory - Microbiology an d Antimicrobial susceptibilityOrdered By: Nina Kern on 06-24-2024 HBV surface Ag Ql (S) Non-Reactive Nonreactive [facility] Comment on above: Reactive: Presumptiv e evidence of HBV. Repeatedly reactive samples must be confirmed using a neutralization test ([employer] HBsAg Confirmatory Test)Non-Reactive: HBsAg not detected; does not exclude the possibility of exposure to HBV Lymphocytes Auto (Unsp spec) [#/Vol]Ordered By: Nina Kern on 06-24-2024 Lymphocytes (Bld) [#/Vol] 2.08 10*3/uL 0.83-4.51 [facility] Lymphocytes/100 WBC Auto (Un sp spec)Ordered By: Nina Kern on 06-24-2024 Lymphocytes/100 WBC (Bld) 24.2 % 19-41 [facility] MCV (mean corpuscular volume ) determinationOrdered By: Nina Kern on 06-24-2024 MCV (RBC) [Entitic vol] 92.9 fL 81-[address] [facility] Mean corpuscular hemoglobin (MCH) determinationOrdered By: Nina Kern on 06-24-2024 MCH (RBC) [Entitic mass] 31.9 pg 27.0-32.0 [facility] Mean corpuscular hemoglobin concentration (MCHC) determinationOrdered By: Nina Kern on 06-24-2024 MCHC (RBC) [Mass/Vol] 34.3 g/dL 32-36 [facility] Mean platelet volume determi nationOrdered By: Nina Kern on 06-24-2024 Platelet mean volume (Bld) [Entitic vol] 9.9 fL 6.2-12.0 [facility] Monocyte percentageOrdered B y: Nina Kern on 06-24-2024 Monocytes/100 WBC (Bld) 6.3 % 0-[address] [facility] Neisseria gonorrhoeae nuclei c acid detection by amplified probe techniqueOrdered By: Nina Kern on 06-24-2024 N. gonorrhoeae DNA ISABELLE+probe Ql (Unsp spec) Negative Negative [facility] Comment on above: Performed at: =[facility] [address] [id number] Director: Shy Rivera MD, Phone: [phone] Neutrophil percentageOrdered By: Nina Kern on 06-24-2024 Neutrophils/100 WBC (Bld) 67.4 % 47-70 [facility] No Panel InformationOrdered By: Nina Kern on 06-24-2024 HIV (1&2) Antibody Non-Reactive Nonreactive [facility] Comment on above: Non-ReactiveReactive Repeatedly reactive samples must be confirmed according to CDC recommended confirmatory algorithms. The subresults for either HIVAG or AHIV can be used as an aid in the selection of the confirmation algorithm for reactive samples.Send out specimens with Reactive results to [facility] for confirmation.Order the HIV antibody detection and differentiation: #[id number] Nucleated red blood cell per centageOrdered By: Nina Kern on 06-24-2024 Nucleated RBC/100 WBC (Bld) [Ratio] 0 % 0-5 [facility] Talent Acquisition Coordinator Office Visit Reporton 06-24-2024 Talent Acquisition Coordinator Office Visit Report [facility] [address], [address] [place] [address] OFFICE VISIT Date of Service: 06/24/24 MR#: [id number] Acct: [id number] Name: CONCHA GREWAL Arin Rep #: [id number] : 1990 Provider: Dr. Nina Cortes DO Age/Sex: 33/F Location: [facility] Status: Signed Intake Vital Signs 05/28/24 13:07 06/24/24 14:15 Height 5 ft 6 in 5 ft 6 in Weight: 155 lb BMI 25.0 BP 101/65 Intake Visit Reasons: New OB, LMP 04/27, RYLEE 02/01 Motion Study Analyst Required: No Is patient in pain?: No [...] physical activity do you participate in: none brandyn/muslim: Judaism seatbelt use: always do you feel safe [...] - full term 8lbs 3oz Male epidural [facility] Tea Shannon Concha Ahn Delivery Date: [...] No, His (more content not included)... Normal [facility] Platelet countOrdered By: Reza Kern on 06-24-2024 Platelets (Bld) [#/Vol] 302 10*3/uL 150-450 [facility] RBC Auto (Bld) [#/Vol]Ordere d By: Nina Kern on 06-24-2024 RBC (Bld) [#/Vol] 3.95 10*6/uL Low 4.2-5.4 [facility] Rubella immune status determ ination by IgG antibody assayOrdered By: Nina Kern on 06-24-2024 Rubella IgG Antibody REAC Nonreactive [facility] Comment on above: Antibody Result: Int erpretationNon-Reactive: Non-ImmuneReactive: ImmuneThe following results were obtained with the [employer] Rubella IgG assay. Results from assays of other manufacturers cannot be used interchangeably. T. pallidum abOrdered By: Reza Kern on 06-24-2024 Syphilis Total Antibody Non-Reactive Nonreactiv e [facility] Type AND Screenon 06-24-2024 ABO and Rh group Nom (Bld) Blood group A Rh(D) positive Normal [facility] Comment on above: Order Comment: PN Performed By: #### L 100.0100, L3890.6301, L509.8002, BTS, L3890.6102, L3890.6006, L509.4006 #### [facility] [address] [place], [address] Urine cultureOrdered By: Ina Kren on 06-24-2024 Bacteria identified Cx Nom (U) Culture exhibits no growth. [facility] White blood cell (WBC) count Ordered By: Nina Kern on 06-24-2024 WBC (Bld) [#/Vol] 8.6 10*3/uL 4.4-11.0 [facility] Laboratory - Chemistry and C hemistry - challengeOrdered By: Otis Gomez on 07-19-2023 HCG ( test) Ql (U) Negative [facility] Comment on above: Very dilute urine sp ecimens, as indicated by a low specificgravity, may not contain healthcare sales representative levels of hCG. If is still suspected, a first morning urinespecimen should be collected 48 hours later and tested. Absolute lymphocyte countOrd ered By: Dr. Barahona on 07-22-2022 Lymphocytes Auto (Unsp spec) [#/Vol] 2.29 10*3/uL 0.83-4.51 [facility] Basophil percentageOrdered B y: Dr. Barahona on 07-22-2022 Basophils/100 WBC (Bld) 0.3 % 0-[address] [facility] Eosinophils/100 WBC (Bld) 1.1 % 0-5 [facility] Neutrophils (Bld) [#/Vol] 8.2 10*3/uL 2.0-7.7 [facility] Neutrophils/100 WBC (Bld) 69.0 % 47-70 [facility] WBC (Bld) [#/Vol] 11.9 10*3/uL 4.4-11.0 [facility] Blood erythrocytes count (nu mber/volume)Ordered By: Dr. Barahona on 07-22-2022 RBC (Bld) [#/Vol] 4.17 10*6/uL 4.2-5.4 [facility] Blood hemoglobin measurement (mass/volume)Ordered By: Dr. Barahona on 07-22-2022 Hemoglobin (Bld) [Mass/Vol] 13.4 g/dL 12.0-15.0 [facility] Blood lymphocytes/100 leukoc ytesOrdered By: Dr. Barahona on 07-22-2022 Lymphocytes/100 WBC (Bld) 19.2 % 19-41 [facility] Blood monocytes/100 leukocyt esOrdered By: Dr. Barahona on 07-22-2022 Monocytes/100 WBC (Bld) 9.6 % 0-[address] [facility] Blood platelet mean volumeOr dered By: Dr. Barahona on 07-22-2022 Platelet mean volume (Bld) [Entitic vol] 12.4 fL 6.2-12.0 [facility] Determination of erythrocyte mean corpuscular volume (MCV)Ordered By: Dr. Barahona on 07-22-2022 MCV (RBC) [Entitic vol] 95.9 fL 81-[address] [facility] Hematocrit Auto (Bld) [Volum e fraction]Ordered By: Dr. Barahona on 07-22-2022 Hematocrit (Bld) [Volume fraction] 40.0 % 37-47 [facility] Laboratory - Hematology and Cell countsOrdered By: Dr. Barahona on 07-22-2022 Erythrocyte distribution width (RBC) [Entitic vol] 43.9 fL 35.1-43.9 [facility] Erythrocyte distribution width (RBC) [Ratio] 12.6 % 11.6-14.6 [facility] Immature granulocytes/100 WBC (Bld) 0.800 % 0.0-0.9 [facility] Comment on above: IG% - Immature Granu locytes (promyelocytes, myelocytes and metamyelocytes) > 1% indicates that a LEFT SHIFT is Present. MCH (RBC) [Entitic mass] 32.1 pg 27.0-32.0 [facility] Nucleated RBC/100 WBC (Bld) [Ratio] 0 % 0-5 [facility] MCHC Auto (RBC) [Mass/Vol]Or dered By: Dr. Barahona on 07-22-2022 MCHC (RBC) [Mass/Vol] 33.5 g/dL 32-36 [facility] Platelets bldOrdered By: Dr. Barahona on 07-22-2022 Platelets (Bld) [#/Vol] 240 10*3/uL 150-450 [facility] Serum Treponema species anti body detectionOrdered By: Dr. Barahona on 07-22-2022 Treponema sp Ab Ql (S) Non-Reactive [facility] Laboratory - Chemistry and C hemistry - challengeon 07-15-2022 Glucose Ql (U) Negative [facility] Laboratory - Urinalysison Protein Ql (U) Negative [facility] No Panel InformationOrdered By: Ruthie Le on 07-10-2022 Vaginal Amniotic Fluid Detection Negative Negative [facility] Comment on above: Amniotic fluid not p resent indicates No Rupture of FetalMembranes at time of specimen collection. No Panel InformationOrdered By: Dr. Barahona on 07-09-2022 Vaginal Amniotic Fluid Detection Negative Negative [facility] Comment on above: Amniotic fluid not p resent indicates No Rupture of FetalMembranes at time of specimen collection. Laboratory - Chemistry and C hemistry - challengeon 07-07-2022 Glucose Ql (U) Negative [facility] Laboratory - Urinalysison Protein Ql (U) Negative [facility] Laboratory - Chemistry and C hemistry - challengeon 07-01-2022 Glucose Ql (U) Negative [facility] Laboratory - Urinalysison Protein Ql (U) Trace [facility] No Panel InformationOrdered By: Dr. Kern on 06-27-2022 Group B Streptococcus Culture Group B Beta Streptococcus is not isolated. [facility] Laboratory - Chemistry and C hemistry - challengeon 06-24-2022 Glucose Ql (U) Negative [facility] Laboratory - Urinalysison Protein Ql (U) Negative [facility] Laboratory - Chemistry and C hemistry - challengeon 06-09-2022 Glucose Ql (U) Negative [facility] Laboratory - Urinalysison Protein Ql (U) Negative [facility] Laboratory - Chemistry and C hemistry - challengeon 05-26-2022 Glucose Ql (U) Negative [facility] Laboratory - Urinalysison Protein Ql (U) Negative [facility] Laboratory - Chemistry and C hemistry - challengeon 05-13-2022 Glucose Ql (U) Negative [facility] Laboratory - Urinalysison Protein Ql (U) Negative [facility] Absolute lymphocyte countOrd ered By: Alessandra Bolanos on 03-31-2022 Lymphocytes Auto (Unsp spec) [#/Vol] 1.52 10*3/uL 0.83-4.51 [facility] Basophil percentageOrdered B y: Alessandra Bolanos on 03-31-2022 Basophils/100 WBC (Bld) 0.4 % 0-[address] [facility] Eosinophils/100 WBC (Bld) 1.0 % 0-5 [facility] Neutrophils (Bld) [#/Vol] 4.7 10*3/uL 2.0-7.7 [facility] Neutrophils/100 WBC (Bld) 67.9 % 47-70 [facility] WBC (Bld) [#/Vol] 7.0 10*3/uL 4.4-11.0 [facility] Blood erythrocytes count (nu mber/volume)Ordered By: Alessandra Bolanos on 03-31-2022 RBC (Bld) [#/Vol] 3.59 10*6/uL 4.2-5.4 [facility] Blood hemoglobin measurement (mass/volume)Ordered By: Alessandra Bolanos on 03-31-2022 Hemoglobin (Bld) [Mass/Vol] 12.0 g/dL 12.0-15.0 [facility] Blood lymphocytes/100 leukoc ytesOrdered By: Alessandra Bolanos on 03-31-2022 Lymphocytes/100 WBC (Bld) 21.8 % 19-41 [facility] Blood monocytes/100 leukocyt esOrdered By: Alessandra Bolanos on 03-31-2022 Monocytes/100 WBC (Bld) 8.3 % 0-10 [facility] Blood platelet mean volumeOr dered By: Alessandra Bolanos on 03-31-2022 Platelet mean volume (Bld) [Entitic vol] 10.1 fL 6.2-12.0 [facility] Determination of erythrocyte mean corpuscular volume (MCV)Ordered By: Alessandra Bolanos on 03-31-2022 MCV (RBC) [Entitic vol] 96.4 fL 81-99 [facility] Gestational diabetes screen 1-hour screen with 50g oral glucose loadOrdered By: Alessandra Bolanos on 03-31-2022 Glucose 1 Hr post 50 g glucose PO [Mass/Vol] 106 mg/dL 70-140 [facility] HIV 1 and HIV-2 antibody ass ay with HIV-1 p24 antigen detectionOrdered By: Alessandra Bolanos on 03-31-2022 HIV 1+2 Ab+HIV1 p24 Ag IA Ql Non-Reactive Nonreactive [facility] Hematocrit Auto (Bld) [Volum e fraction]Ordered By: Alessandra Bolanos on 03-31-2022 Hematocrit (Bld) [Volume fraction] 34.6 % 37-47 [facility] Laboratory - Chemistry and C hemistry - challengeon 03-31-2022 Glucose Ql (U) Negative [facility] Laboratory - Hematology and Cell countsOrdered By: Alessandra Bolanos on 03-31-2022 Erythrocyte distribution width (RBC) [Entitic vol] 42.6 fL 35.1-43.9 [facility] Erythrocyte distribution width (RBC) [Ratio] 12.2 % 11.6-14.6 [facility] Immature granulocytes/100 WBC (Bld) 0.600 % 0.0-0.9 [facility] Comment on above: IG% - Immature Granu locytes (promyelocytes, myelocytes and metamyelocytes) > 1% indicates that a LEFT SHIFT is Present. MCH (RBC) [Entitic mass] 33.4 pg 27.0-32.0 [facility] Nucleated RBC/100 WBC (Bld) [Ratio] 0 % 0-5 [facility] Laboratory - Urinalysison Protein Ql (U) Negative [facility] MCHC Auto (RBC) [Mass/Vol]Or dered By: Alessandra Bolanos on 03-31-2022 MCHC (RBC) [Mass/Vol] 34.7 g/dL 32-36 [facility] Platelets bldOrdered By: Paola Bolanos on 03-31-2022 Platelets (Bld) [#/Vol] 280 10*3/uL 150-450 [facility] Serum Treponema species anti body detectionOrdered By: Alessandra Bolanos on 03-31-2022 Treponema sp Ab Ql (S) Non-Reactive [facility] Laboratory - Chemistry and C hemistry - challengeon 03-16-2022 Glucose Ql (U) Negative [facility] Laboratory - Urinalysison Protein Ql (U) Negative [facility] Laboratory - Chemistry and C hemistry - challengeon 02-17-2022 Glucose Ql (U) Negative [facility] Laboratory - Urinalysison Protein Ql (U) Negative [facility] Laboratory - Chemistry and C hemistry - challengeon 01-17-2022 Glucose Ql (U) Negative [facility] Work Phone: Laboratory - Urinalysison Protein Ql (U) Negative [facility] Work Phone: Absolute lymphocyte counton 12-20-2021 Lymphocytes Auto (Unsp spec) [#/Vol] 1.48 10*3/uL 0.83-4.51 [facility] Work Phone: Basophil percentageon 2021 Basophils/100 WBC (Bld) 0.4 % 0-[address] [facility] Work Phone: Eosinophils/100 WBC (Bld) 0.7 % 0-5 [facility] Work Phone: Neutrophils (Bld) [#/Vol] 5.3 10*3/uL 2.0-7.7 [facility] Work Phone: Neutrophils/100 WBC (Bld) 71.3 % 47-70 [facility] Work Phone: WBC (Bld) [#/Vol] 7.5 10*3/uL 4.4-11.0 [facility] Work Phone: [phone] Blood erythrocytes count (nu mber/volume)on 12-20-2021 RBC (Bld) [#/Vol] 3.82 10*6/uL 4.2-5.4 [facility]: Blood hemoglobin measurement (mass/volume)on 12-20-2021 Hemoglobin (Bld) [Mass/Vol] 12.6 g/dL 12.0-15.0 [facility] Work Phone: [phone] Blood lymphocytes/100 leukoc yteson 12-20-2021 Lymphocytes/100 WBC (Bld) 19.8 % 19-41 [facility] Work Phone: Blood monocytes/100 leukocyt eson 12-20-2021 Monocytes/100 WBC (Bld) 7.4 % 0-[address] [facility] Work Phone: Blood platelet mean volumeon 12-20-2021 Platelet mean volume (Bld) [Entitic vol] 9.8 fL 6.2-12.0 [facility] Work Phone: [phone] Cervical or vagninal specime n microscopic examination by cytology stain (reported ason 12-20-2021 Cytology report Cyto stain Doc (Cvx/Vag) Comment . [facility] Work Phone: Comment on above: The Pap [...] rRNA ISABELLE+probe Ql (Unsp spec) Negative Negative [facility] Work Phone: Detection in cervical specim en of any of human papilloma virus (HPV) 16, 18, 31, 33,on 12-20-2021 HPV 16+18+31+33+35+39+45+51 +52+56+58+59+66+68 DNA Probe+sig amp Ql (Cvx) Negative Negative [facility] Work Phone: Comment on above: This nucleic acid am plification test detects fourteen high-risk HPV types (16,18,31,33,35,39,45,51,52,56,58,59,66,68)without differentiation.Performed at: [facility] [id number] Director: Shy Rivera MD, Phone: [phone] at: =[facility] [id number] Director: Shy Rivera MD, Phone: [phone] Determination of erythrocyte mean corpuscular volume (MCV)on 12-20-2021 MCV (RBC) [Entitic vol] 95.3 fL 81-99 [facility] Work Phone: HIV 1 and HIV-2 antibody ass ay with HIV-1 p24 antigen detectionon 12-20-2021 HIV 1+2 Ab+HIV1 p24 Ag IA Ql Non-Reactive Nonreactive [facility] Work Phone: Hematocrit Auto (Bld) [Volum e fraction]on 12-20-2021 Hematocrit (Bld) [Volume fraction] 36.4 % 37-47 [facility] Work Phone: Laboratory - Cytologyon 12-09 Shellac Polisher Cyto stain Nom (Cvx/Vag) [ID] Comment . [facility] Work Phone: Comment on above: Keanu Small totechnologist ([facility]) Laboratory - Drug toxicology on 12-20-2021 Amphetamines Ql (U) Negative <1000 ng/mL [facility] Work Phone: Benzodiazepines Ql (U) Negative < 200 ng/mL [facility] Work Phone: Cannabinoids Screen Ql (U) Negative < 50 ng/mL [facility] Work Phone: Cocaine Ql (U) Negative < 300 ng/mL [facility] Work Phone: Opiates Ql (U) Negative < 300 ng/mL [facility] Work Phone: Laboratory - Hematology and Cell countson 12-20-2021 Erythrocyte distribution width (RBC) [Entitic vol] 41.1 fL 35.1-43.9 [facility] Work Phone: Erythrocyte distribution width (RBC) [Ratio] 11.9 % 11.6-14.6 [facility] Work Phone: Immature granulocytes/100 WBC (Bld) 0.400 % 0.0-0.9 [facility] Work Phone: Comment on above: IG% - Immature Granu locytes (promyelocytes, myelocytes and metamyelocytes) > 1% indicates that a LEFT SHIFT is Present. MCH (RBC) [Entitic mass] 33.0 pg 27.0-32.0 [facility] Work Phone: Nucleated RBC/100 WBC (Bld) [Ratio] 0 % 0-5 [facility] Work Phone: Laboratory - Microbiology an d Antimicrobial susceptibilityon 12-20-2021 N. gonorrhoeae DNA ISABELLE+probe Ql (Unsp spec) Negative Negative [facility] Work Phone: Comment on above: Performed at: = Anna nair [address] [id number] Director: Shy Rivera MD, Phone: [phone] Laboratory - Miscellaneous t estson 12-20-2021 Service comment (Unsp spec) [Interp] Comment . [facility] Work Phone: Comment on above: This liquid based Th inPrep(R) pap test was screened withthe use of an image guided system. Service comment (Unsp spec) [Interp] . . [facility] Work Phone: MCHC Auto (RBC) [Mass/Vol]on 12-20-2021 MCHC (RBC) [Mass/Vol] 34.6 g/dL 32-36 [facility] Work Phone: No Panel Informationon 12-20 MDMA (Ecstasy) Screen Negative < 500 ng/mL [facility] Work Phone: Pap Smear QC Review Comment . [facility] Work Phone: Comment on above: Mirella Figueroa Cytot echnologist (ASCP) Pathology report final diagnosis Narrative Comment . [facility] Work Phone: Comment on above: NEGATIVE FOR INTRAEP ITHELIAL LESION OR MALIGNANCY.THIS SPECIMEN WAS RESCREENED PART OF OUR MANAGER INTERVENTIONAL PROGRAM. Urine Barbiturates Screen Negative < 200 ng/mL [facility] Work Phone: Urine Drug Screen Comment [facility] Work Phone: Comment on above: CONFIRMATORY TESTING [...] Methadone Screen Negative < 300 ng/mL [facility] Work Phone: Hepatitis B Surface Antigen Non-Reactive Nonreactive [facility] Work Phone: Hepatitis C Antibody Non-Reactive Nonreactive [facility] Work Phone: Comment on above: Non Reactive: < 0.8 Equivocal: >/= 0.8 to < 1.0 Reactive: >/= 1.0The CDC recommends that a reactive/equivocal HCV antibody result be followed up by the HCV Nucleic Acid Amplificationtest ([id number]) Rubella IgG Antibody Reactive Nonreactive [facility] Work Phone: Comment on above: Antibody Results Int erpretation of Immune Status Non Reactive Presumed Non-Immune Equivocal Equivocal Reactive Presumed Immune Platelets bldon 12-20-2021 Platelets (Bld) [#/Vol] 294 10*3/uL 150-450 [facility] Work Phone: Serum Treponema species anti body detectionon 12-20-2021 Treponema sp Ab Ql (S) Non-Reactive [facility] Work Phone: Serum Varicella zoster virus IgM antibody assay by immunoassay (units/volume)on 12-20-2021 VZV IgM IA Qn (S) < 0.91 index 0.00-0.90 [facility] Work Phone: Comment on above: Negative <0.91 Borde rline 0.91 - 1.09 Positive >1.09Performed at: [facility] [address] [id number] Director: Jordy Amezquita PhD, Phone: [phone] Urine phencyclidine (PCP) de tectionon 12-20-2021 Phencyclidine Ql (U) Negative < 25 ng/mL [facility] Work Phone: Culture, urine Bacteria identified Cx Nom (U) Positive [facility] Work Phone: Vital Signs Date Time Vital Sign Value Performing Clinician Faci tenzin 01-10-2025 10:41-0400 Body height 167.[address] Tirso Kemp MD Work Phone: [facility] 01-10-2025 10:41-0400 Body mass index (BMI) [Ratio] 29.1 kg/m2 Dr. Tirso Kemp MD Work Phone: [facility] 01-10-2025 10:41-0400 Body weight 81.[address] Tirso Kemp MD Work Phone: [facility] 01-10-2025 10:41-0400 Diastolic blood pressure 61 mm[Hg] Dr. Tirso Kemp MD Work Phone: 9(121)783-820829 [place] [address] 01-10-2025 10:41-0400 Systolic blood pressure 95 mm[Hg] Dr. Tirso Kemp MD Work Phone: 1(467)470-733309 [address] 12-25-2024 09:39-0400 Body height 167.[address] Tirso Kemp MD Work Phone: 1(205)019-895221 [place] [address] 12-25-2024 09:39-0400 Body mass index (BMI) [Ratio] 29 kg/m2 Dr. Tirso Kemp MD Work Phone: 1(379)032-375421 [place] [address] 12-25-2024 09:39-0400 Body weight 81.[address] Tirso Kemp MD Work Phone: 4(289)856-393421 [place] [address] 12-25-2024 09:39-0400 Diastolic blood pressure 55 mm[Hg] Dr. Tirso Kemp MD Work Phone: 9(569)663-050621 [place] [address] 12-25-2024 09:39-0400 Systolic blood pressure 92 mm[Hg] Dr. Tirso Kemp MD Work Phone: 1(084)265-347629 [place] [address] 12-11-2024 09:02-0400 Body height 167.[address] Tirso Kemp MD Work Phone: 0(049)932-220121 [place] [address] 12-11-2024 09:02-0400 Body mass index (BMI) [Ratio] 28.5 kg/m2 Dr. Tirso Kemp MD Work Phone: 0(902)636-968109 [address] 12-11-2024 09:02-0400 Body weight 80.[address] Tirso Kemp MD Work Phone: 5(046)584-739009 [address] 12-11-2024 09:02-0400 Diastolic blood pressure 64 mm[Hg] Dr. Tirso Kemp MD Work Phone: 2(117)522-445421 [place] [address] 12-11-2024 09:02-0400 Systolic blood pressure 110 mm[Hg] Dr. Tirso Kemp MD Work Phone: 9(936)405-272521 [place] [address] 11-29-2024 10:52-0400 Body height 167.[address] Tirso Kemp MD Work Phone: 0(247)194-133321 [place] [address] 11-29-2024 10:52-0400 Body mass index (BMI) [Ratio] 28.4 kg/m2 Dr. Tirso Kemp MD Work Phone: 7(618)464-375621 [place] [address] 11-29-2024 10:52-0400 Body weight 79.[address] Tirso Kemp MD Work Phone: 3(760)861-600721 [place] [address] 11-29-2024 10:52-0400 Diastolic blood pressure 64 mm[Hg] Dr. Tirso Kemp MD Work Phone: 2(904)029-274321 [place] [address] 11-29-2024 10:52-0400 Systolic blood pressure 99 mm[Hg] Dr. Tirso Kemp MD Work Phone: 2(015)344-035821 [place] [address] 11-15-2024 10:21-0400 Body height 167.[address] Tirso Kemp MD Work Phone: 6(209)936-668821 [place] [address] 11-15-2024 10:20-0400 Body mass index (BMI) [Ratio] 28.1 kg/m2 Dr. Tirso Kemp MD Work Phone: 4(472)328-835221 [place] [address] 11-15-2024 10:20-0400 Body weight 79.[address] Tirso Kemp MD Work Phone: 3(924)420-514821 [place] [address] 11-15-2024 10:20-0400 Diastolic blood pressure 60 mm[Hg] Dr. Tirso Kemp MD Work Phone: 6(209)049-416921 [place] [address] 11-15-2024 10:20-0400 Systolic blood pressure 98 mm[Hg] Dr. Tirso Kemp MD Work Phone: [facility] 10-21-2024 08:52-0400 Body height 167.[address] Tirso Kemp MD Work Phone: [facility] 10-21-2024 08:52-0400 Body mass index (BMI) [Ratio] 27.6 kg/m2 Dr. Tirso Kemp MD Work Phone: 2(578)797-062009 [address] 10-21-2024 08:52-0400 Body weight 77.[address] Tirso Kemp MD Work Phone: 6(682)128-236921 [place] [address] 10-21-2024 08:52-0400 Diastolic blood pressure 68 mm[Hg] Dr. Tirso Kemp MD Work Phone: 6(120)698-670721 [place] [address] 10-21-2024 08:52-0400 Systolic blood pressure 102 mm[Hg] Dr. Tirso Kemp MD Work Phone: 0(880)958-583021 [place] [address] 09-19-2024 14:58-0400 Body height 167.[address] Tirso Kemp MD Work Phone: 7(274)440-334521 [place] [address] 09-19-2024 14:55-0400 Body mass index (BMI) [Ratio] 27.1 kg/m2 Dr. Tirso Kemp MD Work Phone: 6(185)428-237821 [place] [address] 09-19-2024 14:55-0400 Body weight 76.[address] Tirso Kemp MD Work Phone: 4(257)788-150621 [place] [address] 09-19-2024 14:55-0400 Diastolic blood pressure 64 mm[Hg] Dr. Tirso Kemp MD Work Phone: 7(598)509-087821 [place] [address] 09-19-2024 14:55-0400 Systolic blood pressure 102 mm[Hg] Dr. Tirso Kemp MD Work Phone: 1(283)127-412521 [place] [address] 08-20-2024 08:29-0400 Body height 167.[address] Tirso Kemp MD Work Phone: 6(916)119-005709 [address] 08-20-2024 08:29-0400 Body mass index (BMI) [Ratio] 25.8 kg/m2 Dr. Tirso Kemp MD Work Phone: 5(517)302-518329 [place] [address] 08-20-2024 08:29-0400 Body weight 72.[address] Tirso Kemp MD Work Phone: 6(306)141-385821 [place] [address] 08-20-2024 08:29-0400 Diastolic blood pressure 60 mm[Hg] Dr. Tiros Kemp MD Work Phone: 8(191)097-996921 [place] [address] 08-20-2024 08:29-0400 Systolic blood pressure 94 mm[Hg] Dr. Tirso Kemp MD Work Phone: 8(370)815-949521 [place] [address] 07-23-2024 09:17-0400 Body mass index (BMI) [Ratio] 25.4 kg/m2 Dr. Tirso Kemp MD Work Phone: 8(561)030-635121 [place] [address] 07-23-2024 09:17-0400 Body weight 71.[address] Tirso Kemp MD Work Phone: 6(628)443-847921 [place] [address] 07-23-2024 09:17-0400 Diastolic blood pressure 62 mm[Hg] Dr. Tirso Kemp MD Work Phone: 7(756)326-970421 [place] [address] 07-23-2024 09:17-0400 Systolic blood pressure 98 mm[Hg] Dr. Tirso Kemp MD Work Phone: 2(783)550-002121 [place] [address] 06-24-2024 14:15-0400 Body height 167.[address] Tirso Kemp MD Work Phone: 6(169)875-631421 [place] [address] 06-24-2024 14:15-0400 Body mass index (BMI) [Ratio] 25 kg/m2 Dr. Tirso Kemp MD Work Phone: 4(730)643-311821 [place] [address] 06-24-2024 14:15-0400 Body weight 70.[address] Tirso Kemp MD Work Phone: 5(938)852-127621 [place] [address] 06-24-2024 14:15-0400 Diastolic blood pressure 65 mm[Hg] Dr. Tirso Kemp MD Work Phone: [facility] 06-24-2024 14:15-0400 Systolic blood pressure 101 mm[Hg] Dr. Tirso Kemp MD Work Phone: [facility] 07-19-2023 08:35-0400 Body temperature 98 [degF] Dr. Tirso Kemp Work Phone: [facility] 07-19-2023 08:35-0400 Diastolic blood pressure 56 mm[Hg] Dr. Tirso Kemp Work Phone: [facility] 07-19-2023 08:35-0400 Heart rate 62 /min Dr. Tirso Kemp Work Phone: [facility] 07-19-2023 08:35-0400 Respiratory rate 16 /min Dr. Tirso Kemp Work Phone: [facility] 07-19-2023 08:35-0400 SaO2% (BldA) [Mass fraction] 100 % Dr. Tirso Kemp Work Phone: [facility] 07-19-2023 08:35-0400 Systolic blood pressure 92 mm[Hg] Dr. Tirso Kemp Work Phone: [facility] 07-19-2023 06:53-0400 Body height 167.[address] Tirso Kemp Work Phone: [facility] 07-19-2023 06:53-0400 Body mass index (BMI) [Ratio] 23.5 kg/m2 Dr. Tirso Kemp Work Phone: [facility] 07-19-2023 06:53-0400 Body weight [address] Tirso Kemp Work Phone: [facility] 06-12-2023 12:51-0500 Body mass index (BMI) [Ratio] 24.5 kg/m2 Dr. Tirso Kemp Work Phone: [facility] 06-12-2023 12:51-0500 Body temperature 97.2 [degF] Dr. Tirso Kemp Work Phone: [facility] 06-12-2023 12:51-0500 Body weight 68.[address] Tirso Kemp Work Phone: [facility] 06-12-2023 12:51-0500 Diastolic blood pressure 63 mm[Hg] Dr. Tirso Kemp Work Phone: [facility] 06-12-2023 12:51-0500 Heart rate 62 /min Dr. Tirso Kemp Work Phone: [facility] 06-12-2023 12:51-0500 Respiratory rate 17 /min Dr. Tirso Kemp Work Phone: [facility] 06-12-2023 12:51-0500 SaO2% (BldA) [Mass fraction] 100 % Dr. Tirso Kemp Work Phone: [facility] 06-12-2023 12:51-0500 Systolic blood pressure 98 mm[Hg] Dr. Tirso Kemp Work Phone: [facility] 07-24-2022 13:50-0400 Body temperature 97.8 [degF] Dr. Shaan Kemp Work Phone: [facility] 07-24-2022 13:50-0400 Diastolic blood pressure 62 mm[Hg] Dr. Shaan Kemp Work Phone: [facility] 07-24-2022 13:50-0400 Heart rate 73 /min Dr. Shaan Kemp Work Phone: [facility] 07-24-2022 13:50-0400 Respiratory rate 16 /min Dr. Shaan Kemp Work Phone: [facility] 07-24-2022 13:50-0400 Systolic blood pressure 90 mm[Hg] Dr. Shaan Kemp Work Phone: [facility] 07-24-2022 08:00-0400 SaO2% (BldA) [Mass fraction] 99 % Dr. Shaan Kemp Work Phone: [facility] 07-22-2022 00:53-0400 Body height 169.[address] Shaan Kemp Work Phone: [facility] 07-22-2022 00:53-0400 Body mass index (BMI) [Ratio] 28.2 kg/m2 Dr. Shaan Kemp Work Phone: [facility] 07-22-2022 00:53-0400 Body weight 80.[address] Shaan Kemp Work Phone: [facility] 07-15-2022 09:37-0400 Body mass index (BMI) [Ratio] 28.6 kg/m2 Dr. Shaan Kemp Work Phone: [facility] 07-15-2022 09:37-0400 Body weight 81.[address] Shaan Kemp Work Phone: [facility] 07-15-2022 09:37-0400 Diastolic blood pressure 64 mm[Hg] Dr. Shaan Kemp Work Phone: [facility] 07-15-2022 09:37-0400 Systolic blood pressure 102 mm[Hg] Dr. Shaan Kemp Work Phone: [facility] 07-10-2022 00:35-0400 Body temperature 99.4 [degF] Dr. Shaan Kemp Work Phone: [facility] 07-10-2022 00:34-0400 Diastolic blood pressure 65 mm[Hg] Dr. Shaan Kemp Work Phone: [facility] 07-10-2022 00:34-0400 Heart rate 67 /min Dr. Shaan Kemp Work Phone: [facility] 07-10-2022 00:34-0400 SaO2% (BldA) [Mass fraction] 99 % Dr. Shaan Kemp Work Phone: [facility] 07-10-2022 00:34-0400 Systolic blood pressure 109 mm[Hg] [facility]. Shaan Kemp [facility] Phone[facility] System 07-10-2022 00:17-0400 Body height 168.[address] Shaan Kemp Work Phone: [facility] 07-10-2022 00:17-0400 Body mass index (BMI) [Ratio] 29.5 kg/m2 Dr. Shaan Kemp Work Phone: [facility] 07-10-2022 00:17-0400 Body weight 84.[address] Shaan Kemp Work Phone: [facility] 07-09-2022 15:53-0400 Heart rate 75 /min Dr. Shaan Kemp Work Phone: [facility] 07-09-2022 15:53-0400 SaO2% (BldA) [Mass fraction] 98 % Dr. Shaan Kemp Work Phone: [facility] 07-09-2022 15:52-0400 Body temperature 98.3 [degF] Dr. Shaan Kemp Work Phone: [facility] 07-09-2022 15:51-0400 Diastolic blood pressure 67 mm[Hg] Dr. Shaan Kemp Work Phone: [facility] 07-09-2022 15:51-0400 Systolic blood pressure 111 mm[Hg] Dr. Shaan Kemp Work Phone: [facility] 07-09-2022 15:35-0400 Body height 169.[address] Shaan Kemp Work Phone: [facility] 07-09-2022 15:35-0400 Body mass index (BMI) [Ratio] 29.2 kg/m2 Dr. Shaan Kemp Work Phone: [facility] 07-09-2022 15:35-0400 Body weight 83.[address] Shaan Kemp Work Phone: [facility] 07-07-2022 09:39-0400 Body mass index (BMI) [Ratio] 29.2 kg/m2 Dr. Shaan Kemp Work Phone: [facility] 07-07-2022 09:39-0400 Body weight 82.[address] Shaan Kemp Work Phone: [facility] 07-07-2022 09:39-0400 Diastolic blood pressure 68 mm[Hg] Dr. Shaan Kemp Work Phone: 7(849)[phone] [place] [address] 07-07-2022 09:39-0400 Systolic blood pressure 118 mm[Hg] Dr. Shaan Kemp Work Phone: 8(888)[phone] [address] 07-01-2022 09:17-0400 Body mass index (BMI) [Ratio] 28.9 kg/m2 Dr. Shaan Kemp Work Phone: 9(112)732-807429 [place] [address] 07-01-2022 09:17-0400 Body weight 81.[address] Shaan Kemp Work Phone: 9(513)[phone] [address] 07-01-2022 09:17-0400 Diastolic blood pressure 66 mm[Hg] Dr. Shaan Kemp Work Phone: 6(993)137-506609 [address] 07-01-2022 09:17-0400 Systolic blood pressure 101 mm[Hg] Dr. Shaan Kemp Work Phone: [facility] 06-24-2022 16:12-0400 Body mass index (BMI) [Ratio] 28.5 kg/m2 Dr. Shaan Kemp Work Phone: 0(411)949-015229 [place] [address] 06-24-2022 16:12-0400 Body weight 81.[address] Shaan Kemp Work Phone: 4(492)850-990229 [place] [address] 06-24-2022 16:12-0400 Diastolic blood pressure 74 mm[Hg] Dr. Shaan Kemp Work Phone: 1(340)593-571429 [place] [address] 06-24-2022 16:12-0400 Systolic blood pressure 116 mm[Hg] Dr. Shaan Kemp Work Phone: [facility] 06-09-2022 15:43-0500 Body mass index (BMI) [Ratio] 28.4 kg/m2 Dr. Shaan Kemp Work Phone: [facility] 06-09-2022 15:43-0500 Body weight [address] Shaan Kemp Work Phone: [facility] 06-09-2022 15:43-0500 Diastolic blood pressure 65 mm[Hg] Dr. Shaan Kemp Work Phone: [facility] 06-09-2022 15:43-0500 Systolic blood pressure 105 mm[Hg] Dr. Shaan Kemp Work Phone: [facility] 05-26-2022 15:38-0500 Body height 168.[address] Shaan Kemp Work Phone: [facility] 05-26-2022 15:37-0500 Body mass index (BMI) [Ratio] 27.8 kg/m2 Dr. Shaan Kemp Work Phone: [facility] 05-26-2022 15:37-0500 Body weight 79.[address] Shaan Kemp Work Phone: [facility] 05-26-2022 15:37-0500 Diastolic blood pressure 69 mm[Hg] Dr. Shaan Kemp Work Phone: [facility] 05-26-2022 15:37-0500 Systolic blood pressure 110 mm[Hg] Dr. Shaan Kemp Work Phone: [facility] 05-13-2022 15:27-0500 Body mass index (BMI) [Ratio] 27.4 kg/m2 Dr. Shaan Kemp Work Phone: [facility] 05-13-2022 15:27-0500 Body weight 78.[address] Shaan Kemp Work Phone: [facility] 05-13-2022 15:27-0500 Diastolic blood pressure 60 mm[Hg] Dr. Shaan Kemp Work Phone: [facility] 05-13-2022 15:27-0500 Systolic blood pressure 109 mm[Hg] Dr. Shaan Kemp Work Phone: [facility] 03-31-2022 13:11-0500 Body height 169.[address] Shaan Kemp Work Phone: [facility] Work Phone: 03-31-2022 13:10-0500 Body mass index (BMI) [Ratio] 26.2 kg/m2 Dr. Shaan Kemp Work Phone: [facility] 03-31-2022 13:10-0500 Body weight 73.[address] Shaan Kemp Work Phone: [facility] 03-31-2022 13:10-0500 Diastolic blood pressure 61 mm[Hg] Dr. Shaan Kemp Work Phone: [facility] 03-31-2022 13:10-0500 Systolic blood pressure 101 mm[Hg] Dr. Shaan Kemp Work Phone: [facility] 03-16-2022 13:36-0500 Body mass index (BMI) [Ratio] 25.3 kg/m2 Dr. Shaan Kemp Work Phone: [facility] 03-16-2022 13:36-0500 Body weight 72.[address] Shaan Kemp Work Phone: [facility] 03-16-2022 13:36-0500 Diastolic blood pressure 64 mm[Hg] Dr. Shaan Kemp Work Phone: [facility] 03-16-2022 13:36-0500 Heart rate 73 /min Dr. Shaan Kemp Work Phone: [facility] 03-16-2022 13:36-0500 Systolic blood pressure 105 mm[Hg] Dr. Shaan Kemp Work Phone: [facility] 02-17-2022 13:34-0500 Body height 169.[address] Shaan Kemp Work Phone: [facility] Work Phone: 02-17-2022 13:33-0500 Body mass index (BMI) [Ratio] 27.1 kg/m2 Dr. Shaan Kemp Work Phone: [facility] 02-17-2022 13:33-0500 Body weight 71.[address] Shaan Kemp Work Phone: [facility] 02-17-2022 13:33-0500 Diastolic blood pressure 69 mm[Hg] Dr. Shaan Kemp Work Phone: [facility] 02-17-2022 13:33-0500 Systolic blood pressure 103 mm[Hg] Dr. Shaan Kemp Work Phone: [facility] 01-17-2022 13:32-0400 Body mass index (BMI) [Ratio] 24.1 kg/m2 Dr. Shaan Kemp Work Phone: [facility] Work Phone: 01-17-2022 13:32-0400 Body weight 68.[address] Shaan Kemp Work Phone: [facility] Work Phone: 01-17-2022 13:32-0400 Diastolic blood pressure 54 mm[Hg] Dr. Shaan Kemp Work Phone: [facility] Work Phone: 01-17-2022 13:32-0400 Systolic blood pressure 98 mm[Hg] Dr. Shaan Kemp Work Phone: [facility] Work Phone: 12-20-2021 13:55-0400 Body height 169.[address] Shaan Kemp Work Phone: [facility] Work Phone: 12-20-2021 13:55-0400 Body mass index (BMI) [Ratio] 24 kg/m2 Dr. Shaan Kemp Work Phone: [facility] Work Phone: 12-20-2021 13:55-0400 Body weight 68.[address] Shaan Kemp Work Phone: [facility] Work Phone: 12-20-2021 13:55-0400 Diastolic blood pressure 58 mm[Hg] Dr. Shaan Kemp Work Phone: [facility] Work Phone: 12-20-2021 13:55-0400 Systolic blood pressure 92 mm[Hg] Dr. Shaan Kemp Work Phone: [facility] Work Phone: Encounters Encounter Date Encounter Type Care Provider Facility Start: 01-31-2025 ambulatory Tirso Uriostegui lity:[facility] Start: 01-24-2025 End: 01-24-2025 ambulatory Tirso Kemp Facility:[facility] [place] Start: 01-17-2025 End: 01-17-20[facility] [place] Start: 01-10-2025 ambulatory Kinza Uriostegui lity:[facility] Start: 01-10-2025 End: 01-10-[address] Kinza Barahona MD -[facility] Work Phone: Start: 01-10-2025 End: 01-10-[address] Tirso Kemp MD Work Phone: -[facility] Start: 12-25-2024 End: 12-25-2024 Patient encounter procedure Esperanza DELEON -[facility] Work Phone: Start: 12-25-2024 End: 12-25-[address] Tirso Kemp MD Work Phone: -[facility] Start: 12-11-2024 End: 12-11-2024 Patient encounter procedure Ruthie Le CN -[facility] Work Phone: Start: 12-11-2024 End: 12-11-[address] Tirso Kemp MD Work Phone: -[facility] Start: 11-29-2024 End: 11-29-2024 Patient encounter procedure Alessandra Bolanos CN -[facility] Work Phone: Start: 11-29-2024 End: 11-29-[address] Tirso Kemp MD Work Phone: [facility] Start: 11-15-2024 End: 11-15-[address] Nina Gamboa DO -[facility] Work Phone: Start: 11-15-2024 End: 11-15-[address] Tirso Kemp MD Work Phone: -[facility] Start: 11-15-2024 End: 11-15-2024 ambulatory Tirso Kemp Facility:[facility] Start: 11-13-2024 ambulatory Tirso Kemp Facolga lity:[facility] Start: 10-21-2024 End: 10-21-[address] Kinza Barahona MD -[facility] Work Phone: Start: 10-21-2024 End: 10-21-[address] Tirso Kemp MD Work Phone: -[facility] Start: 09-19-2024 End: 09-19-2024 Patient encounter procedure Esperanza DELEON -[facility] Work Phone: Start: 09-19-2024 End: 09-19-[address] Tirso Kemp MD Work Phone: [facility] Work Phone: Start: 08-20-2024 End: 08-20-2024 Patient encounter procedure Esperanza DELEON -[facility] Work Phone: Start: 08-20-2024 End: 08-20-[address] Tirso Kemp MD Work Phone: [facility] Work Phone: Start: 07-23-2024 End: 07-23-[address] Nina Gamboa DO -[facility] Work Phone: Start: 07-23-2024 End: 07-23-2024 ambulatory Tirso Kemp Facility:[facility] [place] Start: 06-24-2024 End: 06-24-[address] Nina Gamboa DO -[facility] Work Phone: Start: 06-24-2024 End: 06-24-[address] Tirso Kemp MD Work Phone: [facility] Work Phone: Start: 06-24-2024 End: 06-24-2024 ambulatory Tirso Kemp Facility:[facility] Start: 07-19-2023 Non-patient / Non-visit Dr. Tirso Kemp Work Phone: [facility] Start: 07-19-2023 End: 07-19-2023 Admission to same day surgery center Dr. Tirso Kemp Work Phone: [facility] Work Phone: Start: 07-19-2023 End: 07-19-[address] Tirso Kemp Work Phone: [facility] Work Phone: Start: 07-05-2023 End: 07-05-[address] Tirso Kemp Work Phone: [facility] Work Phone: Start: 06-12-2023 End: 06-12-[address] Tirso Kemp Work Phone: [facility] Work Phone: Start: 07-24-2022 Non-patient / Non-visit Dr. Shaan Kemp Work Phone: [facility] Start: 07-23-2022 Non-patient / Non-visit Dr. Shaan Kemp Work Phone: [facility] Start: 07-22-2022 Non-patient / Non-visit Dr. Shaan Kemp Work Phone: [facility] Start: 07-22-2022 End: 07-24-2022 Evaluation and management of inpatient Dr. Shaan Kemp Work Phone: [facility] Start: 07-15-2022 End: 07-15-[address] Shaan Kemp Work Phone: [facility] Start: 07-10-2022 Non-patient / Non-visit Dr. Shaan Kemp Work Phone: [facility] Start: 07-09-2022 Non-patient / Non-visit Dr. Shaan Kemp Work Phone: [facility] Start: 07-09-2022 End: 07-10-[address] Shaan Kemp Work Phone: [facility] Work Phone: Start: 07-09-2022 End: 07-10-[address] Shaan Kemp Work Phone: [facility] Out[facility] Start: 07-07-2022 End: 07-07-[address] Shaan Kemp Work Phone: [facility] Start: 07-01-2022 End: 07-01-[address] Shaan Kemp Work Phone: [facility] Start: 06-24-2022 End: 06-24-[address] Shaan Kemp Work Phone: [facility] Work Phone: Start: 06-24-2022 End: 06-24-[address] Shaan Kemp Work Phone: [facility]Laboratory, Specimen Start: 06-24-2022 End: 06-24-[address] Shaan Kemp Work Phone: [facility] Start: 06-09-2022 End: 06-09-[address] Shaan Kemp Work Phone: [facility] Start: 06-02-2022 End: 06-02-[address] Shaan Kemp Work Phone: [facility] Work Phone: Start: 06-02-2022 End: 06-02-[address] Shaan Kemp Work Phone: [facility]Out[facility] Start: 05-26-2022 End: 05-26-[address] Shaan Kemp Work Phone: [facility] Start: 05-13-2022 End: 05-13-[address] Shaan Kemp Work Phone: [facility] Start: 03-31-2022 End: 03-31-[address] Sahan Kemp Work Phone: [facility] Work Phone: Start: 03-31-2022 End: 03-31-[address] Shaan Kemp Work Phone: [facility] Start: 03-16-2022 End: 03-16-[address] Shaan Kemp Work Phone: [facility] Start: 02-28-2022 End: 02-28-[address] Shaan Kemp Work Phone: [facility] Work Phone: Start: 02-28-2022 End: 02-28-[address] Shaan Kemp Work Phone: [facility] Ul[facility]ound Start: 02-17-2022 End: 02-17-[address] Shaan Kemp Work Phone: [facility] Start: 01-17-2022 End: 01-17-[address] Shaan Kemp Work Phone: [facility] Start: 12-20-2021 End: 12-20-[address] Shaan Kemp Work Phone: [facility] Work Phone: Start: 12-20-2021 End: 12-20-[address] Shaan Kemp Work Phone: [facility] OP Pavilion Start: 12-20-2021 End: 12-20-[address] Shaan Kemp Work Phone: [facility] Procedures Date Procedure Procedure Detail Performing Clinician [...] HCV Quant by PCR testing - HCVPCR #[id number] Non Reactive: < 0.8 Equivocal: >/= 0.8 to < 1.0 Reactive: >/= 1.0The CDC requires that a reactive/equivocal HCV antibody result be sent out for confirmation. HCV Quant by PCR testing. Start: 06-24-[address] Tirso Kemp MD Work Phone: Comment on above: Antibody Result: Int erpretationNon-Reactive: Non- ImmuneReactive: ImmuneThe following results were obtained with the [employer] Rubella IgG assay. Results from assays of [...] W Auto Different ial panel - Blood [facility] Start: 11-15-2024 Measurement of gluco se 2 hours after glucose challenge for glucose tolerance test [facility] Start: 11-15-2024 Serologic test for syphilis [facility] Start: 11-15-2024 [facility] Start: 07-19-2023 Patient discharge [facility] Start: 07-24-2022 Patient discharge [facility] Start: 07-22-2022 Administration of medication [facility] Start: 07-22-2022 Application of ice c ollar, cap or bag [facility] Start: 07-22-2022 Catheterization of vein [facility] Start: 07-22-2022 Introduction of urinary catheter [facility] Start: 07-22-2022 Measuring intake and output [facility] Start: 07-22-2022 Notification of physician [facility] Start: 07-22-2022 Procedure discontinued [facility] Start: 07-22-2022 Provision of activity privileges [facility] Start: 07-22-2022 Vital signs measurements [facility] Start: 07-22-2022 [facility] Start: 07-22-2022 Admission procedure [facility] Start: 07-10-2022 Nonstress test [facility] Start: 07-10-2022 Obstetric monitoring [facility] Start: 07-10-2022 Vital signs measurements [facility] Start: 07-10-2022 [facility] Start: 07-10-2022 Patient discharge [facility] Start: 07-09-2022 Nonstress test [facility] Start: 07-09-2022 Obstetric monitoring [facility] Start: 07-09-2022 Vital signs measurements [facility] Start: 07-09-2022 [facility] Start: 07-09-2022 Patient discharge [facility] Start: 12-20-2021 Liquid based cervica l cytology screening [facility] Work Phone: CBC W Auto Different ial panel - Blood [facility] Colonoscopy [facility] Erythrocyte mean cor puscular volume determination [facility] Hematocrit [Volume F raction] of Blood [facility] Hemoglobin [Mass/volume] in Blood [facility] Leukocytes [#/volume] in Blood [facility] Mean corpuscular hem oglobin concentration determination [facility] Mean corpuscular hem oglobin determination [facility] Measurement of gluco se 2 hours after glucose challenge for glucose tolerance test [facility] Neutrophil count [facility] Neutrophil percent d ifferential count [facility] Path report.final Dx Spec [facility] Work Phone: Patient Education [facility] Work Phone: Patient referral [facility] Work Phone: Platelets [#/volume] in Blood [facility] Red blood cell count [facility] Red cell distributio n width determination [facility] Serologic test for syphilis [facility] Streptococcus agalac tiae [Presence] in Unspecified specimen by Organism specific culture [facility] Ultrasound scan for growth [facility] Payers Date Payer Category Payer Unknown [id number] 2024 Self-pay [id number] Unknown [facility] P[employer] [facility] [id number] Unknown . [id number] Unknown [id number] 2.16.8 [id number] Unknown [id number] 2.16.8 [id number] Unknown [id number] 2.16.8 [id number] Unknown [id number] 2.16.8 [id number] Unknown [id number] 2.16.8 [id number] Unknown [id number] 2.16.8 [id number] Unknown [id number] 2.16.8 [id number] Unknown [id number] 2.16.8 [id number] Unknown [id number] 2.16.8 [id number] Unknown [id number] 2.16.8 [id number] Unknown [id number] 2.16.8 [id number] Unknown [id number] 2.16.8 [id number] Unknown [id number] 2.16.8 [id number] Unknown [id number] 2.16.8 [id number] Unknown [id number] 2.16.8 [id number] Unknown [id number] 2.16.8 [id number] Unknown [id number] 2.16.8 [id number] Social History Date Type Detail Facility Start: 12-20-2021 End: 07-17-2023 Tobacco smoking status NHIS Unknown if ever smoked [facility] Start: 1990 Sex Assigned At Female [facility] Start: 06-24-2024 Tobacco smoking status NHIS Never smoked tobacco (finding) [facility] Start: 07-03-2024 Sex Female (finding) [facility] Sex Female [facility] NEGATED: Highlighted row [facility] Goals Date Patient Goal Desired Activity /State Mental Status Date Assessment Result Facility 07-19-2023 Cognitive function Voice/Name [facility] Work Phone: Clinical Notes 12-20-2021 to 01-10-2025 Note Date & Type Note Facility 01-10-2025 Progress note [facility] 12-11-2024 Progress note [facility] 11-29-2024 Progress note [facility] 11-15-2024 Progress note [facility] 10-21-2024 Progress note [facility] 09-19-2024 Evaluation note Diagnosis Onset Date Resolution [...] Supervision of high-risk acute December 252024 9:38am [facility] Work Phone: 1(817) 512-224006-12-2025 Evaluation note* Diagnosis Onset Date Resolution Status [...] Supervision of high-risk acute January 10 10:38am [facility] Work Phone: 1(314) 630-545305-13-2025 Evaluation note* Diagnosis Onset Date Resolution Status [...] of high-risk acute November 15, 2024 10:14am [facility] Work Phone: 1(637) 234-249805-13-2025 Evaluation note* Diagnosis Onset Date Resolution Status [...] Supervision of high-risk acute November 29 10:50am [facility] Work Phone: 1(753) 593-325505-13-2025 Evaluation note* Diagnosis Onset Date Resolution Status [...] of high-risk acute December 11 025 8:58am [facility] Work Phone: 1(264) 121-240004-15-2025 Evaluation note* Diagnosis Onset Date Resolution Status [...] of high-risk acute November 15, 2024 10:14am [facility] Work Phone: 1(217) 946-513403-17-2025 Evaluation note* Diagnosis Onset Date Resolution Status Admit Date AMA (advanced maternal age) multigravida 35+ acute June 24 2:12pm Anal fissure acute June 24, 2024 2:12pm Family hx of colon cancer acute June 24, 2024 2:12pm acute June 24 2:12pm Supervision of high-risk acute June 24, 2024 2:12pm [facility] Work Phone: 1(879) 897-988403-17-2025 Evaluation note* Diagnosis Onset Date Resolution Status [...] high-risk acute August 20, 2024 8 :24am [facility] [facility] Work Phone: 1(960) 416-217003-17-2025 Evaluation note* Diagnosis Onset Date Resolution Status [...] of high-risk acute September 19, 2024 2:50pm [facility] [employer] [facility] Work Phone: 1(119) 423-472703-17-2025 Evaluation note* Diagnosis Onset Date Resolution Status [...] of high-risk acute October 21, 2024 8:50am [facility] Work Phone: 1(193) 339-579104-10-2024 History and physical note Author Magaly George [facility] July 19, 2023 7:26am Note Date/Time July 19, 2023 7:2 6am [facility] Medical Records Department [address] [place] [address] History & Physical Exam 07/19/23724 MR#: [id number] Acct: [id number] Name: CONCHA GREWAL Arin Rep #:[id number] : 1990 32 From: Magaly George MD PCP: Dr. Tirso Kemp MD Status :[employer] Location: [place] [address] History and Physical Date of Admission: 07/19/23 Date of Service: 07/05/23 MR#: [id number] Acct: [id number] Name: NATALIEEFRAINCONCAHJA Arin Rep #: [id number] : 1990 Provider: Dr. Magaly George MD Age/Sex: 32/F Location: [facility] Status: Signed Intake Vital Signs 06/12/2411:51 Height 5 ft 6 in Weight: 152 lb BMI 24.5 BP 98/63 Blood Pressure Location Rt brachial Position Sitting Respiration 17 Pulse 62 Pulse Source Monitor Temp 97.2 F L Temp Source Temporal Pulse Oximetry (%) 100 Oxygen Delivery Method room air Intake Visit Reasons: MEDICATION FU Chief Complaint: medication f/u Motion Study Analyst Required: No Is patient in pain?: No Allergies house dust Allergy (Mild, Verified 07/05/23 13:28) Nasal congestion Medications multivit-min no.71-iron fum 28 mg-folate no.1 1 mg-dha 300 mg capsule (PNV- [place]) 1 cap PO DAILY 12/15/21 [History Confirmed [...] K60.2 Family hx of colon cancer Z80.0 [facility] Medical History (Updated 06/13/23 @ 07:53 by [...] physical activity do you participate in: none brandyn/muslim: Judaism seatbelt use: always do you feel safe [...] on July 18. Magaly George M.D. Pager: [phone] [facility] [address] [place] [address], [address] [place] [address] Office: [phone] 07/07/23 0831 <Electronically signed by Magaly George [...] MD; Dr. Magaly George MD ~* Signed [facility] Work Phone: 1(197) 982-515004-10-2024 Procedure [facility] 07-19-2023 Procedure [facility]04-16-[address] Kern [facility] July 24, 2022 9:47am Note Date/Time July 24, 2022 9:4 7am [facility] Medical Records Department [address] [place] [id number] Discharge Summary 07/24/22 0944 MR#: [id number] Acct: [id number] Name: CONCHA GREWAL Rep #:[id number] : 1990 31 From: Nina Gamboa DO PCP: Dr. Shaan Kemp MD Status: [facility]M [facility] Providers Date of Admission: 07/22/22 Primary Care [...] no.1 1 mg-dha 300 mg capsule (PNV- Hamilton) 1 cap PO DAILY 12/15/21 Hospital Course [...] Up With: Nina Gamboa DO When: Call [phone] to make an appointment with your doctor in 6 weeks. If you had elevated blood pressure or 4th degree laceration, you will need to be seen in 2 weeks. Meaningful Use Info Meaningful Use Diagnoses (Choose all that apply): None applicable Discharge Plan Admission Admit Date/Time: 07/22/22 03:30 Primary Reason for Your Visit: vaginal delivery Attending Provider: Nian Gamboa Primary Care Provider: Shaan Kemp Discharge Orders/Prescriptions Prescriptions: No Action PNV-Hamilton 28-1-300 mg capsule 1 cap PO DAILY Referrals / Follow Up: Shaan Kemp MD [Primary Care Provider] - Disposition Disposition (needs filled in before D/C Order can be placed): Home, Self Care 07/24/22 0947 <Electronically signed by Nina Gamboa DO> Cosigner Signature (if applicable): CC: Dr. Shaan Kemp MD; Dr. Nina Gamboa DO~ Signed [facility] Work Phone: 1(723) 958-154004-15-[address] Kern [facility] July 23, 2022 10:02am Note Date/Time July 23, 2022 10: 02am [facility] System Medical Records Department [address] [place] [address] Progress Note - OBGYN 07/23/22 1000 MR#: [id number] Acct: [id number] Name: CONCHA GREWAL Rep #:[id number] : 1990 31 From: Nina Gamboa DO PCP: Dr. Shaan Kemp MD Status: ADM IN Location: [place] [address] Subjective Subjective Patient doing well without complaints. [...] Cosigner Signature (if applicable): CC: ~ Signed [facility] Work Phone: 1(454) 580-440604-14-[address] Kern [facility] July 22, 2022 5:51pm Note Date/Time July 22, 2022 5:5 1pm [facility] Medical Records Department [address] [place] [address] Instructions for Home/Discharge Instructions 07/22/22 1750 MR#: [id number] Acct: [id number] Name: CONCHA GREWAL Rep #:[id number] : 1990 31 From: Nina Gamboa DO [...] Up With: Nina Gamboa DO When: Call [phone] to make an appointment with your doctor [...] Shaan Kemp Discharge Orders/Prescriptions Prescriptions: No Action PNV-Hamilton 28-1-300 mg capsule 1 cap PO DAILY Referrals / Follow Up: Shaan Kemp MD [Primary Care Provider] - 07/22/22 1751<Electronically signed by Nina Gamboa DO>Nina Gamboa DO CC: Dr. Shaan Kemp MD ~ Signed [facility] Work Phone: 1([phone]) 686-398204-14-2023 Procedure [facility] 07-22-2022 History and physical note Author Dr. 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 Shaan Kemp MD Status: ADM IN Location: [place] 737302-1 HPI - General General Date of Admission: [...] no.1 1 mg-dha 300 mg capsule (PNV- Hamilton) 1 cap PO DAILY 12/15/21 [History Last [...] physical activity do you participate in: none brandyn/muslim: Judaism seatbelt use: always do you feel safe [...] no lof, vagi nal bleeding, or cramping. [facility] ultrasound scheduled. pt will decide if wants [...] no vb/lof/ct x. traveling on monday to [facility], precautions given. 05/13/22 -?-?-?-?-?-?-?-?-?-?-?-?- 30w [...] DNA (ISABELLE) Negative (Negative) Neisseria gonorrhoeae DNA (ISAEBLLE) Negative (Negative) HIV 1&2 Antibody Non-Reactive (Nonreactive) [...] any complications: none I have reviewed the [facility] and made any clinically relevant updates. 07/22/22 0720 <Electronically signed by Kinza Barahona MD> Cosigner Signature (if applicable): CC: Dr. Shaan Kemp MD; Dr. Kinza Barahona MD~ Signed [facility] Work Phone: 1([phone]) 898-212109-12-2022 NotePap Smear Specimen AdequacySeptember 2021 3:43pmComment.Satisfactory for evaluation. No endocervical component is identified.An endocervical component is not commonly seen in the patient.[facility] INTERFACED A#[id number] Health System Work Phone: Comment on above:Satisfactory for evaluation. No endocervical component is identified.An endocervical component is not commonly seen in the patient.12-20-2021 NotePap Smear Specimen AdequacySeptember 2021 3:43pmComment.Satisfactory for evaluation. No endocervical component is identified.An endocervical component is not commonly seen in the patient.[facility] INTERFACED A#[id number] Health System Work Phone: Comment on above:Satisfactory for evaluation. No endocervical component is identified.An endocervical component is not commonly seen in the patient.Evaluation note* Diagnosis Onset Date Resolution Status acute Supervision of normal [facility] Work Phone: Evaluation note* Diagnosis Onset Date Resolution Status acute Supervision of normal acute Nausea/vomiting in acute acute Supervision of normal [facility] Work Phone: Evaluation note* Diagnosis Onset Date Resolution Status acute Supervision of normal acute Nausea/vomiting in acute acute Supervision of normal acute [id number] acute Nausea/vomiting in acute acute Supervision of normal acute PZE-IHAB-[id number] acute Nausea/vomiting in acute acute Supervision of normal acute XDU-OACJ-[id number] acute Nausea/vomiting in acute acute Supervision of normal [facility] Work Phone: evaluation note* Diagnosis Onset Date Resolution Status [id number]-[id number] acute acute Supervision of normal acute Nausea/vomiting in resolved JUJ-ECAK-[id number] acute acute Supervision of normal acute Nausea/vomiting in resolved CDJ-CHFA-[id number] acute acute Supervision of normal acute Nausea/vomiting in resolved NGP-[id number] acute acute Supervision of normal acute Breast mass, right acute Breast pain, left acute TEX-JVYF-[id number] acute acute Supervision of normal [facility] Work Phone: Evaluation note* Diagnosis Onset Date Resolution Status GFD-[id number] acute acute Supervision of normal acute Nausea/vomiting in resolved JGO-[id number] acute acute Supervision of normal acute Nausea/vomiting in resolved XIP-[id number] acute acute Supervision of normal acute LHX-PKMN-94981463 acute acute Supervision of normal acute Breast mass, right resolved Breast pain, left resolved ZFY-KGXR-35660087 acute acute Supervision of normal acute Breast mass, right resolved Breast pain, left resolved VKS-QNKI-40874905 acute acute Supervision of normal [facility] Work Phone: evaluation note* Diagnosis Onset Date Resolution Status [id number]-[id number] acute acute Supervision of normal acute Nausea/vomiting in resolved KIW-QABU-[id number] acute acute Supervision of normal acute Nausea/vomiting in resolved HVM-[id number] acute acute Supervision of normal acute CUF-UZAO-34244818 acute acute Supervision of normal acute Breast mass, right resolved Breast pain, left resolved JAE-WRRW-[id number] acute acute Supervision of normal acute Breast mass, right resolved Breast pain, left resolved QSN-PCRP-[id number] acute acute Supervision of normal acute TDP-IEJN-63879323 acute acute Supervision of normal acute JSJ-HEJP-84872009 acute acute Supervision of normal [facility] Work Phone: Evaluation note* Diagnosis Onset Date Resolution Status EHN-GLMI-[id number] acute acute Supervision of normal acute Nausea/vomiting in resolved JZD-WDUT-[id number] acute acute Supervision of normal acute Nausea/vomiting in resolved JAJ-SLTY-[id number] acute acute Supervision of normal acute WCA-MIBX-77090467 acute acute Supervision of normal acute Breast mass, right resolved Breast pain, left resolved ANZ-RNIM-37676727 acute acute Supervision of normal acute Breast mass, right resolved Breast pain, left resolved SKC-ASOT-21631533 acute acute Supervision of normal acute EIY-BEGX-08105247 acute acute Supervision of normal acute PBN-BNMM-52544209 acute acute Supervision of normal acute KWX-OCAQ-18566912 acute acute Supervision of normal acute [facility] Work Phone: Evaluation note* Diagnosis Onset Date Resolution Status FVU-PWGQ-[id number] acute acute Supervision of normal acute Nausea/vomiting in resolved NXE-JAAO-[id number] acute acute Supervision of normal acute EKI-UZTR-94856647 acute acute Supervision of normal acute Breast mass, right resolved Breast pain, left resolved TCG-RYST-28992396 acute acute Supervision of normal acute Breast mass, right resolved Breast pain, left resolved CXF-RFOQ-24742915 acute acute Supervision of normal acute ISG-TOYE-95615493 acute acute Supervision of normal acute FID-JCLG-09919390 acute acute Supervision of normal acute XAQ-GBKY-64075527 acute acute Supervision of normal acute Premature rupture of membranes resolved JSC-BSBI-61225691 acute acute Supervision of normal acute Active labor at term acute FWZ-HLPE-65368459 acute acute Supervision of normal [facility] Work Phone: Evaluation note* Diagnosis Onset Date Resolution Status Anal fissure acute Family hx of colon cancer ac narendra Anal fissure acute Family hx of colon cancer ac [facility] Work Phone: Progress note Author Kinza Barahona [facility] Note Date/Time October 21, 2024 9:17 am [facility] [address], [address] [place] [address] OFFICE VISIT Date of Service: 10/21/24 MR#: [id number] Acct: [id number] Name: CONCHA GREWAL Rep #: [id number] : 1990 Provider: Dr. Candelario Barahona MD Age/Sex: 34/F Location: [facility] Status: Signed Intake Vital Signs 08/20/24 08:29 09/19/24 14:58 10/21/24 08:52 Height 5 ft 6 in 5 ft 6 in 5 ft 6 in Weight: 171 lb BMI 27.6 BP 102/68 Intake Visit Reasons: 24 wk ob Motion Study Analyst Required: No Is patient in pain?: No Allergies house dust Allergy (Mild, Verified 10/21/24 08:56) Nasal congestion Medications ?Medication ?Instructions ?Recorded ?Confirmed ?Type multivit-min no.71-iron fum 28 1 cap PO DAILY pregnanc y 12/15/21 10/21/24 History mg-folate no.1 1 mg-dha 300 mg capsule (PNV-Hamilton) Last Menstrual Period: 04/27/24 Zika: Zika virus [...] physical activity do you participate in: none brandyn/muslim: Judaism seatbelt use: always do you feel safe [...] full term 8lbs 3oz Male ep idural [facility] Dr. Vasquez Delivery Date: 07/22/22 Last Updated by: Aicha Albercht 1st degree tear HPI 24 wk ob [...] Cosigner Signature: Date (if applicable) CC: ~ [facility] Work Phone: Progress note Author Nina Kern [facility] Note Date/Time November 15, 2024 11: 09am [facility] [address], [address] [address] OFFICE VISIT Date of Service: 11/15/24 MR#: [id number] Acct: [id number] Name: CONCHA GREWAL Arin Rep #: [id number] : 1990 Provider: Dr. Lina Gamboa DO Age/Sex: 34/F Location: [facility] Status: Signed Intake Vital Signs 10/21/24 08:52 11/15/24 10:20 11/15/24 10:21 Height 5 ft 6 in 5 ft 6 in 5 ft 6 in Weight: 174 lb 7 oz BMI 28.1 BP 98/60 Intake Visit Reasons: 28wk ob/glucose Motion Study Analyst Required: No Is patient in pain?: No Allergies house dust Allergy (Mild, Verified 11/15/24 10:20) Nasal congestion Medications ?Medication ?Instructions ?Recorded ?Confirmed ?Type multivit-min no.71-iron fum 28 1 cap PO DAILY pregnanc y 12/15/21 11/15/24 History mg-folate no.1 1 mg-dha 300 mg capsule (PNV-Hamilton) Last Menstrual Period: 04/27/24 Zika: Zika virus [...] physical activity do you participate in: none brandyn/muslim: Judaism seatbelt use: always do you feel safe [...] full term 8lbs 3oz Male ep idural [facility] Dr. Vasquez Delivery Date: 07/22/22 Last [...] and Symptoms of Preeclampsia, Labor Signs and Wolcott Education; Discussed Trial of Labor after Counseling [...] Cosigner Signature: Date (if applicable) CC: ~ [facility] Work Phone: Progress note Author Alessandra Luis Miguel [facility] Note Date/Time November 29, 2024 11 :18am [facility] [address] [place] [address], [address] [place] [address] OFFICE VISIT Date of Service: 11/29/24 MR#: [id number] Acct: [id number] Name: CONCHA GREWAL Rep #: [id number] : 1990 Provider: TRISTIN Bolanos Age/Sex: 34/F Location: [facility] Status: Signed Intake Vital Signs 09/19/24 14:58 11/15/24 10:21 11/29/24 10:52 Height 5 ft 6 in 5 ft 6 in 5 ft 6 in Weight: 176 lb BMI 28.4 BP 99/64 Intake Visit Reasons: 30 wk ob Motion Study Analyst Required: No Is patient in pain?: No Allergies house dust Allergy (Mild, Verified 11/29/24 10:54) Nasal congestion Medications ?Medication ?Instructions ?Recorded ?Confirmed ?Type multivit-min no.71-iron fum 28 1 cap PO DAILY pregnanc y 12/15/21 11/29/24 History mg-folate no.1 1 mg-dha 300 mg capsule (PNV-Hamilton) Last Menstrual Period: 04/27/24 Zika: Zika virus [...] physical activity do you participate in: none brandyn/muslim: Judaism seatbelt use: always do you feel safe [...] full term 8lbs 3oz Male ep idural [facility] Dr. Vasquez Delivery Date: 07/22/22 Last [...] and Symptoms of Preeclampsia, Labor Signs and Wolcott Education; Discussed Trial of Labor after Counseling [...] Cosigner Signature: Date (if applicable) CC: ~ [facility] Work Phone: Progress note Author Ruthie Le [facility] Note Date/Time December 11, 2024 9:31am [facility] [address], [address] [place] [address] OFFICE VISIT Date of Service: 12/11/24 MR#: [id number] Acct: [id number] Name: CONCHA GREWAL Rep #: [id number] : 1990 Provider: TRISTIN Le Age/Sex: 34/F Location: [facility] Status: Signed Intake Vital Signs 11/15/24 10:21 11/29/24 10:52 12/11/24 09:02 Height 5 ft 6 in 5 ft 6 in 5 ft 6 in Weight: 177 lb 4 oz BMI 28.5 BP 110/64 Intake Visit Reasons: 32wk ob Motion Study Analyst Required: No Is patient in pain?: No Allergies house dust Allergy (Mild, Verified 12/11/24 09:04) Nasal congestion Medications ?Medication ?Instructions ?Recorded ?Confirmed ?Type multivit-min no.71-iron fum 28 1 cap PO DAILY pregnanc y 12/15/21 12/11/24 History mg-folate no.1 1 mg-dha 300 mg capsule (PNV-Hamilton) Last Menstrual Period: 04/27/24 Zika: Zika virus [...] physical activity do you participate in: none brandyn/muslim: Judaism seatbelt use: always do you feel safe [...] full term 8lbs 3oz Male ep idural [facility] Dr. Vasquez Delivery Date: 07/22/22 Last [...] Cosigner Signature: Date (if applicable) CC: ~ [facility] Work Phone: Progress note Author Kinza Barahona [facility] Note Date/Time January 10, 2025 11 :04am [facility] [address] [place] [address], [address] [place] [address] OFFICE VISIT Date of Service: 01/10/25 MR#: [id number] Acct: [id number] Name: CONCHA GREWAL Rep #: [id number] : 1990 Provider: Dr. Candelario Barahona MD Age/Sex: 34/F Location: [facility] Status: Signed Intake Vital Signs 11/15/24 10:21 12/25/24 09:39 01/10/25 10:41 Height 5 ft 6 in 5 ft 6 in 5 ft 6 in Weight: 180 lb 6 oz BMI 29.1 BP 95/61 Intake Visit Reasons: 36wk ob Motion Study Analyst Required: No Is patient in pain?: No Allergies house dust Allergy (Mild, Verified 01/10/25 10:43) Nasal congestion Medications ?Medication ?Instructions ?Recorded ?Confirmed ?Type multivit-min no.71-iron fum 28 1 cap PO DAILY pregnanc y 12/15/21 01/10/25 History mg-folate no.1 1 mg-dha 300 mg capsule (PNV-Hamilton) Last Menstrual Period: 04/27/24 Zika: Zika virus [...] physical activity do you participate in: none brandyn/muslim: Judaism seatbelt use: always do you feel safe [...] full term 8lbs 3oz Male ep idural [facility] Dr. Vasquez Delivery Date: 07/22/22 Last [...] and Symptoms of Preeclampsia, Labor Signs and Wolcott Education; Discussed Trial of Labor after Counseling [...] Cosign Signature: Date (if applicable) CC: ~ [facility] Work Phone: Reason for referral (narrative)No reason for referral information availableWMercy Health [facility] Work Phone: Chief Complaint and Reason for [...] of normal Nausea/vomiting in Supervision of normal VOT-[id number] Nausea/vomiting in Supervision of normal OJT-FZNR-19504962 Nausea/vomiting in Supervision of normal IMC-HJEB-79819213 Nausea/vomiting in Supervision of normal Chief Complaint 17 WK OB SUPERVISION OF NORMAL 21wk ob 24 WK OB 30 WK OB 32 WK OB BILAT BREAST MASSES Reason for Visit [id number]-[id number] Supervision of normal Nausea/vomiting in DRG-YCMO-50994252 Supervision of normal Nausea/vomiting in COT-EWEJ-42785283 Supervision of normal Nausea/vomiting in YWW-VVUM-25930560 Supervision of normal Breast mass, right Breast pain, left EDG-IHHV-68939281 Supervision of normal Chief Complaint SUPERVISION OF ODETTE L 21wk ob 24 WK OB 30 WK OB 32 WK OB BILAT BREAST MASSES 34 WK OB 36 WK OB Reason for Visit XBV-PAPM-[id number] Supervision of normal Nausea/vomiting in ZHH-JQTT-18248057 Supervision of normal Nausea/vomiting in PFF-CSTH-48892407 Supervision of normal UID-YDHP-49678491 Supervision of normal Breast mass, right Breast pain, left TWF-SZAG-86770890 Supervision of normal Breast mass, right Breast pain, left SJE-UWFJ-80287311 Supervision of normal Chief Complaint 21wk ob 24 WK OB 30 WK OB 32 WK OB BILAT BREAST MASSES 34 WK OB 36 WK OB 37 wk ob 38 WK OB RULE OUT LABOR Reason for Visit IVK-HSZD-[id number] Supervision of normal Nausea/vomiting in BWL-OXLZ-86504720 Supervision of normal Nausea/vomiting in FTP-PKTM-42140055 Supervision of normal HBR-QMBG-76915713 Supervision of normal Breast mass, right Breast pain, left YQA-TUUE-95111227 Supervision of normal Breast mass, right Breast pain, left PQP-EAZL-10339876 Supervision of normal RDX-KHVR-10436099 Supervision of normal FJU-XUWU-39495885 Supervision of normal Chief Complaint 21wk ob 24 WK OB 30 WK OB 32 WK OB BILAT BREAST MASSES 34 WK OB 36 WK OB 37 wk ob 38 WK OB RULE OUT LABOR RULE OUT LABOR R\O LABOR Reason for Visit LWF-VJWV-[id number] Supervision of normal Nausea/vomiting in HXP-TFRK-33088835 Supervision of normal Nausea/vomiting in KQH-JMVB-13047514 Supervision of normal RVM-OLNS-93763845 Supervision of normal Breast mass, right Breast pain, left KJS-DJKY-28713614 Supervision of normal Breast mass, right Breast pain, left PGY-RQSU-27937095 Supervision of normal SVT-ZEHP-65884738 Supervision of normal UGH-GDTE-73042110 Supervision of normal SJY-FXGD-03771228 Supervision of normal Chief Complaint 24 WK OB 30 WK OB 32 WK OB BILAT BREAST MASSES 34 WK OB 36 WK OB 37 wk ob 38 WK OB RULE OUT LABOR RULE OUT LABOR R\O LABOR R\O LABOR 39 WK OB VAGINAL DELIVERY LABOR VAGINAL DELIVERY VAGINAL DELIVERY Reason for Visit MXW-RKZJ-45445371 Supervision of normal Nausea/vomiting in TYH-ZMSA-57451014 Supervision of normal DJF-XGZV-74827672 Supervision of normal Breast mass, right Breast pain, left LSV-JZLG-52163684 Supervision of normal Breast mass, right Breast pain, left NVX-XSWH-05453207 Supervision of normal JTT-QSMD-04363884 Supervision of normal XRE-PDFU-31048174 Supervision of normal BQB-MPQF-02892037 Supervision of normal Premature rupture of membranes TNH-GYMW-58046547 Supervision of normal Active labor at term IZH-QYPX-90421260 Supervision of normal Chief Complaint BLOOD IN [...] December 25, 2024 9:38am [facility] 2024 9:38am Chief Complaint Admit Date 20wk [...] No January 04, 2021 6:14pm Power of Statement Request Clerk No December 6:14pm Advance Directive Response Recorded Date/ Time Living Will No January 04, 2021 5:14pm Power of Statement Request Clerk No December 5:14pm Advance Directive Response Recorded Date/ Time Living Will No June 24, 2022 4:53pm Power of Statement Request Clerk No June 24 4:53pm Advance Directive Response Recorded Date/ Time Living Will No July 01, 2022 9:58am Power of Statement Request Clerk No July 01 9:58am Advance Directive Response Recorded Date/ Time Living Will No July 22, 2022 3:49am Power of Statement Request Clerk No July 22 3:49am Advance Directive Response Recorded Date/ Time Living Will No July 17, 2023 9:55am Power of Statement Request Clerk No July 16 9:55am Summary Purpose Additional [...] End: August 20, 2024 Esperanza Florence NP, [employer]ER-C Attending Provider Active Start: August 20, 2024 End: August 20, 2024 Team Status: Inactive Member Role Status Dates Dr. Tirso Kemp MD Primary Care Provider Acti ve Start: September 19, 2024 End: September 19, 2024 Dr. Tirso Kemp MD Referring Provider Active Start: September 19, 2024 End: September 19, 2024 Esperanza Florence NP, [employer]-C Attending Provider Active Start: September 19, 2024 [...] 2024 End: August 20, 2024 Esperanza Florence STOR[employer] LABORER, [employer]ER-C Attending Provider Active Start: August 20, 2024 End: August 20, 2024 Team Status: Inactive Member Role/Relationship Status Dates Dr. Tirso Kemp MD Primary Care Provider Acti ve Start: September 19, 2024 End: September 19, 2024 Dr. Tirso Kemp MD Referring Provider Active Start: September 19, 2024 End: September 19, 2024 Esperanza Florence STORES LABORER, [employer]ER-C Attending Provider Active Start: September 19, 2024 [...] 2024 End: August 20, 2024 Esperanza Florence STORES LABORER, [employer]ORER-C Attending Provider Active Start: August 20, 2024 End: August 20, 2024 Team Status: Inactive Member Role/Relationship Status Dates Dr. Tirso Kemp MD Primary Care Provider Acti ve Start: September 19, 2024 End: September 19, 2024 Dr. Tirso Kemp MD Referring Provider Active Start: September 19, 2024 End: September 19, 2024 Esperanza Florence STORES LABORER, [employer]ER-C Attending Provider Active Start: September 19, 2024 [...] 2024 End: August 20, 2024 Esperanza Florence STORES LABORER, [employer]ER-C Attending Provider Active Start: August 20, 2024 End: August 20, 2024 Team Status: Inactive Member Role/Relationship Status Dates Dr. Tirso Kemp MD Primary Care Provider Acti ve Start: September 19, 2024 End: September 19, 2024 Dr. Tirso Kemp MD Referring Provider Active Start: September 19, 2024 End: September 19, 2024 Esperanza Florence STORES LABORER, [employer]ORER-C Attending Provider Active Start: September 19, 2024 [...] 2024 End: September 19, 2024 Esperanza Florence [employer] LABORER, [employer]-C Attending physician Active Start: September 19, 2024 [...] End: December 25, 2024 Esperanza Florence NP, [employer]-C Attending physician Active Start: December 25, 2024 [...] section and content) DATE CREATED AUTHOR 01/24/2025 [facility] FOR RECORDS PERTAINING TO PATIENTS WHO ARE [...] BE BASED ON THE PRIMARY CLINICAL RECORDS. [employer] provides no warranty or guarantee of the accuracy or completeness of information in this document.
== END | disposition home or self-care (01) ==
LOC: LABSPEC 16:01
PROVIDERS: PCP Family Medicine; Visit Provider Obstetrics & Gynecology
DX: N76.0 Acute vaginitis (principal)
CPT/HCPCS: 87070; 87205

== ENCOUNTER → 2025-01-29 | Outpatient (CLI) | payer OTHER, SELFPAY ==
--- NOTE | 2025-01-29 18:04 | US_ITS ---
PROCEDURE: OB LIMITED WITH BIOMETRICS 01/29/2025 REASON FOR EXAM: GROWTH TECHNIQUE: Procedure Code: [id number] Modality: US Procedure: OB LIMITED WITH BIOMETRICS COMPARISON: None FINDINGS Cephalic position with cardiac activity of 123 bpm. Maximum vertical pocket of 5.4 cm and PARTH of 11.4 cm. Placenta is posterior position with grade 2. BPD of 8.9, OFD of the 11.8, HC of 33.4, AC of 35.7, and FL of 7.6 cm corresponding with average gestational age of 38 weeks and 0 day with RYLEE of 02/12/2025. Of note, BPD is 6 percentile and HC is 14 percentile. Estimated weight of 3605 (56 percentile). US/OB Limited With Biometrics IMPRESSION: BPD of 8.9, OFD of the 11.8, HC of 33.4, AC of 35.7, and FL of 7.6 cm correspon ding with average gestational age of 38 weeks and 0 day with RYLEE of 02/12/2025. Of note, BPD is 6 percentile and HC is 14 percentile. Estimated weight i s within normal limits. Reading Location: [id number]
--- NOTE | 2025-01-29 18:04 | US_ITS ---
PROCEDURE: OB LIMITED WITH BIOMETRICS 01/29/2025 REASON FOR EXAM: GROWTH TECHNIQUE: Procedure Code: [id number] Modality: US Procedure: OB LIMITED WITH BIOMETRICS COMPARISON: None FINDINGS Cephalic position with cardiac activity of 123 bpm. Maximum vertical pocket of 5.4 cm and PARTH of 11.4 cm. Placenta is posterior position with grade 2. BPD of 8.9, OFD of the 11.8, HC of 33.4, AC of 35.7, and FL of 7.6 cm corresponding with average gestational age of 38 weeks and 0 day with RYLEE of 02/12/2025. Of note, BPD is 6 percentile and HC is 14 percentile. Estimated weight of 3605 (56 percentile). US/OB Limited With Biometrics IMPRESSION: BPD of 8.9, OFD of the 11.8, HC of 33.4, AC of 35.7, and FL of 7.6 cm correspon ding with average gestational age of 38 weeks and 0 day with RYLEE of 02/12/2025. Of note, BPD is 6 percentile and HC is 14 percentile. Estimated weight i s within normal limits. Reading Location: [id number]
--- OUTSIDE RECORDS SUMMARY | 2025-01-29 18:18 | XMS RPT_ITS | CCD ---
Author Organization [facility] Care Team Providers Care Crane Operator Cab Name Role Phone Dr. Shaan Kemp Primary Care Provider [phone] Dr. Shaan Kemp Referring Provider Dr. Kinza Barahona Attending Provider [phone] Dr. Shaan Kemp Primary Care Provider [phone] Dr. Shaan Kemp Referring Provider Dr. Kinza Barahona Attending Provider [phone] Ludivina PSYCHIATRIC AIDES TEACHER, YANN-Diego Mata Attending Provider [phone] Dr. Nina Gamboa Attending Provider [phone] TRISTIN Bolanos Attending Provider [phone] Shaan Kemp Primary Care Provider [phone] Dr. Shaan Kemp Referring Provider Dr. Kinza Barahona Attending Provider [phone] Dr. Shaan Kemp Primary Care Provider [phone] Dr. Shaan Kemp Referring Provider TRISTIN Bolanos Attending Provider [phone] Dr. Kinza Barahona Attending Provider [phone] Dr. Nina Gamboa Attending Provider [phone] TRISTIN Le Attending Provider [phone] Dr. Kinza Barahona Referring Provider [phone] Dr. Kinza Barahona Other Provider [phone] Dr. Shaan Kemp Primary Care Provider Dr. Shaan Kemp Referring Provider TRISTIN Bolanos Attending Provider [phone] TRISTIN Le Other Provider [phone] Dr. Kinza Barahona Admit Provider Dr. Nina Gamboa Admit Provider Dr. Nina Gamboa Referring Provider [phone] Shiva Kern, Dr. Wood Other Provider Dr. Tirso Kemp Primary Care Provider Dr. Tirso Kemp Referring Provider Dr. Magaly Geogre Attending Provider Dr. Magaly George Other Provider [...] Viridiana HOYOS, Dr. Chahal Referring Provider [phone] Esperanza Encinas Attending Physician [phone] Jun HOYOS, Dr. Echols Attending Physician Dr. Nina Gamboa DO Attending Physician Luis Miguel CNMAlessandra Attending Physician [phone] Rey CROW, Ruthie Attending Physician [phone] Ranney, Christopher Primary Care Unavailable Ranney, Christopher Referring Unavailable Ruthie Le Attending Unavailable Ranney, Christopher Primary Care Unavailable Kristel Gamboafer Referring Unavailabl e Vande Concha, Nina Attending Unavailabl e Ranney, Christopher Primary Care Unavailable Ranney, Christopher Referring Unavailable Vande Concha, Nina Attending Unavailabl e Ranney, Christopher Primary Care Unavailable Ranney, Christopher Referring Unavailable Nina Gamboa Attending Unavailabl e Ranney, Christopher Primary Care Unavailable Ranney, Christopher Referring Unavailable Vande Velde, Nina Attending Unavailabl e Ranney, Christopher Primary Care Unavailable Ranney, Christopher Referring Unavailable VandNina Dejesus Attending Unavailabl e Kinza Barahona Attending Unavailable Kinza Barahona Referring Unavailable Ranney, Christopher Primary Care Unavailable Ranney, Christopher Primary Care Unavailable Vande Concha, Nina Attending Unavailabl e Ranney, Christopher Primary Care Unavailable Kinza Barahona Attending Unavailable Ranney, Christopher Referring Unavailable Ranney, Christopher Primary Care Unavailable Alessandra Bolanos Attending Unavailable Ranney, Christopher Referring Unavailable Ranney, Christopher Primary Care Unavailable Ruthie Le Attending Unavailable Ranney, Christopher Referring Unavailable Ranney, Christopher Primary Care Unavailable Esperanza Florence NP Attending Unavailable Ranney, Christopher Referring Unavailable Kinza Barahona Attending Unavailable Ranney, Christopher Primary Care Unavailable Ranney, Christopher Referring Unavailable Ruthie Le Attending Unavailable Ranney, Christopher Primary Care Unavailable Ranney, Christopher Primary Care Unavailable Ranney, Christopher Referring Unavailable Esperanza Florence NP Attending Unavailable Ranney, Christopher [facility] Unavailable Tirso Kemp Referring Unavailable Nina Gamboa Attending Unavailabl e [facility] Unavailable Tirso Kemp Referring Unavailable Esperanza Florence NP Attending Unavailable Dimadeltona [facility] Care Unavailable Tirso Kemp Referring Unavailable Kinza Barahona Attending Unavailable Allergies Allergy Classification Reported Allergen(s) Allergy Type Date of Onset Reaction(s) Facility (19 sources) house dust allergenic extract Drug Allergy 2 Nasal congestion [facility] (1 source) house dust allergenic extract Drug Allergy 5 [facility] Repository Medications Current Medications Medication Drug Class(es) Dates Sig (Normalized) Sig (Original) ferrous sulfate 75 mg/ml oral solution (6 sources) Start: 12-15-2021 take 1 mL by mouth once daily Ferrous Sulfate Active 0.83 ML PO DAILY December 15, 2021 12:00am Mv-Mins 05-Ctgp-Rvsai No.1-Dha (P[facility]-[place]) 28-1-300 mg capsule (19 sources) Start: 12-15-2021 Mv-Mins 05-Eapl-Brggk No.1-Dha (P[place]) 28-1-300 mg capsule Active 1 NMA PO DAILY December 15, 2021 12:00am Complies with drug therapy Start: 12-15-2021 Mv-Mins 71-Iro n-Folic No.1-Dha (P[place]) 28-1-300 mg capsule Active 1 NMA PO DAILY December 15, 2021 12:00am Start: 12-15-2021 Mv-Mins 71-Iro n-Folic No.1-Dha (P[place]) 28-1-300 mg capsule Active 1 NMA PO DAILY December 15, 2021 12:00am Start: 12-15-2021 take 1 capsule by mo uth once daily Mv-Mins 73-Ygry-Nbcuo No.1-Dha (P[place]) 28-1-300 mg capsule Active 1 CAP PO DAILY December 15, 2021 12:00am Start: 12-15-2021 take 1 capsule by mouth once M v-Mins 46-Ospn-Crfjf No.1-Dha (P[place]) 28-1-300 mg capsule Active CAP PO December 14, 2021 11:00pm Start: 12-15-2021 take 1 capsule by mouth once M v-Mins 01-Zgfb-Umciw No.1-Dha (Pnv-[place]) 28-1-300 mg capsule Active CAP PO December [...] Discontinued 1 NMA RC TWICE A DAY 30 June 12, 2023 1:00am July 05, 2023 [...] Comment on above: PRR, RYLEE: 02/01 JOSUE Joel : Jimy PRR, RYLEE: 02/01 freida Dumont JOSUE Joel : Jimy Other complications of (8 sources) [...] Test Name Value Interpretation Reference Range Facility Genital Culture Comprehensiv vivian 01-27-2025 [facility] Reason for Exam: vaginitis No Gardnerella, Neisseria or beta-hemolytic Streptococcus isolated. Presumptive C albicans Amount Growth 2+ Normal [facility] Comment on above: Performed By: #### L 100.0100, L3890.6301, L509.8002, BTS, L3890.6102, L3890.6006, L509.4006 #### [facility] [address] [place], [address] Gram Stainon 01-24-2025 Reason for Exam: vaginitis Gram Stain 4+ Gram positive rods No Gram negative diplococci 1+ Epithelial cells Score = 0 Interpretation: 0-3 Normal, 4-6 Intermediate, 7-10 Positive BV Normal [facility] Comment on above: Performed By: #### L 100.0100, L3890.6301, L509.8002, BTS, L3890.6102, L3890.6006, L509.4006 #### [facility] [address] [place], [address] Rail Technician Office Visit Reporton 01-24-2025 Rail Technician Office Visit Report [facility] [address], [address] [place] [address] OFFICE VISIT Date of Service: 01/24/25 MR#: [id number] Acct: [id number] Name: CONCHA GREWAL Rep #: [id number] : 1990 Provider: Dr. Nina Cortes DO Age/Sex: 34/F Location: [facility] [place] Status: Signed Intake Vital Signs 12/25/24 09:39 01/10/25 10:41 01/17/25 11:35 01/24/25 11:10 01/24/25 11:11 Height 5 ft 6 in 5 ft 6 in 5 ft 6 in 5 ft 6 in 5 ft 6 in Weight: 183 lb 9 oz BMI 29.6 BP 101/68 Intake Visit Reasons: 38 wk ob Varnish Maker Helper Required: No Is patient in pain?: No Allergies house dust Allergy (Mild, Verified 01/24/25 11:09) Nasal congestion Medications ???Medication ???Instructions ???Recorded ???Confirmed ???Type multivit-min no.71-iron fum 28 1 cap PO DAILY 12/15/21 01/24/25 History mg-folate no.1 1 mg-dha 300 mg capsule (PNV-[place]) fluconazole 150 mg tablet 150 mg PO DAILY 1 day #1 TAB 01/2401/24/25 Rx Last Menstrual Period: 04/27/24 Zika: Zika virus [...] physical activity do you participate in: none brandyn/advent: Caodaism seatbelt use: always do you feel safe [...] - full term 8lbs 3oz Male epidural [facility] Tea Shannon Kendrickericka Jimy Delivery Date: 07/22/22 Last Updated by: Aicha Albrecht 1st degree tear HPI 38 wk ob Details: CONCHA GREWAL is a 34 year old who presents for routine OB visit. OB Visit RYLEE Calculator Estimated Delivery Date Method Current WG Current Estimate 02/01/25 LMP (Certain) 38w 6d Other Estimates 01/29/25 Ultrasound #1 39w 2d Expected Delivery Route/Plan Labor Preferences- CB/BF [...] in visit notes/problem list details Initial Weight: 155 lb Date -???-???-???-???-???-?? ?-???-???-???-???-???-? ??- EGA Weight BP Urine Prot -???-???-???-???-???-?? ?-???-???-???-???-???-? ??- Glucose FHR FuHt Pres Dilation -???-???-???-???-???-?? ?-???-???-???-???-???-? ??- Effaced St Visit Note 06/24/24 -???-???-???-???-???-?? ?-???-???-???-???-???-? ??- 8w 2d 155 lb (+0 oz) 101/65 -???-???-???-???-???-?? ?-???-???-???-???-???-? ??- 175 -???-???-???-???-???-?? ?-???-???-???-???-???-? ??- JV- CRL cons istent with Lmp. declines nipt. still breast feeding. 07/23/24 -???-???-???-???-???-?? ?-???-???-???-???-???-? ??- 12w 3d 157 lb 8 oz (+2 lb 8 oz) 98/62 Negative -???-???-???-???-???-?? ?-???-???-???-???-???-? ??- Negative 165 -???-???-???-???-???-?? ?-???-???-???-???-???-? ??- JV- CRL tia uring according to GA. will order anatomy scan with MFM. JV- CRL measuring according to GA. will order anatomy scan with MFM. starting to have hip pain. 08/20/24 -???-???-???-???-???-?? ?-???-???-???-???-???-? ??- 16w 3d 160 lb (+5 lb) 94/60 Negative -???-???-? (more content not included)... Normal [facility] Rail Technician Office Visit Reporton 01-17-2025 Rail Technician Office Visit Report [facility] [address], [address] [place] [address] OFFICE VISIT Date of Service: 01/17/25 MR#: [id number] Acct: [id number] Name: CONCHA GREWAL Rep #: [id number] : 1990 Provider: TRISTIN Ramirez ams Age/Sex: 34/F Location: [facility] [place] Status: Signed Intake Vital Signs 12/25/24 09:39 01/10/25 10:41 01/17/25 11:35 Height 5 ft 6 in 5 ft 6 in 5 ft 6 in Weight: 182 lb 5 oz BMI 29.4 BP 101/69 Intake Visit Reasons: 37 wk ob Chief Complaint: 37wk OB Varnish Maker Helper Required: No Is patient in pain?: No Allergies house dust Allergy (Mild, Verified 01/17/25 11:34) Nasal congestion Medications ???Medication ???Instructions ???Recorded ???Confirmed ???Type multivit-min no.71-iron fum 28 1 cap PO DAILY 12/15/21 01/17/25 History mg-folate no.1 1 mg-dha 300 mg capsule (PNV-[place]) Last Menstrual Period: 04/27/24 : No PFSH [...] physical activity do you participate in: none brandyn/advent: Caodaism seatbelt use: always do you feel safe [...] - full term 8lbs 3oz Male epidural [facility] Tea Shannon Kendrickericka Jimy Delivery Date: 07/22/22 Last Updated by: [...] -???-???-???-???-???-?? ?-???-???-?? (more content not included)... Normal [facility] Rule out Beta Strep (Grp. B) on 01-14-2025 DUSTIN Sensitivity to follo w. Streptococcus agalactiae (B) Amount Growth Growth Streptococcus agalactiae (B): REACTION Ampicillin Islt MARK <=0.25 cefTRIAXone Islt MARK <=0.12 S Clindamycin Islt AMRK <=0.25 S Clindamycin.induced Susc Islt NEG Linezolid Islt MARK <=2 S Vancomycin Islt MARK 0.5 S Normal [facility] Comment on above: Performed By: #### L 100.0100, L3890.6301, L509.8002, BTS, L3890.6102, L3890.6006, L509.4006 #### [facility] [address] [place], [address] Rail Technician Office Visit Reporton 01-10-2025 Rail Technician Office Visit Report [facility] [address], [address] [place] [address] OFFICE VISIT Date of Service: 01/10/25 MR#: [id number] Acct: [id number] Name: CONCHA GREWAL Rep #: [id number] : 1990 Provider: Dr. Kinza tyler MD Age/Sex: 34/F Location: [facility] [place] Status: Signed Intake Vital Signs 11/15/24 10:21 12/25/24 09:39 01/10/25 10:41 Height 5 ft 6 in 5 ft 6 in 5 ft 6 in Weight: 180 lb 6 oz BMI 29.1 BP 95/61 Intake Visit Reasons: 36wk ob Varnish Maker Helper Required: No Is patient in pain?: No Allergies house dust Allergy (Mild, Verified 01/10/25 10:43) Nasal congestion Medications ???Medication ???Instructions ???Recorded ???Confirmed ???Type multivit-min no.71-iron fum 28 1 cap PO DAILY 12/15/21 01/10/25 History mg-folate no.1 1 mg-dha 300 mg capsule (PNV-[place]) Last Menstrual Period: 04/27/24 Zika: Zika virus [...] physical activity do you participate in: none brandyn/advent: Caodaism seatbelt use: always do you feel safe at home: Yes 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 Date Name GA/Weeks Outcome Route Bth Weight Gen Labor Lgth Anesthesia Del Locatn Provider FOB 07/22/22 Joel Downey live - full term 8lbs 3oz Male epidural [facility] Tea benjamin Baljeetwillian Concha Ahn Delivery Date: 07/22/22 Last Updated [...] 09/19/24 -???-???- (more content not included)... Normal [facility] - Chemistry and C hemistry - challengeOrdered By: Esperanza Florence on 12-25-2024 Glucose Ql (U) Negative [facility] - UrinalysisOrder ed By: Esperanza Florence on 12-25-2024 Protein Ql (U) Negative [facility] Rail Technician Office Visit Reporton 12-25-2024 Rail Technician Office Visit Report [facility] [address], [address] [place] [address] OFFICE VISIT Date of Service: 12/25/24 MR#: [id number] Acct: [id number] Name: CONCHA GREWAL Rep #: [id number] : 1990 Provider: ADRIENNE martell Age/Sex: 34/F Location: [facility] [place] Status: Signed Intake Vital Signs 11/15/24 10:21 12/11/24 09:02 12/25/24 09:39 Height 5 ft 6 in 5 ft 6 in 5 ft 6 in Weight: 180 lb 2 oz BMI 29.0 BP 92/55 L Intake Visit Reasons: 34wk ob Chief Complaint: 34 Week OB Varnish Maker Helper Required: No Is patient in pain?: No Allergies house dust Allergy (Mild, Verified 12/25/24 09:41) Nasal congestion Medications ???Medication ???Instructions ???Recorded ???Confirmed ???Type multivit-min no.71-iron fum 28 1 cap PO DAILY 12/15/21 12/25/24 History mg-folate no.1 1 mg-dha 300 mg capsule (PNV-[place]) Last Menstrual Period: 04/27/24 Zika: Zika virus [...] physical activity do you participate in: none brandyn/advent: Caodaism seatbelt use: always do you feel safe [...] - full term 8lbs 3oz Male epidural [facility] Tea Gamboa [facility] Delivery Date: 07/22/22 Last Updated by: [...] resolved. Do (more content not included)... Normal [facility] - Chemistry and C hemistry - challengeOrdered By: Ruthie Le on 12-11-2024 Glucose Ql (U) Negative [facility] - UrinalysisOrder ed By: Rutihe Le on 12-11-2024 Protein Ql (U) 1+ [facility] Rail Technician Office Visit Reporton 12-11-2024 Rail Technician Office Visit Report [facility], [address] [place] [address] OFFICE VISIT Date of Service: 12/11/24 MR#: [id number] Acct: [id number] Name: CONCHA GREWAL Rep #: [id number] : 1990 Provider: TRISTIN Ramirez [facility] Age/Sex: 34/F Location: [facility] [place] Status: Signed Intake Vital Signs 11/15/24 10:21 11/29/24 10:52 12/11/24 09:02 Height 5 ft 6 in 5 ft 6 in 5 ft 6 in Weight: 177 lb 4 oz BMI 28.5 BP 110/64 Intake Visit Reasons: 32wk ob Varnish Maker Helper Required: No Is patient in pain?: No Allergies house dust Allergy (Mild, Verified 12/11/24 09:04) Nasal congestion Medications ???Medication ???Instructions ???Recorded ???Confirmed ???Type multivit-min no.71-iron fum 28 1 cap PO DAILY 12/15/21 12/11/24 History mg-folate no.1 1 mg-dha 300 mg capsule (PNV-[place]) Last Menstrual Period: 04/27/24 Zika: Zika virus [...] physical activity do you participate in: none brandyn/advent: Caodaism seatbelt use: always do you feel safe at home: Yes 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 Date Name GA/Weeks Outcome Route Bth Weight Infant [facility]22 Joel 40 live - full term 8lbs 3oz Male epidural [facility] Tea Gamboa Jimy Delivery Date: 07/22/22 [...] -???-???-???-???-???-?? ?-???-???-? (more content not included)... Normal [facility] - Chemistry and C hemistry - challengeOrdered By: Alessandra Bolanos on 11-29-2024 Glucose Ql (U) Negative [facility] - UrinalysisOrder ed By: Alessandra Bolanos on 11-29-2024 Protein Ql (U) Negative [facility] Rail Technician Office Visit Reporton 11-29-2024 Rail Technician Office Visit Report [facility] [address] [place] [address], [address] [place] [address] OFFICE VISIT Date of Service: 11/29/24 MR#: [id number] Acct: [id number] Name: CONCHA GREWAL Rep #: [id number] : 1990 Provider: TRISTIN parks Age/Sex: 34/F Location: [facility] [place] Status: Signed Intake Vital Signs 09/19/24 14:58 11/15/24 10:21 11/29/24 10:52 Height 5 ft 6 in 5 ft 6 in 5 ft 6 in Weight: 176 lb BMI 28.4 BP 99/64 Intake Visit Reasons: 30 wk ob Varnish Maker Helper Required: No Is patient in pain?: No Allergies house dust Allergy (Mild, Verified 11/29/24 10:54) Nasal congestion Medications ???Medication ???Instructions ???Recorded ???Confirmed ???Type multivit-min no.71-iron fum 28 1 cap PO DAILY 12/15/21 11/29/24 History mg-folate no.1 1 mg-dha 300 mg capsule (PNV-[place]) Last Menstrual Period: 04/27/24 Zika: Zika virus [...] physical activity do you participate in: none brandyn/advent: Caodaism seatbelt use: always do you feel safe [...] - full term 8lbs 3oz Male epidural [facility] D r. Shiva Ahn Delivery Date: 07/22/22 Last Updated [...] 09/19/24 -?? (more content not included)... Normal [facility] Absolute lymphocyte countOrd ered By: Kinza Nicolewillie on 11-15-2024 Lymphocytes Auto (Unsp spec) [#/Vol] 1.37 10*3/uL 0.83-4.51 [facility] Absolute neutrophil countOrd ered By: Kinza Garibayjoie on 11-15-2024 Neutrophils (Bld) [#/Vol] 4.6 10*3/uL 2.0-7.7 [facility] Automated lymphocyte count a s percentage of total leukocytesOrdered By: Kinza Garibayjoie on 11-15-2024 Lymphocytes/100 WBC Auto (Unsp spec) 21.0 % 19-41 [facility] Basophil percentageOrdered B y: Kinza Garibayjoie on 11-15-2024 Basophils/100 WBC (Bld) 0.3 % 0-1 [facility] CBC W/Diff, Automatedon Absolute Lymph 1.37 X10 3/uL Normal 0.83-4.51 [facility] Comment on above: Performed By: #### L 509.8002, L501.0250, L3890.6006, L100.0100 #### [facility] [address] [place], [address] Absolute Neut 4.6 X10 3/uL Normal 2.0-7.7 [facility] Comment on above: Performed By: #### L 509.8002, L501.0250, L3890.6006, L100.0100 #### [facility] [address] [place], [address] Basophils/100 WBC (Bld) 0.3 % Normal 0-1 [facility] Comment on above: Performed By: #### L 509.8002, L501.0250, L3890.6006, L100.0100 #### [facility] [address] [place], [address] Eosinophils/100 WBC (Bld) 0.9 % Normal 0-5 [facility] Comment on above: Performed By: #### L 509.8002, L501.0250, L3890.6006, L100.0100 #### [facility] [address] [place], [address] Erythrocyte distribution width (RBC) [Ratio] 11.9 % Normal 11.6-14.6 [facility] Comment on above: Performed By: #### L 509.8002, L501.0250, L3890.6006, L100.0100 #### [facility] [address] [place], [address] Hematocrit (Bld) [Volume fraction] 33.8 % Low 37-47 [facility] Comment on above: Performed By: #### L 509.8002, L501.0250, L3890.6006, L100.0100 #### [facility] [address] [place], [address] Hemoglobin (Bld) [Mass/Vol] 11.5 g/dL Low 12.0-15.0 [facility] Comment on above: Performed By: #### L 509.8002, L501.0250, L3890.6006, L100.0100 #### [facility] [address] [place], [address] IG% 0.500 Normal 0.0-0.9 [facility] Comment on above: Result Comment: IG% - Immature Granulocytes (promyelocytes, myelocytes and metamyelocytes) > 1% indicates that a LEFT SHIFT is Present. Performed By: #### L 509.8002, L501.0250, L3890.6006, L100.0100 #### [facility] [address] [place], [address] Lymphocytes/100 WBC (Bld) 21.0 % Normal 19-41 [facility] Comment on above: Performed By: #### L 509.8002, L501.0250, L3890.6006, L100.0100 #### [facility] [address] [place], [address] MCH (RBC) [Entitic mass] 32.4 pg High 27.0-32.0 [facility] Comment on above: Performed By: #### L 509.8002, L501.0250, L3890.6006, L100.0100 #### [facility] [address] [place], [address] MCHC (RBC) [Mass/Vol] 34.0 g/dL Normal 32-36 [facility] Comment on above: Performed By: #### L 509.8002, L501.0250, L3890.6006, L100.0100 #### [facility] [address] [place], [address] MCV (RBC) [Entitic vol] 95.2 fL Normal 81-99 [facility] Comment on above: Performed By: #### L 509.8002, L501.0250, L3890.6006, L100.0100 #### [facility] [address] [place], [address] Monocytes/100 WBC (Bld) 6.1 % Normal 0-10 [facility] Comment on above: Performed By: #### L 509.8002, L501.0250, L3890.6006, L100.0100 #### [facility] [address] [place], [address] Neutrophils/100 WBC (Bld) 71.2 % High 47-70 [facility] Comment on above: Performed By: #### L 509.8002, L501.0250, L3890.6006, L100.0100 #### [facility] [address] [place], [address] Nucleated RBC (Bld) [#/Vol] 0 10*3/uL Normal 0-5 [facility] Comment on above: Performed By: #### L 509.8002, L501.0250, L3890.6006, L100.0100 #### [facility] [address] [place], [address] Platelet mean volume (Bld) [Entitic vol] 10.2 fL Normal 6.2-12.0 [facility] Comment on above: Performed By: #### L 509.8002, L501.0250, L3890.6006, L100.0100 #### [facility] [address] [place], [address] Platelets (Bld) [#/Vol] 284 10*3/uL Normal 150-450 [facility] Comment on above: Performed By: #### L 509.8002, L501.0250, L3890.6006, L100.0100 #### [facility] [address] [place], [address] RBC (Bld) [#/Vol] 3.55 10*6/uL Low 4.2-5.4 [facility] Comment on above: Performed By: #### L 509.8002, L501.0250, L3890.6006, L100.0100 #### [facility] [address] [place], [address] RDW SD 41.3 fl Normal 35.1-43.9 [facility] Comment on above: Performed By: #### L 509.8002, L501.0250, L3890.6006, L100.0100 #### [facility] [address] [place], [place], [address] WBC (Bld) [#/Vol] 6.5 10*3/uL Normal 4.4-11.0 [facility] Comment on above: Performed By: #### L 509.8002, L501.0250, L3890.6006, L100.0100 #### [facility] [address] [place], [place], [address] Eosinophil percentageOrdered By: Kinza Barahona on 11-15-2024 Eosinophils/100 WBC (Bld) 0.9 % 0-5 [facility] Erythrocyte distribution wid th ratioOrdered By: Kinza Barahona on 11-15-2024 Erythrocyte distribution width (RBC) [Ratio] 11.9 % 11.6-14.6 [facility] Erythrocyte distribution wid th standard deviationOrdered By: Kinza Barahona on 11-15-2024 Erythrocyte distribution width (RBC) [Ratio] 41.3 fl 35.1-43.9 [facility] Glucose Challenge Gest 1H 50 vaishali 11-15-2024 GLU GEST 50g 1H 83 mg/dL Normal 70-140 [facility] Comment on above: Performed By: #### L 509.8002, L501.0250, L3890.6006, L100.0100 #### [facility] [address] [place], [place], [id number] Glucose measurement at 2 all rs post-dose gestational glucose tolerance testOrdered By: Kinza Barahona on 11-15-2024 Glucose [Mass/Vol] 83 mg/dL 70-140 [facility] HIVon 11-15-2024 HIV Non-Reactive Normal Nonreactive [facility] Comment on above: Result Comment: Non- Reactive Reactive Repeatedly reactive samples must be confirmed according to CDC recommended confirmatory algorithms. The subresults for either HIVAG or AHIV can be used as an aid in the selection of the confirmation algorithm for reactive samples. Send out specimens with Reactive results to [facility] for confirmation. Order the HIV antibody detection and differentiation: lc#[id number] Performed By: #### L 100.0100, L3890.6301, L509.8002, BTS, L3890.6102, L3890.6006, L509.4006 #### [facility] [place], [address] Hematocrit Auto (Bld) [Volum e fraction]Ordered By: Kinza Barahona on 11-15-2024 Hematocrit (Bld) [Volume fraction] 33.8 % Low 37-47 [facility] Hemoglobin measurementOrdere d By: Kinza Barahona on 11-15-2024 Hemoglobin (Bld) [Mass/Vol] 11.5 g/dL Low 12.0-15.0 [facility] Immature granulocytes/100 WB C Auto (Bld)Ordered By: Kinza Barahona on 11-15-2024 Immature granulocytes/100 WBC (Bld) 0.500 % 0.0-0.9 [facility] Comment on above: IG% - Immature Granu locytes (promyelocytes, myelocytes and metamyelocytes) > 1% indicates that a LEFT SHIFT is Present. Laboratory - Chemistry and C hemistry - challengeOrdered By: Nina Kern on 11-15-2024 Glucose Ql (U) Negative [facility] - UrinalysisOrder ed By: Nina Kern on 11-15-2024 Protein Ql (U) Negative [facility] MCV (mean corpuscular volume ) determinationOrdered By: Kinza Barahona on 11-15-2024 MCV (RBC) [Entitic vol] 95.2 fL 81-99 [facility] Mean corpuscular hemoglobin (MCH) determinationOrdered By: Kinza Barahona on 11-15-2024 MCH (RBC) [Entitic mass] 32.4 pg High 27.0-32.0 [facility] Mean corpuscular hemoglobin concentration (MCHC) determinationOrdered By: Kinza Barahona on 11-15-2024 MCHC (RBC) [Mass/Vol] 34.0 g/dL 32-36 [facility] Mean platelet volume determi nationOrdered By: Kinza Barahona on 11-15-2024 Platelet mean volume (Bld) [Entitic vol] 10.2 fL 6.2-12.0 [facility] Monocyte percentageOrdered B y: Kinza Barahona on 11-15-2024 Monocytes/100 WBC (Bld) 6.1 % 0-10 [facility] Neutrophil percentageOrdered By: Kinza Barahona on 11-15-2024 Neutrophils/100 WBC (Bld) 71.2 % High 47-70 [facility] No Panel InformationOrdered By: Kinza Garibayluiswillie on 11-15-2024 HIV (1&2) Antibody Non-Reactive Nonreactive [facility] Comment on above: Non-ReactiveReactive Repeatedly reactive samples must be confirmed according to CDC recommended confirmatory algorithms. The subresults for either HIVAG or AHIV can be used as an aid in the selection of the confirmation algorithm for reactive samples.Send out specimens with Reactive results to [facility] for confirmation.Order the HIV antibody detection and differentiation: #[id number] Nucleated red blood cell per centageOrdered By: Kizna Barahona on 11-15-2024 Nucleated RBC/100 WBC (Bld) [Ratio] 0 % 0-5 [facility] Office Visit Reporton 11-15-2024 Rail Technician Office Visit Report [facility] [address], [address] [place] [address] OFFICE VISIT Date of Service: 11/15/24 MR#: [id number] Acct: [id number] Name: CONCHA GREWAL Rep #: [id number] : 1990 Provider: Dr. Nina Cortes DO Age/Sex: 34/F Location: [facility] [place] Status: Signed Intake Vital Signs 10/21/24 08:52 11/15/24 10:20 11/15/24 10:21 Height 5 ft 6 in 5 ft 6 in 5 ft 6 in Weight: 174 lb 7 oz BMI 28.1 BP 98/60 Intake Visit Reasons: 28wk ob/glucose Varnish Maker Helper Required: No Is patient in pain?: No Allergies house dust Allergy (Mild, Verified 11/15/24 10:20) Nasal congestion Medications ???Medication ???Instructions ???Recorded ???Confirmed ???Type multivit-min no.71-iron fum 28 1 cap PO DAILY 12/15/21 11/15/24 History mg-folate no.1 1 mg-dha 300 mg capsule (PNV-[place]) Last Menstrual Period: 04/27/24 Zika: Zika virus [...] physical activity do you participate in: none brandyn/advent: Caodaism seatbelt use: always do you feel safe at home: Yes 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 Date Name GA/Weeks Outcome Route Bth Weight Infant Gen Labor Lgth Anesthesia Del [facility] Provider FOB 07/22/22 Joel 40 live - full term 8lbs 3oz Male epidural [facility] Delivery Date: 07/22/22 Last Updated by: [...] 09/19/24 -?? (more content not included)... Normal [facility] Platelet countOrdered By: Krissy Barahona on 11-15-2024 Platelets (Bld) [#/Vol] 284 10*3/uL 150-450 [facility] RBC Auto (Bld) [#/Vol]Ordere d By: Kinza Barahona on 11-15-2024 RBC (Bld) [#/Vol] 3.55 10*6/uL Low 4.2-5.4 [facility] Syphilis Antibodieson 2024 Syphilis Abs Non-Reactive Normal Nonreactive [facility] Comment on above: Performed By: #### L 509.8002, L501.0250, L3890.6006, L100.0100 #### [facility] [address] [place], [address] White blood cell (WBC) count Ordered By: Kinza Jun on 11-15-2024 WBC (Bld) [#/Vol] 6.5 10*3/uL 4.4-11.0 [facility] Laboratory - Chemistry and C hemistry - challengeOrdered By: Kinza Barahona on 10-21-2024 Glucose Ql (U) Negative [facility] - UrinalysisOrder ed By: Kinza Barahona on 10-21-2024 Protein Ql (U) Negative [facility] Rail Techn[facility] Office Visit Reporton 10-21-2024 Rail Technician Office Visit Report [facility]'s [address], [address] [place] [address] OFFICE VISIT Date of Service: 10/21/24 MR#: [id number] Acct: [id number] Name: CONCHA GREWAL Rep #: [id number] : 1990 Provider: Dr. Kinza tyler MD Age/Sex: 34/F Location: [facility] [place] Status: Signed Intake Vital Signs 08/20/24 08:29 09/19/24 14:58 10/21/24 08:52 Height 5 ft 6 in 5 ft 6 in 5 ft 6 in Weight: 171 lb BMI 27.6 BP 102/68 Intake Visit Reasons: 24 wk ob Varnish Maker Helper Required: No Is patient in pain?: No Allergies house dust Allergy (Mild, Verified 10/21/24 08:56) Nasal congestion Medications ???Medication ???Instructions ???Recorded ???Confirmed ???Type multivit-min no.71-iron fum 28 1 cap PO DAILY 12/15/21 10/21/24 History mg-folate no.1 1 mg-dha 300 mg capsule (PNV-[place]) Last Menstrual Period: 04/27/24 Zika: Zika virus [...] physical activity do you participate in: none brandyn/advent: Caodaism seatbelt use: always do you feel safe at home: Yes 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 Date Name GA/Weeks Outcome Route Bth Weight Gen Labor Lgth Anesthesia Del [facility] Provider FOB 07/22/22 Joel 40 live - full term 8lbs 3oz Male epidural [facility] Delivery Date: 07/22/22 [...] -???-???-???-???-???-?? ?-???- (more content not included)... Normal [facility] - Chemistry and C hemistry - challengeOrdered By: Esperanza Florence on 09-19-2024 Glucose Ql (U) Negative [facility] - UrinalysisOrder ed By: Esperanza Florence on 09-19-2024 Protein Ql (U) Negative [facility] Office Visit Reporton 09-19-2024 Rail Technician Office Visit Report [facility], [address] [place] [address] OFFICE VISIT Date of Service: 09/19/24 MR#: [id number] Acct: [id number] Name: CONCHA GREWAL Rep #: [id number] : 1990 Provider: ADRIENNE martell Age/Sex: 34/F Location: [facility] [place].[facility] Status: Signed Intake Vital Signs 03/17/25 14:15 08/20/24 08:29 09/19/24 14:55 09/19/24 14:58 Height 5 ft 6 in 5 ft 6 in 5 ft 6 in 5 ft 6 in Weight: 160 lb 168 lb BMI 25.8 27.1 BP 94/60 102/64 Intake Visit Reasons: 20wk ob Chief Complaint: 20 Week OB Varnish Maker Helper Required: No Is patient in pain?: No Allergies house dust Allergy (Mild, Verified 09/19/24 14:54) Nasal congestion Medications ???Medication ???Instructions ???Recorded ???Confirmed ???Type multivit-min no.71-iron fum 28 1 cap PO DAILY 12/15/21 09/19/24 History mg-folate no.1 1 mg-dha 300 mg capsule (PNV-[place]) Last Menstrual Period: 04/27/24 Zika: Zika virus [...] physical activity do you participate in: none brandyn/advent: Caodaism seatbelt use: always do you feel safe [...] - full term 8lbs 3oz Male epidural [facility] D rSimon Vasquez Delivery Date: 07/22/22 Last Updated by: Aicha Albrecht 1st degree tear HPI 20wk ob Details: CNOCHA GREWAL is a 34 year old who [...] Negative 153 -???-???-???-???-???-?? ?-???-???-???-???-???-? ??- -No VB. Catina mitchell (more content not included)... Normal [facility] - Chemistry and C hemistry - challengeOrdered By: Esperanza Florence on 08-20-2024 Glucose Ql (U) Negative [facility] - UrinalysisOrder ed By: Esperanza Florence on 08-20-2024 Protein Ql (U) Negative [facility] Rail Techn[facility] Office Visit Reporton 08-20-2024 Rail Technician Office Visit Report [facility]'s [address], [address] [place] [address] OFFICE VISIT Date of Service: 08/20/24 MR#: [id number] Acct: [id number] Name: CONCHA GREWAL Rep #: [id number] : 1990 Provider: ADRIENNE martell Age/Sex: 33/F Location: [facility] [place] Status: Signed Intake Vital Signs 06/24/24 14:15 07/23/24 09:17 08/20/24 08:29 Height 5 ft 6 in 5 ft 6 in 5 ft 6 in Weight: 160 lb BMI 25.8 BP 94/60 Intake Visit Reasons: 16wk ob Chief Complaint: 16 Week OB Varnish Maker Helper Required: No Is patient in pain?: No Allergies house dust Allergy (Mild, Verified 08/20/24 08:30) Nasal congestion Medications ???Medication ???Instructions ???Recorded ???Confirmed ???Type multivit-min no.71-iron fum 28 1 cap PO DAILY 12/15/21 08/20/24 History mg-folate no.1 1 mg-dha 300 mg capsule (PNV-[place]) Last Menstrual Period: 04/27/24 Zika: Zika virus [...] physical activity do you participate in: none brandyn/advent: Caodaism seatbelt use: always do you feel safe [...] - full term 8lbs 3oz Male epidural [facility] Tea benjamin Shiva Ahn Delivery Date: [...] ACOG First (more content not included)... Normal [facility] - Chemistry and C hemistry - challengeOrdered By: Nina Kern on 07-23-2024 Glucose Ql (U) Negative [facility] - UrinalysisOrder ed By: Nina Kern on 07-23-2024 Protein Ql (U) Negative [facility] Rail Technician Office Visit Reporton 07-23-2024 Rail Technician Office Visit Report [facility] [address], [address] [place] [address] OFFICE VISIT Date of Service: 07/23/24 MR#: [id number] Acct: [id number] Name: CONCHA GREWAL Rep #: [id number] : 1990 Provider: Dr. Nina Cortes, Age/Sex: 33/F Location: [facility] [place] Status: Signed Intake Vital Signs 06/24/24 14:15 07/23/24 09:17 Height 5 ft 6 in 5 ft 6 in Weight: 157 lb 8 oz BMI 25.4 BP 98/62 Intake Visit Reasons: 12wk ob Varnish Maker Helper Required: No Is patient in pain?: No Allergies house dust Allergy (Mild, Verified 07/23/24 09:18) Nasal congestion Medications ???Medication ???Instructions ???Recorded ???Confirmed ???Type multivit-min no.71-iron fum 28 1 cap PO DAILY 12/15/21 07/23/24 History mg-folate no.1 1 mg-dha 300 mg capsule (PNV-[place]) Last Menstrual Period: 04/27/24 Zika: Zika virus [...] physical activity do you participate in: none brandyn/advent: Caodaism seatbelt use: always do you feel safe at home: Yes 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 Date Name GA/Weeks Outcome Route Bth Weight Infant Gen Labor Lgth Anesthesia Del [facility] Provider FOB 07/22/22 Joel 40 live - full term 8lbs 3oz Male epidural [facility] Delivery Date: 07/22/22 Last Updated by: Aicha [...] Precations, U (more content not included)... Normal [facility] Chlamydia/GC ISABELLE aptimaon CHLAMY,NUC ACID Negative Normal Negative [facility] Comment on above: Performed By: #### L 100.0100, L3890.6301, L509.8002, BTS, L3890.6102, L3890.6006, L509.4006 #### [facility] [address] [place], [place], [id number] GC BY NUC ACID Negative Normal Negative [facility] Comment on above: Result Comment: Perf ormed at: =G - [facility] [address] [id number] Float Tender: Shy Rivera MD, Phone: [phone] Performed By: #### L 100.0100, L3890.6301, L509.8002, BTS, L3890.6102, L3890.6006, L509.4006 #### [facility] [address] [place], [place], [id number] Urine Cultureon 06-25-2024 URC Culture exhibits no growth. Normal [facility] Comment on above: Performed By: #### L 100.0100, L3890.6301, L509.8002, BTS, L3890.6102, L3890.6006, L509.4006 #### [facility] [address] [place], [place], [id number] Absolute lymphocyte countOrd ered By: Nina Concha on 06-24-2024 Lymphocytes Auto (Unsp spec) [#/Vol] 2.08 10*3/uL 0.83-4.51 [facility] Absolute neutrophil countOrd ered By: Nina Concha on 06-24-2024 Neutrophils (Bld) [#/Vol] 5.8 10*3/uL 2.0-7.7 [facility] Automated lymphocyte count a s percentage of total leukocytesOrdered By: Nina Concha on 06-24-2024 Lymphocytes/100 WBC Auto (Unsp spec) 24.2 % 19-41 [facility] Basophil percentageOrdered B y: Nina Marksericka on 06-24-2024 Basophils/100 WBC (Bld) 0.6 % 0-1 [facility] C. trachomatis rRNA ISABELLE+prob e Ql (Unsp spec)Ordered By: Nina Marksericka on 06-24-2024 Chlamydia DNA (ISABELLE) Negative Negative [facility] CBC W/Diff, Automatedon 06-08 Absolute Lymph 2.08 X10 3/uL Normal 0.83-4.51 [facility] Comment on above: Performed By: #### L 100.0100, L3890.6301, L509.8002, BTS, L3890.6102, L3890.6006, L509.4006 #### [facility] [address] [place], [place], [id number] Absolute Neut 5.8 X10 3/uL Normal 2.0-7.7 [facility] Comment on above: Performed By: #### L 100.0100, L3890.6301, L509.8002, BTS, L3890.6102, L3890.6006, L509.4006 #### [facility] [address] [place], [address] Basophils/100 WBC (Bld) 0.6 % Normal 0-1 [facility] Comment on above: Performed By: #### L 100.0100, L3890.6301, L509.8002, BTS, L3890.6102, L3890.6006, L509.4006 #### [facility] [address] [place], [address] Eosinophils/100 WBC (Bld) 1.2 % Normal 0-5 [facility] Comment on above: Performed By: #### L 100.0100, L3890.6301, L509.8002, BTS, L3890.6102, L3890.6006, L509.4006 #### [facility] [address] [place], [address] Erythrocyte distribution width (RBC) [Ratio] 12.0 % Normal 11.6-14.6 [facility] Comment on above: Performed By: #### L 100.0100, L3890.6301, L509.8002, BTS, L3890.6102, L3890.6006, L509.4006 #### [facility] [address] [place], [address] Hematocrit (Bld) [Volume fraction] 36.7 % Low 37-47 [facility] Comment on above: Performed By: #### L 100.0100, L3890.6301, L509.8002, BTS, L3890.6102, L3890.6006, L509.4006 #### [facility] [address] [place], [address] Hemoglobin (Bld) [Mass/Vol] 12.6 g/dL Normal 12.0-15.0 [facility] Comment on above: Performed By: #### L 100.0100, L3890.6301, L509.8002, BTS, L3890.6102, L3890.6006, L509.4006 #### [facility] [address] [place], [address] IG% 0.300 Normal 0.0-0.9 [facility] Comment on above: Result Comment: IG% - Immature Granulocytes (promyelocytes, myelocytes and metamyelocytes) > 1% indicates that a LEFT SHIFT is Present. Performed By: #### L 100.0100, L3890.6301, L509.8002, BTS, L3890.6102, L3890.6006, L509.4006 #### [facility] [address] [place], [address] Lymphocytes/100 WBC (Bld) 24.2 % Normal 19-41 [facility] Comment on above: Performed By: #### L 100.0100, L3890.6301, L509.8002, BTS, L3890.6102, L3890.6006, L509.4006 #### [facility] [address] [place], [address] MCH (RBC) [Entitic mass] 31.9 pg Normal 27.0-32.0 [facility] Comment on above: Performed By: #### L 100.0100, L3890.6301, L509.8002, BTS, L3890.6102, L3890.6006, L509.4006 #### [facility] [address] [place], [address] MCHC (RBC) [Mass/Vol] 34.3 g/dL Normal 32-36 [facility] Comment on above: Performed By: #### L 100.0100, L3890.6301, L509.8002, BTS, L3890.6102, L3890.6006, L509.4006 #### [facility] [address] [place], [address] MCV (RBC) [Entitic vol] 92.9 fL Normal 81-99 [facility] Comment on above: Performed By: #### L 100.0100, L3890.6301, L509.8002, BTS, L3890.6102, L3890.6006, L509.4006 #### [facility] [address] [place], [address] Monocytes/100 WBC (Bld) 6.3 % Normal 0-10 [facility] Comment on above: Performed By: #### L 100.0100, L3890.6301, L509.8002, BTS, L3890.6102, L3890.6006, L509.4006 #### [facility] [address] [place], [address] Neutrophils/100 WBC (Bld) 67.4 % Normal 47-70 [facility] Comment on above: Performed By: #### L 100.0100, L3890.6301, L509.8002, BTS, L3890.6102, L3890.6006, L509.4006 #### [facility] [address] [place], [address] Nucleated RBC (Bld) [#/Vol] 0 10*3/uL Normal 0-5 [facility] Comment on above: Performed By: #### L 100.0100, L3890.6301, L509.8002, BTS, L3890.6102, L3890.6006, L509.4006 #### [facility] [address] [place], [address] Platelet mean volume (Bld) [Entitic vol] 9.9 fL Normal 6.2-12.0 [facility] Comment on above: Performed By: #### L 100.0100, L3890.6301, L509.8002, BTS, L3890.6102, L3890.6006, L509.4006 #### [facility] [address] [place], [address] Platelets (Bld) [#/Vol] 302 10*3/uL Normal 150-450 [facility] Comment on above: Performed By: #### L 100.0100, L3890.6301, L509.8002, BTS, L3890.6102, L3890.6006, L509.4006 #### [facility] [address] [place], [address] RBC (Bld) [#/Vol] 3.95 10*6/uL Low 4.2-5.4 [facility] Comment on above: Performed By: #### L 100.0100, L3890.6301, L509.8002, BTS, L3890.6102, L3890.6006, L509.4006 #### [facility] [address] [place], [address] RDW SD 41.3 fl Normal 35.1-43.9 [facility] Comment on above: Performed By: #### L 100.0100, L3890.6301, L509.8002, BTS, L3890.6102, L3890.6006, L509.4006 #### [facility] [address] [place], [address] WBC (Bld) [#/Vol] 8.6 10*3/uL Normal 4.4-11.0 [facility] Comment on above: Performed By: #### L 100.0100, L3890.6301, L509.8002, BTS, L3890.6102, L3890.6006, L509.4006 #### [facility] [address] [place], [address] Chlamydia trachomatis rRNA d etection by probe and target amplification methodOrdered By: Nina Kern on 06-24-2024 C. trachomatis rRNA ISABELLE+probe Ql (Unsp spec) Negative Negative [facility] Eosinophil percentageOrdered By: Nina Concha on 06-24-2024 Eosinophils/100 WBC (Bld) 1.2 % 0-5 [facility] Erythrocyte distribution wid th ratioOrdered By: Nina Concha on 06-24-2024 Erythrocyte distribution width (RBC) [Ratio] 12.0 % 11.6-14.6 [facility] Erythrocyte distribution wid th standard deviationOrdered By: Nina Concha on 06-24-2024 Erythrocyte distribution width (RBC) [Entitic vol] 41.3 fL 35.1-43.9 [facility] Erythrocyte distribution width (RBC) [Ratio] 41.3 fl 35.1-43.9 [facility] HBV surface Ag Ql (S)Ordered By: Nina Kern on 06-24-2024 Hepatitis B Surface Antigen Non-Reactive Nonreactive [facility] Comment on above: Reactive: Presumptiv e evidence of HBV. Repeatedly reactive samples must be confirmed using a neutralization test ([facility] HBsAg Confirmatory Test)Non-Reactive: HBsAg not detected; does not exclude the possibility of exposure to HBV Hematocrit Auto (Bld) [Volum e fraction]Ordered By: Nina Kern on 06-24-2024 Hematocrit (Bld) [Volume fraction] 36.7 % Low 37-47 [facility] Hemoglobin measurementOrdere d By: Nina Concha on 06-24-2024 Hemoglobin (Bld) [Mass/Vol] 12.6 g/dL 12.0-15.0 [facility] Hepatitis C antibodyOrdered By: Nina Kern on 06-24-2024 Hepatitis C Antibody Non-Reactive Nonreactive [facility] Comment on above: Reactive: Presumptiv e evidence of antibodies to HCV. Follow CDC recommendations for supplemental testing.Non-Reactive: Antibodies to HCV were not detected; does not exclude the possibility of exposure to HCVReactive Results are presumptive evidence of antibodies to HCV. Follow CDC recommendations for supplemental testing.Order confirmation testing: HCV Quant by PCR testing - HCVPCR #[id number] Non Reactive: < 0.8 Equivocal: >/= 0.8 to < 1.0 Reactive: >/= 1.0The CDC requires that a reactive/equivocal HCV antibody result be sent out for confirmation. HCV Quant by PCR testing. Immature granulocytes/100 WB C Auto (Bld)Ordered By: Nina Kern on 06-24-2024 Immature granulocytes/100 WBC (Bld) 0.300 % 0.0-0.9 [facility] Comment on above: IG% - Immature Granu locytes (promyelocytes, myelocytes and metamyelocytes) > 1% indicates that a LEFT SHIFT is Present. L3890.6006on 06-24-2024 HIV Non-Reactive Normal Nonreactive [facility] Comment on above: Result Comment: Non- Reactive Reactive Repeatedly reactive samples must be confirmed according to CDC recommended confirmatory algorithms. The subresults for either HIVAG or AHIV can be used as an aid in the selection of the confirmation algorithm for reactive samples. Send out specimens with Reactive results to [facility] for confirmation. Order the HIV antibody detection and differentiation: lc#[id number] Performed By: #### L 100.0100, L3890.6301, L509.8002, BTS, L3890.6102, L3890.6006, L509.4006 #### [facility] [address] [facility] [place], [address] L3890.6102on 06-24-2024 HEP B Surf Ag Non-Reactive Normal Nonreactive [facility] Comment on above: Result Comment: Reac tive: Presumptive evidence of HBV. Repeatedly reactive samples must be confirmed using a neutralization test ([facility] HBsAg Confirmatory Test) Non-Reactive: HBsAg not detected; does not exclude the possibility of exposure to HBV Performed By: #### L 100.0100, L3890.6301, L509.8002, BTS, L3890.6102, L3890.6006, L509.4006 #### [facility] [address] [facility] [place], [address] L3890.6301on 06-24-2024 Hepatitis C Ab Non-Reactive Normal Nonreactive [facility] Comment on above: Result Comment: Reac tive: Presumptive evidence of antibodies to HCV. Follow CDC recommendations for supplemental testing. Non-Reactive: Antibodies to HCV were not detected; does not exclude the possibility of exposure to HCV Reactive Results are presumptive evidence of antibodies to HCV. Follow CDC recommendations for supplemental testing. Order confirmation testing: HCV Quant by PCR testing - HCVPCR #[id number] Non Reactive: < 0.8 Equivocal: >/= 0.8 to < 1.0 Reactive: >/= 1.0 The CDC requires that a reactive/equivocal HCV antibody result be sent out for confirmation. HCV Quant by PCR testing. Performed By: #### L 100.0100, L3890.6301, L509.8002, BTS, L3890.6102, L3890.6006, L509.4006 #### [facility] [address] [place], [address] L509.4006on 06-24-2024 Rubella IgG REAC Normal Nonreactive [facility] Comment on above: Result Comment: Anti body Result: Interpretation Non-Reactive: Non-Immune Reactive: Immune The following results were obtained with the Elecsys Rubella IgG assay. Results from assays of other manufacturers cannot be used interchangeably. Performed By: #### L 100.0100, L3890.6301, L509.8002, BTS, L3890.6102, L3890.6006, L509.4006 #### [facility] [address] [place], [address] L509.8002on 06-24-2024 Syphilis Abs Non-Reactive Normal Nonreactive [facility] Comment on above: Performed By: #### L 100.0100, L3890.6301, L509.8002, BTS, L3890.6102, L3890.6006, L509.4006 #### [facility] [address] [place], [place], [id number] Laboratory - Microbiology an d Antimicrobial susceptibilityOrdered By: Nina Kern on 06-24-2024 HBV surface Ag Ql (S) Non-Reactive Nonreactive [facility] Comment on above: Reactive: Presumptiv e evidence of HBV. Repeatedly reactive samples must be confirmed using a neutralization test (Elecsys HBsAg Confirmatory Test)Non-Reactive: HBsAg not detected; does not exclude the possibility of exposure to HBV Lymphocytes Auto (Unsp spec) [#/Vol]Ordered By: Nina Kern on 06-24-2024 Lymphocytes (Bld) [#/Vol] 2.08 10*3/uL 0.83-4.51 [facility] Lymphocytes/100 WBC Auto (Un sp spec)Ordered By: Nina Kern on 06-24-2024 Lymphocytes/100 WBC (Bld) 24.2 % 19-41 [facility] MCV (mean corpuscular volume ) determinationOrdered By: Nina Kern on 06-24-2024 MCV (RBC) [Entitic vol] 92.9 fL 81-99 [facility] Mean corpuscular hemoglobin (MCH) determinationOrdered By: Nina Kern on 06-24-2024 MCH (RBC) [Entitic mass] 31.9 pg 27.0-32.0 [facility] Mean corpuscular hemoglobin concentration (MCHC) determinationOrdered By: Nina Kern on 06-24-2024 MCHC (RBC) [Mass/Vol] 34.3 g/dL 32-36 [facility] Mean platelet volume determi nationOrdered By: Nina Kern on 06-24-2024 Platelet mean volume (Bld) [Entitic vol] 9.9 fL 6.2-12.0 [facility] Monocyte percentageOrdered B y: Nina Kern on 06-24-2024 Monocytes/100 WBC (Bld) 6.3 % 0-10 [facility] Neisseria gonorrhoeae nuclei c acid detection by amplified probe techniqueOrdered By: Nina Kern on 06-24-2024 N. gonorrhoeae DNA ISABELLE+probe Ql (Unsp spec) Negative Negative [facility] Comment on above: Performed at: =[facility] [address] [id number] Director: Shy Rivera MD, Phone: [phone] Neutrophil percentageOrdered By: Nina Kern on 06-24-2024 Neutrophils/100 WBC (Bld) 67.4 % 47-70 [facility] No Panel InformationOrdered By: Nina Kern on 06-24-2024 HIV (1&2) Antibody Non-Reactive Nonreactive [facility] Comment on above: Non-ReactiveReactive Repeatedly reactive samples must be confirmed according to CDC recommended confirmatory algorithms. The subresults for either HIVAG or AHIV can be used as an aid in the selection of the confirmation algorithm for reactive samples.Send out specimens with Reactive results to [facility] for confirmation.Order the HIV antibody detection and differentiation: #[id number] Nucleated red blood cell per centageOrdered By: Nina Kern on 06-24-2024 Nucleated RBC/100 WBC (Bld) [Ratio] 0 % 0-5 [facility] Rail Technician Office Visit Reporton 06-24-2024 Rail Technician Office Visit Report [facility] [address], [address] [place] [address] OFFICE VISIT Date of Service: 06/24/24 MR#: [id number] Acct: [id number] Name: BARBARASlavaCONCHA JR F Rep #: [id number] : 1990 Provider: Dr. Nina Cortes DO Age/Sex: 33/F Location: [facility] [place] [facility] Status: Signed Intake Vital Signs 05/28/24 13:07 06/24/24 14:15 Height 5 ft 6 in 5 ft 6 in Weight: 155 lb BMI 25.0 BP 101/65 Intake Visit Reasons: New OB, LMP 04/27, RYLEE 02/01 Varnish Maker Helper Required: No Is patient in pain?: No [...] physical activity do you participate in: none brandyn/advent: Caodaism seatbelt use: always do you feel safe [...] - full term 8lbs 3oz Male epidural [facility] Tea benjamin Baljeetwillian Concha Ahn Delivery Date: 07/22/22 Last Updated [...] No, His (more content not included)... Normal [facility] Platelet countOrdered By: Reza Kern on 06-24-2024 Platelets (Bld) [#/Vol] 302 10*3/uL 150-450 [facility] RBC Auto (Bld) [#/Vol]Ordere d By: Nina Kern on 06-24-2024 RBC (Bld) [#/Vol] 3.95 10*6/uL Low 4.2-5.4 [facility] Rubella immune status determ ination by IgG antibody assayOrdered By: Nina Kern on 06-24-2024 Rubella IgG Antibody REAC Nonreactive [facility] Comment on above: Antibody Result: Int erpretationNon-Reactive: Non-ImmuneReactive: ImmuneThe following results were obtained with the [employer] Rubella IgG assay. Results from assays of other manufacturers cannot be used interchangeably. T. pallidum abOrdered By: Reza Kern on 06-24-2024 Syphilis Total Antibody Non-Reactive Nonreactiv e [facility] Type AND Screenon 06-24-2024 ABO and Rh group Nom (Bld) Blood group A Rh(D) positive Normal [facility] Comment on above: Order Comment: PN Performed By: #### L 100.0100, L3890.6301, L509.8002, BTS, L3890.6102, L3890.6006, L509.4006 #### [facility] [address] [place], [place], [id number] Urine cultureOrdered By: Ina Kern on 06-24-2024 Bacteria identified Cx Nom (U) Culture exhibits no growth. [facility] White blood cell (WBC) count Ordered By: Nina Kern on 06-24-2024 WBC (Bld) [#/Vol] 8.6 10*3/uL 4.4-11.0 [facility] - Chemistry and C hemistry - challengeOrdered By: Otis Gomez on 07-19-2023 HCG ( test) Ql (U) Negative [facility] Comment on above: Very dilute urine sp ecimens, as indicated by a low specificgravity, may not contain hotel services sales representative levels of hCG. If is still suspected, a first morning urinespecimen should be collected 48 hours later and tested. Absolute lymphocyte countOrd ered By: Dr. Barahona on 07-22-2022 Lymphocytes Auto (Unsp spec) [#/Vol] 2.29 10*3/uL 0.83-4.51 [facility] Basophil percentageOrdered B y: Dr. Barahona on 07-22-2022 Basophils/100 WBC (Bld) 0.3 % 0-1 [facility] Eosinophils/100 WBC (Bld) 1.1 % 0-5 [facility] Neutrophils (Bld) [#/Vol] 8.2 10*3/uL 2.0-7.7 [facility] Neutrophils/100 WBC (Bld) 69.0 % 47-70 [facility] WBC (Bld) [#/Vol] 11.9 10*3/uL 4.4-11.0 [facility] Blood erythrocytes count (nu mber/volume)Ordered By: Dr. Barahona on 07-22-2022 RBC (Bld) [#/Vol] 4.17 10*6/uL 4.2-5.4 [facility] Blood hemoglobin measurement (mass/volume)Ordered By: Dr. Barahona on 07-22-2022 Hemoglobin (Bld) [Mass/Vol] 13.4 g/dL 12.0-15.0 [facility] Blood lymphocytes/100 leukoc ytesOrdered By: Dr. Barahona on 07-22-2022 Lymphocytes/100 WBC (Bld) 19.2 % 19-41 [facility] Blood monocytes/100 leukocyt esOrdered By: Dr. Barahona on 07-22-2022 Monocytes/100 WBC (Bld) 9.6 % 0-10 [facility] Blood platelet mean volumeOr dered By: Dr. Barahona on 07-22-2022 Platelet mean volume (Bld) [Entitic vol] 12.4 fL 6.2-12.0 [facility] Determination of erythrocyte mean corpuscular volume (MCV)Ordered By: Dr. Barahona on 07-22-2022 MCV (RBC) [Entitic vol] 95.9 fL 81-99 [facility] Hematocrit Auto (Bld) [Volum e fraction]Ordered By: Dr. Barahona on 07-22-2022 Hematocrit (Bld) [Volume fraction] 40.0 % 37-47 [facility] - Hematology and Cell countsOrdered By: Dr. Barahona on 07-22-2022 Erythrocyte distribution width (RBC) [Entitic vol] 43.9 fL 35.1-43.9 [facility] Erythrocyte distribution width (RBC) [Ratio] 12.6 % 11.6-14.6 [facility] Immature granulocytes/100 WBC (Bld) 0.800 % 0.0-0.9 [facility] Comment on above: IG% - Immature Granu locytes (promyelocytes, myelocytes and metamyelocytes) > 1% indicates that a LEFT SHIFT is Present. MCH (RBC) [Entitic mass] 32.1 pg 27.0-32.0 [facility] Nucleated RBC/100 WBC (Bld) [Ratio] 0 % 0-5 [facility] MCHC Auto (RBC) [Mass/Vol]Or dered By: Dr. Barahona on 07-22-2022 MCHC (RBC) [Mass/Vol] 33.5 g/dL 32-36 [facility] Platelets bldOrdered By: Dr. Barahona on 07-22-2022 Platelets (Bld) [#/Vol] 240 10*3/uL 150-450 [facility] Serum Treponema species anti body detectionOrdered By: Dr. Barahona on 07-22-2022 Treponema sp Ab Ql (S) Non-Reactive [facility] - Chemistry and C hemistry - challengeon 07-15-2022 Glucose Ql (U) Negative [facility] - Urinalysison Protein Ql (U) Negative [facility] No Panel InformationOrdered By: Ruthie Le on 07-10-2022 Vaginal Amniotic Fluid Detection Negative Negative [facility] Comment on above: Amniotic fluid not p resent indicates No Rupture of FetalMembranes at time of specimen collection. No Panel InformationOrdered By: Dr. Barahona on 07-09-2022 Vaginal Amniotic Fluid Detection Negative Negative [facility] Comment on above: Amniotic fluid not p resent indicates No Rupture of FetalMembranes at time of specimen collection. Laboratory - Chemistry and C hemistry - challengeon 07-07-2022 Glucose Ql (U) Negative [facility] - Urinalysison Protein Ql (U) Negative [facility] - Chemistry and C hemistry - challengeon 07-01-2022 Glucose Ql (U) Negative [facility] - Urinalysison Protein Ql (U) Trace [facility] No Panel InformationOrdered By: Dr. Kern on 06-27-2022 Group B Streptococcus Culture Group B Beta Streptococcus is not isolated. [facility] - Chemistry and C hemistry - challengeon 06-24-2022 Glucose Ql (U) Negative [facility] - Urinalysison Protein Ql (U) Negative [facility] - Chemistry and C hemistry - challengeon 06-09-2022 Glucose Ql (U) Negative [facility] - Urinalysison Protein Ql (U) Negative [facility] - Chemistry and C hemistry - challengeon 05-26-2022 Glucose Ql (U) Negative [facility] - Urinalysison Protein Ql (U) Negative [facility] - Chemistry and C hemistry - challengeon 05-13-2022 Glucose Ql (U) Negative [facility] - Urinalysison Protein Ql (U) Negative [facility] Absolute lymphocyte countOrd ered By: Alessandra Bolanos on 03-31-2022 Lymphocytes Auto (Unsp spec) [#/Vol] 1.52 10*3/uL 0.83-4.51 [facility] Basophil percentageOrdered B y: Alessandra Bolanos on 03-31-2022 Basophils/100 WBC (Bld) 0.4 % 0-1 [facility] Eosinophils/100 WBC (Bld) 1.0 % 0-5 [facility] Neutrophils (Bld) [#/Vol] 4.7 10*3/uL 2.0-7.7 [facility] Neutrophils/100 WBC (Bld) 67.9 % 47-70 [facility] WBC (Bld) [#/Vol] 7.0 10*3/uL 4.4-11.0 [facility] Blood erythrocytes count (nu mber/volume)Ordered By: Alessandra Bloanos on 03-31-2022 RBC (Bld) [#/Vol] 3.59 10*6/uL 4.2-5.4 [facility] Blood hemoglobin measurement (mass/volume)Ordered By: Alessandra Bolanos on 03-31-2022 Hemoglobin (Bld) [Mass/Vol] 12.0 g/dL 12.0-15.0 [facility] Blood lymphocytes/100 leukoc ytesOrdered By: Alessandra Bolanos on 03-31-2022 Lymphocytes/100 WBC (Bld) 21.8 % 19-41 [facility] Blood monocytes/100 leukocyt esOrdered By: Alessandra Bolanos on 03-31-2022 Monocytes/100 WBC (Bld) 8.3 % 0-10 [facility] Blood platelet mean volumeOr dered By: Alessandra Bolanos on 03-31-2022 Platelet mean volume (Bld) [Entitic vol] 10.1 fL 6.2-12.0 [facility] Determination of erythrocyte mean corpuscular volume (MCV)Ordered By: Alessandra Bolanos on 03-31-2022 MCV (RBC) [Entitic vol] 96.4 fL 81-99 [facility] Gestational diabetes screen 1-hour screen with 50g oral glucose loadOrdered By: Alessandra Bolanos on 03-31-2022 Glucose 1 Hr post 50 g glucose PO [Mass/Vol] 106 mg/dL 70-140 [facility] HIV 1 and HIV-2 antibody ass ay with HIV-1 p24 antigen detectionOrdered By: Alessandra Bolanos on 03-31-2022 HIV 1+2 Ab+HIV1 p24 Ag IA Ql Non-Reactive Nonreactive [facility] Hematocrit Auto (Bld) [Volum e fraction]Ordered By: Alessandra Bolanos on 03-31-2022 Hematocrit (Bld) [Volume fraction] 34.6 % 37-47 [facility] - Chemistry and C hemistry - challengeon 03-31-2022 Glucose Ql (U) Negative [facility] - Hematology and Cell countsOrdered By: Alessandra Bolanos on 03-31-2022 Erythrocyte distribution width (RBC) [Entitic vol] 42.6 fL 35.1-43.9 [facility] Erythrocyte distribution width (RBC) [Ratio] 12.2 % 11.6-14.6 [facility] Immature granulocytes/100 WBC (Bld) 0.600 % 0.0-0.9 [facility] Comment on above: IG% - Immature Granu locytes (promyelocytes, myelocytes and metamyelocytes) > 1% indicates that a LEFT SHIFT is Present. MCH (RBC) [Entitic mass] 33.4 pg 27.0-32.0 [facility] Nucleated RBC/100 WBC (Bld) [Ratio] 0 % 0-5 [facility] - Urinalysison Protein Ql (U) Negative [facility] MCHC Auto (RBC) [Mass/Vol]Or dered By: Alessandra Bolanos on 03-31-2022 MCHC (RBC) [Mass/Vol] 34.7 g/dL 32-36 [facility] Platelets bldOrdered By: Paola Bolanos on 03-31-2022 Platelets (Bld) [#/Vol] 280 10*3/uL 150-450 [facility] Serum Treponema species anti body detectionOrdered By: Alessandra Bolanos on 03-31-2022 Treponema sp Ab Ql (S) Non-Reactive [facility] - Chemistry and C hemistry - challengeon 03-16-2022 Glucose Ql (U) Negative [facility] - Urinalysison Protein Ql (U) Negative [facility] - Chemistry and C hemistry - challengeon 02-17-2022 Glucose Ql (U) Negative [facility] - Urinalysison Protein Ql (U) Negative [facility] - Chemistry and C hemistry - challengeon 01-17-2022 Glucose Ql (U) Negative [facility] Work Phone: Laboratory - Urinalysison Protein Ql (U) Negative [facility] Work Phone: Absolute lymphocyte counton 12-20-2021 Lymphocytes Auto (Unsp spec) [#/Vol] 1.48 10*3/uL 0.83-4.51 [facility] Work Phone: Basophil percentageon 2021 Basophils/100 WBC (Bld) 0.4 % 0-1 [facility] Work Phone: Eosinophils/100 WBC (Bld) 0.7 % 0-5 [facility] Work Phone: [phone] Neutrophils (Bld) [#/Vol] 5.3 10*3/uL 2.0-7.7 [facility] Work Phone: Neutrophils/100 WBC (Bld) 71.3 % 47-70 [facility] Work Phone: WBC (Bld) [#/Vol] 7.5 10*3/uL 4.4-11.0 [facility] Work Phone: Blood erythrocytes count (nu mber/volume)on 12-20-2021 RBC (Bld) [#/Vol] 3.82 10*6/uL 4.2-5.4 [facility] Blood hemoglobin measurement (mass/volume)on 12-20-2021 Hemoglobin (Bld) [Mass/Vol] 12.6 g/dL 12.0-15.0 [facility] Work Phone: Blood lymphocytes/100 leukoc yteson 12-20-2021 Lymphocytes/100 WBC (Bld) 19.8 % 19-41 [facility] Work Phone: Blood monocytes/100 leukocyt eson 12-20-2021 Monocytes/100 WBC (Bld) 7.4 % 0-10 [facility] Work Phone: Blood platelet mean volumeon 12-20-2021 Platelet mean volume (Bld) [Entitic vol] 9.8 fL 6.2-12.0 [facility] Work Phone: Cervical or vagninal specime n microscopic examination by cytology stain (reported ason 12-20-2021 Cytology report Cyto stain Doc (Cvx/Vag) Comment . [facility] Work Phone: Comment on above: The Pap [...] rRNA ISABELLE+probe Ql (Unsp spec) Negative Negative [facility] Work Phone: Detection in cervical specim en of any of human papilloma virus (HPV) 16, 18, 31, 33,on 12-20-2021 HPV 16+18+31+33+35+39+45+51 +52+56+58+59+66+68 DNA Probe+sig amp Ql (Cvx) Negative Negative [facility] Work Phone: Comment on above: This nucleic acid am plification test detects fourteen high-risk HPV types (16,18,31,33,35,39,45,51,52,56,58,59,66,68)without differentiation.Performed at: [facility] [id number] Director: Shy Rivera MD, Phone: [phone] at: =[facility] [id number] Director: Shy Rivera MD, Phone: [phone] Determination of erythrocyte mean corpuscular volume (MCV)on 12-20-2021 MCV (RBC) [Entitic vol] 95.3 fL 81-99 [facility] Work Phone: HIV 1 and HIV-2 antibody ass ay with HIV-1 p24 antigen detectionon 12-20-2021 HIV 1+2 Ab+HIV1 p24 Ag IA Ql Non-Reactive Nonreactive [facility] Work Phone: Hematocrit Auto (Bld) [Volum e fraction]on 12-20-2021 Hematocrit (Bld) [Volume fraction] 36.4 % 37-47 [facility] Work Phone: Laboratory - Cytologyon 12-09 [employer] Machine Operator Cyto stain Nom (Cvx/Vag) [ID] Comment . [facility] Work Phone: Comment on above: Keanu Small totechnologist (ASCP) Laboratory - Drug toxicology on 12-20-2021 Amphetamines Ql (U) Negative <1000 ng/mL [facility] Work Phone: Benzodiazepines Ql (U) Negative < 200 ng/mL [facility] Work Phone: Cannabinoids Screen Ql (U) Negative < 50 ng/mL [facility] Work Phone: Cocaine Ql (U) Negative < 300 ng/mL [facility] Work Phone: Opiates Ql (U) Negative < 300 ng/mL [facility] Work Phone: Laboratory - Hematology and Cell countson 12-20-2021 Erythrocyte distribution width (RBC) [Entitic vol] 41.1 fL 35.1-43.9 [facility] Work Phone: Erythrocyte distribution width (RBC) [Ratio] 11.9 % 11.6-14.6 [facility] Work Phone: Immature granulocytes/100 WBC (Bld) 0.400 % 0.0-0.9 [facility] Work Phone: Comment on above: IG% - Immature Granu locytes (promyelocytes, myelocytes and metamyelocytes) > 1% indicates that a LEFT SHIFT is Present. MCH (RBC) [Entitic mass] 33.0 pg 27.0-32.0 [facility] Work Phone: Nucleated RBC/100 WBC (Bld) [Ratio] 0 % 0-5 [facility] Work Phone: Laboratory - Microbiology an d Antimicrobial susceptibilityon 12-20-2021 N. gonorrhoeae DNA ISABELLE+probe Ql (Unsp spec) Negative Negative [facility] Work Phone: Comment on above: Performed at: = [facility] [id number] Director: Shy Rivera MD, Phone: [phone] Laboratory - Miscellaneous t estson 12-20-2021 Service comment (Unsp spec) [Interp] Comment . [facility] Work Phone: Comment on above: This liquid based Th inPrep(R) pap test was screened withthe use of an image guided system. Service comment (Unsp spec) [Interp] . . [facility] Work Phone: MCHC Auto (RBC) [Mass/Vol]on 12-20-2021 MCHC (RBC) [Mass/Vol] 34.6 g/dL 32-36 [facility] Work Phone: No Panel Informationon 12-20 MDMA (Ecstasy) Screen Negative < 500 ng/mL [facility] Work Phone: Pap Smear QC Review Comment . [facility] Work Phone: Comment on above: Mirella Figueroa Cytot echnologist (ASCP) Pathology report final diagnosis Narrative Comment . [facility] Work Phone: Comment on above: NEGATIVE FOR INTRAEP ITHELIAL LESION OR MALIGNANCY.THIS SPECIMEN WAS RESCREENED PART OF OUR REAR LOAD TRUCK DRIVER PROGRAM. Urine Barbiturates Screen Negative < 200 ng/mL [facility] Work Phone: Urine Drug Screen Comment [facility] Work Phone: Comment on above: CONFIRMATORY TESTING [...] Urine Methadone Screen Negative < 300 ng/mL [facility] Work Phone: Hepatitis B Surface Antigen Non-Reactive Nonreactive [facility] Work Phone: Hepatitis C Antibody Non-Reactive Nonreactive [facility] Work Phone: Comment on above: Non Reactive: < 0.8 Equivocal: >/= 0.8 to < 1.0 Reactive: >/= 1.0The CDC recommends that a reactive/equivocal HCV antibody result be followed up by the HCV Nucleic Acid Amplificationtest (847406) Rubella IgG Antibody Reactive Nonreactive [facility] Work Phone: Comment on above: Antibody Results Int erpretation of Immune Status Non Reactive Presumed Non-Immune Equivocal Equivocal Reactive Presumed Immune Platelets bldon 12-20-2021 Platelets (Bld) [#/Vol] 294 10*3/uL 150-450 [facility] Work Phone: Serum Treponema species anti body detectionon 12-20-2021 Treponema sp Ab Ql (S) Non-Reactive [facility] Work Phone: Serum Varicella zoster virus IgM antibody assay by immunoassay (units/volume)on 12-20-2021 VZV IgM IA Qn (S) < 0.91 index 0.00-0.90 [facility] Work Phone: Comment on above: Negative <0.91 Borde rline 0.91 - 1.09 Positive >1.09Performed at: [facility] [id number] Director: Jordy Amezquita PhD, Phone: [phone] Urine phencyclidine (PCP) de tectionon 12-20-2021 Phencyclidine Ql (U) Negative < 25 ng/mL [facility] Work Phone: Culture, urine Bacteria identified Cx Nom (U) Positive [facility] Work Phone: Vital Signs Date Time Vital Sign Value Performing Clinician Gila dave 01-10-2025 10:41-0400 Body height 167.[address] Tirso Kemp MD Work Phone: [facility] 01-10-2025 10:41-0400 Body mass index (BMI) [Ratio] 29.1 kg/m2 Dr. Tirso Kemp MD Work Phone: [phone] [place] [address] 01-10-2025 10:41-0400 Body weight 81.[address] Tirso Kemp MD Work Phone: [phone] [place] [address] 01-10-2025 10:41-0400 Diastolic blood pressure 61 mm[Hg] Dr. Tirso Kemp MD Work Phone: [phone])106-026350 [place] [address] 01-10-2025 10:41-0400 Systolic blood pressure 95 mm[Hg] Dr. Tirso Kemp MD Work Phone: 7([phone])127-471150 [place] [address] 12-25-2024 09:39-0400 Body height 167.[address] Tirso Kemp MD Work Phone: 9(152)414-389850 [place] [address] 12-25-2024 09:39-0400 Body mass index (BMI) [Ratio] 29 kg/m2 Dr. Tirso Kemp MD Work Phone: 4(481)618-326050 [place] [address] 12-25-2024 09:39-0400 Body weight 81.[address] Tirso Kemp MD Work Phone: 9([phone])741-047950 [place] [address] 12-25-2024 09:39-0400 Diastolic blood pressure 55 mm[Hg] Dr. Tirso Kemp MD Work Phone: 8(954)993-404150 [place] [address] 12-25-2024 09:39-0400 Systolic blood pressure 92 mm[Hg] Dr. Tirso Kemp MD Work Phone: 8(635)317-827450 [place] [address] 12-11-2024 09:02-0400 Body height 167.[address] Tirso Kemp MD Work Phone: 1(613)[phone] [place] [address] 12-11-2024 09:02-0400 Body mass index (BMI) [Ratio] 28.5 kg/m2 Dr. Tirso Kemp MD Work Phone: [phone](220)[phone] [place] [address] 12-11-2024 09:02-0400 Body weight 80.[address] Tirso Kemp MD Work Phone: [facility] 12-11-2024 09:02-0400 Diastolic blood pressure 64 mm[Hg] Dr. Tirso Kemp MD Work Phone: 5(117)999-623418 [place] [address] 12-11-2024 09:02-0400 Systolic blood pressure 110 mm[Hg] Dr. Tirso Kemp MD Work Phone: 4(360)929-620150 [place] [address] 11-29-2024 10:52-0400 Body height 167.[address] Tirso Kemp MD Work Phone: 1(754)988-804150 [place] [address] 11-29-2024 10:52-0400 Body mass index (BMI) [Ratio] 28.4 kg/m2 Dr. Tirso Kemp MD Work Phone: 5(183)339-090850 [place] [address] 11-29-2024 10:52-0400 Body weight 79.[address] Tirso Kemp MD Work Phone: 6(953)714-597250 [place] [address] 11-29-2024 10:52-0400 Diastolic blood pressure 64 mm[Hg] Dr. Tirso Kemp MD Work Phone: 9(614)[phone] [place] [address] 11-29-2024 10:52-0400 Systolic blood pressure 99 mm[Hg] Dr. Tirso Kemp MD Work Phone: 5(883)532-677750 [place] [address] 11-15-2024 10:21-0400 Body height 167.[address] Tirso Kemp MD Work Phone: 8(393)064-092750 [place] [address] 11-15-2024 10:20-0400 Body mass index (BMI) [Ratio] 28.1 kg/m2 Dr. Tirso Kemp MD Work Phone: [phone])324-872350 [place] [address] 11-15-2024 10:20-0400 Body weight 79.[address] Tirso Kemp MD Work Phone: 4(235)015-601050 [place] [address] 11-15-2024 10:20-0400 Diastolic blood pressure 60 mm[Hg] Dr. Tiros Kemp MD Work Phone: 6(037)801-344050 [place] [address] 11-15-2024 10:20-0400 Systolic blood pressure 98 mm[Hg] Dr. Tirso Kemp MD Work Phone: 9(770)440-810218 [place] [address] 10-21-2024 08:52-0400 Body height 167.[address] Tirso Kemp MD Work Phone: 1(328)031-030250 [place] [address] 10-21-2024 08:52-0400 Body mass index (BMI) [Ratio] 27.6 kg/m2 Dr. Tirso Kemp MD Work Phone: 8(558)800-417950 [place] [address] 10-21-2024 08:52-0400 Body weight 77.[address] Tirso Kemp MD Work Phone: 8(935)597-600150 [place] [address] 10-21-2024 08:52-0400 Diastolic blood pressure 68 mm[Hg] Dr. Tirso Kemp MD Work Phone: 5(621)207-391450 [place] [address] 10-21-2024 08:52-0400 Systolic blood pressure 102 mm[Hg] Dr. Tirso Kemp MD Work Phone: 1(132)890-777950 [place] [address] 09-19-2024 14:58-0400 Body height 167.[address] iTrso Kemp MD Work Phone: 5(340)014-297350 [place] [address] 09-19-2024 14:55-0400 Body mass index (BMI) [Ratio] 27.1 kg/m2 Dr. Tirso Kemp MD Work Phone: 1(095)028-439150 [place] [address] 09-19-2024 14:55-0400 Body weight 76.[address] Tirso Kemp MD Work Phone: 7(442)727-112950 [place] [address] 09-19-2024 14:55-0400 Diastolic blood pressure 64 mm[Hg] Dr. Tirso Kemp MD Work Phone: 2(785)150-173450 [place] [address] 09-19-2024 14:55-0400 Systolic blood pressure 102 mm[Hg] Dr. Tirso Kemp MD Work Phone: 0(577)011-102850 [place] [address] 08-20-2024 08:29-0400 Body height 167.[address] Tirso Kemp MD Work Phone: 2(576)934-740350 [place] [address] 08-20-2024 08:29-0400 Body mass index (BMI) [Ratio] 25.8 kg/m2 Dr. Tirso Kemp MD Work Phone: 3(054)006-032218 [place] [address] 08-20-2024 08:29-0400 Body weight 72.[address] Tirso Kemp MD Work Phone: 0(800)698-947950 [place] [address] 08-20-2024 08:29-0400 Diastolic blood pressure 60 mm[Hg] Dr. Tirso Kemp MD Work Phone: 5(186)787-258750 [place] [address] 08-20-2024 08:29-0400 Systolic blood pressure 94 mm[Hg] Dr. Tirso Kemp MD Work Phone: 4(033)266-116950 [place] [address] 07-23-2024 09:17-0400 Body mass index (BMI) [Ratio] 25.4 kg/m2 Dr. Tirso Kemp MD Work Phone: 6(494)733-290350 [place] [address] 07-23-2024 09:17-0400 Body weight 71.[address] Tirso Kemp MD Work Phone: 5(732)527-005750 [place] [address] 07-23-2024 09:17-0400 Diastolic blood pressure 62 mm[Hg] Dr. Tirso Kemp MD Work Phone: 0(013)324-786650 [place] [address] 07-23-2024 09:17-0400 Systolic blood pressure 98 mm[Hg] Dr. Tirso Kemp MD Work Phone: 8(145)927-989950 [place] [address] 06-24-2024 14:15-0400 Body height 167.[address] Tirso Kemp MD Work Phone: 6(186)514-681650 [place] [address] 06-24-2024 14:15-0400 Body mass index (BMI) [Ratio] 25 kg/m2 Dr. Tirso Kemp MD Work Phone: 2(058)035-727450 [place] [address] 06-24-2024 14:15-0400 Body weight 70.[address] Tirso Kemp MD Work Phone: 2(363)557-198550 [place] [address] 06-24-2024 14:15-0400 Diastolic blood pressure 65 mm[Hg] Dr. Tirso Kemp MD Work Phone: [facility] 06-24-2024 14:15-0400 Systolic blood pressure 101 mm[Hg] Dr. Tirso Kemp MD Work Phone: [facility] 07-19-2023 08:35-0400 Body temperature 98 [degF] Dr. Tirso Kemp Work Phone: [facility] 07-19-2023 08:35-0400 Diastolic blood pressure 56 mm[Hg] Dr. Tirso Kemp Work Phone: [facility] 07-19-2023 08:35-0400 Heart rate 62 /min Dr. Tirso Kemp Work Phone: [facility] 07-19-2023 08:35-0400 Respiratory rate 16 /min Dr. Tirso Kemp Work Phone: [facility] 07-19-2023 08:35-0400 SaO2% (BldA) [Mass fraction] 100 % Dr. Tirso Kemp Work Phone: [facility] 07-19-2023 08:35-0400 Systolic blood pressure 92 mm[Hg] Dr. Tirso Kemp Work Phone: [facility] 07-19-2023 06:53-0400 Body height 167.[address] Tirso Kemp Work Phone: [facility] 07-19-2023 06:53-0400 Body mass index (BMI) [Ratio] 23.5 kg/m2 Dr. Tirso Kemp Work Phone: [facility] 07-19-2023 06:53-0400 Body weight [address] Tirso Kemp Work Phone: [facility] 06-12-2023 12:51-0500 Body mass index (BMI) [Ratio] 24.5 kg/m2 Dr. Tirso Kemp Work Phone: [facility] 06-12-2023 12:51-0500 Body temperature 97.2 [degF] Dr. Tirso Kemp Work Phone: [facility] 06-12-2023 12:51-0500 Body weight 68.[address] Tirso Kemp Work Phone: [facility] 06-12-2023 12:51-0500 Diastolic blood pressure 63 mm[Hg] Dr. Tirso Kemp Work Phone: [facility] 06-12-2023 12:51-0500 Heart rate 62 /min Dr. Tirso Kemp Work Phone: [facility] 06-12-2023 12:51-0500 Respiratory rate 17 /min Dr. Tirso Kemp Work Phone: [facility] 06-12-2023 12:51-0500 SaO2% (BldA) [Mass fraction] 100 % Dr. Tirso Kemp Work Phone: [facility] 06-12-2023 12:51-0500 Systolic blood pressure 98 mm[Hg] Dr. Tirso Kemp Work Phone: [facility] 07-24-2022 13:50-0400 Body temperature 97.8 [degF] Dr. Shaan Kemp Work Phone: [facility] 07-24-2022 13:50-0400 Diastolic blood pressure 62 mm[Hg] Dr. Shaan Kemp Work Phone: [facility] 07-24-2022 13:50-0400 Heart rate 73 /min Dr. Shaan Kemp Work Phone: [facility] 07-24-2022 13:50-0400 Respiratory rate 16 /min Dr. Shaan Kemp Work Phone: [facility] 07-24-2022 13:50-0400 Systolic blood pressure 90 mm[Hg] Dr. Shaan Kemp Work Phone: [facility] 07-24-2022 08:00-0400 SaO2% (BldA) [Mass fraction] 99 % Dr. Shaan Kemp Work Phone: [facility] 07-22-2022 00:53-0400 Body height 169.[address] Shaan Kemp Work Phone: [facility] 07-22-2022 00:53-0400 Body mass index (BMI) [Ratio] 28.2 kg/m2 Dr. Shaan Kemp Work Phone: [facility] 07-22-2022 00:53-0400 Body weight 80.[address] Shaan Kemp Work Phone: [facility] 07-15-2022 09:37-0400 Body mass index (BMI) [Ratio] 28.6 kg/m2 Dr. Shaan Kemp Work Phone: 2(629)554-193818 [place] [address] 07-15-2022 09:37-0400 Body weight 81.[address] Shaan Kemp Work Phone: [facility] 07-15-2022 09:37-0400 Diastolic blood pressure 64 mm[Hg] Dr. Shaan Kemp Work Phone: [facility] 07-15-2022 09:37-0400 Systolic blood pressure 102 mm[Hg] Dr. Shaan Kemp Work Phone: [facility] 07-10-2022 00:35-0400 Body temperature 99.4 [degF] Dr. Shaan Kemp Work Phone: [facility] 07-10-2022 00:34-0400 Diastolic blood pressure 65 mm[Hg] Dr. Shaan Kemp Work Phone: [facility] 07-10-2022 00:34-0400 Heart rate 67 /min Dr. Shaan Kemp Work Phone: [facility] 07-10-2022 00:34-0400 SaO2% (BldA) [Mass fraction] 99 % Dr. Shaan Kemp Work Phone: [facility] 07-10-2022 00:34-0400 Systolic blood pressure 109 mm[Hg] Dr. Shaan Kemp Work Phone: [facility] 07-10-2022 00:17-0400 Body height 168.[address] Shaan Kemp Work Phone: [facility] 07-10-2022 00:17-0400 Body mass index (BMI) [Ratio] 29.5 kg/m2 Dr. Shaan Kemp Work Phone: [facility] 07-10-2022 00:17-0400 Body weight 84.[address] Shaan Kemp Work Phone: [facility] 07-09-2022 15:53-0400 Heart rate 75 /min Dr. Shaan Kemp Work Phone: [facility] 07-09-2022 15:53-0400 SaO2% (BldA) [Mass fraction] 98 % Dr. Shaan Kemp Work Phone: [facility] 07-09-2022 15:52-0400 Body temperature 98.3 [degF] Dr. Shaan Kemp Work Phone: [facility] 07-09-2022 15:51-0400 Diastolic blood pressure 67 mm[Hg] Dr. Shaan Kemp Work Phone: [facility] 07-09-2022 15:51-0400 Systolic blood pressure 111 mm[Hg] Dr. Shaan Kemp Work Phone: [facility] 07-09-2022 15:35-0400 Body height 169.[address] Shaan Kemp Work Phone: [facility] 07-09-2022 15:35-0400 Body mass index (BMI) [Ratio] 29.2 kg/m2 Dr. Shaan Kemp Work Phone: [facility] 07-09-2022 15:35-0400 Body weight 83.[address] Shaan Kemp Work Phone: [facility] 07-07-2022 09:39-0400 Body mass index (BMI) [Ratio] 29.2 kg/m2 Dr. Shaan Kemp Work Phone: [facility] 07-07-2022 09:39-0400 Body weight 82.[address] Shaan Kemp Work Phone: [facility] 07-07-2022 09:39-0400 Diastolic blood pressure 68 mm[Hg] Dr. Shaan Kemp Work Phone: [facility] 07-07-2022 09:39-0400 Systolic blood pressure 118 mm[Hg] Dr. Shaan Kemp Work Phone: [facility] 07-01-2022 09:17-0400 Body mass index (BMI) [Ratio] 28.9 kg/m2 Dr. Shaan Kemp Work Phone: [facility] 07-01-2022 09:17-0400 Body weight 81.[address] Shaan Kemp Work Phone: [facility] 07-01-2022 09:17-0400 Diastolic blood pressure 66 mm[Hg] Dr. Shaan Kemp Work Phone: [facility] 07-01-2022 09:17-0400 Systolic blood pressure 101 mm[Hg] Dr. Shaan Kemp Work Phone: [facility] 06-24-2022 16:12-0400 Body mass index (BMI) [Ratio] 28.5 kg/m2 Dr. Shaan Kemp Work Phone: [facility] 06-24-2022 16:12-0400 Body weight 81.[address] Shaan Kemp Work Phone: [facility] 06-24-2022 16:12-0400 Diastolic blood pressure 74 mm[Hg] Dr. Shaan Kemp Work Phone: [facility] 06-24-2022 16:12-0400 Systolic blood pressure 116 mm[Hg] Dr. Shaan Kemp Work Phone: [facility] 06-09-2022 15:43-0500 Body mass index (BMI) [Ratio] 28.4 kg/m2 Dr. Shaan Kemp Work Phone: [facility] 06-09-2022 15:43-0500 Body weight [address] Shaan Kemp Work Phone: [facility] 06-09-2022 15:43-0500 Diastolic blood pressure 65 mm[Hg] Dr. Shaan Kemp Work Phone: [facility] 06-09-2022 15:43-0500 Systolic blood pressure 105 mm[Hg] Dr. Shaan Kemp Work Phone: 5(820)951-686218 [place] [address] 05-26-2022 15:38-0500 Body height 168.[address] Shaan Kemp Work Phone: [facility] 05-26-2022 15:37-0500 Body mass index (BMI) [Ratio] 27.8 kg/m2 Dr. Shaan Kemp Work Phone: [facility] 05-26-2022 15:37-0500 Body weight 79.[address] Shaan Kemp Work Phone: [facility] 05-26-2022 15:37-0500 Diastolic blood pressure 69 mm[Hg] Dr. Shaan Kemp Work Phone: [facility] 05-26-2022 15:37-0500 Systolic blood pressure 110 mm[Hg] Dr. Shaan Kemp Work Phone: [facility] 05-13-2022 15:27-0500 Body mass index (BMI) [Ratio] 27.4 kg/m2 Dr. Shaan Kemp Work Phone: [facility] 05-13-2022 15:27-0500 Body weight 78.[address] Shaan Kemp Work Phone: [facility] 05-13-2022 15:27-0500 Diastolic blood pressure 60 mm[Hg] Dr. Shaan Kemp Work Phone: [facility] 05-13-2022 15:27-0500 Systolic blood pressure 109 mm[Hg] Dr. Shaan Kemp Work Phone: [facility] 03-31-2022 13:11-0500 Body height 169.[address] Shaan Kemp Work Phone: [facility] Work Phone: 03-31-2022 13:10-0500 Body mass index (BMI) [Ratio] 26.2 kg/m2 Dr. Shaan Kemp Work Phone: [facility] 03-31-2022 13:10-0500 Body weight 73.[address] Shaan Kepm Work Phone: [facility] 03-31-2022 13:10-0500 Diastolic blood pressure 61 mm[Hg] Dr. Shaan Kemp Work Phone: [facility] 03-31-2022 13:10-0500 Systolic blood pressure 101 mm[Hg] Dr. Shaan Kemp Work Phone: [facility] 03-16-2022 13:36-0500 Body mass index (BMI) [Ratio] 25.3 kg/m2 Dr. Shaan Kemp Work Phone: [facility] 03-16-2022 13:36-0500 Body weight 72.[address] Shaan Kemp Work Phone: [facility] 03-16-2022 13:36-0500 Diastolic blood pressure 64 mm[Hg] Dr. Shaan Kemp Work Phone: [facility] 03-16-2022 13:36-0500 Heart rate 73 /min Dr. Shaan Kemp Work Phone: [facility] 03-16-2022 13:36-0500 Systolic blood pressure 105 mm[Hg] Dr. Shaan Kemp Work Phone: [facility] 02-17-2022 13:34-0500 Body height 169.[address] Shaan Kemp Work Phone: [facility] Work Phone: 02-17-2022 13:33-0500 Body mass index (BMI) [Ratio] 27.1 kg/m2 Dr. Shaan Kemp Work Phone: [facility] 02-17-2022 13:33-0500 Body weight 71.[address] Shaan Kemp Work Phone: [facility] 02-17-2022 13:33-0500 Diastolic blood pressure 69 mm[Hg] Dr. Shaan Kemp Work Phone: [facility] 02-17-2022 13:33-0500 Systolic blood pressure 103 mm[Hg] Dr. Shaan Kemp Work Phone: [facility] 01-17-2022 13:32-0400 Body mass index (BMI) [Ratio] 24.1 kg/m2 Dr. Shaan Kemp Work Phone: [facility] Work Phone: 01-17-2022 13:32-0400 Body weight 68.[address] Shaan Kemp Work Phone: [facility] Work Phone: 01-17-2022 13:32-0400 Diastolic blood pressure 54 mm[Hg] Dr. Shaan Kemp Work Phone: [facility] Work Phone: 01-17-2022 13:32-0400 Systolic blood pressure 98 mm[Hg] Dr. Shaan Kemp Work Phone: [facility] Work Phone: 12-20-2021 13:55-0400 Body height 169.[address] Shaan Kemp Work Phone: [facility] Work Phone: 12-20-2021 13:55-0400 Body mass index (BMI) [Ratio] 24 kg/m2 Dr. Shaan Kemp Work Phone: [facility] Work Phone: 12-20-2021 13:55-0400 Body weight 68.[address] Shaan Kemp Work Phone: [facility] Work Phone: 12-20-2021 13:55-0400 Diastolic blood pressure 58 mm[Hg] Dr. Shaan Kemp Work Phone: [facility] Work Phone: 12-20-2021 13:55-0400 Systolic blood pressure 92 mm[Hg] Dr. Shaan Kemp Work Phone: [facility] Work Phone: Encounters Encounter Date Encounter Type Care Provider Facility Start: 01-31-2025 ambulatory Tirso Uriostegui lity:[facility] Start: 01-24-2025 End: 01-24-2025 [facility] Start: 01-17-2025 End: 01-17-2025 ambulatory [facility] [place] Facility[facility] Start: 01-10-2025 ambulatory Kinza kellery:[facility] Start: 01-10-2025 End: 01-10-[address] Kinza Barahona MD -[facility] Work Phone: Start: 01-10-2025 End: 01-10-[address] Tirso Kemp MD Work Phone: -[facility] Start: 12-25-2024 End: 12-25-2024 Patient encounter procedure Esperanza DELEON -[facility] Work Phone: Start: 12-25-2024 End: 12-25-[address] Tirso Kemp MD Work Phone: -[facility] Start: 12-11-2024 End: 12-11-2024 Patient encounter procedure Ruthie Le CN -[facility] Work Phone: Start: 12-11-2024 End: 12-11-[address] Tirso Kemp MD Work Phone: -[facility] Start: 11-29-2024 End: 11-29-2024 Patient encounter procedure Alessandra Bolanos CN -[facility] Work Phone: Start: 11-29-2024 End: 11-29-[address] Tirso Kemp MD Work Phone: [facility] Start: 11-15-2024 End: 11-15-[address] Nina Gamboa DO -[facility] Work Phone: Start: 11-15-2024 End: 11-15-[address] Tirso Kemp MD Work Phone: -[facility] Start: 11-15-2024 End: 11-15-2024 ambulatory Tirso Kemp Facility:[facility] Start: 11-13-2024 ambulatory Tirso Kemp Facolga lity:[facility] Start: 10-21-2024 End: 10-21-[address] Kinza Barahona MD -[facility] Work Phone: Start: 10-21-2024 End: 10-21-[address] Tirso Kemp MD Work Phone: -[facility] Start: 09-19-2024 End: 09-19-2024 Patient encounter procedure Esperanza DELEON -[facility] Work Phone: Start: 09-19-2024 End: 09-19-[address] Tirso Kemp MD Work Phone: [facility] Work Phone: Start: 08-20-2024 End: 08-20-2024 Patient encounter procedure Esperanza DELEON -[facility] Work Phone: Start: 08-20-2024 End: 08-20-[address] Tirso Kemp MD Work Phone: [facility] Work Phone: Start: 07-23-2024 End: 07-23-[address] Nina Gamboa DO -[facility] Work Phone: Start: 07-23-2024 End: 07-23-2024 ambulatory Tirso Kemp Facility:[facility] Start: 06-24-2024 End: 06-24-[address] Nina Gamboa DO -[facility] Work Phone: Start: 06-24-2024 End: 06-24-[address] Tirso Kemp MD Work Phone: [facility] Work Phone: Start: 06-24-2024 End: 06-24-2024 ambulatory Tirso Kemp Facility:[facility] Start: 07-19-2023 Non-patient / Non-visit Dr. Tirso Kemp Work Phone: [facility] Start: 07-19-2023 End: 07-19-2023 Admission to same day surgery center Dr. Tirso Kemp Work Phone: [facility] Work Phone: Start: 07-19-2023 End: 07-19-[address] Tirso Kemp Work Phone: [facility] Work Phone: Start: 07-05-2023 End: 07-05-[address] Tirso Kemp Work Phone: [facility] Work Phone: Start: 06-12-2023 End: 06-12-[address] Tirso Kemp Work Phone: [facility] Work Phone: Start: 07-24-2022 Non-patient / Non-visit Dr. Shaan Kemp Work Phone: [facility] Start: 07-23-2022 Non-patient / Non-visit Dr. Shaan Kemp Work Phone: [facility] Start: 07-22-2022 Non-patient / Non-visit Dr. Shaan Kemp Work Phone: [facility] Start: 07-22-2022 End: 07-24-2022 Evaluation and management of inpatient Dr. Shaan Kemp Work Phone: [facility] Start: 07-15-2022 End: 07-15-[address] Shaan Kemp Work Phone: [facility] Start: 07-10-2022 Non-patient / Non-visit Dr. Shaan Kemp Work Phone: [facility] Start: 07-09-2022 Non-patient / Non-visit Dr. Shaan Kemp Work Phone: [facility] Start: 07-09-2022 End: 07-10-[address] Shaan Kemp Work Phone: [facility] Work Phone: Start: 07-09-2022 End: 07-10-[address] Shaan Kemp Work Phone: [facility] Start: 07-07-2022 End: 07-07-[address] Shaan Kemp Work Phone: [facility] Start: 07-01-2022 End: 07-01-[address] Shaan Kemp Work Phone: [facility] Start: 06-24-2022 End: 06-24-[address] Shaan Kemp Work Phone: [facility] Work Phone: Start: 06-24-2022 End: 06-24-[address] Shaan Kemp Work Phone: [facility]Labor[facility], Specimen Start: 06-24-2022 End: 06-24-[address] Shaan Kemp Work Phone: [facility] Start: 06-09-2022 End: 06-09-[address] Shaan Kemp Work Phone: [facility] Start: 06-02-2022 End: 06-02-[address] Shaan Kemp Work Phone: [facility] Work Phone: Start: 06-02-2022 End: 06-02-[address] Shaan Kemp Work Phone: [facility] Start: 05-26-2022 End: 05-26-[address] Shaan Kemp Work Phone: [facility] Start: 05-13-2022 End: 05-13-[address] Shaan Kemp Work Phone: [facility] Start: 03-31-2022 End: 03-31-[address] Shaan Kemp Work Phone: [facility] Work Phone: Start: 03-31-2022 End: 03-31-[address] Shaan Kemp Work Phone: [facility] Start: 03-16-2022 End: 03-16-[address] Shaan Kemp Work Phone: [facility] Start: 02-28-2022 End: 02-28-[address] Shaan Kemp Work Phone: [facility] Work Phone: Start: 02-28-2022 End: 02-28-[address] Shaan Kemp Work Phone: [facility] Ul[facility] Start: 02-17-2022 End: 02-17-[address] Shaan Kemp Work Phone: [facility] Start: 01-17-2022 End: 01-17-[address] Shaan Kemp Work Phone: [facility] Start: 12-20-2021 End: 12-20-[address] Shaan Kemp Work Phone: [facility] Work Phone: Start: 12-20-2021 End: 12-20-[address] Shaan Kemp Work Phone: [facility] Pavilion Start: 12-20-2021 End: 12-20-[address] Shaan Kemp Work Phone: [facility] Procedures Date Procedure Procedure Detail Performing Clinician [...] HCV Quant by PCR testing - HCVPCR #[id number] Non Reactive: < 0.8 Equivocal: >/= 0.8 to < 1.0 Reactive: >/= 1.0The CDC requires that a reactive/equivocal HCV antibody result be sent out for confirmation. HCV Quant by PCR testing. Start: 06-24-[address] Tirso Kemp MD Work Phone: Comment on above: Antibody Result: Int erpretationNon-Reactive: Non- ImmuneReactive: ImmuneThe following results were obtained with the [employer] Rubella IgG assay. Results from assays of [...] W Auto Different ial panel - Blood [facility] Start: 11-15-2024 Measurement of gluco se 2 hours after glucose challenge for glucose tolerance test [facility] Start: 11-15-2024 Serologic test for syphilis [facility] Start: 11-15-2024 [facility] Start: 07-19-2023 Patient discharge [facility] Start: 07-24-2022 Patient discharge [facility] Start: 07-22-2022 Administration of medication [facility] Start: 07-22-2022 Application of ice c ollar, cap or bag [facility] Start: 07-22-2022 Catheterization of vein [facility] Start: 07-22-2022 Introduction of urinary catheter [facility] Start: 07-22-2022 Measuring intake and output [facility] Start: 07-22-2022 Notification of physician [facility] Start: 07-22-2022 Procedure discontinued [facility] Start: 07-22-2022 Provision of activity privileges [facility] Start: 07-22-2022 Vital signs measurements [facility] Start: 07-22-2022 [facility] Start: 07-22-2022 Admission procedure [facility] Start: 07-10-2022 Nonstress test [facility] Start: 07-10-2022 Obstetric monitoring [facility] Start: 07-10-2022 Vital signs measurements [facility] Start: 07-10-2022 [facility] Start: 07-10-2022 Patient discharge [facility] Start: 07-09-2022 Nonstress test [facility] Start: 07-09-2022 Obstetric monitoring [facility] Start: 07-09-2022 Vital signs measurements [facility] Start: 07-09-2022 [facility] Start: 07-09-2022 Patient discharge [facility] Start: 12-20-2021 Liquid based cervica l cytology screening [facility] Work Phone: CBC W Auto Different ial panel - Blood [facility] Colonoscopy [facility] Erythrocyte mean cor puscular volume determination [facility] Hematocrit [Volume F raction] of Blood [facility] Hemoglobin [Mass/volume] in Blood [facility] Leukocytes [#/volume] in Blood [facility] Mean corpuscular hem oglobin concentration determination [facility] Mean corpuscular hem oglobin determination [facility] Measurement of gluco se 2 hours after glucose challenge for glucose tolerance test [facility] Neutrophil count [facility] Neutrophil percent d ifferential count [facility] Path report.final Dx Spec [facility] Work Phone: Patient Education [facility] Work Phone: Patient referral [facility] Work Phone: Platelets [#/volume] in Blood [facility] Red blood cell count [facility] Red cell distributio n width determination [facility] Serologic test for syphilis [facility] Streptococcus agalac tiae [Presence] in Unspecified specimen by Organism specific culture [facility] Ultrasound scan for [place] [facility] Payers Date Payer Category Payer Unknown [id number] 2024 Self-pay [id number] Unknown [facility] PACKAGE PLAN [id number] Unknown . [id number] Unknown [id number] 2.16.8 40.1.299666.3.579.2.462 Unknown [id number] 2.16.8 40.1.158603.3.579.2.462 Unknown [id number] 2.16.8 40.1.717170.3.579.2.462 Unknown [id number] 2.16.8 40.1.513312.3.579.2.462 Unknown [id number] 2.16.8 40.1.049634.3.579.2.462 Unknown [id number] 2.16.8 40.1.764679.3.579.2.462 Unknown [id number] 2.16.8 40.1.003091.3.579.2.462 Unknown [id number] 2.16.8 40.1.018729.3.579.2.462 Unknown [id number] 2.16.8 40.1.214842.3.579.2.462 Unknown [id number] 2.16.8 40.1.174514.3.579.2.462 Unknown [id number] 2.16.8 40.1.905633.3.579.2.462 Unknown [id number] 2.16.8 40.1.509882.3.579.2.462 Unknown [id number] 2.16.8 40.1.157133.3.579.2.462 Unknown [id number] 2.16.8 40.1.623058.3.579.2.462 Unknown [id number] 2.16.8 40.1.573136.3.579.2.462 Unknown [id number] 2.16.8 40.1.015711.3.579.2.462 Unknown [id number] 2.16.8 40.1.719280.3.579.2.462 Unknown [id number] 2.16.8 40.1.851225.3.579.2.462 Social History Date Type Detail Facility Start: 12-20-2021 End: 07-17-2023 Tobacco smoking status NHIS Unknown if ever smoked [facility] Start: 1990 Sex Assigned At Female [facility] Start: 06-24-2024 Tobacco smoking status NHIS Never smoked tobacco (finding) [facility] Start: 07-03-2024 Sex Female (finding) [facility] Sex Female [facility] NEGATED: Highlighted row [facility] Goals Date Patient Goal Desired Activity /State Mental Status Date Assessment Result Facility 07-19-2023 Cognitive function Voice/Name [facility] Work Phone: Clinical Notes 12-20-2021 to 01-10-2025 Note Date & Type Note Facility 01-10-2025 Progress note [facility] 12-11-2024 Progress note [facility] 11-29-2024 Progress note [facility] 11-15-2024 Progress note [facility] 10-21-2024 Progress note [facility] 09-19-2024 Evaluation note Diagnosis Onset [...] 8:50am Supervision of high-risk acute October 21, 025 8:50am AMA (advanced maternal age) multigravida [...] Supervision of high-risk acute December 252024 9:38am [facility] Work Phone: 1(455) 131-386806-12-2025 Evaluation note* Diagnosis Onset Date Resolution Status [...] 2024 8:58am Supervision of high-risk acute December 11, 025 8:58am AMA (advanced maternal age) multigravida [...] January 10, 2025 10:38am acute January 10, 025 10:38am Supervision of high-risk acute January 10 10:38am [facility] Work Phone: 1([phone]) 737-849605-13-2025 Evaluation note* Diagnosis Onset Date Resolution Status [...] of high-risk acute November 15, 2024 10:14am [facility] Work Phone: 1([phone]) 599-923105-13-2025 Evaluation note* Diagnosis Onset Date Resolution Status [...] Supervision of high-risk acute November 29 10:50am [facility] Work Phone: 1([phone]) 896-574605-13-2025 Evaluation note* Diagnosis Onset Date Resolution Status [...] 2024 8:58am Supervision of high-risk acute December 11, 025 8:58am [facility] Work Phone: 1([phone]) 137-304504-15-2025 Evaluation note* Diagnosis Onset Date Resolution Status [...] of high-risk acute November 15, 2024 10:14am [facility] Work Phone: 1(124) 135-860603-17-2025 Evaluation note* Diagnosis Onset Date Resolution Status Admit Date AMA (advanced maternal age) multigravida 35+ acute June 24 2:12pm Anal fissure acute June 24, 2024 2:12pm Family hx of colon cancer acute June 24, 2024 2:12pm acute June 24 2:12pm Supervision of high-risk acute June 24, 2024 2:12pm [facility] Work Phone: 1([phone] 470-851803-17-2025 Evaluation note* Diagnosis Onset Date Resolution Status [...] high-risk acute August 20, 2024 8 :24am [facility] Work Phone: 1(134) 474-344603-17-2025 Evaluation note* Diagnosis Onset Date Resolution Status [...] of high-risk acute September 19, 2024 2:50pm [facility] Work Phone: 1([phone]) 950-930403-17-2025 Evaluation note* Diagnosis Onset Date Resolution Status [...] of high-risk acute October 21, 2024 8:50am [facility] Work Phone: 1([phone] 588-536004-10-2024 History and physical note Author Magaly George [facility] July 19, 2023 7:26am Note Date/Time July 19, 2023 7:2 6am [facility] Medical Records Department [address] [place] [address] History & Physical Exam 07/19/23 0725 MR#: [id number] Acct: [id number] Name: NATALIEAICONCHA Pedersen Rep #:[id number] : 1990 32 From: Magaly George MD PCP: Dr. Tirso Kemp MD Status :[facility] Location: [place] [address] History and Physical Date of Admission: 07/19/23 Date of Service: 07/05/23 MR#: [id number] Acct: [id number] Name: CONCHA GREWAL Rep #: [id number] : 1990 Provider: Dr. 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 Magaly George M.D. Pager: [phone] [facility] [address] [place] [address], [facility], [address] [place] [id number] Office: [phone] 07/07/23 0831 <Electronically signed by Magaly George [...] MD; Dr. Magaly George MD ~* Signed [facility] Work Phone: 1(350) 429-323004-10-2024 Procedure [facility] 07-19-2023 Procedure [facility]04-16-[address] Kern [facility] July 24, 2022 9:47am Note Date/Time July 24, 2022 9:4 7am [facility] Medical Records Department [address] [place] [address] Discharge Summary 07/24/22 0944 MR#: [id number] Acct: [id number] Name: CONCHA GREWAL Rep #:[id number] : 1990 31 From: Nina Gamboa DO PCP: Dr. Shaan Kemp MD Status: ADM IN Location: [id number] Providers Date of Admission: 07/22/22 Primary Care [...] no.1 1 mg-dha 300 mg capsule (PNV- [place]) 1 cap PO DAILY 12/15/21 Hospital Course [...] Up With: Nina Gamboa DO When: Call [phone] to make an appointment with your doctor [...] Shaan Kemp Discharge Orders/Prescriptions Prescriptions: No Action PNV-[place] 28-1-300 mg capsule 1 cap PO DAILY Referrals / Follow Up: Shaan Kemp MD [Primary Care Provider] - Disposition Disposition (needs filled in before D/C Order can be placed): Home, Self Care 07/24/22 0947 <Electronically signed by Nina Gamboa DO> Cosigner Signature (if applicable): CC: Dr. Shaan Kemp MD; Dr. Nina Gamboa DO~ Signed [facility] Work Phone: 1([phone]) 754-761204-15-[address] Kern [facility] July 23, 2022 10:02am Note Date/Time July 23, 2022 10: 02am [facility] Medical Records Department [address] [place] [address] Progress Note - OBGYN 07/23/22 1000 MR#: [id number] Acct: [id number] Name: CONCHA GREWAL Rep #:[id number] : 1990 31 From: Nina Gamboa DO PCP: Dr. Shaan Kemp MD Status: ADM IN Location: [id number] Subjective Subjective Patient doing well without complaints. [...] genetic and carrier testing, 03/01 nl anatomy PLAN: Plan s/p PPD # 1 1. routine post delivery care 2. breast feeding- support given 3. rh positive 4. rubella immune 5. discharge planning for tonight or tomorrow am 07/23/22 1002 <Electronically signed by Nina Gamboa DO> Cosigner Signature (if applicable): CC: ~ Signed [facility] Work Phone: 1([phone]) 430-354104-14-[address] Kern [facility] July 22, 2022 5:51pm Note Date/Time July 22, 2022 5:5 1pm [facility] Medical Records Department [address] [place] [address] Instructions for Home/Discharge Instructions 07/22/22 1750 MR#: [id number] Acct: [id number] Name: CONCHA GREWAL Rep #:[id number] : 1990 31 From: Nina Gamboa DO [...] Up With: Nina Gamboa DO When: Call [phone] to make an appointment with your doctor [...] Shaan Kemp Discharge Orders/Prescriptions Prescriptions: No Action PNV-[place] 28-1-300 mg capsule 1 cap PO DAILY Referrals / Follow Up: Shaan Kemp MD [Primary Care Provider] - 07/22/22 1751<Electronically signed by Nina Gamboa DO>Nina Gamboa DO CC: Dr. Shaan Kemp MD ~ Signed [facility] Work Phone: 1([phone]) 476-300704-14-2023 Procedure [facility] 07-22-2022 History and physical note Author Dr. 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 Shaan Kemp MD Status: ADM IN Location: CA112-1 HPI - General General Date of Admission: [...] no.1 1 mg-dha 300 mg capsule (PNV- [place]) 1 cap PO DAILY 12/15/21 [History Last [...] physical activity do you participate in: none brandyn/advent: Caodaism seatbelt use: always do you feel safe [...] no lof, vagi nal bleeding, or cramping. [facility] ultrasound scheduled. pt will decide if wants [...] no vb/lof/ct x. traveling on monday to [facility], precautions given. 05/13/22 -?-?-?-?-?-?-?-?-?-?-?-?- 30w 1d 172 [...] any complications: none I have reviewed the [facility] and made any clinically relevant updates. 07/22/22 0720 <Electronically signed by Kinza Barahona MD> Cosigner Signature (if applicable): CC: Dr. Shaan Kemp MD; Dr. Kinza Barahona MD~ Signed [facility] Work Phone: 1(896) 287-242909-12-2022 NotePap Smear Specimen AdequacySeptember 2021 3:43pmComment.Satisfactory for evaluation. No endocervical component is identified.An endocervical component is not commonly seen in the patient.[place] INTERFACED A#[id number] Hospital Work Phone: Comment on above:Satisfactory for evaluation. No endocervical component is identified.An endocervical component is not commonly seen in the patient.12-20-2021 NotePap Smear Specimen AdequacySeptember 2021 3:43pmComment.Satisfactory for evaluation. No endocervical component is identified.An endocervical component is not commonly seen in the patient.[place] INTERFACED A#[id number] Hospital Work Phone: Comment on above:Satisfactory for evaluation. No endocervical component is identified.An endocervical component is not commonly seen in the patient.Evaluation note* Diagnosis Onset Date Resolution Status acute Supervision of normal [facility] Work Phone: Evaluation note* Diagnosis Onset Date Resolution Status acute Supervision of normal acute Nausea/vomiting in acute acute Supervision of normal [facility] Work Phone: Evaluation note* Diagnosis Onset Date Resolution Status acute Supervision of normal acute Nausea/vomiting in acute acute Supervision of normal acute [id number] acute Nausea/vomiting in acute acute Supervision of normal acute GRG-[id number] acute Nausea/vomiting in acute acute Supervision of normal acute NWV-MVMV-[id number] acute Nausea/vomiting in acute acute Supervision of normal acute [facility] Work Phone: Evaluation note* Diagnosis Onset Date Resolution Status [id number] acute acute Supervision of normal acute Nausea/vomiting in resolved AUI-[id number] acute acute Supervision of normal acute Nausea/vomiting in resolved DJA-[id number] acute acute Supervision of normal acute Nausea/vomiting in resolved ERQ-[id number] acute acute Supervision of normal acute Breast mass, right acute Breast pain, left acute ZEL-GOSR-19885117 acute acute Supervision of normal acute [facility] Work Phone: evaluation note* Diagnosis Onset Date Resolution Status [id number]-[id number] acute acute Supervision of normal acute Nausea/vomiting in resolved XBO-[id number] acute acute Supervision of normal acute Nausea/vomiting in resolved WIV-[id number] acute acute Supervision of normal acute MTK-NQTD-25646053 acute acute Supervision of normal acute Breast mass, right resolved Breast pain, left resolved ZYS-BELS-67947766 acute acute Supervision of normal acute Breast mass, right resolved Breast pain, left resolved VBK-[id number] acute acute Supervision of normal acute [facility] Work Phone: Evaluation note* Diagnosis Onset Date Resolution Status [id number]-[id number] acute acute Supervision of normal acute Nausea/vomiting in resolved NYU-QSCO-58415862 acute acute Supervision of normal acute Nausea/vomiting in resolved SZF-NQGU-02495817 acute acute Supervision of normal acute NRN-VCEG-08504500 acute acute Supervision of normal acute Breast mass, right resolved Breast pain, left resolved XYF-JSQF-69959813 acute acute Supervision of normal acute Breast mass, right resolved Breast pain, left resolved IBC-ECWP-33777517 acute acute Supervision of normal acute WDR-CPSL-49523777 acute acute Supervision of normal acute PFC-HHCV-31948530 acute acute Supervision of normal [facility] Work Phone: Evaluation note* Diagnosis Onset Date Resolution Status [id number]-[id number] acute acute Supervision of normal acute Nausea/vomiting in resolved FNC-[id number] acute acute Supervision of normal acute Nausea/vomiting in resolved EYJ-UMVZ-12196353 acute acute Supervision of normal acute LQZ-MMSH-35046404 acute acute Supervision of normal acute Breast mass, right resolved Breast pain, left resolved DEC-CBMQ-87062426 acute acute Supervision of normal acute Breast mass, right resolved Breast pain, left resolved FRN-GNRP-08548966 acute acute Supervision of normal acute RFH-DFQD-04445760 acute acute Supervision of normal acute MSZ-KGGS-87719602 acute acute Supervision of normal acute RJK-WSGL-15995015 acute acute Supervision of normal [facility] Work Phone: Evaluation note* Diagnosis Onset Date Resolution Status HQB-[id number] acute acute Supervision of normal acute Nausea/vomiting in resolved LKU-XIQJ-20350231 acute acute Supervision of normal acute HBX-PZXL-97132913 acute acute Supervision of normal acute Breast mass, right resolved Breast pain, left resolved RYT-GQYS-44226873 acute acute Supervision of normal acute Breast mass, right resolved Breast pain, left resolved PTW-ORGZ-19381334 acute acute Supervision of normal acute TGC-EXON-70677219 acute acute Supervision of normal acute XMM-NILP-68342828 acute acute Supervision of normal acute JKB-FJGE-23358266 acute acute Supervision of normal acute Premature rupture of membranes resolved CGA-YAJY-61841188 acute acute Supervision of normal acute Active labor at term acute DUX-NKDY-[id number] acute acute Supervision of normal [facility] Work Phone: Evaluation note* Diagnosis Onset Date Resolution Status Anal fissure acute [place] Anal fissure acute Family hx of colon cancer [place] [facility] Work Phone: Progress note Author Kinza Barahona [facility] Note Date/Time October 21, 2024 9:17 am [facility] [address], [address] [place] [address] OFFICE VISIT Date of Service: 10/21/24 MR#: [id number] Acct: [id number] Name: CONCHA GREWAL Rep #: [id number] : 1990 Provider: Dr. Candelario Barahona MD Age/Sex: 34/F Location: [facility] Status: Signed Intake Vital Signs 08/20/24 08:29 09/19/24 14:58 10/21/24 08:52 Height 5 ft 6 in 5 ft 6 in 5 ft 6 in Weight: 171 lb BMI 27.6 BP 102/68 Intake Visit Reasons: 24 wk ob Varnish Maker Helper Required: No Is patient in pain?: No Allergies house dust Allergy (Mild, Verified 10/21/24 08:56) Nasal congestion Medications ?Medication ?Instructions ?Recorded ?Confirmed ?Type multivit-min no.71-iron fum 28 1 cap PO DAILY pregnanc y 12/15/21 10/21/24 History mg-folate no.1 1 mg-dha 300 mg capsule (PNV-[place]) Last Menstrual Period: 04/27/24 Zika: Zika virus [...] physical activity do you participate in: none brandyn/advent: Caodaism seatbelt use: always do you feel safe at home: Yes 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 Date Name GA/Weeks Outcome Route Bth Weight Gen Labor Lgth Anesthesia Del Locatn Provider FOB 07/22/22 Jeol 40 live - full term 8lbs 3oz Male ep idural [facility] Dr. Vasquez Delivery Date: 07/22/22 Last [...] lb 102/68 -?-?-?-?-?-?-?-?-?-?-?-?- 1,455 145 25 -?-?-?-?-?-?-?-?-?-?-?-?- SM_ no vb [...] Dip (Clinic) Today CBC W/Diff, Automated Today O - Supervision of high risk , unspecified, second trimester Glucose Challenge Gest 1H 50g Today O - Supervision of high risk , unspecified, second trimester, Z13.1 - Encounter for screening for diabetes mellitus HIV Today - Supervision of high risk , unspecified, second trimester Syphilis Antibodies Today O - Supervision of high risk , unspecified, second trimester 10/21/24 0917 <Electronically signed by Kinza jimenez MD> Date _ Kinza Barahona MD Cosigner Signature: Date (if applicable) CC: ~ [facility] Work Phone: Progress note Author Nina Kern [facility] Note Date/Time November 15, 2024 11: 09am [facility] [address], [address] [place] [address] OFFICE VISIT Date of Service: 11/15/24 MR#: [id number] Acct: [id number] Name: CONCHA GREWAL Rep #: [id number] : 1990 Provider: Dr. Lina Gamboa DO Age/Sex: 34/F Location: [facility] Status: Signed Intake Vital Signs 10/21/24 08:52 11/15/24 10:20 11/15/24 10:21 Height 5 ft 6 in 5 ft 6 in 5 ft 6 in Weight: 174 lb 7 oz BMI 28.1 BP 98/60 Intake Visit Reasons: 28wk ob/glucose Varnish Maker Helper Required: No Is patient in pain?: No Allergies house dust Allergy (Mild, Verified 11/15/24 10:20) Nasal congestion Medications ?Medication ?Instructions ?Recorded ?Confirmed ?Type multivit-min no.71-iron fum 28 1 cap PO DAILY pregnanc y 12/15/21 11/15/24 History mg-folate no.1 1 mg-dha 300 mg capsule (PNV-[place]) Last Menstrual Period: 04/27/24 Zika: Zika virus [...] physical activity do you participate in: none brandyn/advent: Caodaism seatbelt use: always do you feel safe [...] full term 8lbs 3oz Male ep idural [facility] Dr. Vasquez Delivery Date: 07/22/22 Last [...] with MFM. starting to have hip pain. 05/13/25 -?-?-?-?-?-?-?-?-?-?-?-?- 16w 3d 160 lb 94/60 Negative -?-?-?-?-?-?-?-?-?-?-?-?- Negative 153 -?-?-?-?-?-?-?-?-?-?-?-?- MH-No VB. Nausea resolved. Doing well. 09/19/24 -?-?-?-?-?-?-?-?-?-?-?-?- 20w 5d 168 lb 102/64 Negative -?-?-?-?-?-?-?-?-?-?-?-?- Negative 156 -?-?-?-?-?-?-?-?-?-?-?-?- MH-No VB. Doing well. Good FM. Reviewed [facility] anatomy US and will rpt 2 wk [...] gct done today. aye tdap next visit. ACOG First Trimester First Trimester: [...] and Symptoms of Preeclampsia, Labor Signs and [place] Education; Discussed Trial of Labor after Counseling [...] Keyes DO> Date _ Nina Gamboa DO Amauryignvanessa Signature: Date (if applicable) CC: ~ [facility] Work Phone: Progress note Author Alessandra Bolanos [facility] Note Date/Time November 29, 2024 11 :18am [facility] [address] [place] [address], [address] [place] [address] OFFICE VISIT Date of Service: 11/29/24 MR#: [id number] Acct: [id number] Name: CONCHA GREWAL Rep #: [id number] : 1990 Provider: TRISTIN Bolanos Age/Sex: 34/F Location: [facility] Status: Signed Intake Vital Signs 09/19/24 14:58 11/15/24 10:21 11/29/24 10:52 Height 5 ft 6 in 5 ft 6 in 5 ft 6 in Weight: 176 lb BMI 28.4 BP 99/64 Intake Visit Reasons: 30 wk ob Varnish Maker Helper Required: No Is patient in pain?: No Allergies house dust Allergy (Mild, Verified 11/29/24 10:54) Nasal congestion Medications ?Medication ?Instructions ?Recorded ?Confirmed ?Type multivit-min no.71-iron fum 28 1 cap PO DAILY pregnanc y 12/15/21 11/29/24 History mg-folate no.1 1 mg-dha 300 mg capsule (PNV-[place]) Last Menstrual Period: 04/27/24 Zika: Zika virus [...] physical activity do you participate in: none brandyn/advent: Caodaism seatbelt use: always do you feel safe [...] full term 8lbs 3oz Male ep idural [facility] Dr. Vasquez Delivery Date: 07/22/22 Last [...] and Symptoms of Preeclampsia, Labor Signs and [place] Education; Discussed Trial of Labor after Counseling [...] Cosigner Signature: Date (if applicable) CC: ~ [facility] Work Phone: Progress note Author Ruthie Le [facility] Note Date/Time December 11, 2024 9:31am [facility] [address], [address] [place] [address] OFFICE VISIT Date of Service: 12/11/24 MR#: [id number] Acct: [id number] Name: CONCHA GREWAL Rep #: [id number] : 1990 Provider: TRISTIN Le Age/Sex: 34/F Location: [facility] Status: Signed Intake Vital Signs 11/15/24 10:21 11/29/24 10:52 12/11/24 09:02 Height 5 ft 6 in 5 ft 6 in 5 ft 6 in Weight: 177 lb 4 oz BMI 28.5 BP 110/64 Intake Visit Reasons: 32wk ob Varnish Maker Helper Required: No Is patient in pain?: No Allergies house dust Allergy (Mild, Verified 12/11/24 09:04) Nasal congestion Medications ?Medication ?Instructions ?Recorded ?Confirmed ?Type multivit-min no.71-iron fum 28 1 cap PO DAILY pregnanc y 12/15/21 12/11/24 History mg-folate no.1 1 mg-dha 300 mg capsule (PNV-[place]) Last Menstrual Period: 04/27/24 Zika: Zika virus [...] physical activity do you participate in: none brandyn/advent: Caodaism seatbelt use: always do you feel safe at home: Yes 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 Date Name GA/Weeks Outcome Route Bth Weight Infant Gen Labor Lgth Anesthesia [facility] Provider FOB 07/22/22 Joel 40 live - full term 8lbs 3oz Male ep idural [facility] Dr. Vasquez Delivery Date: 07/22/22 Last [...] by Ruthie irwin CNM> Date _ Ruthie Chower Signature: Date (if applicable) CC: ~ [facility] Work Phone: Progress note Author Kinza Barahona [facility] Note Date/Time January 10, 2025 11 :04am [facility] [address] [place] [address], [address] [place] [address] OFFICE VISIT Date of Service: 01/10/25 MR#: [id number] Acct: [id number] Name: CONCHA GREWAL Rep #: [id number] : 1990 Provider: Dr. Candelario Barahona MD Age/Sex: 34/F Location: [facility] Status: Signed Intake Vital Signs 11/15/24 10:21 12/25/24 09:39 01/10/25 10:41 Height 5 ft 6 in 5 ft 6 in 5 ft 6 in Weight: 180 lb 6 oz BMI 29.1 BP 95/61 Intake Visit Reasons: 36wk ob Varnish Maker Helper Required: No Is patient in pain?: No Allergies house dust Allergy (Mild, Verified 01/10/25 10:43) Nasal congestion Medications ?Medication ?Instructions ?Recorded ?Confirmed ?Type multivit-min no.71-iron fum 28 1 cap PO DAILY pregnanc y 12/15/21 01/10/25 History mg-folate no.1 1 mg-dha 300 mg capsule (PNV-[place]) Last Menstrual Period: 04/27/24 Zika: Zika virus [...] physical activity do you participate in: none brandyn/advent: Ca[employer] seatbelt use: always do you feel safe [...] full term 8lbs 3oz Male ep idural [facility] Dr. Vasquez Delivery Date: 07/22/22 Last [...] and Symptoms of Preeclampsia, Labor Signs and [place] Education; Discussed Trial of Labor after Counseling [...] Cosigner Signature: Date (if applicable) CC: ~ [facility] Work Phone: Reason for referral (narrative)No reason for referral information [facility]: Chief Complaint and Reason for Visit Chief Complaint NOB LMP 7/7 Reason for Visit Supervision of normal Chief Complaint NOB LMP 7/7 13 WK OB 17 WK OB SUPERVISION OF NORMAL Reason for Visit Supervision of normal Nausea/vomiting in Supervision of normal Chief Complaint NOB LMP 7/7 13 WK OB 17 WK OB SUPERVISION OF NORMAL 21wk ob 24 WK OB Reason for Visit Supervision of normal Nausea/vomiting in Supervision of normal [id number] Nausea/vomiting in Supervision of normal [id number] Nausea/vomiting in Supervision of normal [id number] Nausea/vomiting in Supervision of normal Chief Complaint 17 WK OB SUPERVISION OF NORMAL 21wk ob 24 WK OB 30 WK OB 32 WK OB BILAT BREAST MASSES Reason for Visit [id number] Supervision of normal Nausea/vomiting in [id number] Supervision of normal Nausea/vomiting in [id number] Supervision of normal Nausea/vomiting in [id number] Supervision of normal Breast mass, right Breast pain, left [id number] Supervision of normal Chief Complaint SUPERVISION OF ODETTE L 21wk ob 24 WK OB 30 WK OB 32 WK OB BILAT BREAST MASSES 34 WK OB 36 WK OB Reason for Visit [id number] Supervision of normal Nausea/vomiting in [id number] Supervision of normal Nausea/vomiting in [id number] Supervision of normal [id number] Supervision of normal Breast mass, right Breast pain, left [id number] Supervision of normal Breast mass, right Breast pain, left [id number] Supervision of normal Chief Complaint 21wk ob 24 WK OB 30 WK OB 32 WK OB BILAT BREAST MASSES 34 WK OB 36 WK OB 37 wk ob 38 WK OB RULE OUT LABOR Reason for Visit [id number] Supervision of normal Nausea/vomiting in [id number] Supervision of normal Nausea/vomiting in [id number] Supervision of normal [id number] Supervision of normal Breast mass, right Breast pain, left [id number] Supervision of normal Breast mass, right Breast pain, left [id number] Supervision of normal [id number] Supervision of normal [id number] Supervision of normal Chief Complaint 21wk ob 24 WK OB 30 WK OB 32 WK OB BILAT BREAST MASSES 34 WK OB 36 WK OB 37 wk ob 38 WK OB RULE OUT LABOR RULE OUT LABOR R\O LABOR Reason for Visit [id number] Supervision of normal Nausea/vomiting in [id number] Supervision of normal Nausea/vomiting in [id number] Supervision of normal [id number] Supervision of normal Breast mass, right Breast pain, left [id number] Supervision of normal Breast mass, right Breast pain, left [id number] Supervision of normal [id number] Supervision of normal [id number] Supervision of normal [id number] Supervision of normal Chief Complaint 24 WK OB 30 WK OB 32 WK OB BILAT BREAST MASSES 34 WK OB 36 WK OB 37 wk ob 38 WK OB RULE OUT LABOR RULE OUT LABOR R\O LABOR R\O LABOR 39 WK OB VAGINAL DELIVERY LABOR VAGINAL DELIVERY VAGINAL DELIVERY Reason for Visit [id number] Supervision of normal Nausea/vomiting in [id number] Supervision of normal [id number] Supervision of normal Breast mass, right Breast pain, left [id number] Supervision of normal Breast mass, right Breast pain, left [id number] Supervision of normal [id number] Supervision of normal [id number] Supervision of normal [id number] Supervision of normal Premature rupture of membranes [id number] Supervision of normal Active labor at term [id number] Supervision of normal Chief Complaint BLOOD IN [...] Supervision of high-risk Augus t 2024 10:14am Chief Complaint Admit Date 16wk [...] Supervision of high-risk Augus t 2024 10:14am Chief Complaint Admit Date 16wk [...] December 11, 2024 8:58am [facility] AMA (advanced maternal age) multigravida 35+ December 25, 2024 9:38am Anal fissure December 25, 2024 9:38am Family hx of colon cancer December 9:38am December 25, 2024 9:38am [facility] 2024 9:38am Chief Complaint Admit [...] December 11, 2024 8:58am Supervision of high-risk 2024 8:58am AMA (advanced maternal age) multigravida 35+ December 25, 2024 9:38am Anal fissure December 25, 2024 9:38am Family hx of colon cancer December 9:38am December 25, 2024 9:38am Supervision of high-risk Septe 2024 9:38am AMA (advanced maternal age) multigravida 35+ January 10, 2025 10:38am Anal fissure January 10, 2025 10 :38am Family hx of colon cancer January 10, 025 10:38am January 10, 2025 10 :38am Supervision [...] No January 04, 2021 6:14pm Power of Multifocal Button Grinder No December 6:14pm Advance Directive Response Recorded Date/ Time Living Will No January 04, 2021 5:14pm Power of Multifocal Button Grinder No December 5:14pm Advance Directive Response Recorded Date/ Time Living Will No June 24, 2022 4:53pm Power of Multifocal Button Grinder No June 24 4:53pm Advance Directive Response Recorded Date/ Time Living Will No July 01, 2022 9:58am Power of Multifocal Button Grinder No July 01 9:58am Advance Directive Response Recorded Date/ Time Living Will No July 22, 2022 3:49am Power of Multifocal Button Grinder No July 22 3:49am Advance Directive Response Recorded Date/ Time Living Will No July 17, 2023 9:55am Power of Multifocal Button Grinder No July 16 9:55am Summary Purpose Additional [...] End: August 20, 2024 Esperanza Florence NP, YANN-C Attending Provider Active Start: August 20, 2024 End: August 20, 2024 Team Status: Inactive Member Role Status Dates Dr. Tirso Kemp MD Primary Care Provider Acti ve Start: September 19, 2024 End: September 19, 2024 Dr. Tirso Kemp MD Referring Provider Active Start: September 19, 2024 End: September 19, 2024 Esperanza Florence PSYCHIATRIC AIDES TEACHER, PSYCHIATRIC AIDES TEACHER-C Attending Provider Active Start: September 19, 2024 [...] 2024 End: August 20, 2024 Esperanza Florence PSYCHIATRIC AIDES TEACHER, PSYCHIATRIC AIDES TEACHER-C Attending Provider Active Start: August 20, 2024 End: August 20, 2024 Team Status: Inactive Member Role/Relationship Status Dates Dr. Tirso Kemp MD Primary Care Provider Acti ve Start: September 19, 2024 End: September 19, 2024 Dr. Tirso Kemp MD Referring Provider Active Start: September 19, 2024 End: September 19, 2024 Esperanza Florence PSYCHIATRIC AIDES TEACHER, PSYCHIATRIC AIDES TEACHER-C Attending Provider Active Start: September 19, 2024 [...] 2024 End: August 20, 2024 Esperanza Florence PSYCHIATRIC AIDES TEACHER, PSYCHIATRIC AIDES TEACHER-C Attending Provider Active Start: August 20, 2024 End: August 20, 2024 Team Status: Inactive Member Role/Relationship Status Dates Dr. Tirso Kemp MD Primary Care Provider Acti ve Start: September 19, 2024 End: September 19, 2024 Dr. Tirso Kemp MD Referring Provider Active Start: September 19, 2024 End: September 19, 2024 Esperanza Florence PSYCHIATRIC AIDES TEACHER, PSYCHIATRIC AIDES TEACHER-C Attending Provider Active Start: September 19, 2024 [...] 2024 End: August 20, 2024 Dr. Tirso eKmp MD Referring Provider Active Start: August 20, 2024 End: August 20, 2024 Esperanza Florence PSYCHIATRIC AIDES TEACHER, PSYCHIATRIC AIDES TEACHER-C Attending Provider Active Start: August 20, 2024 End: August 20, 2024 Team Status: Inactive Member Role/Relationship Status Dates Dr. Tirso Kemp MD Primary Care Provider Acti ve Start: September 19, 2024 End: September 19, 2024 Dr. Tirso Kemp MD Referring Provider Active Start: September 19, 2024 End: September 19, 2024 Esperanza Florence PSYCHIATRIC AIDES TEACHER, PSYCHIATRIC AIDES TEACHER-C Attending Provider Active Start: September 19, 2024 [...] End: September 19, 2024 Esperanza Florence NP, PSYCHIATRIC AIDES TEACHER-C Attending physician Active Start: September 19, 2024 [...] End: December 25, 2024 Esperanza Florence NP, PSYCHIATRIC AIDES TEACHER-C Attending physician Active Start: December 25, 2024 [...] ized section and content) DATE CREATED AUTHOR 01/27/2025 [facility] FOR RECORDS PERTAINING TO PATIENTS [...] BE BASED ON THE PRIMARY CLINICAL RECORDS. [facility]. provides no warranty or guarantee of the accuracy or completeness of information in this document.
--- OUTSIDE RECORDS SUMMARY | 2025-01-29 18:18 | XMS RPT_ITS | CCD ---
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 Shaan Kemp Primary Care Provider [phone] Dr. Shaan Kemp Referring Provider Dr. Kinza Barahona Attending Provider [phone] Dr. Shaan Kemp Primary Care Provider [phone] Dr. Shaan Kemp Referring Provider Dr. Kinza Barahona Attending Provider [phone] Ludivina RN PROCEDURE, YANN-Diego Mata Attending Provider [phone] Dr. Nina Gamboa Attending Provider [phone] TRISTIN Bolanos Attending Provider [phone] Shaan Kemp Primary Care Provider [phone] Dr. Shaan Kemp Referring Provider Dr. Kinza Barahona Attending Provider [phone] Dr. Shaan Kemp Primary Care Provider [phone] Dr. Shaan Kemp Referring Provider TRISTIN Bolanos [...] Dr. Tirso Kemp MD Referring Provider [phone] Dr. Nina Gamboa DO Attending Provider Shiva [...] n Viridiana HOYOS, Dr. Chahal Referring Provider Esperanza Encinas Attending Physician [phone] Jun HOYOS, [...] Esperanza Florence NP Attending Unavailable Ranney, [facility] Unavailable Tirso Kemp Referring Unavailable Nina Gamboa Attending [facility]abl [facility] Unavailable Tirso Kemp Referring Unavailable Esperanza Florence NP Attending Unavailable [facility] Unavailable Tirso Kemp Referring Unavailable Kinza Barahona Attending Unavailable Allergies Allergy Classification Reported Allergen(s) Allergy Type Date of Onset Reaction(s) Facility (19 sources) house dust allergenic extract Drug Allergy 2 Nasal congestion [facility] (1 source) house dust allergenic extract Drug Allergy 5 [facility] Repository Medications Current Medications Medication Drug Class(es) Dates Sig (Normalized) Sig (Original) ferrous sulfate 75 mg/ml oral solution (6 sources) Start: 12-15-2021 take 1 mL by mouth once daily Ferrous Sulfate Active 0.83 ML PO DAILY December 15, 2021 12:00am Mv-Mins 48-Uzll-Ekxcg No.1-Dha (Pnv-Catlett) 28-1-300 mg capsule (19 sources) Start: 12-15-2021 Mv-Mins 53-Rfzi-Ukyui No.1-Dha (Pnv-Catlett) 28-1-300 mg capsule Active 1 NMA PO DAILY December 15, 2021 12:00am Complies with drug therapy Start: 12-15-2021 Mv-Mins 71-Iro n-Folic No.1-Dha (Pnv-Catlett) 28-1-300 mg capsule Active 1 NMA PO DAILY December 15, 2021 12:00am Start: 12-15-2021 Mv-Mins 71-Iro n-Folic No.1-Dha (Pnv-Catlett) 28-1-300 mg capsule Active 1 NMA PO DAILY December 15, 2021 12:00am Start: 12-15-2021 take 1 capsule by mo uth once daily Mv-Mins 44-Lofe-Mvknb No.1-Dha (Pnv-Catlett) 28-1-300 mg capsule Active 1 CAP PO DAILY December 15, 2021 12:00am Start: 12-15-2021 take 1 capsule by mouth once M v-Mins 43-Etnh-Yhmrv No.1-Dha (Pnv-Catlett) 28-1-300 mg capsule Active CAP PO December 14, 2021 11:00pm Start: 12-15-2021 take 1 capsule by mouth once M v-Mins 80-Fjyc-Vhmrq No.1-Dha (Pnv-Catlett) 28-1-300 mg capsule Active CAP PO December [...] Range Facility Genital Culture Comprehensiv vivian 01-27-[address] [facility] Reason for Exam: vaginitis No Gardnerella, Neisseria or beta-hemolytic Streptococcus isolated. Presumptive C albicans Amount Growth 2+ Normal [facility] Comment on above: Performed By: #### L 100.0100, L3890.6301, L509.8002, BTS, L3890.6102, L3890.6006, L509.4006 #### [facility] [address] [place], [address] Gram Stainon 01-24-2025 Reason for Exam: vaginitis Gram Stain 4+ Gram positive rods No Gram negative diplococci 1+ Epithelial cells Score = 0 Interpretation: 0-3 Normal, 4-6 Intermediate, 7-10 Positive BV Normal [facility] Comment on above: Performed By: #### L 100.0100, L3890.6301, L509.8002, BTS, L3890.6102, L3890.6006, L509.4006 #### [facility] [address] [place], [address] Hand Spinner Office Visit Reporton 01-24-2025 Hand Spinner Office Visit Report [facility] [address], [address] [place] [address] OFFICE VISIT Date of Service: 01/24/25 MR#: [id number] Acct: [id number] Name: CONCHA GREWAL Rep #: [id number] : 1990 Provider: Dr. Nina Cortes DO Age/Sex: 34/F Location: [facility] [place] Status: Signed Intake Vital Signs 12/25/24 09:39 01/10/25 10:41 01/17/25 11:35 01/24/25 11:10 01/24/25 11:11 Height 5 ft 6 in 5 ft 6 in 5 ft 6 in 5 ft 6 in 5 ft 6 in Weight: 183 lb 9 oz BMI 29.6 BP 101/68 Intake Visit Reasons: 38 wk ob Splunk Developer Required: No Is patient in pain?: No Allergies house dust Allergy (Mild, Verified 01/24/25 11:09) Nasal congestion Medications ???Medication ???Instructions ???Recorded ???Confirmed ???Type multivit-min no.71-iron fum 28 1 cap PO DAILY 12/15/21 01/24/25 History mg-folate no.1 1 mg-dha 300 mg capsule (PNV-Catlett) fluconazole 150 mg tablet 150 mg PO [...] physical activity do you participate in: none brandyn/spiritism: Jewish seatbelt use: always do you feel safe [...] - full term 8lbs 3oz Male epidural [facility] Tea Shannon Kendrickericka Jimy Delivery Date: [...] Negative -???-???-? (more content not included)... Normal [facility] Hand Spinner Office Visit Reporton 01-17-2025 Hand Spinner Office Visit Report [facility] [address], [address] [place] [address] OFFICE VISIT Date of Service: 01/17/25 MR#: [id number] Acct: [id number] Name: CONCHA GREWAL Rep #: [id number] : 1990 Provider: TRISTIN Ramirez ams Age/Sex: 34/F Location: [facility] Status: Signed Intake Vital Signs 12/25/24 09:39 01/10/25 10:41 01/17/25 11:35 Height 5 ft 6 in 5 ft 6 in 5 ft 6 in Weight: 182 lb 5 oz BMI 29.4 BP 101/69 Intake Visit Reasons: 37 wk ob Chief Complaint: 37wk OB Splunk Developer Required: No Is patient in pain?: No Allergies house dust Allergy (Mild, Verified 01/17/25 11:34) Nasal congestion Medications ???Medication ???Instructions ???Recorded ???Confirmed ???Type multivit-min no.71-iron fum 28 1 cap PO DAILY 12/15/21 01/17/25 History mg-folate no.1 1 mg-dha 300 mg capsule (PNV-Catlett) Last Menstrual Period: 04/27/24 : No PFSH [...] physical activity do you participate in: none brandyn/spiritism: Jewish seatbelt use: always do you feel safe [...] - full term 8lbs 3oz Male epidural [facility] Tea Shannon Kendrickericka Jimy Delivery Date: [...] (more content not included)... Normal [facility] Rule out Beta Strep (Grp. B) on 01-14-2025 DUSTIN Sensitivity to follo w. Streptococcus agalactiae (B) Amount Growth Growth Streptococcus agalactiae (B): REACTION Ampicillin Islt MARK <=0.25 cefTRIAXone Islt MARK <=0.12 S Clindamycin Islt MARK <=0.25 S Clindamycin.induced Susc Islt NEG Linezolid Islt MARK <=2 S Vancomycin Islt MARK 0.5 S Normal [facility] Comment on above: Performed By: #### L 100.0100, L3890.6301, L509.8002, BTS, L3890.6102, L3890.6006, L509.4006 #### [facility] [address] [place], [address] Hand Spinner Office Visit Reporton 01-10-2025 Hand Spinner Office Visit Report [facility] [address], [address] [place] [address] OFFICE VISIT Date of Service: 01/10/25 MR#: [id number] Acct: [id number] Name: CONCHA GREWAL Rep #: [id number] : 1990 Provider: Dr. Kinza tyler MD Age/Sex: 34/F Location: [facility] [place] Status: Signed Intake Vital Signs 11/15/24 10:21 12/25/24 09:39 01/10/25 10:41 Height 5 ft 6 in 5 ft 6 in 5 ft 6 in Weight: 180 lb 6 oz BMI 29.1 BP 95/61 Intake Visit Reasons: 36wk ob Splunk Developer Required: No Is patient in pain?: No Allergies house dust Allergy (Mild, Verified 01/10/25 10:43) Nasal congestion Medications ???Medication ???Instructions ???Recorded ???Confirmed ???Type multivit-min no.71-iron fum 28 1 cap PO DAILY 12/15/21 01/10/25 History mg-folate no.1 1 mg-dha 300 mg capsule (PNV-Catlett) Last Menstrual Period: 04/27/24 Zika: Zika virus [...] physical activity do you participate in: none brandyn/spiritism: Jewish seatbelt use: always do you feel safe [...] - full term 8lbs 3oz Male epidural [facility] Tea benjamin Baljeetwillian Concha Ahn Delivery [...] (more content not included)... Normal [facility] - Chemistry and C hemistry - challengeOrdered By: Esperanza Florence on 12-25-2024 Glucose Ql (U) Negative [facility] - UrinalysisOrder ed By: Esperanza Florence on 12-25-2024 Protein Ql (U) Negative [facility] Hand Spinner Office Visit Reporton 12-25-2024 Hand Spinner Office Visit Report [facility] [address], [address] [place] [address] OFFICE VISIT Date of Service: 12/25/24 MR#: [id number] Acct: [id number] Name: CONCHA GREWAL Rep #: [id number] : 1990 Provider: ADRIENNE martell Age/Sex: 34/F Location: [facility] [place] Status: Signed Intake Vital Signs 11/15/24 10:21 12/11/24 09:02 12/25/24 09:39 Height 5 ft 6 in 5 ft 6 in 5 ft 6 in Weight: 180 lb 2 oz BMI 29.0 BP 92/55 L Intake Visit Reasons: 34wk ob Chief Complaint: 34 Week OB Splunk Developer Required: No Is patient in pain?: No Allergies house dust Allergy (Mild, Verified 12/25/24 09:41) Nasal congestion Medications ???Medication ???Instructions ???Recorded ???Confirmed ???Type multivit-min no.71-iron fum 28 1 cap PO DAILY 12/15/21 12/25/24 History mg-folate no.1 1 mg-dha 300 mg capsule (PNV-Catlett) Last Menstrual Period: 04/27/24 Zika: Zika virus [...] physical activity do you participate in: none brandyn/spiritism: Jewish seatbelt use: always do you feel safe [...] - full term 8lbs 3oz Male epidural [facility] Tea Gamboa [facility] Delivery Date: 07/22/22 Last Updated by: [...] (more content not included)... Normal [facility] - Chemistry and C hemistry - challengeOrdered By: Ruthie Le on 12-11-2024 Glucose Ql (U) Negative [facility] - UrinalysisOrder ed By: Ruthie Le on 12-11-2024 Protein Ql (U) 1+ [facility] Hand Spinner Office Visit Reporton 12-11-2024 Hand Spinner Office Visit Report [facility], [address] [place] [address] OFFICE VISIT Date of Service: 12/11/24 MR#: [id number] Acct: [id number] Name: CONCHA GREWAL Rep #: [id number] : 1990 Provider: TRISTIN Ramirez [facility] Age/Sex: 34/F Location: [facility] [place] Status: Signed Intake Vital Signs 11/15/24 10:21 11/29/24 10:52 12/11/24 09:02 Height 5 ft 6 in 5 ft 6 in 5 ft 6 in Weight: 177 lb 4 oz BMI 28.5 BP 110/64 Intake Visit Reasons: 32wk ob Splunk Developer Required: No Is patient in pain?: No Allergies house dust Allergy (Mild, Verified 12/11/24 09:04) Nasal congestion Medications ???Medication ???Instructions ???Recorded ???Confirmed ???Type multivit-min no.71-iron fum 28 1 cap PO DAILY 12/15/21 12/11/24 History mg-folate no.1 1 mg-dha 300 mg capsule (PNV-Catlett) Last Menstrual Period: 04/27/24 Zika: Zika virus [...] physical activity do you participate in: none brandyn/spiritism: Jewish seatbelt use: always do you feel safe at home: Yes 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 Date Name GA/Weeks Outcome Route Bth Weight [facility]ant [facility]22/22 Joel 40 live - full term 8lbs 3oz Male epidural [facility] Tea Gamboa Jimy Delivery Date: 07/22/22 [...] (more content not included)... Normal [facility] - Chemistry and C hemistry - challengeOrdered By: Alessandra Bolanos on 11-29-2024 Glucose Ql (U) Negative [facility] - UrinalysisOrder ed By: Alessandra Bolanos on 11-29-2024 Protein Ql (U) Negative [facility] Hand Spinner Office Visit Reporton 11-29-2024 Hand Spinner Office Visit Report [facility] [address] [place] [address], [address] [place] [address] OFFICE VISIT Date of Service: 11/29/24 MR#: [id number] Acct: [id number] Name: CONCHA GREWAL Rep #: [id number] : 1990 Provider: TRISTIN parks Age/Sex: 34/F Location: [facility] [place] Status: Signed Intake Vital Signs 09/19/24 14:58 11/15/24 10:21 11/29/24 10:52 Height 5 ft 6 in 5 ft 6 in 5 ft 6 in Weight: 176 lb BMI 28.4 BP 99/64 Intake Visit Reasons: 30 wk ob Splunk Developer Required: No Is patient in pain?: No Allergies house dust Allergy (Mild, Verified 11/29/24 10:54) Nasal congestion Medications ???Medication ???Instructions ???Recorded ???Confirmed ???Type multivit-min no.71-iron fum 28 1 cap PO DAILY 12/15/21 11/29/24 History mg-folate no.1 1 mg-dha 300 mg capsule (PNV-Catlett) Last Menstrual Period: 04/27/24 Zika: Zika virus [...] physical activity do you participate in: none brandyn/spiritism: Jewish seatbelt use: always do you feel safe [...] - full term 8lbs 3oz Male epidural [facility] D r. Shiva Ahn Delivery Date: [...] (more content not included)... Normal [facility] Absolute lymphocyte countOrd ered By: Kinza Nicolewillie on 11-15-2024 Lymphocytes Auto (Unsp spec) [#/Vol] 1.37 10*3/uL 0.83-4.51 [facility] Absolute neutrophil countOrd ered By: Kinza Garibayjoie on 11-15-2024 Neutrophils (Bld) [#/Vol] 4.6 10*3/uL 2.0-7.7 [facility] Automated lymphocyte count a s percentage of total leukocytesOrdered By: Kinza Garibayjoie on 11-15-2024 Lymphocytes/100 WBC Auto (Unsp spec) 21.0 % 19-41 [facility] Basophil percentageOrdered B y: Kinza Garibayjoie on 11-15-2024 Basophils/100 WBC (Bld) 0.3 % 0-1 [facility] CBC W/Diff, Automatedon Absolute Lymph 1.37 X10 3/uL Normal 0.83-4.51 [facility] Comment on above: Performed By: #### L 509.8002, L501.0250, L3890.6006, L100.0100 #### [facility] [address] [place], [address] Absolute Neut 4.6 X10 3/uL Normal 2.0-7.7 [facility] Comment on above: Performed By: #### L 509.8002, L501.0250, L3890.6006, L100.0100 #### [facility] [address] [place], [address] Basophils/100 WBC (Bld) 0.3 % Normal 0-1 [facility] Comment on above: Performed By: #### L 509.8002, L501.0250, L3890.6006, L100.0100 #### [facility] [address] [place], [address] Eosinophils/100 WBC (Bld) 0.9 % Normal 0-5 [facility] Comment on above: Performed By: #### L 509.8002, L501.0250, L3890.6006, L100.0100 #### [facility] [address] [place], [address] Erythrocyte distribution width (RBC) [Ratio] 11.9 % Normal 11.6-14.6 [facility] Comment on above: Performed By: #### L 509.8002, L501.0250, L3890.6006, L100.0100 #### [facility] [address] [place], [address] Hematocrit (Bld) [Volume fraction] 33.8 % Low 37-47 [facility] Comment on above: Performed By: #### L 509.8002, L501.0250, L3890.6006, L100.0100 #### [facility] [address] [place], [address] Hemoglobin (Bld) [Mass/Vol] 11.5 g/dL Low 12.0-15.0 [facility] Comment on above: Performed By: #### L 509.8002, L501.0250, L3890.6006, L100.0100 #### [facility] [address] [place], [address] IG% 0.500 Normal 0.0-0.9 [facility] Comment on above: Result Comment: IG% - Immature Granulocytes (promyelocytes, myelocytes and metamyelocytes) > 1% indicates that a LEFT SHIFT is Present. Performed By: #### L 509.8002, L501.0250, L3890.6006, L100.0100 #### [facility] [address] [place], [address] Lymphocytes/100 WBC (Bld) 21.0 % Normal 19-41 [facility] Comment on above: Performed By: #### L 509.8002, L501.0250, L3890.6006, L100.0100 #### [facility] [address] [place], [address] MCH (RBC) [Entitic mass] 32.4 pg High 27.0-32.0 [facility] Comment on above: Performed By: #### L 509.8002, L501.0250, L3890.6006, L100.0100 #### [facility] [address] [place], [address] MCHC (RBC) [Mass/Vol] 34.0 g/dL Normal 32-36 [facility] Comment on above: Performed By: #### L 509.8002, L501.0250, L3890.6006, L100.0100 #### [facility] [address] [place], [address] MCV (RBC) [Entitic vol] 95.2 fL Normal 81-99 W [facility] Comment on above: Performed By: #### L 509.8002, L501.0250, L3890.6006, L100.0100 #### [facility] [address] [place], [address] Monocytes/100 WBC (Bld) 6.1 % Normal 0-10 W [facility] Comment on above: Performed By: #### L 509.8002, L501.0250, L3890.6006, L100.0100 #### [facility] [address] [place], [address] Neutrophils/100 WBC (Bld) 71.2 % High 47-70 [facility] Comment on above: Performed By: #### L 509.8002, L501.0250, L3890.6006, L100.0100 #### [facility] [address] [place], [address] Nucleated RBC (Bld) [#/Vol] 0 10*3/uL Normal 0-5 [facility] Comment on above: Performed By: #### L 509.8002, L501.0250, L3890.6006, L100.0100 #### [facility] [address] [place], [address] Platelet mean volume (Bld) [Entitic vol] 10.2 fL Normal 6.2-12.0 [facility] Comment on above: Performed By: #### L 509.8002, L501.0250, L3890.6006, L100.0100 #### [facility] [address] [place], [address] Platelets (Bld) [#/Vol] 284 10*3/uL Normal 150-450 [facility] Comment on above: Performed By: #### L 509.8002, L501.0250, L3890.6006, L100.0100 #### [facility] [address] [place], [address] RBC (Bld) [#/Vol] 3.55 10*6/uL Low 4.2-5.4 [facility] Comment on above: Performed By: #### L 509.8002, L501.0250, L3890.6006, L100.0100 #### [facility] [address] [place], [address] RDW SD 41.3 fl Normal 35.1-43.9 [facility] Comment on above: Performed By: #### L 509.8002, L501.0250, L3890.6006, L100.0100 #### [facility] [address] [place], [place], [address] WBC (Bld) [#/Vol] 6.5 10*3/uL Normal 4.4-11.0 [facility] Comment on above: Performed By: #### L 509.8002, L501.0250, L3890.6006, L100.0100 #### [facility] [address] [place], [place], [address] Eosinophil percentageOrdered By: Kinza Barahona on 11-15-2024 Eosinophils/100 WBC (Bld) 0.9 % 0-5 [facility] Erythrocyte distribution wid th ratioOrdered By: Kinza Barahona on 11-15-2024 Erythrocyte distribution width (RBC) [Ratio] 11.9 % 11.6-14.6 [facility] Erythrocyte distribution wid th standard deviationOrdered By: Kinza Barahona on 11-15-2024 Erythrocyte distribution width (RBC) [Ratio] 41.3 fl 35.1-43.9 [facility] Glucose Challenge Gest 1H 50 vaishali 11-15-2024 GLU GEST 50g 1H 83 mg/dL Normal 70-140 [facility] Comment on above: Performed By: #### L 509.8002, L501.0250, L3890.6006, L100.0100 #### [facility] [address] [place], [place], [address] Glucose measurement at 2 all rs post-dose gestational glucose tolerance testOrdered By: Kinza Barahona on 11-15-2024 Glucose [Mass/Vol] 83 mg/dL 70-140 [facility] HIVon 11-15-2024 HIV Non-Reactive Normal Nonreactive [facility] Comment on above: Result Comment: Non- Reactive Reactive Repeatedly reactive samples must be confirmed according to CDC recommended confirmatory algorithms. The subresults for either HIVAG or AHIV can be used as an aid in the selection of the confirmation algorithm for reactive samples. Send out specimens with Reactive results to [facility] for confirmation. Order the HIV antibody detection and differentiation: lc#[id number] Performed By: #### L 100.0100, L3890.6301, L509.8002, BTS, L3890.6102, L3890.6006, L509.4006 #### [facility] [place], [address] Hematocrit Auto (Bld) [Volum e fraction]Ordered By: Kinza Barahona on 11-15-2024 Hematocrit (Bld) [Volume fraction] 33.8 % Low 37-47 [facility] Hemoglobin measurementOrdere d By: Kinza Barahona on 11-15-2024 Hemoglobin (Bld) [Mass/Vol] 11.5 g/dL Low 12.0-15.0 [facility] Immature granulocytes/100 WB C Auto (Bld)Ordered By: Kinza Barahona on 11-15-2024 Immature granulocytes/100 WBC (Bld) 0.500 % 0.0-0.9 [facility] Comment on above: IG% - Immature Granu locytes (promyelocytes, myelocytes and metamyelocytes) > 1% indicates that a LEFT SHIFT is Present. Laboratory - Chemistry and C hemistry - challengeOrdered By: Nina Kern on 11-15-2024 Glucose Ql (U) Negative [facility] - UrinalysisOrder ed By: Nina Kern on 11-15-2024 Protein Ql (U) Negative [facility] MCV (mean corpuscular volume ) determinationOrdered By: Kinza Barahona on 11-15-2024 MCV (RBC) [Entitic vol] 95.2 fL 81-99 [facility] Mean corpuscular hemoglobin (MCH) determinationOrdered By: Kinza Barahona on 11-15-2024 MCH (RBC) [Entitic mass] 32.4 pg High 27.0-32.0 [facility] Mean corpuscular hemoglobin concentration (MCHC) determinationOrdered By: Kinza Barahona on 11-15-2024 MCHC (RBC) [Mass/Vol] 34.0 g/dL 32-36 [facility] Mean platelet volume determi nationOrdered By: Kinza Barahona on 11-15-2024 Platelet mean volume (Bld) [Entitic vol] 10.2 fL 6.2-12.0 [facility] Monocyte percentageOrdered B y: Kinza Barahona on 11-15-2024 Monocytes/100 WBC (Bld) 6.1 % 0-10 [facility] Neutrophil percentageOrdered By: Kinza Barahona on 11-15-2024 Neutrophils/100 WBC (Bld) 71.2 % High 47-70 [facility] No Panel InformationOrdered By: Kinza Garibayluiswillie on 11-15-2024 HIV (1&2) Antibody Non-Reactive Nonreactive [facility] Comment on above: Non-ReactiveReactive Repeatedly reactive samples must be confirmed according to CDC recommended confirmatory algorithms. The subresults for either HIVAG or AHIV can be used as an aid in the selection of the confirmation algorithm for reactive samples.Send out specimens with Reactive results to [facility] for confirmation.Order the HIV antibody detection and differentiation: #[id number] Nucleated red blood cell per centageOrdered By: Kinza Barahona on 11-15-2024 Nucleated RBC/100 WBC (Bld) [Ratio] 0 % 0-5 [facility] Hand Spinner Office Visit Reporton 11-15-2024 Hand Spinner Office Visit Report [facility] [address], [address] [place] [address] OFFICE VISIT Date of Service: 11/15/24 MR#: [id number] Acct: [id number] Name: CONCHA GREWAL Rep #: [id number] : 1990 Provider: Dr. Nina Cortes DO Age/Sex: 34/F Location: [facility] [place] Status: Signed Intake Vital Signs 10/21/24 08:52 11/15/24 10:20 11/15/24 10:21 Height 5 ft 6 in 5 ft 6 in 5 ft 6 in Weight: 174 lb 7 oz BMI 28.1 BP 98/60 Intake Visit Reasons: 28wk ob/glucose Splunk Developer Required: No Is patient in pain?: No Allergies house dust Allergy (Mild, Verified 11/15/24 10:20) Nasal congestion Medications ???Medication ???Instructions ???Recorded ???Confirmed ???Type multivit-min no.71-iron fum 28 1 cap PO DAILY 12/15/21 11/15/24 History mg-folate no.1 1 mg-dha 300 mg capsule (PNV-Catlett) Last Menstrual Period: 04/27/24 Zika: Zika virus [...] physical activity do you participate in: none brandyn/spiritism: Jewish seatbelt use: always do you feel safe at home: Yes 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 Date Name GA/Weeks Outcome Route Bth Weight Infant Gen Labor Lgth Anesthesia Del [facility] Provider FOB 07/22/22 Joel 40 live - full term 8lbs 3oz Male epidural [facility] Tea [facility] Delivery Date: 07/22/22 Last Updated by: [...] (more content not included)... Normal [facility] Platelet countOrdered By: Krissy Barahona on 11-15-2024 Platelets (Bld) [#/Vol] 284 10*3/uL 150-450 [facility] RBC Auto (Bld) [#/Vol]Ordere d By: Kinza Barahona on 11-15-2024 RBC (Bld) [#/Vol] 3.55 10*6/uL Low 4.2-5.4 [facility] Syphilis Antibodieson 2024 Syphilis Abs Non-Reactive Normal Nonreactive [facility] Comment on above: Performed By: #### L 509.8002, L501.0250, L3890.6006, L100.0100 #### [facility] [address] [place], [address] White blood cell (WBC) count Ordered By: Kinza Jun on 11-15-2024 WBC (Bld) [#/Vol] 6.5 10*3/uL 4.4-11.0 [facility] - Chemistry and C hemistry - challengeOrdered By: Kinza Barahona on 10-21-2024 Glucose Ql (U) Negative [facility] Laboratory - UrinalysisOrder ed By: Kinza Barahona on 10-21-2024 Protein Ql (U) Negative [facility] Hand Spinner Office Visit Reporton 10-21-2024 Hand Spinner Office Visit Report [facility] [address], [address] [place] [address] OFFICE VISIT Date of Service: 10/21/24 MR#: [id number] Acct: [id number] Name: CONCHA GREWAL Rep #: [id number] : 1990 Provider: Dr. Kinza tyler MD Age/Sex: 34/F Location: [facility] [place] Status: Signed Intake Vital Signs 08/20/24 08:29 09/19/24 14:58 10/21/24 08:52 Height 5 ft 6 in 5 ft 6 in 5 ft 6 in Weight: 171 lb BMI 27.6 BP 102/68 Intake Visit Reasons: 24 wk ob Splunk Developer Required: No Is patient in pain?: No Allergies house dust Allergy (Mild, Verified 10/21/24 08:56) Nasal congestion Medications ???Medication ???Instructions ???Recorded ???Confirmed ???Type multivit-min no.71-iron fum 28 1 cap PO DAILY 12/15/21 10/21/24 History mg-folate no.1 1 mg-dha 300 mg capsule (PNV-Catlett) Last Menstrual Period: 04/27/24 Zika: Zika virus [...] physical activity do you participate in: none brandyn/spiritism: Jewish seatbelt use: always do you feel safe at home: Yes 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 Date Name GA/Weeks Outcome Route Bth Weight Gen [facility]22 Joel 40 live - full term 8lbs 3oz Male epidural [facility] Tea [facility] Jimy Delivery Date: 07/22/22 [...] (more content not included)... Normal [facility] - Chemistry and C hemistry - challengeOrdered By: Esperanza Florence on 09-19-2024 Glucose Ql (U) Negative [facility] - UrinalysisOrder ed By: Esperanza Florence on 09-19-2024 Protein Ql (U) Negative [facility] Hand Spinner Office Visit Reporton 09-19-2024 Hand Spinner Office Visit Report [facility], [address] [place] [address] OFFICE VISIT Date of Service: 09/19/24 MR#: [id number] Acct: [id number] Name: CONCHA GREWAL Rep #: [id number] : 1990 Provider: ADRIENNE martell Age/Sex: 34/F Location: [facility] Status: Signed Intake Vital Signs 03/17/25 14:15 08/20/24 08:29 09/19/24 14:55 09/19/24 14:58 Height 5 ft 6 in 5 ft 6 in 5 ft 6 in 5 ft 6 in Weight: 160 lb 168 lb BMI 25.8 27.1 BP 94/60 102/64 Intake Visit Reasons: 20wk ob Chief Complaint: 20 Week OB Splunk Developer Required: No Is patient in pain?: No Allergies house dust Allergy (Mild, Verified 09/19/24 14:54) Nasal congestion Medications ???Medication ???Instructions ???Recorded ???Confirmed ???Type multivit-min no.71-iron fum 28 1 cap PO DAILY 12/15/21 09/19/24 History mg-folate no.1 1 mg-dha 300 mg capsule (PNV-Catlett) Last Menstrual Period: 04/27/24 Zika: Zika virus [...] physical activity do you participate in: none brandyn/spiritism: Jewish seatbelt use: always do you feel safe [...] - full term 8lbs 3oz Male epidural [facility] D rSimon Vasquez Delivery Date: 07/22/22 [...] Catina mitchell (more content not included)... Normal [facility] - Chemistry and C hemistry - challengeOrdered By: Esperanza Florence on 08-20-2024 Glucose Ql (U) Negative [facility] - UrinalysisOrder ed By: Esperanza Florence on 08-20-2024 Protein Ql (U) Negative [facility] Hand Spinner Office Visit Reporton 08-20-2024 Hand Spinner Office Visit Report [facility] [address], [address] [place] [address] OFFICE VISIT Date of Service: 08/20/24 MR#: [id number] Acct: [id number] Name: CONCHA GREWAL Rep #: [id number] : 1990 Provider: ADRIENNE martell Age/Sex: 33/F Location: [facility] [place] Status: Signed Intake Vital Signs 06/24/24 14:15 07/23/24 09:17 08/20/24 08:29 Height 5 ft 6 in 5 ft 6 in 5 ft 6 in Weight: 160 lb BMI 25.8 BP 94/60 Intake Visit Reasons: 16wk ob Chief Complaint: 16 Week OB Splunk Developer Required: No Is patient in pain?: No Allergies house dust Allergy (Mild, Verified 08/20/24 08:30) Nasal congestion Medications ???Medication ???Instructions ???Recorded ???Confirmed ???Type multivit-min no.71-iron fum 28 1 cap PO DAILY 12/15/21 08/20/24 History mg-folate no.1 1 mg-dha 300 mg capsule (PNV-Catlett) Last Menstrual Period: 04/27/24 Zika: Zika virus [...] physical activity do you participate in: none brandyn/spiritism: Jewish seatbelt use: always do you feel safe [...] - full term 8lbs 3oz Male epidural [facility] Tea benjamin Shiva Ahn Delivery Date: [...] (more content not included)... Normal [facility] - Chemistry and C hemistry - challengeOrdered By: Nina Kern on 07-23-2024 Glucose Ql (U) Negative [facility] - UrinalysisOrder ed By: Nina Kern on 07-23-2024 Protein Ql (U) Negative [facility] Hand Spinner Office Visit Reporton 07-23-2024 Hand Spinner Office Visit Report [facility] [address], [address] [place] [address] OFFICE VISIT Date of Service: 07/23/24 MR#: [id number] Acct: [id number] Name: CONCHA GREWAL Rep #: [id number] : 1990 Provider: Dr. Nina Cortes, Age/Sex: 33/F Location: [facility] [place] Status: Signed Intake Vital Signs 06/24/24 14:15 07/23/24 09:17 Height 5 ft 6 in 5 ft 6 in Weight: 157 lb 8 oz BMI 25.4 BP 98/62 Intake Visit Reasons: 12wk ob Splunk Developer Required: No Is patient in pain?: No Allergies house dust Allergy (Mild, Verified 07/23/24 09:18) Nasal congestion Medications ???Medication ???Instructions ???Recorded ???Confirmed ???Type multivit-min no.71-iron fum 28 1 cap PO DAILY 12/15/21 07/23/24 History mg-folate no.1 1 mg-dha 300 mg capsule (PNV-Catlett) Last Menstrual Period: 04/27/24 Zika: Zika virus [...] physical activity do you participate in: none brandyn/spiritism: Jewish seatbelt use: always do you feel safe at home: Yes 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 Date Name GA/Weeks Outcome Route Bth Weight Infant [facility] 07/22/22 Joel 40 live - full term 8lbs 3oz Male epidural [facility] Tea [facility] Delivery Date: 07/22/22 Last [...] (more content not included)... Normal [facility] Chlamydia/GC ISABELLE aptimaon CHLAMY,NUC ACID Negative Normal Negative [facility] Comment on above: Performed By: #### L 100.0100, L3890.6301, L509.8002, BTS, L3890.6102, L3890.6006, L509.4006 #### [facility] [address] [place], [place], [id number] GC BY NUC ACID Negative Normal Negative [facility] Comment on above: Result Comment: Perf ormed at: =G - [facility] [address] [id number] Electronics Recycler: Shy Rivera MD, Phone: [phone] Performed By: #### L 100.0100, L3890.6301, L509.8002, BTS, L3890.6102, L3890.6006, L509.4006 #### [facility] [address] [place], [place], [id number] Urine Cultureon 06-25-2024 URC Culture exhibits no growth. Normal [facility] Comment on above: Performed By: #### L 100.0100, L3890.6301, L509.8002, BTS, L3890.6102, L3890.6006, L509.4006 #### [facility] [address] [place], [place], [id number] Absolute lymphocyte countOrd ered By: Nina Concha on 06-24-2024 Lymphocytes Auto (Unsp spec) [#/Vol] 2.08 10*3/uL 0.83-4.51 [facility] Absolute neutrophil countOrd ered By: Nina Concha on 06-24-2024 Neutrophils (Bld) [#/Vol] 5.8 10*3/uL 2.0-7.7 [facility] Automated lymphocyte count a s percentage of total leukocytesOrdered By: Nina Concha on 06-24-2024 Lymphocytes/100 WBC Auto (Unsp spec) 24.2 % 19-41 [facility] Basophil percentageOrdered B y: Nina Marksericka on 06-24-2024 Basophils/100 WBC (Bld) 0.6 % 0-1 [facility] C. trachomatis rRNA ISABELLE+prob e Ql (Unsp spec)Ordered By: Nina Marksericka on 06-24-2024 Chlamydia DNA (ISABELLE) Negative Negative [facility] CBC W/Diff, Automatedon 06-08 Absolute Lymph 2.08 X10 3/uL Normal 0.83-4.51 [facility] Comment on above: Performed By: #### L 100.0100, L3890.6301, L509.8002, BTS, L3890.6102, L3890.6006, L509.4006 #### [facility] [address] [place], [place], [id number] Absolute Neut 5.8 X10 3/uL Normal 2.0-7.7 [facility] Comment on above: Performed By: #### L 100.0100, L3890.6301, L509.8002, BTS, L3890.6102, L3890.6006, L509.4006 #### [facility] [address] [place], [address] Basophils/100 WBC (Bld) 0.6 % Normal 0-1 [facility] Comment on above: Performed By: #### L 100.0100, L3890.6301, L509.8002, BTS, L3890.6102, L3890.6006, L509.4006 #### [facility] [address] [place], [address] Eosinophils/100 WBC (Bld) 1.2 % Normal 0-5 [facility] Comment on above: Performed By: #### L 100.0100, L3890.6301, L509.8002, BTS, L3890.6102, L3890.6006, L509.4006 #### [facility] [address] [place], [address] Erythrocyte distribution width (RBC) [Ratio] 12.0 % Normal 11.6-14.6 [facility] Comment on above: Performed By: #### L 100.0100, L3890.6301, L509.8002, BTS, L3890.6102, L3890.6006, L509.4006 #### [facility] [address] [place], [address] Hematocrit (Bld) [Volume fraction] 36.7 % Low 37-47 [facility] Comment on above: Performed By: #### L 100.0100, L3890.6301, L509.8002, BTS, L3890.6102, L3890.6006, L509.4006 #### [facility] [address] [place], [address] Hemoglobin (Bld) [Mass/Vol] 12.6 g/dL Normal 12.0-15.0 [facility] Comment on above: Performed By: #### L 100.0100, L3890.6301, L509.8002, BTS, L3890.6102, L3890.6006, L509.4006 #### [facility] [address] [place], [address] IG% 0.300 Normal 0.0-0.9 [facility] Comment on above: Result Comment: IG% - Immature Granulocytes (promyelocytes, myelocytes and metamyelocytes) > 1% indicates that a LEFT SHIFT is Present. Performed By: #### L 100.0100, L3890.6301, L509.8002, BTS, L3890.6102, L3890.6006, L509.4006 #### [facility] [address] [place], [address] Lymphocytes/100 WBC (Bld) 24.2 % Normal 19-41 [facility] Comment on above: Performed By: #### L 100.0100, L3890.6301, L509.8002, BTS, L3890.6102, L3890.6006, L509.4006 #### [facility] [address] [place], [address] MCH (RBC) [Entitic mass] 31.9 pg Normal 27.0-32.0 [facility] Comment on above: Performed By: #### L 100.0100, L3890.6301, L509.8002, BTS, L3890.6102, L3890.6006, L509.4006 #### [facility] [address] [place], [address] MCHC (RBC) [Mass/Vol] 34.3 g/dL Normal 32-36 [facility] Comment on above: Performed By: #### L 100.0100, L3890.6301, L509.8002, BTS, L3890.6102, L3890.6006, L509.4006 #### [facility] [address] [place], [address] MCV (RBC) [Entitic vol] 92.9 fL Normal 81-99 [facility] Comment on above: Performed By: #### L 100.0100, L3890.6301, L509.8002, BTS, L3890.6102, L3890.6006, L509.4006 #### [facility] [address] [place], [address] Monocytes/100 WBC (Bld) 6.3 % Normal 0-10 W [facility] Comment on above: Performed By: #### L 100.0100, L3890.6301, L509.8002, BTS, L3890.6102, L3890.6006, L509.4006 #### [facility] [address] [place], [address] Neutrophils/100 WBC (Bld) 67.4 % Normal 47-70 [facility] Comment on above: Performed By: #### L 100.0100, L3890.6301, L509.8002, BTS, L3890.6102, L3890.6006, L509.4006 #### [facility] [address] [place], [address] Nucleated RBC (Bld) [#/Vol] 0 10*3/uL Normal 0-5 [facility] Comment on above: Performed By: #### L 100.0100, L3890.6301, L509.8002, BTS, L3890.6102, L3890.6006, L509.4006 #### [facility] [address] [place], [address] Platelet mean volume (Bld) [Entitic vol] 9.9 fL Normal 6.2-12.0 [facility] Comment on above: Performed By: #### L 100.0100, L3890.6301, L509.8002, BTS, L3890.6102, L3890.6006, L509.4006 #### [facility] [address] [place], [address] Platelets (Bld) [#/Vol] 302 10*3/uL Normal 150-450 [facility] Comment on above: Performed By: #### L 100.0100, L3890.6301, L509.8002, BTS, L3890.6102, L3890.6006, L509.4006 #### [facility] [address] [place], [address] RBC (Bld) [#/Vol] 3.95 10*6/uL Low 4.2-5.4 [facility] Comment on above: Performed By: #### L 100.0100, L3890.6301, L509.8002, BTS, L3890.6102, L3890.6006, L509.4006 #### [facility] [address] [place], [address] RDW SD 41.3 fl Normal 35.1-43.9 [facility] Comment on above: Performed By: #### L 100.0100, L3890.6301, L509.8002, BTS, L3890.6102, L3890.6006, L509.4006 #### [facility] [address] [place], [address] WBC (Bld) [#/Vol] 8.6 10*3/uL Normal 4.4-11.0 [facility] Comment on above: Performed By: #### L 100.0100, L3890.6301, L509.8002, BTS, L3890.6102, L3890.6006, L509.4006 #### [facility] [address] [place], [address] Chlamydia trachomatis rRNA d etection by probe and target amplification methodOrdered By: Nina Kern on 06-24-2024 C. trachomatis rRNA ISABELLE+probe Ql (Unsp spec) Negative Negative [facility] Eosinophil percentageOrdered By: Nina Concha on 06-24-2024 Eosinophils/100 WBC (Bld) 1.2 % 0-5 [facility] Erythrocyte distribution wid th ratioOrdered By: Nina Concha on 06-24-2024 Erythrocyte distribution width (RBC) [Ratio] 12.0 % 11.6-14.6 [facility] Erythrocyte distribution wid th standard deviationOrdered By: Nina Concha on 06-24-2024 Erythrocyte distribution width (RBC) [Entitic vol] 41.3 fL 35.1-43.9 [facility] Erythrocyte distribution width (RBC) [Ratio] 41.3 fl 35.1-43.9 [facility] HBV surface Ag Ql (S)Ordered By: Nina Kern on 06-24-2024 Hepatitis B Surface Antigen Non-Reactive Nonreactive [facility] Comment on above: Reactive: Presumptiv e evidence of HBV. Repeatedly reactive samples must be confirmed using a neutralization test ([employer] HBsAg Confirmatory Test)Non-Reactive: HBsAg not detected; does not exclude the possibility of exposure to HBV Hematocrit Auto (Bld) [Volum e fraction]Ordered By: Nina Kern on 06-24-2024 Hematocrit (Bld) [Volume fraction] 36.7 % Low 37-47 [facility] Hemoglobin measurementOrdere d By: Nina Concha on 06-24-2024 Hemoglobin (Bld) [Mass/Vol] 12.6 g/dL 12.0-15.0 [facility] Hepatitis C antibodyOrdered By: Nina Kern on 06-24-2024 Hepatitis C Antibody Non-Reactive Nonreactive [facility] Comment on above: Reactive: Presumptiv e evidence of antibodies to HCV. Follow CDC recommendations for supplemental testing.Non-Reactive: Antibodies to HCV were not detected; does not exclude the possibility of exposure to HCVReactive Results are presumptive evidence of antibodies to HCV. Follow CDC recommendations for supplemental testing.Order confirmation testing: HCV Quant by PCR testing - HCVPCR #[id number] Non Reactive: < 0.8 Equivocal: >/= 0.8 to < 1.0 Reactive: >/= 1.0The CDC requires that a reactive/equivocal HCV antibody result be sent out for confirmation. HCV Quant by PCR testing. Immature granulocytes/100 WB C Auto (Bld)Ordered By: Nina Kern on 06-24-2024 Immature granulocytes/100 WBC (Bld) 0.300 % 0.0-0.9 [facility] Comment on above: IG% - Immature Granu locytes (promyelocytes, myelocytes and metamyelocytes) > 1% indicates that a LEFT SHIFT is Present. L3890.6006on 06-24-2024 HIV Non-Reactive Normal Nonreactive [facility] Comment on above: Result Comment: Non- Reactive Reactive Repeatedly reactive samples must be confirmed according to CDC recommended confirmatory algorithms. The subresults for either HIVAG or AHIV can be used as an aid in the selection of the confirmation algorithm for reactive samples. Send out specimens with Reactive results to [facility] for confirmation. Order the HIV antibody detection and differentiation: lc#[id number] Performed By: #### L 100.0100, L3890.6301, L509.8002, BTS, L3890.6102, L3890.6006, L509.4006 #### [facility] [address] [facility] [place], [address] L3890.6102on 06-24-2024 HEP B Surf Ag Non-Reactive Normal Nonreactive [facility] Comment on above: Result Comment: Reac tive: Presumptive evidence of HBV. Repeatedly reactive samples must be confirmed using a neutralization test ([employer] HBsAg Confirmatory Test) Non-Reactive: HBsAg not detected; does not exclude the possibility of exposure to HBV Performed By: #### L 100.0100, L3890.6301, L509.8002, BTS, L3890.6102, L3890.6006, L509.4006 #### [facility] [address] [facility] [place], [address] L3890.6301on 06-24-2024 Hepatitis C Ab Non-Reactive Normal Nonreactive [facility] Comment on above: Result Comment: Reac tive: Presumptive evidence of antibodies to HCV. Follow CDC recommendations for supplemental testing. Non-Reactive: Antibodies to HCV were not detected; does not exclude the possibility of exposure to HCV Reactive Results are presumptive evidence of antibodies to HCV. Follow CDC recommendations for supplemental testing. Order confirmation testing: HCV Quant by PCR testing - HCVPCR #[id number] Non Reactive: < 0.8 Equivocal: >/= 0.8 to < 1.0 Reactive: >/= 1.0 The CDC requires that a reactive/equivocal HCV antibody result be sent out for confirmation. HCV Quant by PCR testing. Performed By: #### L 100.0100, L3890.6301, L509.8002, BTS, L3890.6102, L3890.6006, L509.4006 #### [facility] [address] [facility] [place], [address] L509.4006on 06-24-2024 Rubella IgG REAC Normal Nonreactive [facility] Comment on above: Result Comment: Anti body Result: Interpretation Non-Reactive: Non-Immune Reactive: Immune The following results were obtained with the [employer] Rubella IgG assay. Results from assays of other manufacturers cannot be used interchangeably. Performed By: #### L 100.0100, L3890.6301, L509.8002, BTS, L3890.6102, L3890.6006, L509.4006 #### [facility] [address] [facility] [place], [address] L509.8002on 06-24-2024 Syphilis Abs Non-Reactive Normal Nonreactive [facility] Comment on above: Performed By: #### L 100.0100, L3890.6301, L509.8002, BTS, L3890.6102, L3890.6006, L509.4006 #### [facility] [address] [facility] [place], [place], [id number] Laboratory - Microbiology an d Antimicrobial susceptibilityOrdered By: Nina Kern on 06-24-2024 HBV surface Ag Ql (S) Non-Reactive Nonreactive [facility] Comment on above: Reactive: Presumptiv e evidence of HBV. Repeatedly reactive samples must be confirmed using a neutralization test ([employer] HBsAg Confirmatory Test)Non-Reactive: HBsAg not detected; does not exclude the possibility of exposure to HBV Lymphocytes Auto (Unsp spec) [#/Vol]Ordered By: Nina Kern on 06-24-2024 Lymphocytes (Bld) [#/Vol] 2.08 10*3/uL 0.83-4.51 [facility] Lymphocytes/100 WBC Auto (Un sp spec)Ordered By: Nina Kern on 06-24-2024 Lymphocytes/100 WBC (Bld) 24.2 % 19-41 [facility] MCV (mean corpuscular volume ) determinationOrdered By: Nina Kern on 06-24-2024 MCV (RBC) [Entitic vol] 92.9 fL 81-99 [facility] Mean corpuscular hemoglobin (MCH) determinationOrdered By: Nina Kern on 06-24-2024 MCH (RBC) [Entitic mass] 31.9 pg 27.0-32.0 [facility] Mean corpuscular hemoglobin concentration (MCHC) determinationOrdered By: Nina Kern on 06-24-2024 MCHC (RBC) [Mass/Vol] 34.3 g/dL 32-36 [facility] Mean platelet volume determi nationOrdered By: Nina Kern on 06-24-2024 Platelet mean volume (Bld) [Entitic vol] 9.9 fL 6.2-12.0 [facility] Monocyte percentageOrdered B y: Nina Kern on 06-24-2024 Monocytes/100 WBC (Bld) 6.3 % 0-10 [facility] Neisseria gonorrhoeae nuclei c acid detection by amplified probe techniqueOrdered By: Nina Kern on 06-24-2024 N. gonorrhoeae DNA ISABELLE+probe Ql (Unsp spec) Negative Negative [facility] Comment on above: Performed at: =[facility] [address] [id number] Director: Shy Rivera MD, Phone: [phone] Neutrophil percentageOrdered By: Nina Kern on 06-24-2024 Neutrophils/100 WBC (Bld) 67.4 % 47-70 [facility] No Panel InformationOrdered By: Nina Kern on 06-24-2024 HIV (1&2) Antibody Non-Reactive Nonreactive [facility] Comment on above: Non-ReactiveReactive Repeatedly reactive samples must be confirmed according to CDC recommended confirmatory algorithms. The subresults for either HIVAG or AHIV can be used as an aid in the selection of the confirmation algorithm for reactive samples.Send out specimens with Reactive results to [facility] for confirmation.Order the HIV antibody detection and differentiation: #[id number] Nucleated red blood cell per centageOrdered By: Nina Kern on 06-24-2024 Nucleated RBC/100 WBC (Bld) [Ratio] 0 % 0-5 [facility] Hand Spinner Office Visit Reporton 06-24-2024 Hand Spinner Office Visit Report [facility] [address], [address] [place] [address] OFFICE VISIT Date of Service: 06/24/24 MR#: [id number] Acct: [id number] Name: BARBARASlavaCONCHA JR F Rep #: [id number] : 1990 Provider: Dr. Nina Cortes DO Age/Sex: 33/F Location: [facility] [place] Status: Signed Intake Vital Signs 05/28/24 13:07 06/24/24 14:15 Height 5 ft 6 in 5 ft 6 in Weight: 155 lb BMI 25.0 BP 101/65 Intake Visit Reasons: New OB, LMP 04/27, RYLEE 02/01 Splunk Developer Required: No Is patient in pain?: No [...] physical activity do you participate in: none brandyn/spiritism: Jewish seatbelt use: always do you feel safe [...] - full term 8lbs 3oz Male epidural [facility] Tea benjamin Baljeetwillian Concha Ahn Delivery [...] (more content not included)... Normal [facility] Platelet countOrdered By: Reza Kern on 06-24-2024 Platelets (Bld) [#/Vol] 302 10*3/uL 150-450 [facility] RBC Auto (Bld) [#/Vol]Ordere d By: Nina Kern on 06-24-2024 RBC (Bld) [#/Vol] 3.95 10*6/uL Low 4.2-5.4 [facility] Rubella immune status determ ination by IgG antibody assayOrdered By: Nina Kern on 06-24-2024 Rubella IgG Antibody REAC Nonreactive [facility] Comment on above: Antibody Result: Int erpretationNon-Reactive: Non-ImmuneReactive: ImmuneThe following results were obtained with the [employer] Rubella IgG assay. Results from assays of other manufacturers cannot be used interchangeably. T. pallidum abOrdered By: Reza Kern on 06-24-2024 Syphilis Total Antibody Non-Reactive Nonreactiv e [facility] Type AND Screenon 06-24-2024 ABO and Rh group Nom (Bld) Blood group A Rh(D) positive Normal [facility] Comment on above: Order Comment: PN Performed By: #### L 100.0100, L3890.6301, L509.8002, BTS, L3890.6102, L3890.6006, L509.4006 #### [facility] [address] [place], [place], [id number] Urine cultureOrdered By: Ina Kern on 06-24-2024 Bacteria identified Cx Nom (U) Culture exhibits no growth. [facility] White blood cell (WBC) count Ordered By: Nina Kern on 06-24-2024 WBC (Bld) [#/Vol] 8.6 10*3/uL 4.4-11.0 [facility] - Chemistry and C hemistry - challengeOrdered By: Otis Gomez on 07-19-2023 HCG ( test) Ql (U) Negative [facility] Comment on above: Very dilute urine sp ecimens, as indicated by a low specificgravity, may not contain technology sales representative levels of hCG. If is still suspected, a first morning urinespecimen should be collected 48 hours later and tested. Absolute lymphocyte countOrd ered By: Dr. Barahona on 07-22-2022 Lymphocytes Auto (Unsp spec) [#/Vol] 2.29 10*3/uL 0.83-4.51 [facility] Basophil percentageOrdered B y: Dr. Barahona on 07-22-2022 Basophils/100 WBC (Bld) 0.3 % 0-1 [facility] Eosinophils/100 WBC (Bld) 1.1 % 0-5 [facility] Neutrophils (Bld) [#/Vol] 8.2 10*3/uL 2.0-7.7 [facility] Neutrophils/100 WBC (Bld) 69.0 % 47-70 [facility] WBC (Bld) [#/Vol] 11.9 10*3/uL 4.4-11.0 [facility] Blood erythrocytes count (nu mber/volume)Ordered By: Dr. Barahona on 07-22-2022 RBC (Bld) [#/Vol] 4.17 10*6/uL 4.2-5.4 [facility] Blood hemoglobin measurement (mass/volume)Ordered By: Dr. Barahona on 07-22-2022 Hemoglobin (Bld) [Mass/Vol] 13.4 g/dL 12.0-15.0 [facility] Blood lymphocytes/100 leukoc ytesOrdered By: Dr. Barahona on 07-22-2022 Lymphocytes/100 WBC (Bld) 19.2 % 19-41 [facility] Blood monocytes/100 leukocyt esOrdered By: Dr. Barahona on 07-22-2022 Monocytes/100 WBC (Bld) 9.6 % 0-10 [facility] Blood platelet mean volumeOr dered By: Dr. Barahona on 07-22-2022 Platelet mean volume (Bld) [Entitic vol] 12.4 fL 6.2-12.0 [facility] Determination of erythrocyte mean corpuscular volume (MCV)Ordered By: Dr. Barahona on 07-22-2022 MCV (RBC) [Entitic vol] 95.9 fL 81-99 [facility] Hematocrit Auto (Bld) [Volum e fraction]Ordered By: Dr. Barahona on 07-22-2022 Hematocrit (Bld) [Volume fraction] 40.0 % 37-47 [facility] - Hematology and Cell countsOrdered By: Dr. Barahona on 07-22-2022 Erythrocyte distribution width (RBC) [Entitic vol] 43.9 fL 35.1-43.9 [facility] Erythrocyte distribution width (RBC) [Ratio] 12.6 % 11.6-14.6 [facility] Immature granulocytes/100 WBC (Bld) 0.800 % 0.0-0.9 [facility] Comment on above: IG% - Immature Granu locytes (promyelocytes, myelocytes and metamyelocytes) > 1% indicates that a LEFT SHIFT is Present. MCH (RBC) [Entitic mass] 32.1 pg 27.0-32.0 [facility] Nucleated RBC/100 WBC (Bld) [Ratio] 0 % 0-5 [facility] MCHC Auto (RBC) [Mass/Vol]Or dered By: Dr. Barahona on 07-22-2022 MCHC (RBC) [Mass/Vol] 33.5 g/dL 32-36 [facility] Platelets bldOrdered By: Dr. Barahona on 07-22-2022 Platelets (Bld) [#/Vol] 240 10*3/uL 150-450 [facility] Serum Treponema species anti body detectionOrdered By: Dr. Barahona on 07-22-2022 Treponema sp Ab Ql (S) Non-Reactive [facility] - Chemistry and C hemistry - challengeon 07-15-2022 Glucose Ql (U) Negative [facility] - Urinalysison Protein Ql (U) Negative [facility] No Panel InformationOrdered By: Ruthie Le on 07-10-2022 Vaginal Amniotic Fluid Detection Negative Negative [facility] Comment on above: Amniotic fluid not p resent indicates No Rupture of FetalMembranes at time of specimen collection. No Panel InformationOrdered By: Dr. Barahona on 07-09-2022 Vaginal Amniotic Fluid Detection Negative Negative [facility] Comment on above: Amniotic fluid not p resent indicates No Rupture of FetalMembranes at time of specimen collection. Laboratory - Chemistry and C hemistry - challengeon 07-07-2022 Glucose Ql (U) Negative [facility] Laboratory - Urinalysison Protein Ql (U) Negative [facility] Laboratory - Chemistry and C hemistry - challengeon 07-01-2022 Glucose Ql (U) Negative [facility] Laboratory - Urinalysison Protein Ql (U) Trace [facility] No Panel InformationOrdered By: Dr. Kern on 06-27-2022 Group B Streptococcus Culture Group B Beta Streptococcus is not isolated. [facility] - Chemistry and C hemistry - challengeon 06-24-2022 Glucose Ql (U) Negative [facility] Laboratory - Urinalysison Protein Ql (U) Negative [facility] Laboratory - Chemistry and C hemistry - challengeon 06-09-2022 Glucose Ql (U) Negative [facility] Laboratory - Urinalysison Protein Ql (U) Negative [facility] Laboratory - Chemistry and C hemistry - challengeon 05-26-2022 Glucose Ql (U) Negative [facility] Laboratory - Urinalysison Protein Ql (U) Negative [facility] Laboratory - Chemistry and C hemistry - challengeon 05-13-2022 Glucose Ql (U) Negative [facility] Laboratory - Urinalysison Protein Ql (U) Negative [facility] Absolute lymphocyte countOrd ered By: Alessandra Bolanos on 03-31-2022 Lymphocytes Auto (Unsp spec) [#/Vol] 1.52 10*3/uL 0.83-4.51 [facility] Basophil percentageOrdered B y: Alessandra Bolanos on 03-31-2022 Basophils/100 WBC (Bld) 0.4 % 0-1 [facility] Eosinophils/100 WBC (Bld) 1.0 % 0-5 [facility] Neutrophils (Bld) [#/Vol] 4.7 10*3/uL 2.0-7.7 [facility] Neutrophils/100 WBC (Bld) 67.9 % 47-70 [facility] WBC (Bld) [#/Vol] 7.0 10*3/uL 4.4-11.0 [facility] Blood erythrocytes count (nu mber/volume)Ordered By: Alessandra Bolanos on 03-31-2022 RBC (Bld) [#/Vol] 3.59 10*6/uL 4.2-5.4 [facility] Blood hemoglobin measurement (mass/volume)Ordered By: Alessandra Bolanos on 03-31-2022 Hemoglobin (Bld) [Mass/Vol] 12.0 g/dL 12.0-15.0 [facility] Blood lymphocytes/100 leukoc ytesOrdered By: Alessandra Bolanos on 03-31-2022 Lymphocytes/100 WBC (Bld) 21.8 % 19-41 [facility] Blood monocytes/100 leukocyt esOrdered By: Alessandra Bolanos on 03-31-2022 Monocytes/100 WBC (Bld) 8.3 % 0-[address] [facility] Blood platelet mean volumeOr dered By: Alessandra Bolanos on 03-31-2022 Platelet mean volume (Bld) [Entitic vol] 10.1 fL 6.2-12.0 [facility] Determination of erythrocyte mean corpuscular volume (MCV)Ordered By: Alessandra Bolanos on 03-31-2022 MCV (RBC) [Entitic vol] 96.4 fL 81-[address] [facility] Gestational diabetes screen 1-hour screen with 50g oral glucose loadOrdered By: Alessandra Bolanos on 03-31-2022 Glucose 1 Hr post 50 g glucose PO [Mass/Vol] 106 mg/dL 70-140 [facility] HIV 1 and HIV-2 antibody ass ay with HIV-1 p24 antigen detectionOrdered By: Alessandra Bolanos on 03-31-2022 HIV 1+2 Ab+HIV1 p24 Ag IA Ql Non-Reactive Nonreactive [facility] Hematocrit Auto (Bld) [Volum e fraction]Ordered By: Alessandra Bolanos on 03-31-2022 Hematocrit (Bld) [Volume fraction] 34.6 % 37-47 [facility] - Chemistry and C hemistry - challengeon 03-31-2022 Glucose Ql (U) Negative [facility] - Hematology and Cell countsOrdered By: Alessandra Bolanos on 03-31-2022 Erythrocyte distribution width (RBC) [Entitic vol] 42.6 fL 35.1-43.9 [facility] Erythrocyte distribution width (RBC) [Ratio] 12.2 % 11.6-14.6 [facility] Immature granulocytes/100 WBC (Bld) 0.600 % 0.0-0.9 [facility] Comment on above: IG% - Immature Granu locytes (promyelocytes, myelocytes and metamyelocytes) > 1% indicates that a LEFT SHIFT is Present. MCH (RBC) [Entitic mass] 33.4 pg 27.0-32.0 [facility] Nucleated RBC/100 WBC (Bld) [Ratio] 0 % 0-5 [facility] Laboratory - Urinalysison Protein Ql (U) Negative [facility] MCHC Auto (RBC) [Mass/Vol]Or dered By: Alessandra Bolanos on 03-31-2022 MCHC (RBC) [Mass/Vol] 34.7 g/dL 32-36 [facility] Platelets bldOrdered By: Paola Bolanos on 03-31-2022 Platelets (Bld) [#/Vol] 280 10*3/uL 150-450 [facility] Serum Treponema species anti body detectionOrdered By: Alessandra Bolanos on 03-31-2022 Treponema sp Ab Ql (S) Non-Reactive [facility] Laboratory - Chemistry and C hemistry - challengeon 03-16-2022 Glucose Ql (U) Negative [facility] - Urinalysison Protein Ql (U) Negative [facility] - Chemistry and C hemistry - challengeon 02-17-2022 Glucose Ql (U) Negative [facility] - Urinalysison Protein Ql (U) Negative [facility] - Chemistry and C hemistry - challengeon 01-17-2022 Glucose Ql (U) Negative [facility] Work Phone: Laboratory - Urinalysison Protein Ql (U) Negative [facility] Work Phone: Absolute lymphocyte counton 12-20-2021 Lymphocytes Auto (Unsp spec) [#/Vol] 1.48 10*3/uL 0.83-4.51 [facility] Work Phone: Basophil percentageon 2021 Basophils/100 WBC (Bld) 0.4 % 0-1 [facility] Work Phone: Eosinophils/100 WBC (Bld) 0.7 % 0-5 [facility] Work Phone: [phone] Neutrophils (Bld) [#/Vol] 5.3 10*3/uL 2.0-7.7 [facility] Work Phone: Neutrophils/100 WBC (Bld) 71.3 % 47-70 [facility] Work Phone: WBC (Bld) [#/Vol] 7.5 10*3/uL 4.4-11.0 [facility] Work Phone: Blood erythrocytes count (nu mber/volume)on 12-20-2021 RBC (Bld) [#/Vol] 3.82 10*6/uL 4.2-5.4 [facility] Blood hemoglobin measurement (mass/volume)on 12-20-2021 Hemoglobin (Bld) [Mass/Vol] 12.6 g/dL 12.0-15.0 [facility] Work Phone: Blood lymphocytes/100 leukoc yteson 12-20-2021 Lymphocytes/100 WBC (Bld) 19.8 % 19-41 [facility] Work Phone: Blood monocytes/100 leukocyt eson 12-20-2021 Monocytes/100 WBC (Bld) 7.4 % 0-10 [facility] Work Phone: Blood platelet mean volumeon 12-20-2021 Platelet mean volume (Bld) [Entitic vol] 9.8 fL 6.2-12.0 [facility] Work Phone: Cervical or vagninal specime n microscopic examination by cytology stain (reported ason 12-20-2021 Cytology report Cyto stain Doc (Cvx/Vag) Comment . [facility] Work Phone: Comment on above: The Pap [...] Ql (Unsp spec) Negative Negative [facility] Work Phone: Detection in cervical specim en of any of human papilloma virus (HPV) 16, 18, 31, 33,on 12-20-2021 HPV 16+18+31+33+35+39+45+51 +52+56+58+59+66+68 DNA Probe+sig amp Ql (Cvx) Negative Negative [facility] Work Phone: Comment on above: This nucleic acid am plification test detects fourteen high-risk HPV types (16,18,31,33,35,39,45,51,52,56,58,59,66,68)without differentiation.Performed at: [facility] [id number] Director: Shy Rivera MD, Phone: [phone] at: =[facility] [id number] Director: Shy Rivera MD, Phone: [phone] Determination of erythrocyte mean corpuscular volume (MCV)on 12-20-2021 MCV (RBC) [Entitic vol] 95.3 fL 81-[address] [facility] Work Phone: HIV 1 and HIV-2 antibody ass ay with HIV-1 p24 antigen detectionon 12-20-2021 HIV 1+2 Ab+HIV1 p24 Ag IA Ql Non-Reactive Nonreactive [facility] Work Phone: Hematocrit Auto (Bld) [Volum e fraction]on 12-20-2021 Hematocrit (Bld) [Volume fraction] 36.4 % 37-47 [facility] Work Phone: Laboratory - Cytologyon 12-09 Sql Application Developer Cyto stain Nom (Cvx/Vag) [ID] Comment . [facility] Work Phone: Comment on above: Keanu Small totechnologist (ASCP) Laboratory - Drug toxicology on 12-20-2021 Amphetamines Ql (U) Negative <1000 ng/mL [facility] Work Phone: Benzodiazepines Ql (U) Negative < 200 ng/mL [facility] Work Phone: Cannabinoids Screen Ql (U) Negative < 50 ng/mL [facility] Work Phone: Cocaine Ql (U) Negative < 300 ng/mL [facility] Work Phone: Opiates Ql (U) Negative < 300 ng/mL [facility] Work Phone: Laboratory - Hematology and Cell countson 12-20-2021 Erythrocyte distribution width (RBC) [Entitic vol] 41.1 fL 35.1-43.9 [facility] Work Phone: Erythrocyte distribution width (RBC) [Ratio] 11.9 % 11.6-14.6 [facility] Work Phone: Immature granulocytes/100 WBC (Bld) 0.400 % 0.0-0.9 [facility] Work Phone: Comment on above: IG% - Immature Granu locytes (promyelocytes, myelocytes and metamyelocytes) > 1% indicates that a LEFT SHIFT is Present. MCH (RBC) [Entitic mass] 33.0 pg 27.0-32.0 [facility] Work Phone: Nucleated RBC/100 WBC (Bld) [Ratio] 0 % 0-5 [facility] Work Phone: Laboratory - Microbiology an d Antimicrobial susceptibilityon 12-20-2021 N. gonorrhoeae DNA ISABELLE+probe Ql (Unsp spec) Negative Negative [facility] Work Phone: Comment on above: Performed at: = [facility] [id number] Director: Shy Rivera MD, Phone: [phone] Laboratory - Miscellaneous t estson 12-20-2021 Service comment (Unsp spec) [Interp] Comment . [facility] Work Phone: Comment on above: This liquid based Th inPrep(R) pap test was screened withthe use of an image guided system. Service comment (Unsp spec) [Interp] . . [facility] Work Phone: MCHC Auto (RBC) [Mass/Vol]on 12-20-2021 MCHC (RBC) [Mass/Vol] 34.6 g/dL 32-36 [facility] Work Phone: No Panel Informationon 12-20 MDMA (Ecstasy) Screen Negative < 500 ng/mL [facility] Work Phone: Pap Smear QC Review Comment . [facility] Work Phone: Comment on above: Mirella Figueroa Cytot echnologist (ASCP) Pathology report final diagnosis Narrative Comment . [facility] Work Phone: Comment on above: NEGATIVE FOR INTRAEP ITHELIAL LESION OR MALIGNANCY.THIS SPECIMEN WAS RESCREENED PART OF OUR SORORITY SUPERVISOR PROGRAM. Urine Barbiturates Screen Negative < 200 ng/mL [facility] Work Phone: Urine Drug Screen Comment [facility] Work Phone: Comment on above: CONFIRMATORY TESTING [...] Urine Methadone Screen Negative < 300 ng/mL [facility] Work Phone: Hepatitis B Surface Antigen Non-Reactive Nonreactive [facility] Work Phone: Hepatitis C Antibody Non-Reactive Nonreactive [facility] Work Phone: Comment on above: Non Reactive: < 0.8 Equivocal: >/= 0.8 to < 1.0 Reactive: >/= 1.0The CDC recommends that a reactive/equivocal HCV antibody result be followed up by the HCV Nucleic Acid Amplificationtest (151153) Rubella IgG Antibody Reactive Nonreactive [facility] Work Phone: Comment on above: Antibody Results Int erpretation of Immune Status Non Reactive Presumed Non-Immune Equivocal Equivocal Reactive Presumed Immune Platelets bldon 12-20-2021 Platelets (Bld) [#/Vol] 294 10*3/uL 150-450 [facility] Work Phone: Serum Treponema species anti body detectionon 12-20-2021 Treponema sp Ab Ql (S) Non-Reactive [facility] Work Phone: Serum Varicella zoster virus IgM antibody assay by immunoassay (units/volume)on 12-20-2021 VZV IgM IA Qn (S) < 0.91 index 0.00-0.90 [facility] Work Phone: Comment on above: Negative <0.91 Borde rline 0.91 - 1.09 Positive >1.09Performed at: [facility] [id number] Director: Jordy Amezquita PhD, Phone: [phone] Urine phencyclidine (PCP) de tectionon 12-20-2021 Phencyclidine Ql (U) Negative < 25 ng/mL [facility] Work Phone: Culture, urine Bacteria identified Cx Nom (U) Positive [facility] Work Phone: Vital Signs Date Time Vital Sign Value Performing Clinician Gila dave 01-10-2025 10:41-0400 Body height 167.[address] Tirso Kemp MD Work Phone: [facility] 01-10-2025 10:41-0400 Body mass index (BMI) [Ratio] 29.1 kg/m2 Dr. Tirso Kemp MD Work Phone: 9(022)833-077666 [place] [address] 01-10-2025 10:41-0400 Body weight 81.[address] Tirso Kemp MD Work Phone: 7(662)367-252066 [place] [address] 01-10-2025 10:41-0400 Diastolic blood pressure 61 mm[Hg] Dr. Tirso Kemp MD Work Phone: 4(022)760-315664 [place] [address] 01-10-2025 10:41-0400 Systolic blood pressure 95 mm[Hg] Dr. Tirso Kemp MD Work Phone: 8(446)233-968764 [place] [address] 12-25-2024 09:39-0400 Body height 167.[address] Tirso Kemp MD Work Phone: 0(162)153-463564 [place] [address] 12-25-2024 09:39-0400 Body mass index (BMI) [Ratio] 29 kg/m2 Dr. Tirso Kemp MD Work Phone: 7(150)352-961064 [place] [address] 12-25-2024 09:39-0400 Body weight 81.[address] Tirso Kemp MD Work Phone: 0(771)111-830364 [place] [address] 12-25-2024 09:39-0400 Diastolic blood pressure 55 mm[Hg] Dr. Tirso Kemp MD Work Phone: 3(306)696-947264 [place] [address] 12-25-2024 09:39-0400 Systolic blood pressure 92 mm[Hg] Dr. Tirso Kemp MD Work Phone: 0(791)733-824364 [place] [address] 12-11-2024 09:02-0400 Body height 167.[address] Tirso Kemp MD Work Phone: 3(095)914-544364 [place] [address] 12-11-2024 09:02-0400 Body mass index (BMI) [Ratio] 28.5 kg/m2 Dr. Tirso Kemp MD Work Phone: 2(329)355-035464 [place] [address] 12-11-2024 09:02-0400 Body weight 80.[address] Tirso Kemp MD Work Phone: [facility] 12-11-2024 09:02-0400 Diastolic blood pressure 64 mm[Hg] Dr. Tirso Kemp MD Work Phone: 3(388)482-128666 [place] [address] 12-11-2024 09:02-0400 Systolic blood pressure 110 mm[Hg] Dr. Tirso Kemp MD Work Phone: 3(459)062-386564 [place] [address] 11-29-2024 10:52-0400 Body height 167.[address] Tirso Kemp MD Work Phone: 8(159)209-347164 [place] [address] 11-29-2024 10:52-0400 Body mass index (BMI) [Ratio] 28.4 kg/m2 Dr. Tirso Kemp MD Work Phone: 3(674)003-255564 [place] [address] 11-29-2024 10:52-0400 Body weight 79.[address] Tirso Kemp MD Work Phone: 3(024)973-484464 [place] [address] 11-29-2024 10:52-0400 Diastolic blood pressure 64 mm[Hg] Dr. Tirso Kemp MD Work Phone: 8(996)555-895564 [place] [address] 11-29-2024 10:52-0400 Systolic blood pressure 99 mm[Hg] Dr. Tirso Kemp MD Work Phone: 5(123)972-166564 [place] [address] 11-15-2024 10:21-0400 Body height 167.[address] Tirso Kemp MD Work Phone: 8(235)751-891764 [place] [address] 11-15-2024 10:20-0400 Body mass index (BMI) [Ratio] 28.1 kg/m2 Dr. Tirso Kemp MD Work Phone: 0(368)553-132364 [place] [address] 11-15-2024 10:20-0400 Body weight 79.[address] Tirso Kemp MD Work Phone: 7(297)112-764764 [place] [address] 11-15-2024 10:20-0400 Diastolic blood pressure 60 mm[Hg] Dr. Tirso Kemp MD Work Phone: 0(304)051-760164 [place] [address] 11-15-2024 10:20-0400 Systolic blood pressure 98 mm[Hg] Dr. Tirso Kemp MD Work Phone: 4(699)611-290066 [place] [address] 10-21-2024 08:52-0400 Body height 167.[address] Tirso Kemp MD Work Phone: 5(709)892-969564 [place] [address] 10-21-2024 08:52-0400 Body mass index (BMI) [Ratio] 27.6 kg/m2 Dr. Tirso Kemp MD Work Phone: 8(770)248-599364 [place] [address] 10-21-2024 08:52-0400 Body weight 77.[address] Tirso Kemp MD Work Phone: 2(785)393-405764 [place] [address] 10-21-2024 08:52-0400 Diastolic blood pressure 68 mm[Hg] Dr. Tirso Kemp MD Work Phone: 9(784)584-831064 [place] [address] 10-21-2024 08:52-0400 Systolic blood pressure 102 mm[Hg] Dr. Tirso Kemp MD Work Phone: 0(706)557-882564 [place] [address] 09-19-2024 14:58-0400 Body height 167.[address] Tirso Kemp MD Work Phone: 1(501)657-557364 [place] [address] 09-19-2024 14:55-0400 Body mass index (BMI) [Ratio] 27.1 kg/m2 Dr. Tirso Kemp MD Work Phone: 1(126)361-679564 [place] [address] 09-19-2024 14:55-0400 Body weight 76.[address] Tirso Kemp MD Work Phone: 2(902)125-898464 [place] [address] 09-19-2024 14:55-0400 Diastolic blood pressure 64 mm[Hg] Dr. Tirso Kemp MD Work Phone: 2(663)320-484864 [place] [address] 09-19-2024 14:55-0400 Systolic blood pressure 102 mm[Hg] Dr. Tirso Kemp MD Work Phone: 3(112)337-783464 [place] [address] 08-20-2024 08:29-0400 Body height 167.[address] Tirso Kemp MD Work Phone: 5(343)071-341464 [place] [address] 08-20-2024 08:29-0400 Body mass index (BMI) [Ratio] 25.8 kg/m2 Dr. Tirso Kemp MD Work Phone: 0(644)142-991466 [place] [address] 08-20-2024 08:29-0400 Body weight 72.[address] Tirso Kemp MD Work Phone: 0(355)799-707164 [place] [address] 08-20-2024 08:29-0400 Diastolic blood pressure 60 mm[Hg] Dr. Tirso Kemp MD Work Phone: 6(477)684-009464 [place] [address] 08-20-2024 08:29-0400 Systolic blood pressure 94 mm[Hg] Dr. Tirso Kemp MD Work Phone: 3(014)018-286264 [place] [address] 07-23-2024 09:17-0400 Body mass index (BMI) [Ratio] 25.4 kg/m2 Dr. Tirso Kemp MD Work Phone: 1(128)715-066864 [place] [address] 07-23-2024 09:17-0400 Body weight 71.[address] Tirso Kemp MD Work Phone: 6(894)184-208864 [place] [address] 07-23-2024 09:17-0400 Diastolic blood pressure 62 mm[Hg] Dr. Tirso Kemp MD Work Phone: 1(139)032-305964 [place] [address] 07-23-2024 09:17-0400 Systolic blood pressure 98 mm[Hg] Dr. Tirso Kemp MD Work Phone: 3(370)738-373164 [place] [address] 06-24-2024 14:15-0400 Body height 167.[address] Tirso Kemp MD Work Phone: 3(358)862-949664 [place] [address] 06-24-2024 14:15-0400 Body mass index (BMI) [Ratio] 25 kg/m2 Dr. Tirso Kemp MD Work Phone: 5(481)986-473364 [place] [address] 06-24-2024 14:15-0400 Body weight 70.[address] Tirso Kemp MD Work Phone: [phone] [place] [address] 06-24-2024 14:15-0400 Diastolic blood pressure 65 mm[Hg] Dr. Tirso Kemp MD Work Phone: [facility] 06-24-2024 14:15-0400 Systolic blood pressure 101 mm[Hg] Dr. Tirso Kemp MD Work Phone: [facility] 07-19-2023 08:35-0400 Body temperature 98 [degF] Dr. Tirso Kemp Work Phone: [facility] 07-19-2023 08:35-0400 Diastolic blood pressure 56 mm[Hg] Dr. Tirso Kemp Work Phone: [facility] 07-19-2023 08:35-0400 Heart rate 62 /min Dr. Tirso Kemp Work Phone: [facility] 07-19-2023 08:35-0400 Respiratory rate 16 /min Dr. Tirso Kemp Work Phone: [facility] 07-19-2023 08:35-0400 SaO2% (BldA) [Mass fraction] 100 % Dr. Tirso Kemp Work Phone: [facility] 07-19-2023 08:35-0400 Systolic blood pressure 92 mm[Hg] Dr. Tirso Kemp Work Phone: [facility] 07-19-2023 06:53-0400 Body height 167.[address] Tirso Kemp Work Phone: [facility] 07-19-2023 06:53-0400 Body mass index (BMI) [Ratio] 23.5 kg/m2 Dr. Tirso Kemp Work Phone: [facility] 07-19-2023 06:53-0400 Body weight [address] Tirso Kemp Work Phone: [facility] 06-12-2023 12:51-0500 Body mass index (BMI) [Ratio] 24.5 kg/m2 Dr. Tirso Kemp Work Phone: [facility] 06-12-2023 12:51-0500 Body temperature 97.2 [degF] Dr. Tirso Kemp Work Phone: [facility] 06-12-2023 12:51-0500 Body weight 68.[address] Tirso Kemp Work Phone: [facility] 06-12-2023 12:51-0500 Diastolic blood pressure 63 mm[Hg] Dr. Tirso Kemp Work Phone: [facility] 06-12-2023 12:51-0500 Heart rate 62 /min Dr. Tirso Kemp Work Phone: [facility] 06-12-2023 12:51-0500 Respiratory rate 17 /min Dr. Tirso Kemp Work Phone: [facility] 06-12-2023 12:51-0500 SaO2% (BldA) [Mass fraction] 100 % Dr. Tirso Kemp Work Phone: [facility] 06-12-2023 12:51-0500 Systolic blood pressure 98 mm[Hg] Dr. Tirso Kemp Work Phone: [facility] 07-24-2022 13:50-0400 Body temperature 97.8 [degF] Dr. Shaan Kemp Work Phone: [facility] 07-24-2022 13:50-0400 Diastolic blood pressure 62 mm[Hg] Dr. Shaan Kemp Work Phone: [facility] 07-24-2022 13:50-0400 Heart rate 73 /min Dr. Shaan Kemp Work Phone: [facility] 07-24-2022 13:50-0400 Respiratory rate 16 /min Dr. Shaan Kemp Work Phone: [facility] 07-24-2022 13:50-0400 Systolic blood pressure 90 mm[Hg] Dr. Shaan Kemp Work Phone: [facility] 07-24-2022 08:00-0400 SaO2% (BldA) [Mass fraction] 99 % Dr. Shaan Kemp Work Phone: [facility] 07-22-2022 00:53-0400 Body height 169.[address] Shaan Kemp Work Phone: [facility] 07-22-2022 00:53-0400 Body mass index (BMI) [Ratio] 28.2 kg/m2 Dr. Shaan Kemp Work Phone: [facility] 07-22-2022 00:53-0400 Body weight 80.[address] Shaan Kemp Work Phone: [facility] 07-15-2022 09:37-0400 Body mass index (BMI) [Ratio] 28.6 kg/m2 Dr. Shaan Kemp Work Phone: [phone] [place] [address] 07-15-2022 09:37-0400 Body weight 81.[address] Shaan Kemp Work Phone: [facility] 07-15-2022 09:37-0400 Diastolic blood pressure 64 mm[Hg] Dr. Shaan Kemp Work Phone: [facility] 07-15-2022 09:37-0400 Systolic blood pressure 102 mm[Hg] Dr. Shaan Kemp Work Phone: [facility] 07-10-2022 00:35-0400 Body temperature 99.4 [degF] Dr. Shaan Kemp Work Phone: [facility] 07-10-2022 00:34-0400 Diastolic blood pressure 65 mm[Hg] Dr. Shaan Kemp Work Phone: [facility] 07-10-2022 00:34-0400 Heart rate 67 /min Dr. Shaan Kemp Work Phone: [facility] 07-10-2022 00:34-0400 SaO2% (BldA) [Mass fraction] 99 % Dr. Shaan Kemp Work Phone: [facility] 07-10-2022 00:34-0400 Systolic blood pressure 109 mm[Hg] Dr. Shaan Kemp Work Phone: [facility] 07-10-2022 00:17-0400 Body height 168.[address] Shaan Kemp Work Phone: [facility] 07-10-2022 00:17-0400 Body mass index (BMI) [Ratio] 29.5 kg/m2 Dr. Shaan Kemp Work Phone: [facility] 07-10-2022 00:17-0400 Body weight 84.[address] Shaan Kemp Work Phone: [facility] 07-09-2022 15:53-0400 Heart rate 75 /min Dr. Shaan Kemp Work Phone: [facility] 07-09-2022 15:53-0400 SaO2% (BldA) [Mass fraction] 98 % Dr. Shaan Kemp Work Phone: [facility] 07-09-2022 15:52-0400 Body temperature 98.3 [degF] Dr. Shaan Kemp Work Phone: [facility] 07-09-2022 15:51-0400 Diastolic blood pressure 67 mm[Hg] Dr. Shaan Kemp Work Phone: [facility] 07-09-2022 15:51-0400 Systolic blood pressure 111 mm[Hg] Dr. Shaan Kemp Work Phone: [facility] 07-09-2022 15:35-0400 Body height 169.[address] Shaan Kemp Work Phone: [facility] 07-09-2022 15:35-0400 Body mass index (BMI) [Ratio] 29.2 kg/m2 Dr. Shaan Kemp Work Phone: [facility] 07-09-2022 15:35-0400 Body weight 83.[address] Shaan Kemp Work Phone: [facility] 07-07-2022 09:39-0400 Body mass index (BMI) [Ratio] 29.2 kg/m2 Dr. Shaan Kemp Work Phone: [facility] 07-07-2022 09:39-0400 Body weight 82.[address] Shaan Kemp Work Phone: [facility] 07-07-2022 09:39-0400 Diastolic blood pressure 68 mm[Hg] Dr. Shaan Kemp Work Phone: [facility] 07-07-2022 09:39-0400 Systolic blood pressure 118 mm[Hg] Dr. Shaan Kemp Work Phone: [facility] 07-01-2022 09:17-0400 Body mass index (BMI) [Ratio] 28.9 kg/m2 Dr. Shaan Kemp Work Phone: [facility] 07-01-2022 09:17-0400 Body weight 81.[address] Shaan Kemp Work Phone: [facility] 07-01-2022 09:17-0400 Diastolic blood pressure 66 mm[Hg] Dr. Shaan Kemp Work Phone: [facility] 07-01-2022 09:17-0400 Systolic blood pressure 101 mm[Hg] Dr. Shaan Kemp Work Phone: [facility] 06-24-2022 16:12-0400 Body mass index (BMI) [Ratio] 28.5 kg/m2 Dr. Shaan Kemp Work Phone: [facility] 06-24-2022 16:12-0400 Body weight 81.[address] Shaan Kemp Work Phone: [facility] 06-24-2022 16:12-0400 Diastolic blood pressure 74 mm[Hg] Dr. Shaan Kemp Work Phone: [facility] 06-24-2022 16:12-0400 Systolic blood pressure 116 mm[Hg] Dr. Shaan Kemp Work Phone: [facility] 06-09-2022 15:43-0500 Body mass index (BMI) [Ratio] 28.4 kg/m2 Dr. Shaan Kmep Work Phone: [facility] 06-09-2022 15:43-0500 Body weight [address] Shaan Kemp Work Phone: [facility] 06-09-2022 15:43-0500 Diastolic blood pressure 65 mm[Hg] Dr. Shaan Kemp Work Phone: [facility] 06-09-2022 15:43-0500 Systolic blood pressure 105 mm[Hg] Dr. Shaan Kemp Work Phone: [phone] [place] [address] 05-26-2022 15:38-0500 Body height 168.[address] Shaan Kemp Work Phone: [facility] 05-26-2022 15:37-0500 Body mass index (BMI) [Ratio] 27.8 kg/m2 Dr. Shaan Kemp Work Phone: [facility] 05-26-2022 15:37-0500 Body weight 79.[address] Shaan Kemp Work Phone: [facility] 05-26-2022 15:37-0500 Diastolic blood pressure 69 mm[Hg] Dr. Shaan Kemp Work Phone: [facility] 05-26-2022 15:37-0500 Systolic blood pressure 110 mm[Hg] Dr. Shaan Kemp Work Phone: [facility] 05-13-2022 15:27-0500 Body mass index (BMI) [Ratio] 27.4 kg/m2 Dr. Shaan Kemp Work Phone: [facility] 05-13-2022 15:27-0500 Body weight 78.[address] Shaan Kemp Work Phone: [facility] 05-13-2022 15:27-0500 Diastolic blood pressure 60 mm[Hg] Dr. Shaan Kemp Work Phone: [facility] 05-13-2022 15:27-0500 Systolic blood pressure 109 mm[Hg] Dr. Shaan Kemp Work Phone: [facility] 03-31-2022 13:11-0500 Body height 169.[address] Shaan Kemp Work Phone: [facility] Work Phone: 03-31-2022 13:10-0500 Body mass index (BMI) [Ratio] 26.2 kg/m2 Dr. Shaan Kemp Work Phone: [facility] 03-31-2022 13:10-0500 Body weight 73.[address] Shaan Kemp Work Phone: [facility] 03-31-2022 13:10-0500 Diastolic blood pressure 61 mm[Hg] Dr. Shaan Kemp Work Phone: [facility] 03-31-2022 13:10-0500 Systolic blood pressure 101 mm[Hg] Dr. Shaan Kemp Work Phone: [facility] 03-16-2022 13:36-0500 Body mass index (BMI) [Ratio] 25.3 kg/m2 Dr. Shaan Kemp Work Phone: [facility] 03-16-2022 13:36-0500 Body weight 72.[address] Shaan Kemp Work Phone: [facility] 03-16-2022 13:36-0500 Diastolic blood pressure 64 mm[Hg] Dr. Shaan Kemp Work Phone: [facility] 03-16-2022 13:36-0500 Heart rate 73 /min Dr. Shaan Kemp Work Phone: [facility] 03-16-2022 13:36-0500 Systolic blood pressure 105 mm[Hg] Dr. Shaan Kemp Work Phone: [facility] 02-17-2022 13:34-0500 Body height 169.[address] Shaan Kemp Work Phone: [facility] Work Phone: 02-17-2022 13:33-0500 Body mass index (BMI) [Ratio] 27.1 kg/m2 Dr. Shaan Kemp Work Phone: [facility] 02-17-2022 13:33-0500 Body weight 71.[address] Shaan Kemp Work Phone: [facility] 02-17-2022 13:33-0500 Diastolic blood pressure 69 mm[Hg] Dr. Shaan Kemp Work Phone: [facility] 02-17-2022 13:33-0500 Systolic blood pressure 103 mm[Hg] Dr. Shaan Kemp Work Phone: [facility] 01-17-2022 13:32-0400 Body mass index (BMI) [Ratio] 24.1 kg/m2 Dr. Shaan Kemp Work Phone: [facility] Work Phone: 01-17-2022 13:32-0400 Body weight 68.[address] Shaan Kemp Work Phone: [facility] Work Phone: 01-17-2022 13:32-0400 Diastolic blood pressure 54 mm[Hg] Dr. Shaan Kemp Work Phone: [facility] Work Phone: 01-17-2022 13:32-0400 Systolic blood pressure 98 mm[Hg] Dr. Shaan Kemp Work Phone: [facility] Work Phone: 12-20-2021 13:55-0400 Body height 169.[address] Shaan Kemp Work Phone: [facility] Work Phone: 12-20-2021 13:55-0400 Body mass index (BMI) [Ratio] 24 kg/m2 Dr. Shaan Kemp Work Phone: [facility] Work Phone: 12-20-2021 13:55-0400 Body weight 68.[address] Shaan Kemp Work Phone: [facility] Work Phone: 12-20-2021 13:55-0400 Diastolic blood pressure 58 mm[Hg] Dr. Shaan Kemp Work Phone: [facility] Work Phone: 12-20-2021 13:55-0400 Systolic blood pressure 92 mm[Hg] Dr. Shaan Kemp Work Phone: [facility] Work Phone: Encounters Encounter Date Encounter Type Care Provider Facility Start: 01-31-2025 ambulatory Tirso Uriostegui lity:[facility] Start: 01-24-2025 End: 01-24-2025 [facility] Start: 01-17-2025 End: 01-17-2025 ambulatory [facility] Facility:[facility] Start: 01-10-2025 ambulatory Kinza kellery:[facility] Start: 01-10-2025 End: 01-10-[address] Kinza Barahona MD -[facility] Work Phone: Start: 01-10-2025 End: 01-10-[address] Tirso Kemp MD Work Phone: -[facility] Start: 12-25-2024 End: 12-25-2024 Patient encounter procedure Esperanza DELEON -[facility] Work Phone: Start: 12-25-2024 End: 12-25-[address] Tirso Kemp MD Work Phone: -[facility] Start: 12-11-2024 End: 12-11-2024 Patient encounter procedure Ruthie Le CN -[facility] Work Phone: Start: 12-11-2024 End: 12-11-[address] Tirso Kemp MD Work Phone: -[facility] Start: 11-29-2024 End: 11-29-2024 Patient encounter procedure Alessandra Bolanos CN -[facility] Work Phone: Start: 11-29-2024 End: 11-29-[address] Tirso Kemp MD Work Phone: [facility] Start: 11-15-2024 End: 11-15-[address] Nina Gamboa DO -[facility] Work Phone: Start: 11-15-2024 End: 11-15-[address] iTrso Kemp MD Work Phone: -[facility] Start: 11-15-2024 End: 11-15-2024 ambulatory Tirso Kemp Facility:[facility] Start: 11-13-2024 ambulatory Tirso Kemp Facolga lity:[facility] Start: 10-21-2024 End: 10-21-[address] Kinza Barahona MD -[facility] Work Phone: Start: 10-21-2024 End: 10-21-[address] Tirso Kemp MD Work Phone: -[facility] Start: 09-19-2024 End: 09-19-2024 Patient encounter procedure Esperanza DELEON -[facility] Work Phone: Start: 09-19-2024 End: 09-19-[address] Tirso Kemp MD Work Phone: [facility] Work Phone: Start: 08-20-2024 End: 08-20-2024 Patient encounter procedure Esperanza DELEON -[facility] Work Phone: Start: 08-20-2024 End: 08-20-[address] Tirso Kemp MD Work Phone: [facility] Work Phone: Start: 07-23-2024 End: 07-23-[address] Nina Gamboa DO -[facility] Work Phone: Start: 07-23-2024 End: 07-23-2024 ambulatory Tirso Kemp Facility:[facility] Start: 06-24-2024 End: 06-24-[address] Nina Gamboa DO -[facility] Work Phone: Start: 06-24-2024 End: 06-24-[address] Tirso Kemp MD Work Phone: [facility] Work Phone: Start: 06-24-2024 End: 06-24-2024 ambulatory Tirso Kmep Facility:[facility] Start: 07-19-2023 Non-patient / Non-visit Dr. Tirso Kemp Work Phone: [facility] Start: 07-19-2023 End: 07-19-2023 Admission to same day surgery center Dr. Tirso Kemp Work Phone: [facility] Work Phone: Start: 07-19-2023 End: 07-19-[address] Tirso Kemp Work Phone: [facility] Work Phone: Start: 07-05-2023 End: 07-05-[address] Tirso Kemp Work Phone: [facility] Work Phone: Start: 06-12-2023 End: 06-12-[address] Tirso Kemp Work Phone: [facility] Work Phone: Start: 07-24-2022 Non-patient / Non-visit Dr. Shaan Kemp Work Phone: [facility] Start: 07-23-2022 Non-patient / Non-visit Dr. Shaan Kemp Work Phone: [facility] Start: 07-22-2022 Non-patient / Non-visit Dr. Shaan Kemp Work Phone: [facility] Start: 07-22-2022 End: 07-24-2022 Evaluation and management of inpatient Dr. Shaan Kemp Work Phone: [facility] Start: 07-15-2022 End: 07-15-[address] Shaan Kemp Work Phone: [facility] Start: 07-10-2022 Non-patient / Non-visit Dr. Shaan Kemp Work Phone: [facility] Start: 07-09-2022 Non-patient / Non-visit Dr. Shaan Kemp Work Phone: [facility] Start: 07-09-2022 End: 07-10-[address] Shaan Kemp Work Phone: [facility] Work Phone: Start: 07-09-2022 End: 07-10-[address] Shaan Kemp Work Phone: [facility] Outpatients Start: 07-07-2022 End: 07-07-[address] Shaan Kemp Work Phone: [facility] Start: 07-01-2022 End: 07-01-[address] Shaan Kemp Work Phone: [facility] Start: 06-24-2022 End: 06-24-[address] Shaan Kemp Work Phone: [facility] Work Phone: Start: 06-24-2022 End: 06-24-[address] Shaan Kemp Work Phone: [facility]Laboratory, Specimen Start: 06-24-2022 End: 06-24-[address] Shaan Kemp Work Phone: [facility] Start: 06-09-2022 End: 06-09-[address] Shaan Kemp Work Phone: [facility] Start: 06-02-2022 End: 06-02-[address] Shaan Kemp Work Phone: [facility] Work Phone: Start: 06-02-2022 End: 06-02-[address] Shaan Kemp Work Phone: [facility]Out[facility] Breast [facility] Start: 05-26-2022 End: 05-26-[address] Shaan Kemp Work Phone: [facility] Start: 05-13-2022 End: 05-13-[address] Shaan Kemp Work Phone: [facility] Start: 03-31-2022 End: 03-31-[address] Shaan Kemp Work Phone: [facility] Work Phone: Start: 03-31-2022 End: 03-31-[address] Shaan Kemp Work Phone: [facility] Start: 03-16-2022 End: 03-16-[address] Shaan Kemp Work Phone: [facility] Start: 02-28-2022 End: 02-28-[address] Shaan Kemp Work Phone: [facility] Work Phone: Start: 02-28-2022 End: 02-28-[address] Shaan Kemp Work Phone: [facility] Ultrasound Start: 02-17-2022 End: 02-17-[address] Shaan Kemp Work Phone: [facility] Start: 01-17-2022 End: 01-17-[address] Shaan Kemp Work Phone: [facility] Start: 12-20-2021 End: 12-20-[address] Shaan Kemp Work Phone: [facility] Work Phone: Start: 12-20-2021 End: 12-20-[address] Shaan Kemp Work Phone: [facility] OP Pavilion Start: 12-20-2021 End: 12-20-[address] Shaan Kemp Work Phone: [facility] Procedures Date Procedure Procedure Detail Performing [...] HCV Quant by PCR testing - HCVPCR #[id number] Non Reactive: < 0.8 Equivocal: >/= 0.8 to < 1.0 Reactive: >/= 1.0The CDC requires that a reactive/equivocal HCV antibody result be sent out for confirmation. HCV Quant by PCR testing. Start: 06-24-[address] Tirso Kemp MD Work Phone: Comment on above: Antibody Result: Int erpretationNon-Reactive: Non- ImmuneReactive: ImmuneThe following results were obtained with the [employer] Rubella IgG assay. Results from assays of [...] Different ial panel - Blood [facility] Start: 11-15-2024 Measurement of gluco se 2 hours after glucose challenge for glucose tolerance test [facility] Start: 11-15-2024 Serologic test for syphilis [facility] Start: 11-15-2024 [facility] Start: 07-19-2023 Patient discharge [facility] Start: 07-24-2022 Patient discharge [facility] Start: 07-22-2022 Administration of medication [facility] Start: 07-22-2022 Application of ice c ollar, cap or bag [facility] Start: 07-22-2022 Catheterization of vein [facility] Start: 07-22-2022 Introduction of urinary catheter [facility] Start: 07-22-2022 Measuring intake and output [facility] Start: 07-22-2022 Notification of physician [facility] Start: 07-22-2022 Procedure discontinued [facility] Start: 07-22-2022 Provision of activity privileges [facility] Start: 07-22-2022 Vital signs measurements [facility] Start: 07-22-2022 [facility] Start: 07-22-2022 Admission procedure [facility] Start: 07-10-2022 Nonstress test [facility] Start: 07-10-2022 Obstetric monitoring [facility] Start: 07-10-2022 Vital signs measurements [facility] Start: 07-10-2022 [facility] Start: 07-10-2022 Patient discharge [facility] Start: 07-09-2022 Nonstress test [facility] Start: 07-09-2022 Obstetric monitoring [facility] Start: 07-09-2022 Vital signs measurements [facility] Start: 07-09-2022 [facility] Start: 07-09-2022 Patient discharge [facility] Start: 12-20-2021 Liquid based cervica l cytology screening [facility] Work Phone: CBC W Auto Different ial panel - Blood [facility] Colonoscopy [facility] Erythrocyte mean cor puscular volume determination [facility] Hematocrit [Volume F raction] of Blood [facility] Hemoglobin [Mass/volume] in Blood [facility] Leukocytes [#/volume] in Blood [facility] Mean corpuscular hem oglobin concentration determination [facility] Mean corpuscular hem oglobin determination [facility] Measurement of gluco se 2 hours after glucose challenge for glucose tolerance test [facility] Neutrophil count [facility] Neutrophil percent d ifferential count [facility] Path report.final Dx Spec [facility] Work Phone: Patient Education [facility] Work Phone: Patient referral [facility] Work Phone: Platelets [#/volume] in Blood [facility] Red blood cell count [facility] Red cell distributio n width determination [facility] Serologic test for syphilis [facility] Streptococcus agalac tiae [Presence] in Unspecified specimen by Organism specific culture [facility] Ultrasound scan for growth [facility] Payers Date Payer Category Payer Unknown [id number] 2024 Self-pay [id number] Unknown [facility] [id number] Unknown . [id number] Unknown [id number] 2.16.8 [id number] Unknown [id number] 2.16.8 [id number] Unknown [id number] 2.16.8 [id number] Unknown [id number] 2.16.8 [id number] Unknown [id number] 2.16.8 [id number] Unknown [id number] 2.16.8 [id number] Unknown [id number] 2.16.8 [id number] Unknown [id number] 2.16.8 [id number] Unknown [id number] 2.16.8 [id number] Unknown [id number] 2.16.8 [id number] Unknown [id number] 2.16.8 [id number] Unknown [id number] 2.16.8 [id number] Unknown [id number] 2.16.8 [id number] Unknown [id number] 2.16.8 [id number] Unknown [id number] 2.16.8 [id number] Unknown [id number] 2.16.8 [id number] Unknown [id number] 2.16.8 [id number] Unknown [id number] 2.16.8 [id number] Social History Date Type Detail Facility Start: 12-20-2021 End: 07-17-2023 Tobacco smoking status NHIS Unknown if ever smoked [facility] Start: 1990 Sex Assigned At Female [facility] Start: 06-24-2024 Tobacco smoking status NHIS Never smoked tobacco (finding) [facility] Start: 07-03-2024 Sex Female (finding) [facility] Sex Female [facility] NEGATED: Highlighted row [facility] ster [facility] Goals Date Patient Goal Desired Activity /State Mental Status Date Assessment Result Facility 07-19-2023 Cognitive function Voice/Name [facility] Work Phone: Clinical Notes 12-20-2021 to 01-10-2025 Note Date & Type Note Facility 01-10-2025 Progress note [facility] 12-11-2024 Progress note [facility] 11-29-2024 Progress note [facility] 11-15-2024 Progress note [facility] 10-21-2024 Progress note [facility] 09-19-2024 Evaluation note Diagnosis Onset [...] Supervision of high-risk acute December 252024 9:38am [facility] Work Phone: [phone] Evaluation note* Diagnosis Onset Date Resolution Status [...] Supervision of high-risk acute January 10 10:38am [facility] Work Phone: 1([phone] Evaluation note* Diagnosis Onset Date Resolution Status [...] acute November 15, 2024 10:14am [facility] Work Phone: 1([phone] 999-902605-13-2025 Evaluation note* Diagnosis Onset Date Resolution Status [...] Supervision of high-risk acute November 29 10:50am [facility] Work Phone: 1(374) [phone] Evaluation note* Diagnosis Onset Date Resolution Status [...] of high-risk acute December 11, 025 8:58am [facility] Work Phone: [phone] Evaluation note* Diagnosis Onset Date Resolution Status [...] of high-risk acute November 15, 2024 10:14am [facility] Work Phone: 1(335) 427-835603-17-2025 Evaluation note* Diagnosis Onset Date Resolution Status Admit Date AMA (advanced maternal age) multigravida 35+ acute June 24 2:12pm Anal fissure acute June 24, 2024 2:12pm Family hx of colon cancer acute June 24, 2024 2:12pm acute June 24 2:12pm Supervision of high-risk acute June 24, 2024 2:12pm [facility] Work Phone: 1(969) 221-746603-17-2025 Evaluation note* Diagnosis Onset Date Resolution Status [...] high-risk acute August 20, 2024 8 :24am [facility] Work Phone: 1([phone] Evaluation note* Diagnosis Onset Date Resolution Status [...] of high-risk acute September 19, 2024 2:50pm [facility] Work Phone: 1([phone]) [phone] Evaluation note* Diagnosis Onset Date Resolution Status [...] of high-risk acute October 21, 2024 8:50am [facility] Work Phone: 1([phone] History and physical note Author Magaly George [facility] July 19, 2023 7:26am Note Date/Time July 19, 2023 7:2 6am [facility] Medical Records Department [address] [place] [address] History & Physical Exam 07/19/23 0725 MR#: [id number] Acct: [id number] Name: NATALIEAICONCHA Pedersen Rep #:[id number] : 1990 32 From: Magaly George MD PCP: Dr. Tirso Kemp MD Status :[facility] Location: [place] [address] History and Physical Date of Admission: 07/19/23 Date of Service: 07/05/23 MR#: [id number] Acct: [id number] Name: CONCHA GREWAL Rep #: [id number] : 1990 Provider: Dr. Magaly George MD Age/Sex: 32/F Location: [facility] Status: Signed Intake Vital Signs 06/12/2411:51 Height 5 ft 6 in Weight: 152 lb BMI 24.5 BP 98/63 Blood Pressure Location Rt brachial Position Sitting Respiration 17 Pulse 62 Pulse Source Monitor Temp 97.2 F L Temp Source Temporal Pulse Oximetry (%) 100 Oxygen Delivery Method room air Intake Visit Reasons: MEDICATION FU Chief Complaint: medication f/u Splunk Developer Required: No Is patient in pain?: No Allergies house dust Allergy (Mild, Verified 07/05/23 13:28) Nasal congestion Medications multivit-min no.71-iron fum 28 mg-folate no.1 1 mg-dha 300 mg capsule (PNV- Catlett) 1 cap PO DAILY 12/15/21 [History Confirmed [...] K60.2 Family hx of colon cancer Z80.0 [facility] (Updated 06/13/23 @ 07:53 by [...] physical activity do you participate in: none brandyn/spiritism: Jewish seatbelt use: always do you feel safe [...] on July 18. Magaly George M.D. Pager: [phone] [facility] [address] [place] [address], [facility], [address] [place] [id number] Office: [phone] 07/07/23 0831 <Electronically signed by Magaly George [...] Magaly George MD ~* Signed [facility] Work Phone: 1(250) [phone] Procedure [facility] 07-19-2023 Procedure [facility]04-16-[address] Kern [facility] July 24, 2022 9:47am Note Date/Time July 24, 2022 9:4 7am [facility] Medical Records Department [address] [place] [address] Discharge Summary 07/24/22 0944 MR#: [id number] Acct: [id number] Name: CONCHA GREWAL Rep #:[id number] : 1990 31 From: Nina Gamboa DO PCP: Dr. Shaan Kemp MD Status: ADM IN Location: [id number] Providers Date of Admission: 07/22/22 Primary Care [...] no.1 1 mg-dha 300 mg capsule (PNV- Catlett) 1 cap PO DAILY 12/15/21 Hospital Course [...] Up With: Nina Gamboa DO When: Call [phone] to make an appointment with your doctor [...] Shaan Kemp Discharge Orders/Prescriptions Prescriptions: No Action PNV-Catlett 28-1-300 mg capsule 1 cap PO DAILY Referrals / Follow Up: Shaan Kemp MD [Primary Care Provider] - Disposition Disposition (needs filled in before D/C Order can be placed): Home, Self Care 07/24/22 0947 <Electronically signed by Nina Gamboa DO> Cosigner Signature (if applicable): CC: Dr. Shaan Kemp MD; Dr. Nina Gamboa DO~ Signed [facility] Work Phone: 1(266) 140-298104-15-[address] Kern [facility] July 23, 2022 10:02am Note Date/Time July 23, 2022 10: 02am [facility] Medical Records Department [address] [place] [address] Progress Note - OBGYN 07/23/22 1000 MR#: [id number] Acct: [id number] Name: CONCHA GREWAL Rep #:[id number] : 1990 31 From: Nina Gamboa DO PCP: Dr. Shaan Kemp MD Status: ADM IN Location: [id number] Subjective Subjective Patient doing well without complaints. [...] (if applicable): CC: ~ Signed [facility] Work Phone: 1([phone]) [phone] Kern [facility] July 22, 2022 5:51pm Note Date/Time July 22, 2022 5:5 1pm [facility] Medical Records Department [address] [place] [address] Instructions for Home/Discharge Instructions 07/22/22 1750 MR#: [id number] Acct: [id number] Name: CONCHA GREWAL Rep #:[id number] : 1990 31 From: Nina Gamboa DO [...] Up With: Nina Gamboa DO When: Call [phone] to make an appointment with your doctor [...] Shaan Kemp Discharge Orders/Prescriptions Prescriptions: No Action PNV-Catlett 28-1-300 mg capsule 1 cap PO DAILY Referrals / Follow Up: Shaan Kemp MD [Primary Care Provider] - 07/22/22 1751<Electronically signed by Nina Gamboa DO>Nina Gamboa DO CC: Dr. Shaan Kemp MD ~ Signed [facility] Work Phone: [phone]) [phone] Procedure [facility] 07-22-2022 History and physical note Author Dr. Barahona [facility] July 22, 2022 7:20am Note Date/Time July 22, 2022 7:2 0am [facility] Medical Records Department [address] [place] [address] H&P Exam - SQUIRREL MAN 07/22/2218 MR#: [id number] Acct: [id number] Name: CONCHA GREWAL Rep #:[id number] : 1990 31 From: Kinza tapia MD PCP: Dr. Shaan Kemp MD Status: ADM IN Location: [id number] HPI - General General Date of Admission: [...] no.1 1 mg-dha 300 mg capsule (PNV- Catlett) 1 cap PO DAILY 12/15/21 [History Last [...] physical activity do you participate in: none brandyn/spiritism: Jewish seatbelt use: always do you feel safe [...] no lof, vagi nal bleeding, or cramping. [facility] ultrasound scheduled. pt will decide if [...] no vb/lof/ct x. traveling on monday to [facility], precautions given. 05/13/22 -?-?-?-?-?-?-?-?-?-?-?-?- 30w 1d 172 [...] any complications: none I have reviewed the [facility] and made any clinically relevant updates. 07/22/22 0720 <Electronically signed by Kinza Barahona MD> Cosigner Signature (if applicable): CC: Dr. Shaan Kemp MD; Dr. Kinza Barahona MD~ Signed [facility] Work Phone: 1(362) 675-544309-12-2022 NotePap Smear Specimen AdequacySeptember 2021 3:43pmComment.Satisfactory for evaluation. No endocervical component is identified.An endocervical component is not commonly seen in the patient.[employer] INTERFACED A#[id number] Work Phone: Comment on above:Satisfactory for evaluation. No endocervical component is identified.An endocervical component is not commonly seen in the patient.12-20-2021 NotePap Smear Specimen AdequacySeptember 2021 3:43pmComment.Satisfactory for evaluation. No endocervical component is identified.An endocervical component is not commonly seen in the patient.[employer]ED A#[id number] Work Phone: Comment on above:Satisfactory for evaluation. No endocervical component is identified.An endocervical component is not commonly seen in the patient.Evaluation note* Diagnosis Onset Date Resolution Status acute Supervision of normal [facility] Work Phone: Evaluation note* Diagnosis Onset Date Resolution Status acute Supervision of normal acute Nausea/vomiting in acute acute Supervision of normal [facility] Work Phone: Evaluation note* Diagnosis Onset Date Resolution Status acute Supervision of normal acute Nausea/vomiting in acute acute Supervision of normal acute [id number]-[id number] acute Nausea/vomiting in acute acute Supervision of normal acute IGR-NZVN-[id number] acute Nausea/vomiting in acute acute Supervision of normal acute VHW-EBPS-31749248 acute Nausea/vomiting in acute acute Supervision of normal acute [facility] Work Phone: Evaluation note* Diagnosis Onset Date Resolution Status [id number]-[id number] acute acute Supervision of normal acute Nausea/vomiting in resolved WQB-[id number] acute acute Supervision of normal acute Nausea/vomiting in resolved OWE-IHLU-[id number] acute acute Supervision of normal acute Nausea/vomiting in resolved FWO-[id number] acute acute Supervision of normal acute Breast mass, right acute Breast pain, left acute JQN-VJWE-76981893 acute acute Supervision of normal acute [facility] Work Phone: evaluation note* Diagnosis Onset Date Resolution Status [id number]-[id number] acute acute Supervision of normal acute Nausea/vomiting in resolved JZY-[id number] acute acute Supervision of normal acute Nausea/vomiting in resolved UFK-[id number] acute acute Supervision of normal acute WOE-RZEZ-77835363 acute acute Supervision of normal acute Breast mass, right resolved Breast pain, left resolved KTB-WSPW-47739640 acute acute Supervision of normal acute Breast mass, right resolved Breast pain, left resolved JBJ-LEWJ-18032954 acute acute Supervision of normal acute [facility] Work Phone: Evaluation note* Diagnosis Onset Date Resolution Status [id number]-[id number] acute acute Supervision of normal acute Nausea/vomiting in resolved COU-[id number] acute acute Supervision of normal acute Nausea/vomiting in resolved JIB-VWZA-[id number] acute acute Supervision of normal acute LIY-JAPY-29174539 acute acute Supervision of normal acute Breast mass, right resolved Breast pain, left resolved LUD-PZUL-56918917 acute acute Supervision of normal acute Breast mass, right resolved Breast pain, left resolved WFK-KPMU-22255292 acute acute Supervision of normal acute PVG-DWBZ-08597680 acute acute Supervision of normal acute DAF-IHCN-52928833 acute acute Supervision of normal [facility] Work Phone: Evaluation note* Diagnosis Onset Date Resolution Status MWQ-[id number] acute acute Supervision of normal acute Nausea/vomiting in resolved JUZ-[id number] acute acute Supervision of normal acute Nausea/vomiting in resolved IUV-WZCE-[id number] acute acute Supervision of normal acute AFI-ELVX-90379943 acute acute Supervision of normal acute Breast mass, right resolved Breast pain, left resolved JAY-ZZAP-93410520 acute acute Supervision of normal acute Breast mass, right resolved Breast pain, left resolved ZLH-TJAZ-66954311 acute acute Supervision of normal acute GOY-FPUJ-99897315 acute acute Supervision of normal acute FZA-XFME-79381874 acute acute Supervision of normal acute XKP-EYHT-37211299 acute acute Supervision of normal [facility] Work Phone: Evaluation note* Diagnosis Onset Date Resolution Status [id number]-[id number] acute acute Supervision of normal acute Nausea/vomiting in resolved YQY-SKQS-[id number] acute acute Supervision of normal acute TAZ-YLPD-93437033 acute acute Supervision of normal acute Breast mass, right resolved Breast pain, left resolved VZH-DJLV-73937561 acute acute Supervision of normal acute Breast mass, right resolved Breast pain, left resolved CAC-TAYD-67467416 acute acute Supervision of normal acute ZJR-RRZE-31191224 acute acute Supervision of normal acute MPY-KMUD-10714354 acute acute Supervision of normal acute OVZ-EIQC-38705838 acute acute Supervision of normal acute Premature rupture of membranes resolved CNA-RUOB-[id number] acute acute Supervision of normal acute Active labor at term acute WBI-ZHXE-[id number] acute acute Supervision of normal [facility] Work Phone: Evaluation note* Diagnosis Onset Date Resolution Status Anal fissure acute Family hx of colon cancer [place] Anal fissure acute Family hx of colon cancer [place] [facility] Work Phone: Progress note Author Kinza Barahona [facility] Note Date/Time October 21, 2024 9:17 am [facility] Emergency Department [address], [address] [place] [address] OFFICE VISIT Date of Service: 10/21/24 MR#: [id number] Acct: [id number] Name: CONCHA GREWAL Rep #: [id number] : 1990 Provider: Dr. Candelario Barahona MD Age/Sex: 34/F Location: [facility] Status: Signed Intake Vital Signs 08/20/24 08:29 09/19/24 14:58 10/21/24 08:52 Height 5 ft 6 in 5 ft 6 in 5 ft 6 in Weight: 171 lb BMI 27.6 BP 102/68 Intake Visit Reasons: 24 wk ob Splunk Developer Required: No Is patient in pain?: No Allergies house dust Allergy (Mild, Verified 10/21/24 08:56) Nasal congestion Medications ?Medication ?Instructions ?Recorded ?Confirmed ?Type multivit-min no.71-iron fum 28 1 cap PO DAILY pregnanc y 12/15/21 10/21/24 History mg-folate no.1 1 mg-dha 300 mg capsule (PNV-Catlett) Last Menstrual Period: 04/27/24 Zika: Zika virus [...] physical activity do you participate in: none brandyn/spiritism: Jewish seatbelt use: always do you feel safe [...] full term 8lbs 3oz Male ep idural [facility] Dr. Vasquez Delivery Date: 07/22/22 Last [...] Cosigner Signature: Date (if applicable) CC: ~ [facility] Work Phone: Progress note Author Nina Kern [facility] Note Date/Time November 15, 2024 11: 09am [facility] [address], [address] [place] [address] OFFICE VISIT Date of Service: 11/15/24 MR#: [id number] Acct: [id number] Name: CONCHA GREWAL Rep #: [id number] : 1990 Provider: Dr. Lina Gamboa DO Age/Sex: 34/F Location: [facility] Status: Signed Intake Vital Signs 10/21/24 08:52 11/15/24 10:20 11/15/24 10:21 Height 5 ft 6 in 5 ft 6 in 5 ft 6 in Weight: 174 lb 7 oz BMI 28.1 BP 98/60 Intake Visit Reasons: 28wk ob/glucose Splunk Developer Required: No Is patient in pain?: No Allergies house dust Allergy (Mild, Verified 11/15/24 10:20) Nasal congestion Medications ?Medication ?Instructions ?Recorded ?Confirmed ?Type multivit-min no.71-iron fum 28 1 cap PO DAILY pregnanc y 12/15/21 11/15/24 History mg-folate no.1 1 mg-dha 300 mg capsule (PNV-Catlett) Last Menstrual Period: 04/27/24 Zika: Zika virus [...] physical activity do you participate in: none brandyn/spiritism: Jewish seatbelt use: always do you feel safe [...] full term 8lbs 3oz Male ep idural [facility] Dr. Vasquez Delivery Date: 07/22/22 Last [...] MH-No VB. Doing well. Good FM. Reviewed [facility] anatomy US and will rpt 2 wk [...] and Symptoms of Preeclampsia, Labor Signs and [place] [employer]; Discussed Trial of Labor after Counseling [...] Amauryignvanessa Signature: Date (if applicable) CC: ~ [facility] Work Phone: Progress note Author Alessandra Bolanos [facility] Note Date/Time November 29, 2024 11 :18am [facility] ealt System [facility] [address] [place] [address], [address] [place] [address] OFFICE VISIT Date of Service: 11/29/24 MR#: [id number] Acct: [id number] Name: CONCHA GREWAL Rep #: [id number] : 1990 Provider: TRISTIN Bolanos Age/Sex: 34/F Location: [facility] Status: Signed Intake Vital Signs 09/19/24 14:58 11/15/24 10:21 11/29/24 10:52 Height 5 ft 6 in 5 ft 6 in 5 ft 6 in Weight: 176 lb BMI 28.4 BP 99/64 Intake Visit Reasons: 30 wk ob Splunk Developer Required: No Is patient in pain?: No Allergies house dust Allergy (Mild, Verified 11/29/24 10:54) Nasal congestion Medications ?Medication ?Instructions ?Recorded ?Confirmed ?Type multivit-min no.71-iron fum 28 1 cap PO DAILY pregnanc y 12/15/21 11/29/24 History mg-folate no.1 1 mg-dha 300 mg capsule (PNV-Catlett) Last Menstrual Period: 04/27/24 Zika: Zika virus [...] physical activity do you participate in: none brandyn/spiritism: Jewish seatbelt use: always do you feel safe [...] full term 8lbs 3oz Male ep idural [facility] Dr. Vasquez Delivery Date: 07/22/22 Last [...] and Symptoms of Preeclampsia, Labor Signs and [place] [employer]; Discussed Trial of Labor after Counseling [...] Cosigner Signature: Date (if applicable) CC: ~ [facility] Work Phone: Progress note Author Ruthie Le [facility] Note Date/Time December 11, 2024 9:31am [facility] [address], [address] [place] [address] OFFICE VISIT Date of Service: 12/11/24 MR#: [id number] Acct: [id number] Name: CONCHA GREWAL Rep #: [id number] : 1990 Provider: TRISTIN Le Age/Sex: 34/F Location: [facility] Status: Signed Intake Vital Signs 11/15/24 10:21 11/29/24 10:52 12/11/24 09:02 Height 5 ft 6 in 5 ft 6 in 5 ft 6 in Weight: 177 lb 4 oz BMI 28.5 BP 110/64 Intake Visit Reasons: 32wk ob Splunk Developer Required: No Is patient in pain?: No Allergies house dust Allergy (Mild, Verified 12/11/24 09:04) Nasal congestion Medications ?Medication ?Instructions ?Recorded ?Confirmed ?Type multivit-min no.71-iron fum 28 1 cap PO DAILY pregnanc y 12/15/21 12/11/24 History mg-folate no.1 1 mg-dha 300 mg capsule (PNV-Catlett) Last Menstrual Period: 04/27/24 Zika: Zika virus [...] physical activity do you participate in: none brandyn/spiritism: Jewish seatbelt use: always do you feel safe at home: Yes 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 Date Name GA/Weeks Outcome Route Bth Weight Infant Gen Labor Lgth Anesthesia Del [facility] Provider FOB 07/22/22 Joel 40 live - full term 8lbs 3oz Male ep idural [facility] Dr. Vasquez Delivery Date: 07/22/22 Last [...] Chower Signature: Date (if applicable) CC: ~ [facility] Work Phone: Progress note Author Kinza Barahona [facility] Note Date/Time January 10, 2025 11 :04am [facility] [address] [place] [address], [address] [place] [address] OFFICE VISIT Date of Service: 01/10/25 MR#: [id number] Acct: [id number] Name: CONCHA GREWAL Rep #: [id number] : 1990 Provider: Dr. Candelario Barahona MD Age/Sex: 34/F Location: [facility] Status: Signed Intake Vital Signs 11/15/24 10:21 12/25/24 09:39 01/10/25 10:41 Height 5 ft 6 in 5 ft 6 in 5 ft 6 in Weight: 180 lb 6 oz BMI 29.1 BP 95/61 Intake Visit Reasons: 36wk ob Splunk Developer Required: No Is patient in pain?: No Allergies house dust Allergy (Mild, Verified 01/10/25 10:43) Nasal congestion Medications ?Medication ?Instructions ?Recorded ?Confirmed ?Type multivit-min no.71-iron fum 28 1 cap PO DAILY pregnanc y 12/15/21 01/10/25 History mg-folate no.1 1 mg-dha 300 mg capsule (PNV-Catlett) Last Menstrual Period: 04/27/24 Zika: Zika virus [...] physical activity do you participate in: none brandyn/spiritism: Jewish seatbelt use: always do you feel safe [...] full term 8lbs 3oz Male ep idural [facility] Dr. Vasquez Delivery Date: 07/22/22 Last [...] and Symptoms of Preeclampsia, Labor Signs and [place] [employer]; Discussed Trial of Labor after Counseling [...] Cosigner Signature: Date (if applicable) CC: ~ [facility] Work Phone: Reason for referral (narrative)No reason for referral information availableWKet[facility] Work Phone: Chief Complaint and [...] of normal Nausea/vomiting in Supervision of normal [id number]-[id number] Nausea/vomiting in Supervision of normal UCH-JTMZ-[id number] Nausea/vomiting in Supervision of normal QGP-YKFW-67232321 Nausea/vomiting in Supervision of normal Chief Complaint 17 WK OB SUPERVISION OF NORMAL 21wk ob 24 WK OB 30 WK OB 32 WK OB BILAT BREAST MASSES Reason for Visit [id number]-[id number]-[id number] Supervision of normal Nausea/vomiting in FGI-EGKD-96241223 Supervision of normal Nausea/vomiting in YDO-YZWM-59355265 Supervision of normal Nausea/vomiting in RDU-MXRI-37090921 Supervision of normal Breast mass, right Breast pain, left LIA-UKUK-25082556 Supervision of normal Chief Complaint SUPERVISION OF ODETTE L 21wk ob 24 WK OB 30 WK OB 32 WK OB BILAT BREAST MASSES 34 WK OB 36 WK OB Reason for Visit [id number]-GDFA-[id number] Supervision of normal Nausea/vomiting in AIV-ULQO-72582833 Supervision of normal Nausea/vomiting in QYY-HVDT-96847913 Supervision of normal BKB-XJQL-95633207 Supervision of normal Breast mass, right Breast pain, left LDC-YSFK-08661618 Supervision of normal Breast mass, right Breast pain, left OVJ-MXKM-15667803 Supervision of normal Chief Complaint 21wk ob 24 WK OB 30 WK OB 32 WK OB BILAT BREAST MASSES 34 WK OB 36 WK OB 37 wk ob 38 WK OB RULE OUT LABOR Reason for Visit JVE-RGJE-[id number] Supervision of normal Nausea/vomiting in EUJ-LJWJ-27003571 Supervision of normal Nausea/vomiting in CYM-DLMH-80208815 Supervision of normal MMV-TENA-53292317 Supervision of normal Breast mass, right Breast pain, left QKV-YSUB-07957610 Supervision of normal Breast mass, right Breast pain, left AIU-UVLD-27264368 Supervision of normal QPS-VPGT-33169360 Supervision of normal WTE-WPKZ-94132239 Supervision of normal Chief Complaint 21wk ob 24 WK OB 30 WK OB 32 WK OB BILAT BREAST MASSES 34 WK OB 36 WK OB 37 wk ob 38 WK OB RULE OUT LABOR RULE OUT LABOR R\O LABOR Reason for Visit DRN-IFBZ-63515635 Supervision of normal Nausea/vomiting in YXP-JZBC-03129769 Supervision of normal Nausea/vomiting in OQQ-XKVG-45307687 Supervision of normal SPF-VKCA-64364250 Supervision of normal Breast mass, right Breast pain, left LJN-ACGX-00021326 Supervision of normal Breast mass, right Breast pain, left JTG-YPOP-20590508 Supervision of normal NIV-IMLT-82174820 Supervision of normal OIZ-XQIX-00218256 Supervision of normal TTN-XNYF-50024721 Supervision of normal Chief Complaint 24 WK OB 30 WK OB 32 WK OB BILAT BREAST MASSES 34 WK OB 36 WK OB 37 wk ob 38 WK OB RULE OUT LABOR RULE OUT LABOR R\O LABOR R\O LABOR 39 WK OB VAGINAL DELIVERY LABOR VAGINAL DELIVERY VAGINAL DELIVERY Reason for Visit FJK-DYZL-45219045 Supervision of normal Nausea/vomiting in UKD-XOCS-58030506 Supervision of normal AIK-SVVP-15529031 Supervision of normal Breast mass, right Breast pain, left NUR-FVJD-92149212 Supervision of normal Breast mass, right Breast pain, left QQP-MXHB-44311887 Supervision of normal ZMU-KEMM-25284330 Supervision of normal EEX-HAMN-71690171 Supervision of normal OJT-UUHA-05499213 Supervision of normal Premature rupture of membranes UFD-XFXE-64790633 Supervision of normal Active labor at term GYH-RNLD-22195088 Supervision of normal Chief Complaint BLOOD IN [...] December 11, 2024 8:58am [facility] AMA (advanced maternal age) multigravida 35+ December 25, 2024 9:38am Anal fissure December 25, 2024 9:38am Family hx of colon cancer December 9:38am December 25, 2024 9:38am Supervision of [facility]risk [facility] 2024 9:38am Chief Complaint Admit [...] No January 04, 2021 6:14pm Power of Hydrodynamicist No December 6:14pm Advance Directive Response Recorded Date/ Time Living Will No January 04, 2021 5:14pm Power of Hydrodynamicist No December 5:14pm Advance Directive Response Recorded Date/ Time Living Will No June 24, 2022 4:53pm Power of Hydrodynamicist No June 24 4:53pm Advance Directive Response Recorded Date/ Time Living Will No July 01, 2022 9:58am Power of Hydrodynamicist No July 01 9:58am Advance Directive Response Recorded Date/ Time Living Will No July 22, 2022 3:49am Power of Hydrodynamicist No July 22 3:49am Advance Directive Response Recorded Date/ Time Living Will No July 17, 2023 9:55am Power of Hydrodynamicist No July 16 9:55am Summary Purpose Additional [...] 2024 End: September 19, 2024 Esperanza Florence RN PROCEDURE, RN PROCEDURE-C Attending Provider Active Start: September 19, 2024 [...] 2024 End: August 20, 2024 Esperanza Florence RN PROCEDURE, RN PROCEDURE-C Attending Provider Active Start: August 20, 2024 End: August 20, 2024 Team Status: Inactive Member Role/Relationship Status Dates Dr. Tirso Kemp MD Primary Care Provider Acti ve Start: September 19, 2024 End: September 19, 2024 Dr. Tirso Kemp MD Referring Provider Active Start: September 19, 2024 End: September 19, 2024 Esperanza Florence RN PROCEDURE, RN PROCEDURE-C Attending Provider Active Start: September 19, 2024 [...] 2024 End: August 20, 2024 Esperanza Florence RN PROCEDURE, RN PROCEDURE-C Attending Provider Active Start: August 20, 2024 End: August 20, 2024 Team Status: Inactive Member Role/Relationship Status Dates Dr. Tirso Kemp MD Primary Care Provider Acti ve Start: September 19, 2024 End: September 19, 2024 Dr. Tirso Kemp MD Referring Provider Active Start: September 19, 2024 End: September 19, 2024 Esperanza Florence RN PROCEDURE, RN PROCEDURE-C Attending Provider Active Start: September 19, 2024 [...] 2024 End: August 20, 2024 Esperanza Florence RN PROCEDURE, RN PROCEDURE-C Attending Provider Active Start: August 20, 2024 End: August 20, 2024 Team Status: Inactive Member Role/Relationship Status Dates Dr. Tirso Kemp MD Primary Care Provider Acti ve Start: September 19, 2024 End: September 19, 2024 Dr. Tirso Kemp MD Referring Provider Active Start: September 19, 2024 End: September 19, 2024 Esperanza Florence RN PROCEDURE, RN PROCEDURE-C Attending Provider Active Start: September 19, 2024 [...] End: September 19, 2024 Esperanza Florence NP, RN PROCEDURE-C Attending physician Active Start: September 19, 2024 [...] End: December 25, 2024 Esperanza Florence NP, RN PROCEDURE-C Attending physician Active Start: December 25, 2024 [...] section and content) DATE CREATED AUTHOR 01/27/2025 [facility] FOR RECORDS PERTAINING TO PATIENTS WHO ARE [...] BE BASED ON THE PRIMARY CLINICAL RECORDS. [facility] [employer] [facility]. provides no warranty or guarantee of the accuracy or completeness of information in this document.
== END | disposition home or self-care (01) ==
LOC: US 18:02
PROVIDERS: PCP Family Medicine; Referring Provider Obstetrics & Gynecology; Visit Provider Obstetrics & Gynecology
DX: Z34.90 Encounter for supervision of normal pregnancy, unspecified, unspecified trimester (principal)
CPT/HCPCS: 76816

== ENCOUNTER 2025-02-05 01:30 | Inpatient (IN) | payer OTHER, SELFPAY ==
[2025-02-04 23:16] VITALS: BP 98/53; PULSE 67; TEMP 36.3; O2SAT 99
[2025-02-04 23:20] VITALS: BMI 29.9
[2025-02-04 23:36] VITALS: RESP 18
[2025-02-05] VITALS (62 sets, daily range): BP systolic 84–136; BP diastolic 46–78; PULSE 53–99; RESP 15–20; TEMP 36.2–36.7; O2SAT 93–100
[2025-02-05 00:27] LABS: ROM Internal Control Test YES-OK TO RESULT pt. (Internal QC); ROM Patient Test Negative (Negative); Record Kit Lot#, ROM+ K3607
[2025-02-05 01:17] LABS: ROM Internal Control Test YES-OK TO RESULT pt. (Internal QC)
[2025-02-05 01:18] LABS: ROM Patient Test POSITIVE (Negative); Record Kit Lot#, ROM+ K3607
[2025-02-05] MEDS: Lactated Ringers 1,000 ML 200 ML IV (02:00)
[2025-02-05] MEDS: Penicillin G Pot 5,000,000 UNITS in 0.9% Normal Saline (100mL MB+) 100 ML 150 UNITS IV (02:05)
[2025-02-05 02:10] LABS: Hematocrit 36.3 % (37-47); Hemoglobin 12.2 g/dL (12.0-15.0); Immature Granulocytes Count 0.040 X10^3/uL (0.0-0.0); Mean Corp Hgb Conc 33.6 g/dL (32-36); Mean Corpuscular Volume 91.9 fL (81-99); Mean Platelet Vol. 10.4 fl (6.2-12.0); NRBC Flagged by Analyzer 0 % (0-5); Platelet Count 261 K/mm3 (150-450); RBC Distribution Width CV 13.2 % (11.6-14.6); RBC Distribution Width SD 44.5 fl (35.1-43.9); Red Blood Count 3.95 M/mm3 (4.2-5.4); White Blood Count 6.9 K/mm3 (4.4-11.0)
[2025-02-05 02:38] LABS: Syphilis Antibodies Nonreactive (Nonreactive)
[2025-02-05] MEDS: 0.9% Saline Lock 10 ML Syringe IV ×2 (02:47→08:50)
--- NOTE | 2025-02-05 05:24 | PCM.HP.OB ---
HPI - General General Date of Admission: 02/05/25 HPI Narrative CONCHA GREWAL, is a 34 F who presents @ 40w4d presents with SROM clear fluid since 1000pm last night, contractions increasing this am, patient able to get some rest. Maternal Data Information RYLEE Calculator Estimated Delivery Date Method Current WG Current Estimate 02/01/25 LMP (Certain) 40w 4d Other Estimates 01/29/25 Ultrasound #1 41w 0d PFSH PFSH Medical History (Updated 02/05/25 @ 05:[address] Kinza Barahona MD) Chronic sinus infection PCOS (polycystic ovarian syndrome) Anemia Hx of vaginal delivery Family hx of colon cancer Hypotension Home Medications ?Medication ?Instructions ?Recorded ?Last Taken ?Type multivit-min no.71-iron fum 28 1 cap PO DAILY 12/15/21 02/04/25 22:00 History mg-folate no.1 1 mg-dha 300 mg capsule (PNV-[place]) Allergy/AdvReac Type Severity Reaction Status Date / Time house dust Allergy Mild Nasal Verified 02/04/25 23:20 congestion Family History Brother Colon cancer, Onset Age: 35 Stage IV Mother Heart disease Father CVA (cerebral vascular accident) Social History adopted: No household members: spouse housing: house number of children: 1 current occupational status: unemployed pets and animals: No history of recent travel: [place] ([place]) out of state: Yes out of country: No sexually active: Yes Smoking Status: Never smoker alcohol intake: never substance use type: does not use well-balanced diet: daily or most days caffeine: No eating out: rarely or never during the past year weight has: remained stable what type of physical activity do you participate in: none brandyn/sabianism: Protestant seatbelt use: always do you feel safe at home: Yes 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 Date Name GA/Weeks Outcome Route Bth Weight Gen Labor Lgth Anesthesia Del Locatn Provider FOB 07/22/22 Joel 40 live - full term 8lbs 3oz Male epidural [facility] Dr. Vasquez Delivery Date: 07/22/22 Last Updated by: Aicha Albrecht 1st degree tear Visit Details Expected Delivery Route/Plan Labor Preferences- CB/BF classes: no labor support person: Jimy labor intervention preferences: [] pain management options preferred: limited cut cord/dad catch: yes : yes PP control planned: discussed discussed possible routes of delivery and associated risks: [] special requests: [] Plans Covid status: [] Flu vaccine: [] Tdap vaccine: [] Rhogam: na LARC form signed: yes Problem list reviewed and updated with the most current plan of care details and appropriate orders placed. Relevant counseling for the gestational age provided. Continue routine care and follow up unless otherwise noted in visit notes/problem list details OB Flowsheet Initial Weight: 155 lb Date <del>?</del> EGA Weight BP Urine Prot <del>?</del> Glucose FHR FuHt Pres Dilation <del>?</del> Effaced St Visit Note 06/24/24 <del>?</del> 8w 2d 155 lb (+0 oz) 101/65 <del>?</del> 175 <del>?</del> JV- CRL consistent with Lmp. declines nipt. still breast feeding. 07/23/24 <del>?</del> 12w 3d 157 lb 8 oz (+2 lb 8 oz) 98/62 Negative <del>?</del> Negative 165 <del>?</del> JV- CRL measuring according to GA. will order anatomy scan with MFM. JV- CRL measuring according to GA. will order anatomy scan with MFM. starting to have hip pain. 08/20/24 <del>?</del> 16w 3d 160 lb (+5 lb) 94/60 Negative <del>?</del> Negative 153 <del>?</del> MH-No VB. Nausea resolved. Doing well. 09/19/24 <del>?</del> 20w 5d 168 lb (+13 lb) 102/64 Negative <del>?</del> Negative 156 <del>?</del> MH-No VB. Doing well. Good FM. Reviewed MFM anatomy US and will rpt 2 wk to complete anatomy 10/21/24 <del>?</del> 25w 2d 171 lb (+16 lb) 102/68 Negative <del>?</del> Negative 1,455 145 25 <del>?</del> SM_ no vb lof good fm nor euglar ctx [place] no issues has repeat antomy scheduled 11/15/24 <del>?</del> 28w 6d 174 lb 7 oz (+19 lb 7 oz) 98/60 Negative <del>?</del> Negative 130 28 <del>?</del> JV- no lof, vaginal bleeding, or dec fm . gct done today. dicuss tdap next visit. 11/29/24 <del>?</del> 30w 6d 176 lb (+21 lb) 99/64 Negative <del>?</del> Negative 135 29.5 <del>?</del> LC- no vb/ctx/lof. good fm. no concerns.larc signed. 12/11/24 <del>?</del> 32w 4d 177 lb 4 oz (+22 lb 4 oz) 110/64 1+ <del>?</del> Negative 160 32 <del>?</del> KW- no vb/lof/ctx. good fm. would like to try without epidural. 12/25/24 <del>?</del> 34w 4d 180 lb 2 oz (+25 lb 2 oz) 92/55 Negative <del>?</del> Negative 131 34 <del>?</del> MH-No VB, LOF. Good FM. Monistat 7 for yeast sx 01/10/25 <del>?</del> 36w 6d 180 lb 6 oz (+25 lb 6 oz) 95/61 Negative <del>?</del> Negative 140 36 Cephalic 1 <del>?</del> 50 -3 SM- no vb lof good fm n oregulra ctx gbs collected 01/17/25 <del>?</del> 37w 6d 182 lb 5 oz (+27 lb 5 oz) 101/69 Negative <del>?</del> Negative 135 37 Cephalic <del>?</del> KW- no vb/lof/ctx. good fm. no concerns today 01/24/25 <del>?</del> 38w 6d 183 lb 9 oz (+28 lb 9 oz) 101/68 Negative <del>?</del> Negative 150 38 Cephalic 1 <del>?</del> 50 -3 JV- no lof, vaginal bleeding, or dec fm. has itching and on exam has yeast coating vaginal johnson. she has alrady tried monistat 7. will try diflucan. 01/31/25 <del>?</del> 39w 6d 183 lb 2 oz (+28 lb 2 oz) 97/63 Negative <del>?</del> Negative 145 39 Cephalic 1 <del>?</del> 50 -3 JV- patient could not tolerate a membrane sweep. IOL set up for next week. NST FHR Rate Baby A Uterine Activity:: q3-5 ROS Constitutional Constitutional: Reports systems reviewed and no addt'l complaints, except as documented ENT HEENT: Reports systems reviewed and no addt'l complaints, except as documented Cardiovascular Cardiovascular: Reports systems reviewed and no addt'l complaints, except as documented Respiratory/Chest Respiratory/Chest: Reports systems reviewed and no addt'l complaints, except as documented Gastrointestinal Gastrointestinal: Reports systems reviewed and no addt'l complaints, except as documented and nausea; Denies abdominal pain Genitourinary Genitourinary: Reports systems reviewed and no addt'l complaints, except as documented, contractions Details: present and frequency (regular ) and movement Details: present Musculoskeletal Musculoskeletal: Reports systems reviewed and no addt'l complaints, except as documented Integumentary Integumentary: Reports as per HPI Neurologic Neurologic: Reports systems reviewed and no addt'l complaints, except as documented Endocrine Endocrinology: Reports systems reviewed and no addt'l complaints, except as documented Vital Signs Vital Signs Vital Signs: 02/04/25 23:16 02/04/25 23:16 02/04/25 23:16 Temperature Temperature Source Pulse Rate 67 Respiratory Rate Blood Pressure 98/53 L BP Systolic 98 BP Diastolic 53 Pulse Ox 99 02/04/25 23:16 02/04/25 23:16 02/04/25 23:36 Temperature 97.4 F L Temperature Source Temporal Pulse Rate Respiratory Rate 18 Blood Pressure BP Systolic BP Diastolic Pulse Ox 02/05/25 02:10 02/05/25 02:10 02/05/25 02:10 Temperature Temperature Source Temporal Pulse Rate 60 Respiratory Rate Blood Pressure 99/63 BP Systolic 99 BP Diastolic 63 Pulse Ox 02/05/25 02:10 02/05/25 02:10 02/05/25 02:11 Temperature 98.0 F Temperature Source Pulse Rate 62 Respiratory Rate 18 Blood Pressure BP Systolic BP Diastolic Pulse Ox 02/05/25 02:11 02/05/25 03:17 02/05/25 03:17 Temperature Temperature Source Pulse Rate 58 L Respiratory Rate Blood Pressure BP Systolic BP Diastolic Pulse Ox 98 97 02/05/25 03:21 02/05/25 03:21 02/05/25 03:22 Temperature Temperature Source Pulse Rate 57 L Respiratory Rate Blood Pressure 84/46 L 97/59 L BP Systolic 84 97 BP Diastolic 46 59 Pulse Ox 02/05/25 03:22 02/05/25 03:48 02/05/25 03:48 Temperature Temperature Source Pulse Rate 53 L 63 Respiratory Rate Blood Pressure BP Systolic BP Diastolic Pulse Ox 98 02/05/25 03:53 02/05/25 03:53 02/05/25 04:25 Temperature Temperature Source Pulse Rate 59 L Respiratory Rate Blood Pressure 89/49 L BP Systolic 89 BP Diastolic 49 Pulse Ox 97 02/05/25 04:25 02/05/25 04:25 02/05/25 04:25 Temperature Temperature Source Pulse Rate 57 L Respiratory Rate Blood Pressure 89/55 L BP Systolic 89 BP Diastolic 55 Pulse Ox 98 02/05/25 04:25 02/05/25 04:25 02/05/25 04:25 Temperature Temperature Source Temporal Pulse Rate 60 Respiratory Rate 16 Blood Pressure BP Systolic BP Diastolic Pulse Ox 02/05/25 04:25 02/05/25 04:26 02/05/25 04:26 Temperature 97.5 F L Temperature Source Pulse Rate 53 L Respiratory Rate Blood Pressure 88/54 L BP Systolic 88 BP Diastolic 54 Pulse Ox 02/05/25 04:47 02/05/25 04:47 Temperature Temperature Source Pulse Rate 65 Respiratory Rate Blood Pressure BP Systolic BP Diastolic Pulse Ox 98 Weight Weight: 186 lb Body Mass Index (BMI) 29.9 Physical Exam Const alert, oriented x3 and healthy appearing Constitutional Narrative: uncomfortable with contractions HEENT normocephalic and moist oral mucous membranes Head and Scalp: atraumatic Neck full ROM, no lymphadenopathy, supple and thyroid normal General: trachea midline Thyroid: thyroid normal Lymph Lymphatic: no lymphadenopathy noted Chest inspection of chest normal Resp normal respiratory effort Cardio regular rate GI soft to palpation and non-tender GI Narrative: gravid Inspection: gravid external exam normal Bimanual Exam - Vag & Uterus: uterus non-tender Manual OB Exam: estimated gestational size appropriate, presentation cephalic, dilated, effaced and station Extremity normal to inspection General Extremity: Negative for edema Skin no rashes or lesions noted Neuro deep tendon reflexes 2+ bilaterally Motor Exam: strength 5/5 throughout and clonus absent Psych mental status grossly normal Labs Labs Labs: Blood Type A POSITIVE Antibody Screen NEGATIVE Hct, (37-47) 36.3 % L Hgb, (12.0-15.0) 12.2 g/dL Obstetrics Ultrasound Syphilis Total Ab, (Nonreactive) Nonreactive VZV IgG Antibody, (Immune >165) 280 index Rubella IgG Antibody, (Nonreactive) REAC Hep Bs Antigen, (Nonreactive) Nonreactive Hepatitis C Antibody, (Nonreactive) Nonreactive Chlamydia DNA (ISABELLE), (Negative) Negative N.gonorrhoeae DNA (ISABELLE), (Negative) Negative HIV 1&2 Antibody, (Nonreactive) Nonreactive Glucose 1 Hr 50 gm, (70-140) 83 mg/dL Assessment & Plan (1) SROM (spontaneous rupture of membranes): (2) Positive GBS test: (3) AMA (advanced maternal age) multigravida 35+: QUALIFIERS: Trimester: second trimester Qualified Code(s): O09.522 - Supervision of elderly multigravida, second trimester COMMENT: Growth US 36 wk (4) : QUALIFIERS: Weeks of gestation: 39 weeks Qualified Code(s): Z3A.39 - 39 weeks gestation of COMMENT: Declines NIPT/Carrier. nl anatomy. (5) Anal fissure: (6) Supervision of high-risk : QUALIFIERS: Trimester: third trimester Qualified Code(s): O09.93 - Supervision of high risk , unspecified, third trimester COMMENT: PRR, RYLEE: 02/01/25 girl Julia Maldonado : Jimy (7) Family hx of colon cancer: COMMENT: Brother 35 yo- Survivor PLAN: Plan Patient presents IAL, plan expectant management for , pitocinPRN if needed. Pain management: open. GBS positive plan IV PCN. Management of any complications: none I have reviewed the [facility] and made any clinically relevant updates.
[2025-02-05] MEDS: Penicillin G 3,000,000 Units 50 ML 100 UNITS IV ×2 (06:11→10:42)
[2025-02-05] MEDS: Oxytocin 15 Units/NS 250ml 15 UNITS/250 ML IV.SOLN 2 UNITS IV (08:50)
[2025-02-05] MEDS: Lactated Ringers 1,000 ML 999 ML IV (10:50)
[2025-02-05] MEDS: fentaNYL-bupivacaine (epidural) 100 ML BAG EPIDURAL (11:24)
--- NOTE | 2025-02-05 12:10 | EX.PCM.OBVAG ---
Assessment & Plan (1) SROM (spontaneous rupture of membranes): (2) Positive GBS test: (3) AMA (advanced maternal age) multigravida 35+: QUALIFIERS: Trimester: second trimester Qualified Code(s): O09.522 - Supervision of elderly multigravida, second trimester COMMENT: Growth US 36 wk (4) : QUALIFIERS: Weeks of gestation: 39 weeks Qualified Code(s): Z3A.39 - 39 weeks gestation of COMMENT: Declines NIPT/Carrier. nl anatomy. (5) Anal fissure: (6) Supervision of high-risk : QUALIFIERS: Trimester: third trimester Qualified Code(s): O09.93 - Supervision of high risk , unspecified, third trimester COMMENT: PRR, RYLEE: 02/01/25 girl Julia Maldonado : Jimy (7) Family hx of colon cancer: COMMENT: Brother 35 yo- Survivor Maternal Data Information RYLEE Calculator Estimated Delivery Date Method Current WG Current Estimate 02/01/25 LMP (Certain) 40w 4d Other Estimates 01/29/25 Ultrasound #1 41w 0d Final RYLEE: 02/01/25 Final RYLEE Source: LMP Gestational age: 40w4d Doctor Who Attended Delivery: Leela Elder Vaginal Delivery Maternal Presentation Maternal Presentation: Spontaneous Rupture of Membranes Type of Induction: Pitocin Vaginal Delivery Information Procedure Performed: Spontaneous Vaginal Delivery Surgeon/Practitioner: Nina Gamboa Date of Procedure: 02/05/25 Pre-Procedure Diagnosis: @ 40 weeks 4 days, advanced maternal age Post-Procedure Diagnosis: @ 40 weeks 4 days, advanced maternal age Type of anesthesia: Epidural Estimated Blood Loss: 100cc Time of Delivery: 11:46 Findings Description of procedure: Patient began pushing and delivered the head in the MIGUELANGEL presentation. The head was delivered atraumatically. The anterior and posterior shoulders delivered without complication followed by the rest of the infant and the was placed on the maternal abdomen. Delayed cord clamping was employed for approximately 60 seconds. Cord was clamped and cut and gentle traction was applied to the cord and the placenta delivered spontaneously immediately following it was noted to be intact with three-vessel cord. The perineum and vagina were inspected and noted to have a first degree laceration. This was repaird with a 3-0 vicryl. EBL was 100 cc. Patient and infant tolerated delivery well. Procedure findings: Viable female infant Rupa Presentation: Vertex Amniotic Membrane Rupture Type: Spontaneous Amniotic Fluid Description: Moderate meconium Placental Delivery Description: Spontaneous Placenta Disposition: [facility] Cord Vessel Description: 3 Vessels Cord Entanglement: None A Gender: Female (1 minute): 8 (5 minute): 8 Delayed Cord Clamping: Yes Post Vaginal Deli Medications given after delivery: IV Pitocin Laceration: 1st degree Complication Complications: No Multi [facility] Codes Urinary/Genital Urinary/Genital CPT Codes: 57296 Vaginal Delivery [facility]
--- NOTE | 2025-02-05 12:15 | DCINST_ITS ---
Discharge Instructions
--- NOTE | 2025-02-05 12:15 | PCM.DC ---
Discharge Instructions DC O2, CPAP, BIPAP needs Home O2 Discharge instructions: No Dressing / Incision Discharge Activity: Return to Normal Activity, May Not Drive (while taking narcotic pain medications.) and May Shower May resume sexual activity in: 4-6 weeks Dressing / Incision Call your doctor if your incision/area has: Continuous Slow Oozing, Sudden Increased Bleeding, Increased Pain/ Swelling, Increased Redness and Foul Smelling Discharge Follow Up Care Please Follow Up With: Nina Gamboa, When: Call [phone] to make an appointment with your doctor in 6 weeks. If you had elevated blood pressure or 4th degree laceration, you will need to be seen in 2 weeks. Test Results: Test results from this visit will be discussed in further detail at your follow-up appointment, if applicable. Discharge Plan Admission Admit Date/Time: 02/05/25 01:30 Primary Reason for Your Visit: vaginal delivery Attending Provider: Nina Gamboa Primary Care Provider: Tirso Kemp Discharge Orders/Prescriptions Prescriptions: No Action PNV-[place] 28-1-300 mg capsule 1 cap PO DAILY Referrals / Follow Up: Tirso Kemp MD [Primary Care Provider, Family Practice] Disposition Disposition (needs filled in before D/C Order can be placed): Home, Self Care
[2025-02-05] MEDS: Oxytocin 15 Units/NS 250ml 15 UNITS/250 ML IV.SOLN 83 UNITS IV (12:25)
[2025-02-05] MEDS: Lidocaine 1% (20 ml mdv) 20 ML Vial INFILT (12:39)
[2025-02-05] MEDS: Senna/Docusate Sodium 1 Tablet PO (21:33)
[2025-02-06] VITALS (15 sets, daily range): BP systolic 77–105; BP diastolic 40–62; PULSE 56–90; RESP 16; TEMP 35.9–36.5; O2SAT 89–98
--- NOTE | 2025-02-06 07:36 | PCM.PN.OB ---
Subjective Subjective Patient doing well without complaints. Tolerating PO. Ambulating and voiding without difficulty. feeding well. Denies chest pain, shortness of breath, calf pain/swelling, fevers, chills, lightheadedness. Objective Data Objective Data Vital Signs: Vital Signs Temp Pulse Resp BP Pulse Ox O2 Del Method 97.7 F L 59 L 16 95/52 L 97 Room Air 02/06/25 03:38 02/06/25 05:14 02/06/25 03:38 02/06/25 05:14 02/06/25 03:38 02/06/25 03:38 Oxygen Delivery Method Room Air Weight: 186 lb Body Mass Index (BMI) 29.9 Intake & Output: Intake and Output for Last 24 Hours 02/04/25 02/05/25 02/06/25 23:59 23:59 23:59 Intake Total 1926.73 / 1926.73 Output Total 1700 / 1700 Balance 226.73 / 226.73 Lab / Micro Data 02/05/25 01:55 ROS Constitutional Constitutional: Reports systems reviewed and no addt'l complaints, except as documented Cardiovascular Cardiovascular: Reports systems reviewed and no addt'l complaints, except as documented Respiratory/Chest Respiratory/Chest: Reports systems reviewed and no addt'l complaints, except as documented Gastrointestinal Gastrointestinal: Reports systems reviewed and no addt'l complaints, except as documented Physical Exam Const alert, oriented x3 and no apparent distress HEENT Head and Scalp: atraumatic Resp normal respiratory effort GI soft to palpation and non-tender Bimanual Exam - Vag & Uterus: uterus non-tender Uterus Palpation: uterus fundus firm (below Umbilicus) Assessment & Plan (1) Vaginal delivery: COMMENT: Rupa-JV 02/05/25 PLAN: Plan s/p PPD # 1 1. routine post delivery care 2. breast feeding- support given 3. rh positive 4. rubella immune
[2025-02-06 11:28] LABS: Hematocrit 36.7 % (37-47); Hemoglobin 12.4 g/dL (12.0-15.0); Mean Corp Hgb Conc 33.8 g/dL (32-36); Mean Corpuscular Volume 92.0 fL (81-99); Mean Platelet Vol. 10.5 fl (6.2-12.0); Platelet Count 240 K/mm3 (150-450); RBC Distribution Width CV 13.5 % (11.6-14.6); RBC Distribution Width SD 45.5 fl (35.1-43.9); Red Blood Count 3.99 M/mm3 (4.2-5.4); White Blood Count 8.9 K/mm3 (4.4-11.0)
--- NOTE | 2025-02-10 15:30 | NURSING ---
F/up questions asked at appt 02/10/25 at 1530. Pt. is doing well, some pain still, but has been going well and denies s+s of complications. down 5%. No questions or concerns. Encouragement and support given.
== END 2025-02-06 17:00 | disposition home or self-care (01) | DRG 807 ==
LOC: WPOUT 01:47 → WP 01:47
PROVIDERS: Obstetrics & Gynecology; Admitting Provider Obstetrics & Gynecology; PCP Family Medicine; Referring Provider Obstetrics & Gynecology; Visit Provider Obstetrics & Gynecology
DX: O42.02 Full-term premature rupture of membranes, onset of labor within 24 hours of rupture (principal); Z37.0 Single live birth; O70.0 First degree perineal laceration during delivery; O99.820 Streptococcus B carrier state complicating pregnancy; O77.0 Labor and delivery complicated by meconium in amniotic fluid; Z3A.40 40 weeks gestation of pregnancy; Z87.59 Personal history of other complications of pregnancy, childbirth and the puerperium
CPT/HCPCS: 59025; 59050; 84112; 85025; 85027; 86780; 86850; 86900; 86901; 99221; A4216; G0378